=== PATIENT | male | born 1950 | race Caucasian/White ===

== ENCOUNTER 2019-01-02 03:44 | Emergency (ER) | payer MEDICARE, MEDICAID, SELFPAY ==
[2019-01-02] MEDS: DOXYCYCLINE HYCLATE 100 MG TABLET PO (03:55)
[2019-01-02 03:57] VITALS: BP 161/76; PULSE 85; RESP 16; TEMP 36.4; O2SAT 99
--- NOTE | 2019-01-02 04:18 | ED_ITS ---
HPI - Skin/Abscess/Foreign Bdy General Chief complaint: Skin/Abscess/Foreign Body Stated complaint: states upper right arm infection needs drained Time Seen by Provider: 01/02/19 03:47 Source: patient Mode of arrival: Ambulatory Limitations: no limitations History of Present Illness HPI narrative: 68-year-old smoker with history of cutaneous abscesses presents with 1 week of worsening pain, swelling and redness in his right deltoid. He occasionally injects heroin and did the day before this started. He denies any systemic findings such as fever, chills nor nausea or vomiting. The pain and redness is isolated to his right deltoid, he tried draining it on his own last night and was unsuccessful. Related Data Home Medications Medication Instructions Recorded Confirmed buprenorphine-naloxone [Suboxone] 1 evangelista SUBLINGUAL QDAY #0 03/04/17 08/02/17 Previous Rx's Medication Instructions Recorded doxycycline hyclate 100 mg PO BID #20 tab 01/02/19 Allergies Allergy/AdvReac Type Severity Reaction Status Date / Time No Known Drug Allergies Allergy Verified 08/02/17 10:12 Review of Systems Constitutional Constitutional: Denies chills, Denies fatigue, Denies fever(s), Denies frequent falls, Denies lethargy and Denies weakness Eyes Eyes: Denies change in vision, Denies eye discharge, Denies irritation and Sukhi es loss of vision ENT Ears, Nose, Mouth, and Throat: Denies change in voice, Denies dizziness, Denies neck pain, Denies sore throat and Denies throat swelling Cardiovascular Cardiovascular: Denies chest pain, Denies irregular heart rhythm, Denies lightheadedness, Denies palpitations, Denies dyspnea, Denies dyspnea on exertion and Denies orthopnea Respiratory Respiratory: Denies cough, Denies dyspnea, Denies dyspnea on exertion and Denies wheezing Gastrointestinal Gastrointestinal: Denies abdominal pain, Denies change in bowel habits, Denies diarrhea, Denies nausea and Denies vomiting Genitourinary Genitourinary: Denies hematuria, Denies flank pain, Denies urinary incontinence and Denies urinary urgency Musculoskeletal Musculoskeletal: Denies back pain, Denies muscle weakness, Denies neck pain, Denies numbness and Denies tingling Integumentary/Breasts Skin/Breast: Denies pruritus, Reports erythema, Denies rash, Reports skin pain, Reports skin swelling and Denies wounds Neurologic Neurologic: Denies behavioral changes, Denies confusion, Denies dizziness, Denies frequent falls, Denies loss of vision, Denies numbness, Denies tingling and Denies weakness Psychiatric Psychiatric: Denies anxiety, Denies behavioral changes, Denies confusion, Denies depression, Denies homicidal ideation and Denies suicidal ideation Endocrine Endocrine: Denies fatigue, Denies flushing and Denies palpitations Hematologic/Lymphatic Hematologic/Lymphatic: Denies easy bruising Allergic/Immunologic Allergic/Immunologic: Denies urticaria, Denies throat swelling and Denies wheezing PFSH Social History Smoking Status: Current every day smoker Social History Smoking Status: Current every day smoker Exam Narrative Exam Narrative: GEN: 68-year-old male appears a bit older than stated age, AOx3 and in mild distress EYES: Pupils are equal, round, and reactive to light and accommodation. Extraoccular muscles are intact bilaterally. There is no subconjunctival hemorrhage or exudate. CHEST: Lungs are clear to auscultation bilaterally and free of wheezes, rales, or rhonchi. Heart rate is regular rhythm, there are no murmurs, clicks, rubs, or gallops. There is no chest wall tenderness. ABD: Abdomen is soft and nontender. There is no guarding or rebound. Bowel sounds are normal in all 4 quadrants. There is no mass or organomegaly. EXT: Full painless ROM of all extremities with no loss of sensation or strength. SKIN: 3 x 3 cm area of erythema, warmth, swelling and fluctuance and right deltoid consistent with large cutaneous abscess, there is some surrounding cellulitis and induration Initial Vital Signs Initial Vital Signs: Vital Signs Temperature 97.6 F 01/02/19 03:57 Pulse Rate 85 01/02/19 03:57 Respiratory Rate 16 01/02/19 03:57 Blood Pressure 161/76 H 01/02/19 03:57 Pulse Oximetry 99 01/02/19 03:57 Procedures Abscess I/D Site: upper extremity Side (if applicable): right Local Anesthetic: lidocaine 1% and with epi Amount of anesthesia used (mL): 8 Technique: incised with #11 blade Amount of fluid expressed (mL): 15 Irrigation: Yes Packing used?: none Complications: pain Course Orders Ordered: Discontinued Medications Bupivacaine HCl/Epinephrine Bitart (Marcaine 0.25% W/ Epi (Pf)) 5 ml SUBCUT NOW ONE Stop: 01/02/19 03:52 Doxycycline Hyclate (Vibramycin) 100 mg PO NOW ONE Stop: 01/02/19 03:53 Last Admin: 01/02/19 03:55 Dose: 100 mg Documented by: HFARRINGTO Vital Signs Vital signs: Vital Signs - 8 hr 01/02/19 03:57 Temperature 97.6 F Pulse Rate 85 Respiratory Rate 16 Blood Pressure 161/76 H Pulse Oximetry 99 Discharge Plan Departure Patient Disposition: Home Clinical Impression: Cutaneous abscess of right upper extremity Discharge Date/Time: 01/02/19 04:20 Instructions: DI for Skin Abscess Activity Restrictions/Additional Instructions: *You have been diagnosed with [cutaneous abscess right arm] *What to do: *Take medications as directed *Follow up with your primary care provider in 2-3 days, call for an appointment. Let them know you were seen in the Emergency Department and that we ask that you be seen in follow up *Return to ER if you should have any new, worsening or concerning symptoms Prescriptions: New doxycycline hyclate 100 mg tablet 100 mg PO BID Qty: 20 RF: 0 No Action buprenorphine-naloxone [Suboxone] 8 MG/2 MG film 1 evangelista Sublingual QDAY Qty: 0 RF: 0 Referrals: Rod Antonio MD [Physician] -
--- NOTE | 2019-01-02 04:20 | PC.NURSE ---
lidocaine administered by dr brandon
== END 2019-01-02 04:20 | disposition home or self-care (01) ==
PROVIDERS: Emergency Provider Emergency Medicine
DX: L02.413 Cutaneous abscess of right upper limb (principal)
CPT/HCPCS: 10060; 99282; 99283

== ENCOUNTER 2020-05-02 12:04 | Emergency (ER) | payer MEDICARE, MEDICAID, SELFPAY ==
[2020-05-02 12:17] VITALS: BP 142/74; PULSE 78; RESP 12; TEMP 36.6; O2SAT 98; BMI 23.6
[2020-05-02 12:31] LABS: COVID19 -Nasal RAPID POSITIVE (Negative)
--- NOTE | 2020-05-02 12:36 | PC.NURSE ---
Patient reports normal smokers cough states he has been fatigued but that is nothing new intermittent fevers. Patient's roommate positive for COVID two days ago, here requesting a test.
[2020-05-02] MEDS: LIDOCAINE 1% (PF) 4 ML (13:07)
--- NOTE | 2020-05-02 13:13 | ED.URI ---
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 Presents today for 2 reasons the 1st is his roommate was recently tested positive for COVID and he would like a COVID test. He is having some shortness of breath but he says it is hard because he smokes all the time he does not know that it is any worse. He also has a cough but that does not seem to be any worse. He denies fevers chills no loss of taste or smell. He does not seem to have any new respiratory complaints. His 2nd complaint is that he has an abscess in his left arm. He does been there for the last 3 days and is getting worse. Denies fever or chills. Related Data Home Medications Medication Instructions Recorded Confirmed buprenorphine-naloxone [Suboxone] 1 evangelista SUBLINGUAL QDAY #0 03/04/17 08/02/17 Previous Rx's Medication Instructions Recorded doxycycline hyclate 100 mg PO BID #20 tab 01/02/19 sulfamethoxazole-trimethoprim 1 tab PO BID 7 Days #14 tab 05/02/20 [Bactrim DS] Allergies Allergy/AdvReac Type Severity Reaction Status Date / Time No Known Drug Allergies Allergy Verified 05/02/20 12:19 Review of Systems Review of Systems ROS Unobtainable: All systems reviewed & are unremarkable except as noted in HPI and below Constitutional Constitutional: Denies chills, Denies fever(s), Denies lethargy and Denies weakness Eyes Eyes: Denies change in vision, Denies eye discharge, Denies irritation and Denies loss of vision Cardiovascular Cardiovascular: Denies chest pain, Denies irregular heart rhythm, Denies lightheadedness, Denies palpitations, Reports dyspnea and Denies orthopnea Respiratory Respiratory: Reports cough and Reports dyspnea Gastrointestinal Gastrointestinal: Denies abdominal pain, Denies change in bowel habits, Denies diarrhea, Denies nausea and Denies vomiting Integumentary/Breasts Skin/Breast: Reports as per HPI and Reports skin swelling Neurologic Neurologic: Denies loss of vision and Denies weakness Endocrine Endocrine: Denies palpitations Patient History Social History Smoking Status: Current every day smoker Smoking Status: Current every day smoker alcohol intake frequency: 3 or more drinks per day Substance Use Type: marijuana and heroin Exam Initial Vital Signs Initial Vital Signs: Vital Signs Temperature 97.8 F 05/02/20 12:17 Pulse Rate 78 05/02/20 12:17 Respiratory Rate 12 05/02/20 12:17 Blood Pressure 142/74 H 05/02/20 12:17 Pulse Oximetry 98 05/02/20 12:17 GENERAL: 70-year-old male alert and oriented appears well and in no acute distress. HEENT: Head atraumatic,EOMI, pupils reactive, face symmetric, moist mucous membranes CARDIOVASCULAR: Regular rate and rhythm without murmurs, rubs or gallops. RESPIRATORY: Breath sounds equal bilaterally, no wheezes rales or rhonchi. No difficulty speech ABDOMEN: Soft, nontender. Normoactive bowel sounds all 4 quadrants. No guarding or rebound. EXTREMITIES: Normal range of motion, no clubbing or edema. Neurovascularly intact NEUROLOGICAL: Alert and oriented x4.Normal gait and speech. Cranial nerves II through XII grossly intact. SKIN: Abscess left deltoid 3 cm x 2 cm fluctuant no induration Procedures Abscess I/D I&D #1: Site: upper extremity Side (if applicable): left Local Anesthetic: lidocaine 1% Amount of anesthesia used (mL): 2 Technique: incised with #11 blade Irrigation: No Packing used?: none Complications: pain Course Orders Ordered: ED Orders 05/02/20 12:10 COVID19 Stat 05/02/20 13:13 Wound Culture and Gram Stain Stat 05/02/20 13:14 XR chest 2V Stat Vital Signs Vital signs: Vital Signs - 8 hr 05/02/20 12:17 05/02/20 14:20 Temperature 97.8 F Pulse Rate 78 88 Respiratory Rate 12 16 Blood Pressure 142/74 H 150/76 H Pulse Oximetry 98 99 MDM - URI/Sore Throat Lab Data Labs: Lab Results 05/02/20 Range/Units 12:10 SARS-CoV-2 (PCR) Positive H (Negative) Imaging Data Chest x-ray: Radiologist's Impression: PROCEDURE: XR CHEST 2V INDICATIONS: SOB with + COVID TECHNIQUE: 2 views of the chest were acquired. COMPARISON: [facility], , CHEST 1 VIEW, 10/03/2015, 17:29. FINDINGS: Surgical changes and devices: None. Lungs and pleura: Subtle peripheral ground-glass infiltrates are seen in right mid to lower lung zone. Left basilar atelectasis. No pleural effusions or pneumothorax. Mediastinum: Mediastinal contours are normal. Heart size is normal. Bones and chest wall: No suspicious bony abnormalities. Soft tissues appear unremarkable. IMPRESSION: Subtle peripheral ground-glass infiltrates are seen in right mid to lower lung zone, suspicious for atypical pneumonia. Dictated by: Anjelica Truong M.D. on 05/02/2020 at 13:46 MDM Narrative Medical decision making narrative: At this time patient is not requiring oxygen he overall appears well. His abscess on his left arm has been drained. I have explained to him that he can decompensate and he should monitor his oxygen however he does not have the funds for home pule oximeter. I strongly recommended that both he and his roommate quarantine at home says that he has help that he needs. I have also encouraged him that if he is feeling worse that he needs to return to the emergency department. He understands and agrees. He tolerated the abscess I&D extremely well. Discharge Plan Departure Patient Disposition: Home Clinical Impression: Abscess of arm, left, COVID-19 Instructions: DI for Skin Abscess, DI for COVID-19 (Suspected or Confirmed ) Activity Restrictions/Additional Instructions: *You have been diagnosed with COVID-19 and left arm abscess *What to do: Please stay home and quarantine for at least 10 days. It is recommended that you monitor oxygen with a home pulse oximeter, please do your best if you do not have 1. I suspect you may get worse, please monitor very closely and return with any concerns at any time *Continue to take medications as directed Bactrim 1 tablet twice daily for 7 days *Follow up with your primary care provider in 2-3 days *Return to ER if you should have increasing shortness of breath, chest pain, fever, unable to eat or drink or any new, worsening or concerning symptoms Emergency warning signs for COVID-19: - Difficulty breathing or shortness of breath - Persistent pain or pressure in the chest - New confusion or inability to arouse - Bluish lips or face CDC Guidelines for home isolation: - Stay away from others - Limit contact with pets and animals: If you must care for a pet, wash your hands before and after interacting with them - Wear a mask if you are sick - Cover your mouth and nose with a tissue when you cough or sneeze. Dispose of tissues in a lined trash can and wash your hands immediately with soap and water for at least 20 seconds. If soap and water are not available, clean hands with alcohol-based hand planer setter that contains at least 60% alcohol. - Clean your hands often with soap and water for at least 20 seconds - Avoid touching your eyes, nose and mouth with unwashed hands - Do not share dishes, drinking glasses, cups, eating utensils, towels, or bedding with other people in your home. After using these items, wash them thoroughly with soap and water or put in the efficiency miner. - Clean high-touch surfaces in your isolation area (?sick room? and bathroom) every day; let a caregiver clean and disinfect high-touch surfaces in other areas of the home. Clean the area or item with soap and water or another detergent if it is dirty. Then, use a household disinfectant. Seek medical attention, but call first: - Seek medical care right away if your illness is worsening (for example, if you have difficulty breathing). - Call your doctor before going in: Before going to the doctor?s office or emergency room, call ahead and tell them your symptoms. They will tell you what to do. - If possible, put on a facemask before you enter the building. If you can?t put on a facemask, try to keep a safe distance from other people (at least 6 feet away). This will help protect the people in the office or waiting room. - Follow care instructions from your healthcare provider and local health department: Your local health authorities will give instructions on checking your symptoms and reporting information. Prescriptions: New sulfamethoxazole-trimethoprim [Bactrim DS] 800-160 mg tablet 1 tab PO BID 7 Days Qty: 14 RF: 0 No Action buprenorphine-naloxone [Suboxone] 8 MG/2 MG film 1 evangelista Sublingual QDAY Qty: 0 RF: 0 doxycycline hyclate 100 mg tablet 100 mg PO BID Qty: 20 RF: 0
[2020-05-02 14:20] VITALS: BP 150/76; PULSE 88; RESP 16; O2SAT 99
== END 2020-05-02 14:21 | disposition home or self-care (01) ==
PROVIDERS: Emergency Provider Emergency Medicine
DX: U07.1 COVID-19 (principal); L02.414 Cutaneous abscess of left upper limb; R05 Cough; R06.02 Shortness of breath
CPT/HCPCS: 10060; 71046; 87070; 87077; 87147; 87185; 87186; 87205; 87635; 99282; 99283; C9803

== ENCOUNTER 2020-07-31 10:41 | Emergency (ER) | payer MEDICARE, MEDICAID, SELFPAY ==
[2020-07-31 11:28] VITALS: BP 134/69; PULSE 69; RESP 18; TEMP 36.9; O2SAT 96; BMI 20.9
--- NOTE | 2020-07-31 13:12 | ED.SKABFB ---
HPI - Skin/Abscess/Foreign Bdy General Chief complaint: Skin/Abscess/Foreign Body Stated complaint: skin infection on left arm, wants back looked at Time Seen by Provider: 07/31/20 13:03 Source: patient Mode of arrival: Ambulatory Limitations: no limitations History of Present Illness HPI narrative: Patient is a 70-year-old male here for evaluation of an infection to his left upper arm. He states that is been there for the past several weeks. He states there was a small area on it that when he picked added drained and has been draining however there is still redness. He did use this area to inject heroin. He has had infections in the past. He is not having any fevers. He has no other skin changes. He also states he has been having mid back pain. This is not new for him. He has had it for the past several months. He has no neurologic symptoms down into his legs. No loss of bowel or bladder. He does thinks that his back pain has been worsening during this time. Related Data Home Medications Medication Instructions Recorded Confirmed buprenorphine-naloxone [Suboxone] 1 evangelista SUBLINGUAL QDAY #0 03/04/17 08/02/17 Previous Rx's Medication Instructions Recorded doxycycline hyclate 100 mg PO BID #20 tab 01/02/19 doxycycline hyclate 100 mg PO BID 7 Days #14 tab 07/31/20 Allergies Allergy/AdvReac Type Severity Reaction Status Date / Time No Known Drug Allergies Allergy Verified 05/02/20 12:19 Review of Systems Constitutional Constitutional: Denies fatigue, Denies fever(s) and Denies headache(s) Eyes Eyes: Denies change in vision ENT Ears, Nose, Mouth, and Throat: Denies headache(s) and Denies sore throat Cardiovascular Cardiovascular: Denies chest pain and Denies dyspnea Respiratory Respiratory: Denies dyspnea Gastrointestinal Gastrointestinal: Denies abdominal pain, Denies nausea and Denies vomiting Genitourinary Genitourinary: Denies dysuria, Denies urinary hesitancy, Denies urinary incontinence and Denies urinary urgency Genitourinary: Denies dysuria, Denies urinary incontinence, Denies urinary hesitancy and Denies urinary urgency Musculoskeletal Musculoskeletal: Denies arthralgias, Reports back pain, Denies myalgias and Denies tingling Integumentary/Breasts Skin/Breast: Reports rash Neurologic Neurologic: Denies headache(s), Denies tingling and Denies paresthesias Psychiatric Psychiatric: Denies anxiety Endocrine Endocrine: Denies fatigue Hematologic/Lymphatic On Anticoagulants: No Allergic/Immunologic Allergic/Immunologic: Denies urticaria Patient History Medical History Abscess Acute CVA (cerebrovascular accident) Heroin abuse Social History Smoking Status: Current every day smoker Smoking Status: Current every day smoker alcohol intake frequency: 3 or more drinks per day Substance Use Type: marijuana and heroin Exam Initial Vital Signs Initial Vital Signs: Vital Signs Temperature 98.4 F 07/31/20 11:28 Pulse Rate 69 07/31/20 11:28 Respiratory Rate 18 07/31/20 11:28 Blood Pressure 134/69 07/31/20 11:28 Pulse Oximetry 96 07/31/20 11:28 Const General: cooperative and comfortable Limitations: mental status not altered HENMT Head: normal to inspection and normocephalic Ears: hearing grossly normal bilaterally Nose: external nose normal Eyes General: appearance normal, both eyes and all related structures Resp Effort & Inspection: normal respiratory effort Auscultation: clear to auscultation bilaterally Cardio Rate: regular rate Rhythm: regular rhythm GI Inspection: non-distended Palpation: No firm Back/Spine/Pelvis Cervical Spine: No cervical muscular tenderness Thoracic/Lumbar Spine: No paraspinal tenderness, No thoracic spinal tenderness and No lumbar spinal tenderness Skin Other: Patient with a large area of redness in his left upper arm. It is contained to the lateral aspect and does not cross shoulder joint nor his elbow. There is no drainage. Bedside ultrasound shows no deep abscess. Neuro General: patient alert, patient awake and patient oriented x3 Cognition: normal cognition Speech: speech normal Gait: normal gait Motor: muscle tone normal throughout Sensory Exam: no sensory deficits noted Extrem General: normal to inspection and capillary refill normal Psych Appearance: grossly normal and well kempt Course Orders Ordered: ED Orders 07/31/20 13:12 Consult to [employer] SAL[employer] TECHNICAL CONSULTANT - Hand Cloth Folder Stat Discontinued Medications Doxycycline Hyclate (Doxycycline Hyclate 100 Mg Tablet) 100 mg PO NOW ONE Stop: 07/31/20 13:12 Last Admin: 07/31/20 13:17 Dose: 100 mg Documented by: RSTONE Vital Signs Vital signs: Vital Signs - 8 hr 07/31/20 11:28 07/31/20 14:32 Temperature 98.4 F Pulse Rate 69 83 Respiratory Rate 18 18 Blood Pressure 134/69 177/81 H Pulse Oximetry 96 99 MDM - Skin/Abscess/Foreign Bdy MDM Narrative Medical decision making narrative: His left upper arm redness is concerning for cellulitis. Bedside ultrasound does not show any deep abscess. He is afebrile. He is complaining of mid back pain but this has been going on for several weeks if not months. He has no other neurologic symptoms associated with that. I did consider other issues such as paraspinal abscess given his IV drug abuse however he is afebrile and has no neurologic symptoms and the length of time that this has been going on is more consistent with musculoskeletal etiology. He does not have a primary care doctor. He was seen by social work here in the emergency department. He was given phone numbers and resources for follow-up. He was given strict return precautions. Prescription for antibiotics was electronically transmitted to the pharmacy of his choice. He expressed understanding and agreement. Discharge Plan Departure Patient Disposition: Home Clinical Impression: Cellulitis of arm, left Instructions: DI for Cellulitis -- Adult Activity Restrictions/Additional Instructions: I recommend that you take the antibiotics as directed. They were electronically transmitted to [facility]. I also recommend you contact the health resource is coordinator at the hospital. Their phone numbers [phone]. They can help with finding a primary doctor. You can also contact [phone]. [place] you can contact [facility] at [phone]. You can also contact the [facility] at [phone] to help with housing. Return to the emergency department for any new or worsening symptoms Prescriptions: New doxycycline hyclate 100 mg tablet 100 mg PO BID 7 Days Qty: 14 RF: 0 No Action buprenorphine-naloxone [Suboxone] 8 MG/2 MG film 1 evangelista Sublingual QDAY Qty: 0 RF: 0 doxycycline hyclate 100 mg tablet 100 mg PO BID Qty: 20 RF: 0
[2020-07-31] MEDS: DOXYCYCLINE HYCLATE 100 MG TABLET PO (13:17)
--- NOTE | 2020-07-31 14:28 | CM.SWNOTE ---
ORDNANCE OFFICER note ORDNANCE OFFICER consult requested for patient. Patient is a 70 y/o male who presents to this ED due to an infection in his arm. Per Dr. Jiménez, patient does not have a PCP, but is interested in establishing care with a PCP to begin assessing and treating any physical health concerns he may have. ORDNANCE OFFICER enters room and meets with patient. Patient is A+O x4, polite, and explains that he is interested in starting to meet with a doctor. Patient explains that he has not had a regular provider previously. ORDNANCE OFFICER and patient discuss options for this. Patient explains that he would prefer a provider in [place], but is open to establishing care in [facility] if needed. ORDNANCE OFFICER offers to call [facility] to see if there are openings and patient accepts. ORDNANCE OFFICER and patient discuss housing. Patient has had unstable housing all my life and states he is trying to find housing of own. Patient is currently not on housing lists. ORDNANCE OFFICER explains process for getting on housing list through [employer] via [facility], and patient agreeable to phone number for [facility] in d/c notes. ORDNANCE OFFICER attempts to contact [facility] to establish primary care. ORDNANCE OFFICER ends call due to long hold time. ORDNANCE OFFICER discusses this with patient, who is agreeable to phone numbers for [facility] and [facility] in d/c notes. ORDNANCE OFFICER reviews the above with Dr. Jiménez. Plan: Patient to d/c after course of care in ED. ANGELLA Fam
[2020-07-31 14:32] VITALS: BP 177/81; PULSE 83; RESP 18; O2SAT 99
== END 2020-07-31 14:52 | disposition home or self-care (01) ==
PROVIDERS: Emergency Provider Emergency Medicine
DX: L03.114 Cellulitis of left upper limb (principal)
CPT/HCPCS: 99283

== ENCOUNTER 2020-10-07 19:07 | Inpatient (IN) | payer MEDICARE, MEDICAID, SELFPAY ==
[2020-10-07] VITALS (29 sets, daily range): BP systolic 89–117; BP diastolic 55–75; PULSE 78–137; RESP 11–30; TEMP 36.2–36.4; O2SAT 93–97; BMI 24.9
[2020-10-07] MEDS: SODIUM CHLORIDE 0.9% 1,000 ML 1000 ML IV (19:10)
--- NOTE | 2020-10-07 19:17 | DI.RAD.S_ITS ---
PROCEDURE: XR CHEST 1V INDICATIONS: suspected sepsis TECHNIQUE: One view of the chest was acquired. COMPARISON: [facility], CR, XR CHEST 2V, 05/02/2020, 13:22. FINDINGS: Surgical changes and devices: None. Lungs and pleura: Patchy ill-defined right lower lung zone opacities as well as left basilar opacities. No focal consolidation. No pleural effusions or pneumothorax. Mediastinum: Mediastinal contours appear normal. Heart size is normal. Bones and chest wall: No suspicious bony lesions. Overlying soft tissues appear unremarkable. IMPRESSION: Ill-defined patchy bibasilar opacities which appear more pronounced on the left. Findings may represent atypical pneumonia versus early developing focal airspace disease. Recommend follow up chest radiograph 4-6 weeks after treatment to document resolution of findings and/or return to baseline examination. Dictated by: Víctor Galarza M.D. on 10/07/2020 at 20:26 Approved by: Víctor Galarza M.D. on 10/07/2020 at 20:27
[2020-10-07 19:58] LABS: Add Manual Diff / Slide Review NO; Basophils Absolute Auto 0 /uL (0-100); Basophils Percent Auto 0.2 % (0-2); Eosinophils Absolute Auto 0 /uL (0-450); Eosinophils Percent Auto 0.2 % (2-4); Hematocrit 48.5 % (41-53); Lymphocytes Absolute Auto 200 /uL (1100-4500); Lymphocytes Percent Auto 1.1 % (25-40); Mean Corpuscular Hemoglobin 31.2 PG (26-34); Mean Corpuscular Volume 94.5 fL (80-100); Monocytes Absolute Auto 100 /uL (0-900); Monocytes Percent Auto 0.5 % (3-14); Neutrophils Absolute Auto 14300 /uL (1500-7000); Platelet Count 229 X10^3/uL (150-400); Red Blood Cell Count 5.13 X10^6/uL (4.5-5.9); Red Cell Distribution Width 14.2 % (11.6-14.8); White Blood Cell Count 14.6 X10^3/uL (4.5-11.0)
--- NOTE | 2020-10-07 20:03 | ED_ITS ---
HPI - General Adult General Chief complaint: Altered Mental Status Stated complaint: Weakness, SOB, x2 days Time Seen by Provider: 10/07/20 19:44 Source: EMS Mode of arrival: EMS Limitations: altered mental status History of Present Illness HPI narrative: Patient is a 70-year-old male who is brought in by EMS for ev aluation of lower extremity weakness. Patient states that he called EMS because for the past 24 hours he has noticed lower extremity weakness. There was reports that he has had an extensive alcohol use history but states he has not drank since this morning. He also is an IV drug abuser. After EMS arrived to the house he has to go use the restroom and admitted to shooting up heroin at that time. Other than the lower extremity weakness he denies any other symptoms. Has not tried anything for symptoms prior to arrival. No interventions from EMS prior to arrival. Related Data Home Medications Medication Instructions Recorded Confirmed buprenorphine 8 mg-naloxone 2 mg 1 evangelista SUBLINGUAL QDAY #0 03/04/17 08/02/17 sublingual film (Suboxone) Previous Rx's Medication Instructions Recorded doxycycline hyclate 100 mg tablet 100 mg PO BID #20 tab 01/02/19 Allergies Allergy/AdvReac Type Severity Reaction Status Date / Time No Known Drug Allergies Allergy Verified 10/07/20 19:09 Review of Systems Constitutional Constitutional: Denies fever(s) and Reports weakness Eyes Eyes: Reports system reviewed and no additional complaints, except as documented ENT Ears, Nose, Mouth, and Throat: Denies sore throat Cardiovascular Cardiovascular: Reports system reviewed and no additional complaints, except as documented, Denies chest pain and Denies dyspnea Respiratory Respiratory: Denies cough and Denies dyspnea Gastrointestinal Gastrointestinal: Denies abdominal pain, Denies change in bowel habits, Denies nausea and Denies vomiting Genitourinary Genitourinary: Denies dysuria Musculoskeletal Musculoskeletal: Reports muscle weakness (Lower extremities) Integumentary/Breasts Skin/Breast: Reports system reviewed and no additional complaints, except as documented Neurologic Neurologic: Reports weakness Psychiatric Psychiatric: Reports system reviewed and no additional complaints, except as documented Endocrine Endocrine: Reports system reviewed and no additional complaints, except as documented Hematologic/Lymphatic On Anticoagulants: No Allergic/Immunologic Allergic/Immunologic: Reports system reviewed and no additional complaints, except as documented Patient History Medical History Abscess Acute CVA (cerebrovascular accident) Heroin abuse Social History Smoking Status: Current every day smoker Smoking Status: Current every day smoker alcohol intake frequency: 3 or more drinks per day Substance Use Type: marijuana and heroin Exam Initial Vital Signs Initial Vital Signs: Vital Signs Temperature 97.2 F L 10/07/20 19:15 Pulse Rate 136 H 10/07/20 19:15 Pulse Oximetry 96 10/07/20 19:15 Const General: disheveled and ill appearing HENMT Head: normal to inspection and normocephalic Eyes General: appearance normal, both eyes and all related structures Neck Neck: normal visual inspection Chest Chest: No crepitus Resp Effort & Inspection: tachypneic Auscultation: clear to auscultation bilaterally Cardio Rate: tachycardic Rhythm: regular rhythm GI Inspection: normal to inspection and non-distended External: normal external exam Skin General: no rashes or lesions noted Neuro General: patient alert, patient awake and patient oriented x3 Motor: muscle tone normal throughout Other: Patient able to lift both legs off the bed. Strength 5/5 lower extremity equal bilateral. Upper extremity strength equal, 5/5 bilateral Extrem General: normal to inspection and capillary refill normal Psych Appearance: disheveled Course Orders Ordered: ED Orders 10/08/20 00:35 EC echo doppler complete Stat Discontinued Medications Albuterol/Ipratropium (Albuterol/Ipratropium 3 Ml Ampul) 3 ml INH NOW ONE Stop: 10/07/20 19:51 Last Admin: 10/07/20 21:13 Dose: Not Given Documented by: [email or web address] Sodium Chloride (Normal Saline 0.9%) 1,000 mls @ 1,000 mls/hr IV BOLUS ONE Stop: 10/07/20 20:16 Last Infusion: 10/07/20 22:54 Dose: 0 mls/hr Documented by: [email or web address] Admin: 10/07/20 19:10 Dose: 1,000 mls/hr Documented by: [email or web address] Ceftriaxone Sodium 1,000 mg/ (Sodium Chloride) 100 mls @ 200 mls/hr IV NOW ONE Stop: 10/07/20 20:52 Last Infusion: 10/07/20 22:55 Dose: 0 mls/hr Documented by: [email or web address] Infusion: 10/07/20 21:03 Dose: 0 mls/hr Documented by: [email or web address] Admin: 10/07/20 21:03 Dose: 200 mls/hr Documented by: CTREACHERELLE Vancomycin HCl (Vancomycin) 1,000 mg in 200 mls @ 200 mls/hr IV NOW ONE Stop: 10/07/20 23:24 Last Infusion: 10/07/20 23:52 Dose: 0 mls/hr Documented by: [email or web address] Admin: 10/07/20 22:40 Dose: 200 mls/hr Documented by: [email or web address] Sodium Chloride (Normal Saline 0.9%) 1,100 mls @ 1,000 mls/hr IV BOLUS ONE Stop: 10/07/20 23:39 Last Infusion: 10/07/20 22:54 Dose: 0 mls/hr Documented by: [email or web address] Admin: 10/07/20 22:41 Dose: 1,000 mls/hr Documented by: [email or web address] Vital Signs Vital signs: Vital Signs - 8 hr 10/08/20 00:20 10/08/20 00:30 10/08/20 00:40 Pulse Rate 79 78 76 Respiratory Rate 18 16 18 Blood Pressure 92/60 93/59 L 96/59 L Pulse Oximetry 96 97 98 10/08/20 00:50 10/08/20 01:00 10/08/20 01:10 Pulse Rate 79 78 79 Respiratory Rate 15 14 14 Blood Pressure 99/61 100/61 101/63 Pulse Oximetry 99 97 97 10/08/20 01:20 10/08/20 01:30 10/08/20 01:40 Pulse Rate 78 78 75 Respiratory Rate 14 16 14 Blood Pressure 99/63 101/62 98/61 Pulse Oximetry 97 97 98 10/08/20 01:50 10/08/20 02:00 10/08/20 02:10 Pulse Rate 74 73 73 Respiratory Rate 15 18 15 Blood Pressure 103/62 99/61 95/57 L Pulse Oximetry 98 96 100 10/08/20 02:20 10/08/20 02:30 10/08/20 02:40 Pulse Rate 72 72 71 Respiratory Rate 15 18 16 Blood Pressure 103/56 L 91/56 L 97/57 L Pulse Oximetry 98 84 L 10/08/20 02:50 10/08/20 03:00 10/08/20 03:10 Pulse Rate 72 74 71 Respiratory Rate 13 16 13 Blood Pressure 97/60 103/62 100/63 Pulse Oximetry 94 96 97 10/08/20 03:20 10/08/20 03:30 10/08/20 03:40 Pulse Rate 71 71 70 Respiratory Rate 14 15 12 Blood Pressure 105/63 92/61 102/60 Pulse Oximetry 97 96 95 10/08/20 03:50 10/08/20 04:00 10/08/20 04:10 Pulse Rate 70 71 68 Respiratory Rate 14 14 13 Blood Pressure 102/60 97/60 102/61 Pulse Oximetry 95 95 96 10/08/20 04:20 10/08/20 04:30 10/08/20 04:40 Pulse Rate 68 67 70 Respiratory Rate 12 15 20 Blood Pressure 100/60 100/62 96/62 Pulse Oximetry 77 L 92 97 10/08/20 04:50 10/08/20 05:00 10/08/20 05:10 Pulse Rate 75 66 67 Respiratory Rate 22 21 19 Blood Pressure 100/60 99/62 100/62 Pulse Oximetry 98 96 96 Medical Decision Making Lab Data Lab results reviewed: Yes I reviewed the patient's lab results. Result diagrams: 10/07/20 19:40 10/07/20 20:00 Labs: Lab Results 10/07/20 10/07/20 10/07/20 Range/Units 19:40 20:00 20:00 WBC 14.6 H (4.5-11.0) X10^3/uL RBC 5.13 (4.5-5.9) X10^6/uL Hgb 16.0 (13.5-17.5) g/dL Hct 48.5 (41-53) % MCV 94.5 (80-100) fL MCH 31.2 (26-34) PG MCHC 33.0 (30-36) % RDW 14.2 (11.6-14.8) % Plt Count 229 (150-400) X10^3/uL Neut % (Auto) 98.0 H (50-75) % Lymph % (Auto) 1.1 L (25-40) % [place] % (Auto) 0.5 L (3-14) % Eos % (Auto) 0.2 L (2-4) % Baso % (Auto) 0.2 (0-2) % Neut # (Auto) 25290 H (7829-8711) /uL Lymph # (Auto) 200 L (6779-8228) /uL [place] # (Auto) 100 (0-900) /uL Eos # (Auto) 0 (0-450) /uL Baso # (Auto) 0 (0-100) /uL Sodium 136 L (137-145) mmol/L Potassium 3.7 (3.4-5.1) mmol/L Chloride 106 (98-107) mmol/L Carbon Dioxide 21 L (22-32) mmol/L BUN 18 (9-20) mg/dL Creatinine 1.26 H (0.66-1.25) mg/dL Estimated GFR 56.6 L (>60) mL/min BUN/Creatinine Ratio 14.3 (6-22) Glucose 111 H (80-110) mg/dL Lactate 4.5 H* (0.7-2.1) mmol/L Calcium 9.3 (8.4-10.2) mg/dL Total Bilirubin 0.6 (0.2-1.3) mg/dL AST 148 H (17-59) IU/L ALT 44 (<50) IU/L Alkaline Phosphatase 104 (38-126) U/L Total Protein 7.2 (6.3-8.2) g/dL Albumin 3.7 (3.5-5.0) g/dL Globulin 3.5 (1.7-4.1) g/dL Albumin/Globulin Ratio 1.1 (1.0-2.8) Lipase 29 (23-300) U/L Procalcitonin 42.5 H (<0.5) ng/mL Ethyl Alcohol ( - 10) mg/dL SARS-CoV-2 (PCR) (Negative) 10/07/20 10/07/20 10/07/20 Range/Units 20:00 20:10 22:30 WBC (4.5-11.0) X10^3/uL RBC (4.5-5.9) X10^6/uL Hgb (13.5-17.5) g/dL Hct (41-53) % MCV (80-100) fL MCH (26-34) PG MCHC (30-36) % RDW (11.6-14.8) % Plt Count (150-400) X10^3/uL Neut % (Auto) (50-75) % Lymph % (Auto) (25-40) % [place] % (Auto) (3-14) % Eos % (Auto) (2-4) % Baso % (Auto) (0-2) % Neut # (Auto) (6145-8199) /uL Lymph # (Auto) (8604-9060) /uL [place] # (Auto) (0-900) /uL Eos # (Auto) (0-450) /uL Baso # (Auto) (0-100) /uL Sodium (137-145) mmol/L Potassium (3.4-5.1) mmol/L Chloride (98-107) mmol/L Carbon Dioxide (22-32) mmol/L BUN (9-20) mg/dL Creatinine (0.66-1.25) mg/dL Estimated GFR (>60) mL/min BUN/Creatinine Ratio (6-22) Glucose (80-110) mg/dL Lactate 1.9 (0.7-2.1) mmol/L Calcium (8.4-10.2) mg/dL Total Bilirubin (0.2-1.3) mg/dL AST (17-59) IU/L ALT (<50) IU/L Alkaline Phosphatase (38-126) U/L Total Protein (6.3-8.2) g/dL Albumin (3.5-5.0) g/dL Globulin (1.7-4.1) g/dL Albumin/Globulin Ratio (1.0-2.8) Lipase (23-300) U/L Procalcitonin (<0.5) ng/mL Ethyl Alcohol < 10 ( - 10) mg/dL SARS-CoV-2 (PCR) Negative (Negative) Imaging Data Chest x-ray: Radiologist's Impression: [address] [id number] ReportSigned Patient: Mino Benitez FMR#: [id number]: 1950Acct:[id number]/Sex: 70 / MDate of Service: 10/07/20Loc: EDAccession Number: [id number] Procedure: XR chest 1V Ordering Provider: Morgan Jiménez D.O. PROCEDURE: XR CHEST 1V INDICATIONS: suspected sepsis TECHNIQUE: One view of the chest was acquired. COMPARISON: [facility], , XR CHEST 2V, 05/02/2020, 13:22. FINDINGS: Surgical changes and devices: None. Lungs and pleura: Patchy ill-defined right lower lung zone opacities as well as left basilar opacities. No focal consolidation. No pleural effusions or pneumothorax. Mediastinum: Mediastinal contours appear normal. Heart size is normal. Bones and chest wall: No suspicious bony lesions. Overlying soft tissues appear unremarkable. IMPRESSION: Ill-defined patchy bibasilar opacities which appear more pronounced on the left. Findings may represent atypical pneumonia versus early developing focal airspace disease. Recommend follow up chest radiograph 4-6 weeks after treatment to document resolution of findings and/or return to baseline examination. Dictated by: Víctor Galarza M.D. on 10/07/2020 at 20:26 Approved by: Víctor Galarza M.D. on 10/07/2020 at 20:27 ECG Data Attestation: I personally reviewed and interpreted this ECG as follows: Interpretation: Sinus tachycardia Ventricular rate of 130 Normal axis Normal QRS Normal QTC No ST T wave changes MDM Narrative Medical decision making narrative: Patient denies any medical problems. He denies taking any medications. His only symptom upon arrival was bilateral lower extremity weakness. He did admit to shooting up heroin just prior to arrival. When he did arrive he was tachycardic and tachypneic. He was afebrile. Chest x-ray could have some findings that are concerning for pneumonia however his physical exam is not consistent with this. He is not coughing. Is not having any shortness of breath. Has clear lung exam. Had a difficult time obtaining IV access given his IV drug abuse. A midline was placed by the PICC nurse. Blood cultures were obtained. Does have leukocytosis and initially had an elevated lactate which improved with time and fluids here in the ER. I do have some suspicion that his clinical presentation upon arrival is related to the heroin he injected just prior however given his physical exam and also his labs and vital signs he was treated as sepsis especially given his elevated procalcitonin. Was given antibiotics. Cultures were obtained. After fluids were administered his vital signs improved he also stated that he felt better. Given his IV drug abuse there is some concern about endocarditis. He is does not have any murmur on exam. Patient was in the emergency department for an extended period of time given the fact that there was no bed availability in the hospital. I did discuss the case with PRUDENCIO dickerson however we will hold on admission for now. Due to bed availability. An echocardiogram is ordered for morning. Discussed the case with Dr. Borja with Internal Medicine will admit for further evaluation and treatment. Critical Care Time Critical Care Time Critical Care Time: Yes Total Critical Care Time: 40 Attestation: The high probability of a clinically significant, sudden or life threatening deterioration of the cardiovascular, respiratory system(s) required my full and direct attention, intervention and personal management. The aggregate critical care time was 40 minutes. This time is in addition to time spent performing reported procedures but includes the following: [x] Data Review and interpretation [x] Patient assessment and monitoring of vital signs [x] Documentation [x] Medication orders and management Discharge Plan Departure Patient Disposition: Admitted As Inpatient Clinical Impression: Sepsis, IV drug abuse
[2020-10-07 20:35] LABS: Alanine Aminotransferase 44 IU/L (<50); Albumin 3.7 g/dL (3.5-5.0); Albumin Globulin Ratio 1.1 (1.0-2.8); Alkaline Phosphatase 104 U/L (38-126); Aspartate Aminotransferase 148 IU/L (17-59); BUN Creatinine Ratio 14.3 (6-22); Bilirubin Total 0.6 mg/dL (0.2-1.3); Blood Urea Nitrogen 18 mg/dL (9-20); Calcium 9.3 mg/dL (8.4-10.2); Carbon Dioxide 21 mmol/L (22-32); Chloride 106 mmol/L (98-107); Estimated Glomerular Filt Rate 56.6 mL/min (>60); Globulin 3.5 g/dL (1.7-4.1); Glucose 111 mg/dL (80-110); HEMOLYSIS 20 (0-50); Lipase 29 U/L (23-300); Potassium 3.7 mmol/L (3.4-5.1); Sodium 136 mmol/L (137-145); Total Protein 7.2 g/dL (6.3-8.2)
[2020-10-07 20:49] LABS: Lactate (Lactic Acid) 4.5 mmol/L (0.7-2.1)
[2020-10-07 20:50] LABS: Procalcitonin 42.5 ng/mL (<0.5)
[2020-10-07] MEDS: cefTRIAXone 1,000 MG in SODIUM CHLORIDE 0.9% 100 ML 200 ML IV (21:03)
[2020-10-07 21:16] LABS: Ethanol (ETOH) < 10 mg/dL
[2020-10-07 21:16] LABS: COVID19 - ADMIT (NP swab/PCR) Negative (Negative)
[2020-10-07 22:15] LABS: Reflexed Lactate in 2 Hours Y
[2020-10-07] MEDS: VANCOMYCIN 1,000 MG/200 ML PIGGYBACK 200 MG IV (22:40)
[2020-10-07] MEDS: SODIUM CHLORIDE 0.9% 1,100 ML 1000 ML IV (22:41)
[2020-10-07 22:46] LABS: Lactate 2HR (Lactic Acid Rflx) 1.9 mmol/L (0.7-2.1)
[2020-10-08] VITALS (86 sets, daily range): BP systolic 87–112; BP diastolic 50–68; PULSE 63–99; RESP 12–36; TEMP 36.1–36.8; O2SAT 77–100; BMI 24.9
--- NOTE | 2020-10-08 00:35 | DI.ECHO.S_ITS ---
[facility]---------+ [facility] +---------+ : : [address] : : : : [id number] : : : : Phone: [phone] Echocardiogram Report + + :Name: WALE SANCHEZ Study Date: 10/08/2020 Height: 66 in : :[facility] ReadingLocation: Weight: 154 lb: : Gender: Male BSA: 1.8 m2 : :: 1950 Age: 70 yrs BP: 99/62 mmHg: :Reason For Study: EVAL FOR ENDOCARDITIS : :Ordering Physician: PILAR, : :UDLCE Performed By: Chayito Lewis : :Referring: DULCE QUEZADA : + + Interpretation Summary The left ventricle is normal in size and wall thickness. Left ventricular systolic function is low normal. The ejection fraction is estimated to be 50- 55%. There are no obvious focal wall motion abnormalities noted but poor endocardial definition reduces the sensitivity for the detection of such. Diastolic parameters suggest probable normal left ventricular diastolic function and normal filling pressures. The right ventricle is normal size. Right ventricular systolic function is at the lower limits of normal. Pulmonary artery pressures cannot be estimated because of the lack of a measurable TR jet velocity but the IVC suggests a CVP of around 3 mmHg. The left atrium is mildly dilated. Right atrial size is normal. There is mild aortic regurgitation. There is no other significant valvular heart disease. The aortic root is normal size. No significant evidence for endocarditis. Procedure: A two-dimensional transthoracic echocardiogram with color flow and Doppler was performed. The study quality was technically adequate. The patient had an echocardiogram, but there is no comparison study available. The patient was in sinus rhythm with heart rates between 65-72 bpm during the exam. Left Ventricle: The left ventricle is normal in size and wall thickness. Left ventricular systolic function is low normal. The ejection fraction is estimated to be 50-55%. There are no obvious focal wall motion abnormalities noted but poor endocardial definition reduces the sensitivity for the detection of such. Diastolic parameters suggest probable normal left ventricular diastolic function and normal filling pressures. Right Ventricle: The right ventricle is normal size. Right ventricular systolic function is at the lower limits of normal. Atria: The left atrium is mildly dilated. Right atrial size is normal. There is no Doppler evidence for an interatrial shunt. Mitral Valve: The mitral valve leaflets appear borderline thickened, but open well. There is trace mitral regurgitation. Aortic Valve: The aortic valve is trileaflet. The aortic valve is mildly calcified. There is no aortic valve stenosis. There is mild aortic regurgitation. Tricuspid Valve: The tricuspid valve is normal in structure and function. There is trace tricuspid regurgitation. Pulmonary artery pressures cannot be estimated because of the lack of a measurable TR jet velocity but the IVC suggests a CVP of around 3 mmHg. Pulmonic Valve: The pulmonic valve leaflets are thin and pliable; valve motion is normal. There is no pulmonic valvular regurgitation. There is no other significant valvular heart disease. Great Vessels: The aortic root is normal size. The dimensions of the ascending aorta are normal. The IVC is of normal diameter and collapses greater than 50% with a sniff. This suggests a low right atrial pressure of 3 mm Hg. Pericardium/ Pleura There is no pericardial effusion. There is no pleural effusion. MMode/2D Measurements & Calculations LVIDd: 4.5 cm LVOT diam: 2.0 cm LVIDs: 3.1 cm Ao root diam: 3.6 cm FS: 30.4 % asc Aorta Diam: 3.2 cm IVSd: 0.73 cm Ao Arch Diam (Prox Trans): 2.9 cm LVPWd: 0.72 cm LV petty. diameter/BSA (cm/m^2): 2.5 LV sys. diameter/BSA (cm/m^2): 1.8 LA A2 area: 18.3 cm2 RA long axis: 5.1 cm LA A4 area: 20.0 cm2 RA area: 17.7 cm2 LA length (vol): 4.8 cm RA vol: 52.7 ml LA vol: 64.0 ml RA : 29.4 ml/m2 LA vol index: 35.8 ml/m2 IVC diam: 1.1 cm RVD1 (basal): 3.2 cm TAPSE: 1.4 cm Doppler Measurements & Calculations Ao V2 max: 88.0 cm/sec LVOT Max Jorge Alberto: 80.7 cm/sec Ao V2 mean: 59.9 cm/sec LV V1 max P.6 mmHg Ao max P.1 mmHg LV V1 VTI: 17.5 cm Ao mean P.6 mmHg ATA(I,D): 3.1 cm2 Ao V2 VTI: 18.0 cm ATA(V,D): 3.0 cm2 sev ratio: 0.97 ATA indexed to BSA (cm^2/m^2): 1.8 MV E max jorge alberto: 75.5 cm/sec PA V2 max: 47.6 cm/sec MV A max jorge alberto: 76.3 cm/sec PA V2 mean: 30.8 cm/sec MV E/A: 0.99 PA mean P.43 mmHg Med Peak E' Jorge Alberto: 5.8 cm/sec PA pr(Accel): 24.2 mmHg E/E' med: 13.0 Lat Peak E' Jorge Alberto: 6.6 cm/sec E/E' lat: 11.4 E/e' average: 12.2 MV dec time: 0.23 sec SV(LVOT): 56.7 ml Reading Physician:12:42 PM
[2020-10-08] MEDS: AZITHROMYCIN 500 MG in DEXTROSE 5% IN WATER 250 ML IV (12:10)
[2020-10-08] MEDS: SODIUM CHLORIDE 0.9% 1,000 ML 100 ML IV ×2 (12:37→19:29)
[2020-10-08] MEDS: VANCOMYCIN 750 MG/150 ML PIGGYBACK 150 MG IV ×2 (12:38→23:32)
[2020-10-08] MEDS: cefTRIAXone 1,000 MG in SODIUM CHLORIDE 0.9% 100 ML 200 ML IV (14:08)
[2020-10-08] MEDS: ACETAMINOPHEN 325 MG TABLET 650 MG PO (19:28)
--- NOTE | 2020-10-08 19:39 | PC.NURSE ---
Patient has been resting in bed. C/o mild headache, tylenol given. Patient tolerated dinner. Patient has been A&O, calm and cooperative.
--- NOTE | 2020-10-08 20:57 | PM.HP.1 ---
History of Present Illness History of Present Illness Chief complaint: Weakness, SOB, x2 days Narrative: 70M with PMH of heroin abuse, previous infected abscess who comes in with weakness. He noted that he had been having some slight weakness of his leg prior to arrival to the hospital. He is not really able to explain it further. Otherwise he was having no pain. He did go to the restroom per EMS and shot up heroin once EMS had arrived. Patient states that he had slight shortness of breath. No fevers, no chills. He shoots up in his left arm. He has not withdran from heroin in the past. He has not having any abdominal pain, dysuria, coughing. In the ED, workup was done and he was noted to be initially afebrile with heart rate in the 130s and blood pressure in the systolic 80s. He was given IV fluids. Labs notable for WBC of 14.6, creatinine 1.26, procalcitonin of 42.5. Chest xray showed possible infiltrates. Left arm had multiple nontender, nonerythematous regions of induration, and track hansen. He had an initial lactate of 4 which improved to 1.9 with fluids. He had an ECHO done which showed no endocarditis. He was complaining of some back pain as well, but otherwise was feeling better. He was admitted for further treatment. Asked patient about family history, but he denied multiple times his parents or siblings had any medical condition Patient History Medical History Abscess Acute CVA (cerebrovascular accident) Heroin abuse Family & Social History Social History: household members friend(s) Prior Living Arrangements House Safety & Behavioral: Feels Safe in Current Yes Environment Been Physically Hurt or No Threatened By a Person Suicidal Ideation Description None Suicide Plan Description No Plan Tobacco & Substance use: Smoking Status Current every day smoker Smoking packs per day 0.5 alcohol intake frequency 3 or more drinks per day Substance Use Type marijuana,heroin Meds Home Medications and Allergies Allergies Allergy/AdvReac Type Severity Reaction Status Date / Time No Known Drug Allergies Allergy Verified 10/07/20 19:09 Review of Systems Review of Systems Narrative: 14 systems reviewed and negative aside from HPI. Exam Vital Signs (past 8 hours): - 10/08/20 13:00 10/08/20 13:30 10/08/20 14:00 Temperature Pulse Rate 79 79 74 Respiratory Rate 33 H 25 H 28 H Blood Pressure Pulse Oximetry 98 97 98 10/08/20 14:01 10/08/20 14:10 10/08/20 14:20 Temperature Pulse Rate 74 72 73 Respiratory Rate 24 29 H 21 Blood Pressure 96/61 92/55 L 87/53 L Pulse Oximetry 98 99 98 10/08/20 14:29 10/08/20 14:30 10/08/20 14:33 Temperature Pulse Rate 75 73 77 Respiratory Rate 36 H 30 H 22 Blood Pressure 87/55 L 88/54 L Pulse Oximetry 99 98 99 10/08/20 14:34 10/08/20 14:40 10/08/20 14:50 Temperature Pulse Rate 73 72 71 Respiratory Rate 19 21 23 Blood Pressure 90/50 L 91/59 L Pulse Oximetry 99 98 99 10/08/20 15:00 10/08/20 15:10 10/08/20 15:21 Temperature Pulse Rate 70 71 74 Respiratory Rate 20 20 19 Blood Pressure 99/65 90/58 L 93/54 L Pulse Oximetry 99 99 99 10/08/20 15:30 10/08/20 15:40 10/08/20 15:50 Temperature Pulse Rate 75 71 74 Respiratory Rate 19 19 21 Blood Pressure 97/58 L 102/58 L 93/59 L Pulse Oximetry 98 99 98 10/08/20 16:00 10/08/20 16:10 10/08/20 16:30 Temperature Pulse Rate 77 74 74 Respiratory Rate 20 18 Blood Pressure 93/55 L 94/51 L 92/60 Pulse Oximetry 98 98 98 10/08/20 16:39 10/08/20 16:40 10/08/20 16:50 Temperature Pulse Rate 74 75 73 Respiratory Rate 16 22 21 Blood Pressure 87/54 L Pulse Oximetry 97 98 97 10/08/20 17:38 10/08/20 19:38 Temperature 97 F L 98.3 F Pulse Rate 79 73 Respiratory Rate 18 18 Blood Pressure 101/56 L 92/61 Pulse Oximetry 100 97 Oxygen Delivery Method Room Air Oxygen Flow Rate 0 Narrative Exam Narrative: GEN: dishelved, chronically ill appearing, no acute distress HEENT: moist mucous membranes, PERRL NECK: trachea midline, no JVD CV: regular rate and rhythm with no murmurs PULM: clear bilaterally with no wheezes, rhonchi, rales ABD: soft, nontender, nondistended, no organomegaly EXT: warm, LUE has no erythema but he has track hansen with nontender areas of induration NEURO: awake, alert and oriented, moving all extremities, normal upper and lower extremity strength PSYCH: pleasant Objective Labs Result Diagrams: 10/07/20 19:40 10/07/20 20:00 Labs: Laboratory Results - last 24 hr 10/07/20 10/07/20 10/07/20 20:00 20:10 22:30 Lactate 1.9 Ethyl Alcohol < 10 SARS-CoV-2 (PCR) Negative Assessment & Plan Assessment & Plan narrative: Mr. Benitez is a 70M with PMH of IV drug use, alcohol abuse who comes in complaining of weakness and now resolved shortness of breath 1. Sepsis, acute -possible infection from a pneumonia, or may be infected from injection from possible bacteremia, wbc 14, procalcitonin >40, lactate of 4 -plan for LUE CT scan, and possible imaging of back if no definite source of infection identified -initially patient with blood pressure in 80s, LUI with creatinine >1.2, respiratory rate of 30, which is consistent with qsofa of 3, with organ dysfunction of renal failure -source of infection still not definite -UA negative -for now IV antibiotics with vanc, azithromycin, ceftriaxone -MRSA swab 2. Acute heroin intoxication -no evidence of withdrawal currently, patient denies previous withdrawals -monitor for withdrawal going forward 3. Alcohol abuse -will order CIWA protocol -patient ordered for MVI, thiamine, folate 4. LUI -creatinine of 1.26 up from baseline of 0.70 -presumed to have prerenal given hypotension -will monitor creatinine with IV fluids IVF: Normal saline DVT ppx: heparin sc DIET: Regular CODE: Full, proxy is brother Torrey
[2020-10-08] MEDS: HEPARIN 5,000 UNIT/ML VIAL 5000 UNIT SUBCUT (21:09)
[2020-10-09] VITALS (9 sets, daily range): BP systolic 106–141; BP diastolic 55–78; PULSE 64–71; RESP 16–21; TEMP 36.2–36.6; O2SAT 94–98
[2020-10-09 06:28] LABS: Hemoglobin 13.1 g/dL (13.5-17.5); Mean Corpuscular HGB Conc 32.6 % (30-36); Mean Corpuscular Hemoglobin 30.7 PG (26-34); Mean Corpuscular Volume 94.2 fL (80-100); Platelet Count 144 X10^3/uL (150-400); Red Blood Cell Count 4.25 X10^6/uL (4.5-5.9); Red Cell Distribution Width 14.1 % (11.6-14.8); White Blood Cell Count 27.7 X10^3/uL (4.5-11.0)
[2020-10-09 06:32] LABS: Add Manual Diff / Slide Review YES
[2020-10-09 06:35] LABS: BUN Creatinine Ratio 27.2 (6-22); Blood Urea Nitrogen 22 mg/dL (9-20); Calcium 7.7 mg/dL (8.4-10.2); Carbon Dioxide 21 mmol/L (22-32); Chloride 111 mmol/L (98-107); Estimated Glomerular Filt Rate > 60.0 mL/min (>60); Glucose 102 mg/dL (80-110); HEMOLYSIS < 15 (0-50); Potassium 3.7 mmol/L (3.4-5.1); Sodium 137 mmol/L (137-145)
[2020-10-09] MEDS: SODIUM CHLORIDE 0.9% 1,000 ML 100 ML IV ×2 (06:47→21:46)
[2020-10-09 06:52] LABS: Procalcitonin 20.6 ng/mL (<0.5)
[2020-10-09 06:56] LABS: Neutrophils Absolute Manual 24653 /uL (3000-5900); Total Cells Counted 100
[2020-10-09 06:57] LABS: RBC Morphology Normal Morphology
[2020-10-09 07:55] LABS: Alanine Aminotransferase 29 IU/L (<50); Albumin 2.7 g/dL (3.5-5.0); Albumin Globulin Ratio 0.9 (1.0-2.8); Alkaline Phosphatase 65 U/L (38-126); Aspartate Aminotransferase 55 IU/L (17-59); Bilirubin Total 0.4 mg/dL (0.2-1.3); Bilirubin Unconjugated 0.1 mg/dL (0.0-1.1); HEMOLYSIS < 15 (0-50); Total Protein 5.7 g/dL (6.3-8.2)
[2020-10-09] MEDS: MEROPENEM 1 GM in SODIUM CHLORIDE 0.9% 100 ML 200 ML IV ×3 (08:03→23:57)
[2020-10-09] MEDS: THIAMINE 100 MG TABLET PO (08:03)
[2020-10-09] MEDS: HEPARIN 5,000 UNIT/ML VIAL 5000 UNIT SUBCUT (08:03)
[2020-10-09] MEDS: FOLIC ACID 1 MG TABLET PO (08:03)
[2020-10-09] MEDS: MULTIVITAMIN 1 TABLET 1 TAB PO (08:03)
[2020-10-09] MEDS: ACETAMINOPHEN 325 MG TABLET 650 MG PO ×2 (08:18→16:14)
--- NOTE | 2020-10-09 08:47 | DI.CT.S_ITS ---
PROCEDURE: CT UE RT W CON INDICATIONS: IVDU, sepsis, arm pain, unclear source infection TECHNIQUE: After the administration of intravenous contrast, 3 mm axial sections acquired of the right humerus, with coronal and sagittal reformats. COMPARISON: None. FINDINGS: Image quality: Excellent. Bones: No focal osseous destruction. No acute fracture identified. Soft tissues: There is diffuse anterior skin thickening and subcutaneous edema. No soft tissue gas identified. No definite sub fascial changes. Emphysema seen in the visualized right lung. Scattered scarring/atelectasis. IMPRESSION: Anterior subcutaneous edema and cellulitis. No focal osseous destruction to suggest advanced osteomyelitis. If there is persistent clinical concern, continued short interval radiographic followup or contrast enhanced MRI could be performed to assess for early infection. Dictated by: Dwight Mayer M.D. on 10/09/2020 at 10:44 Approved by: Dwight Mayer M.D. on 10/09/2020 at 10:48
--- NOTE | 2020-10-09 08:48 | DI.CT.S_ITS ---
PROCEDURE: CT CHEST W CON INDICATIONS: cough, sepsis, source of infection unclear TECHNIQUE: After the administration of intravenous contrast, 5 mm thick sections acquired from the pulmonary apices to the posterior costophrenic angles. 1 mm axial lung, 5 mm thick coronal and sagittal reformats and 7 mm axial MIP were acquired. For radiation dose reduction, the following was used: automated exposure control, adjustment of mA and/or kV according to patient size. COMPARISON: None. FINDINGS: Image quality: Excellent. Lungs and pleura: No definite acute air space opacities but there is slight alveolar infiltration at the posterior left upper lobe, and at the posterior right and left lower lobes, and it is unclear whether this represents alveolar scarring from prior inflammatory events or a combination of slight pneumonia and atelectasis.. No pleural effusions or pneumothorax. Central and peripheral airways are patent and normal in caliber. Mediastinum: Heart size is normal. No pericardial effusion. No mediastinal or hilar adenopathy by size criteria. Thoracic aorta and central pulmonary arteries are normal in size. Esophagus is normal in caliber. No hiatal hernia. Bones and chest wall: No suspicious bony lesions. No vertebral body compression fractures. No axillary or supraclavicular adenopathy by size criteria. Thyroid gland appears normal where well seen . Abdomen: Visualized upper abdominal solid organs appear normal. Upper abdominal bowel loops are normal in caliber. IMPRESSION: Slight alveolar scarring/atelectasis at the posterior lung bases and posterior aspect of the left upper lobe, definite pneumonia is not found. Dictated by: Conner Leon M.D. on 10/09/2020 at 10:29 Approved by: Conner Leon M.D. on 10/09/2020 at 10:32
--- NOTE | 2020-10-09 08:49 | DI.MRI.S_ITS ---
PROCEDURE: MR LUMBAR SPINE WO CON INDICATIONS: Sepsis, IVDU, low back pain TECHNIQUE: Noncontrast sagittal T1 spin echo and T2 fast echo, sagittal STIR, axial T1 and T2 fast spin echo through the lumbar spine. In cases with scoliosis, additional coronal T2 fast spin echo may be performed. COMPARISON: None. FINDINGS: Image quality: Images are highly motion degraded. Alignment and Curvature: No significant listhesis. Degenerative straightening of the usual lumbar lordosis. Bone Marrow: Images are motion degraded which limits evaluation of marrow signal. Within this limitation, there is no obvious bone marrow edema. There is no suspicious focus of low marrow signal intensity on the T1 weighted images. Spinal Cord: Normal position and appearance of the conus. Regional Soft Tissues: No paravertebral masses. T12-L1: No spinal canal or neural foraminal stenosis. L1-L2: Disc bulge flattens the ventral thecal sac producing mild spinal canal stenosis. No neural foraminal narrowing on the right. Foraminal component of the disc bulge contributes to mild left neural foraminal narrowing. L2-L3: Mild spinal canal stenosis due to diffuse disc bulge and a superimposed broad-based posterior disc protrusion. Motion artifact limits evaluation for mass effect upon the L3 nerve roots. There is mild bilateral neural foraminal stenosis. L3-L4: At least mild spinal canal stenosis due to diffuse disc bulge and superimposed broad-based posterior disc protrusion. Motion artifact limits evaluation on the L4 nerve roots. Foraminal components of the disc bulge contribute to mild bilateral neural foraminal narrowing. L4-L5: At least mild spinal canal stenosis due to a combination of diffuse disc bulge and a superimposed broad-based posterior disc protrusion. There is displacement of the descending L5 nerve roots within both subarticular zones. Foraminal components of the disc bulge and facet hypertrophy combine to produce mild bilateral neural foraminal stenosis. L5-S1: Diffuse disc bulge. No obvious mass effect upon the S1 nerve roots. Moderate bilateral neural foraminal narrowing. IMPRESSION: Highly motion degraded exam. No gross evidence of marrow edema or other marrow signal abnormality to indicate osteomyelitis, with cavity at that the images are highly motion degraded and there is no IV contrast administered. Repeat study would be recommended if there remains high clinical suspicion for osteomyelitis/discitis. Mild degenerative changes. Dictated by: Thang Talley M.D. on 10/09/2020 at 11:08 Approved by: Thang Talley M.D. on 10/09/2020 at 11:12
--- NOTE | 2020-10-09 09:34 | DI.CT.S_ITS ---
PROCEDURE: CT UE LT W CON INDICATIONS: IVDU, sepsis, arm pain, unclear source infection TECHNIQUE: After the administration of intravenous contrast, 3 mm axial sections acquired of the left humerus, with coronal and sagittal reformats. COMPARISON: [facility], CT, CHEST ANGIO-PE, 09/10/2008, 22:02. FINDINGS: Image quality: Excellent. Bones: No focal osseous destruction. No acute fracture identified. Soft tissues: There is circumferential skin thickening and subcutaneous cellulitis. Small focus of soft tissue gas seen within anterior soft tissues at the superficial fascia at the level of the mid humeral diaphysis this finding technically nonspecific. Scarring/atelectasis seen in the visualized left lung. There is focal ill-defined ground-glass opacity seen on image 216/14. This measures approximately 3 cm. Diffuse emphysema.. Presumed reactive left axillary lymph nodes. IMPRESSION: Diffuse left upper extremity cellulitis, with a small focus of soft tissue gas at the anterior superficial fascia at the level of the mid humeral diaphysis. This could be related to recent injections versus infection with gas-forming organism. Recommend clinical correlation and management. No focal osseous destruction to suggest advanced osteomyelitis. If there is persistent clinical concern, continued short interval radiographic followup or contrast enhanced MRI could be performed to assess for early infection. 3 cm focus of ill-defined ground-glass opacity involving the mid left lung near the fissure. This could be post inflammatory in nature although cannot exclude indolent neoplasm such as adenocarcinoma in situ. As clinically warranted, continued surveillance with CT chest could be performed. Dictated by: Dwight Mayer M.D. on 10/09/2020 at 10:34 Approved by: Dwight Mayer M.D. on 10/09/2020 at 10:44
[2020-10-09] MEDS: LORazepam 1 MG TABLET PO (10:08)
[2020-10-09] MEDS: AZITHROMYCIN 500 MG in DEXTROSE 5% IN WATER 250 ML IV (12:31)
[2020-10-09 13:43] LABS: Vancomycin Trough 9.6 ug/mL (10-20)
[2020-10-09] MEDS: VANCOMYCIN 750 MG/150 ML PIGGYBACK 150 MG IV (14:11)
[2020-10-09] MEDS: VANCOMYCIN TROUGH 1 REQUEST MISC (14:11)
--- NOTE | 2020-10-09 15:33 | PC.NURSE ---
VSS. Reports pain in low back, PRN tylenol given with mild relief. Given atavan prior to MRI due to anxiety which did not provide much benefit and the patient was unable to sit still to get the MRI w/ contrast portion done due to inability to sit still. CIWA:0. CIWA precautions in place. Call light within reach, bed low.
[2020-10-09 16:29] LABS: Acinetobacter baumannii Not Detected (Not Detect); Candida glabrata Detected (Not Detect); Candida krusei Not Detected (Not Detect); Candida parapsilosis Not Detected (Not Detect); Candida tropicalis Not Detected (Not Detect); E. coli Not Detected (Not Detect); Enterobacter cloacae complex Not Detected (Not Detect); Enterobacteriaceae species Not Detected (Not Detect); Enterococcus species Not Detected (Not Detect); Haemophilus influenzae Not Detected (Not Detect); KPC (carbapenem-resist gene) Not Detected (Not Detect); Listeria monocytogenes Not Detected (Not Detect); Methicillin-resistant gene Not Detected (Not Detect); Neisseria meningitidis Not Detected (Not Detect); Proteus species Not Detected (Not Detect); Pseudomonas aeruginosa Not Detected (Not Detect); Serratia marcescens Not Detected (Not Detect); Staphylococcus species Not Detected (Not Detect); Streptococcus agalactiae (Gr B Not Detected (Not Detect); Streptococcus pneumonia Not Detected (Not Detect); Streptococcus pyogenes (Gr A) Not Detected (Not Detect); Streptococcus species Not Detected (Not Detect); Vancomycin-rest genes A/B Not Detected (Not Detect)
--- NOTE | 2020-10-09 16:50 | PC.NURSE ---
Addendum entered by Jannet Sahu R.N. 10/09/20 23:31: Pt has requested suboxone this evening shift. Pt informed CATH LAB RADIOLOGICAL TECHNOLOGIST initially refused this offer from doctor and now would like to accept. Dr. Borja was informed and stated will order methadone for this patient. Orders not received so discussion with ALEX Mayer. One time dose of methadone was given to pt as per emar. Pt now resting quietly in bed with eyes closed on left side. No signs of distress or discomfort. Has repeatedly been tangled in gown in bed this evening shift so gown removed. Refused dinner this evening shift. Addendum entered by Jannet Sahu R.N. 10/09/20 17:07: Lab notifies this teletypewriter operator of recent results rhiannon in blood cultures. Dr. Borja made aware. Original Note: Pt awake, alert in bed. Very few words. Hard of hearing, but does admit to back pain 8/10 when asked. Administered tylenol as per emar. Nasal swab for MRSA as ordered. Vanco peak drawn via midline RUE and sent to lab. Informed pt need to collect sputum when able. Specimen cup provided at bedside. Seizure pad x [address] Pt positions self independently in bed. Declines to wear scd's. Unable to change cap to dual lumen midline following blood draw as unable to remove initial cap. Cleansed thoroughly and flushed completely with normal saline. IV antibiotics infusing as ordered. Encouraged to call for needs.
[2020-10-09 16:56] LABS: Vancomycin Peak 20.9 ug/mL (20-40)
--- NOTE | 2020-10-09 17:50 | P.PN_ITS ---
Subjective Subjective Date Patient Seen: 10/09/20 Time Patient Seen: 08:00 Interval history: He is complaining of some slight bilateral arm pain. He also has low back pain. He has a slight shortness of breath. Exam Vital Signs (past 8 hours): - 10/09/20 12:20 10/09/20 13:10 10/09/20 15:28 Temperature 97.5 F L 97.8 F Pulse Rate 70 67 71 Respiratory Rate 16 18 17 Blood Pressure 106/68 114/78 124/74 Pulse Oximetry 97 95 Oxygen Delivery Method Room Air Oxygen Flow Rate 0 Narrative Exam Narrative: GEN: dishelved, chronically ill appearing, no acute distress HEENT: moist mucous membranes, PERRL NECK: trachea midline, no JVD CV: regular rate and rhythm with no murmurs PULM: clear bilaterally with no wheezes, rhonchi, rales ABD: soft, nontender, nondistended, no organomegaly EXT: warm, LUE has no erythema but he has track hansen with nontender areas of induration NEURO: awake, alert and oriented, moving all extremities, normal upper and lower extremity strength PSYCH: pleasant Objective Labs Result Diagrams: 10/09/20 06:12 10/09/20 06:12 Labs: Laboratory Results - last 24 hr 10/07/20 10/09/20 10/09/20 19:40 01:10 06:12 WBC 27.7 H D RBC 4.25 L Hgb 13.1 L Hct 40.0 L MCV 94.2 MCH 30.7 MCHC 32.6 RDW 14.1 Plt Count 144 L Neut % (Auto) Not Reportable Lymph % (Auto) Not Reportable [place] % (Auto) Not Reportable Eos % (Auto) Not Reportable Baso % (Auto) Not Reportable Lymph # (Auto) Not Reportable [place] # (Auto) Not Reportable Baso # (Auto) Not Reportable Total Counted 100 Seg Neutrophils % 47.0 Band Neutrophils % 42.0 H Lymphocytes % (Manual) 7.0 L Monocytes % (Manual) 3.0 Metamyelocytes % 1.0 H Neutrophils # (Manual) 80078 H RBC Morphology Normal morphology Sodium Potassium Chloride Carbon Dioxide BUN Creatinine Estimated GFR BUN/Creatinine Ratio Glucose Calcium Total Bilirubin Conjugated Bilirubin Unconjugated Bilirubin AST ALT Alkaline Phosphatase Total Protein Albumin Globulin Albumin/Globulin Ratio Procalcitonin Nasal Screen MRSA (PCR) Vancomycin Peak Vancomycin Trough 9.6 L A. baumannii (PCR) Not detected Rhiannon albicans (PCR) Detected H C. glabrata (PCR) Detected H C. krusei (PCR) Not detected C. parapsilosis (PCR) Not detected C. tropicalis (PCR) Not detected Enterobacteriac sp PCR Not detected E. cloacae complex PCR Not detected Enterococcus sp PCR Not detected E. coli (PCR) Not detected H. influenzae (PCR) Not detected Klebsiella oxytoca PCR Not detected Klebsiella pneumoniae Not detected List. monocytogenes PCR Not detected N. meningitidis (PCR) Not detected Proteus species (PCR) Not detected Serratia marcescens PCR Not detected Staphylococcus sp PCR Not detected Staph aureus (PCR) Not detected mecA-Methicil Res Gene Not detected Streptococcus sp PCR Not detected Group A Strep (PCR) Not detected Strep agalactiae (PCR) Not detected Strep pneumoniae (PCR) Not detected P. aeruginosa (PCR) Not detected Leelee/B-Vanco Res Genes Not detected KPC-Carbap Res Gene PCR Not detected 10/09/20 10/09/20 10/09/20 06:12 06:12 06:12 WBC RBC Hgb Hct MCV MCH MCHC RDW Plt Count Neut % (Auto) Lymph % (Auto) [place] % (Auto) Eos % (Auto) Baso % (Auto) Lymph # (Auto) [place] # (Auto) Baso # (Auto) Total Counted Seg Neutrophils % Band Neutrophils % Lymphocytes % (Manual) Monocytes % (Manual) Metamyelocytes % Neutrophils # (Manual) RBC Morphology Sodium 137 Potassium 3.7 Chloride 111 H Carbon Dioxide 21 L BUN 22 H Creatinine 0.81 Estimated GFR > 60.0 BUN/Creatinine Ratio 27.2 H Glucose 102 Calcium 7.7 L Total Bilirubin 0.4 Conjugated Bilirubin 0.0 Unconjugated Bilirubin 0.1 AST 55 ALT 29 Alkaline Phosphatase 65 Total Protein 5.7 L Albumin 2.7 L Globulin 3.0 Albumin/Globulin Ratio 0.9 L Procalcitonin 20.6 H Nasal Screen MRSA (PCR) Vancomycin Peak Vancomycin Trough A. baumannii (PCR) Rhiannon albicans (PCR) C. glabrata (PCR) C. krusei (PCR) C. parapsilosis (PCR) C. tropicalis (PCR) Enterobacteriac sp PCR E. cloacae complex PCR Enterococcus sp PCR E. coli (PCR) H. influenzae (PCR) Klebsiella oxytoca PCR Klebsiella pneumoniae List. monocytogenes PCR N. meningitidis (PCR) Proteus species (PCR) Serratia marcescens PCR Staphylococcus sp PCR Staph aureus (PCR) mecA-Methicil Res Gene Streptococcus sp PCR Group A Strep (PCR) Strep agalactiae (PCR) Strep pneumoniae (PCR) P. aeruginosa (PCR) Leelee/B-Vanco Res Genes KPC-Carbap Res Gene PCR 10/09/20 10/09/20 16:13 16:32 WBC RBC Hgb Hct MCV MCH MCHC RDW Plt Count Neut % (Auto) Lymph % (Auto) [place] % (Auto) Eos % (Auto) Baso % (Auto) Lymph # (Auto) [place] # (Auto) Baso # (Auto) Total Counted Seg Neutrophils % Band Neutrophils % Lymphocytes % (Manual) Monocytes % (Manual) Metamyelocytes % Neutrophils # (Manual) RBC Morphology Sodium Potassium Chloride Carbon Dioxide BUN Creatinine Estimated GFR BUN/Creatinine Ratio Glucose Calcium Total Bilirubin Conjugated Bilirubin Unconjugated Bilirubin AST ALT Alkaline Phosphatase Total Protein Albumin Globulin Albumin/Globulin Ratio Procalcitonin Nasal Screen MRSA (PCR) Negative for mrsa Vancomycin Peak 20.9 Vancomycin Trough A. baumannii (PCR) Rhiannon albicans (PCR) C. glabrata (PCR) C. krusei (PCR) C. parapsilosis (PCR) C. tropicalis (PCR) Enterobacteriac sp PCR E. cloacae complex PCR Enterococcus sp PCR E. coli (PCR) H. influenzae (PCR) Klebsiella oxytoca PCR Klebsiella pneumoniae List. monocytogenes PCR N. meningitidis (PCR) Proteus species (PCR) Serratia marcescens PCR Staphylococcus sp PCR Staph aureus (PCR) mecA-Methicil Res Gene Streptococcus sp PCR Group A Strep (PCR) Strep agalactiae (PCR) Strep pneumoniae (PCR) P. aeruginosa (PCR) Leelee/B-Vanco Res Genes KPC-Carbap Res Gene PCR PFSH Medical History Abscess Acute CVA (cerebrovascular accident) Heroin abuse Social History household members: friend(s) Smoking Status: Current every day smoker Assessment & Plan Assessment & Plan narrative: Mr. Benitez is a 70M with PMH of IV drug use, alcohol abuse who comes in complaining of weakness and now resolved shortness of breath 1. Sepsis, acute -infection from fungemia with budding yeast growing in culture and PCR positive for rhiannon albicans and galbrata -upper extremity bilateral CT shows no definitive evidence of abscess -initially patient with blood pressure in 80s, LUI with creatinine >1.2, respiratory rate of 30, which is consistent with qsofa of 3, with organ dysfunction of renal failure -WBC increased from 14->27 -UA negative -for now IV antibiotics with vanc, meropenem, discontinued IV azithromycin as no evidence of pneumonia -added IV micafungin for fungemia -discussed with ID, they would recommend trying again for MRI L-spine, ophtho eval for endophthalmitis within 1-2 weeks, DILAN to definitively rule out endocarditis, would recommend at least 4 weeks of IV micafungin at this point, and plan possibly can change pending further results -repeat blood cultures daily until negative -MRSA swab pending 2. Acute heroin intoxication -no evidence of withdrawal currently, patient denies previous withdrawals -monitor for withdrawal going forward 3. Alcohol abuse -will order CIWA protocol -patient ordered for MVI, thiamine, folate 4. LUI, resolved -creatinine of 1.26 up from baseline of 0.70, improved to 0.81 on 10/09 -presumed to have prerenal given hypotension -will monitor creatinine with IV fluids IVF: Normal saline DVT ppx: heparin sc DIET: Regular CODE: Full, proxy is brother Torrey
[2020-10-09] MEDS: MICAFUNGIN 100 MG in SODIUM CHLORIDE 0.9% 100 ML IV (18:05)
[2020-10-09] MEDS: METHADONE 10 MG TABLET PO (21:43)
[2020-10-10] VITALS (7 sets, daily range): BP systolic 118–144; BP diastolic 73–82; PULSE 56–84; RESP 17–22; TEMP 36.1–36.8; O2SAT 96–99
[2020-10-10] MEDS: VANCOMYCIN 1,000 MG/200 ML PIGGYBACK 200 MG IV ×2 (02:07→11:31)
--- NOTE | 2020-10-10 07:50 | DI.MRI.S_ITS ---
PROCEDURE: MR LUMBAR SPINE W CON INDICATIONS: back pain, fungemia, IVDU, evidence infection? TECHNIQUE: Noncontrast sagittal T1 spin echo and T2 fast spin echo, sagittal STIR, axial T1 and T2 fast spin echo through the lumbar spine. In cases with scoliosis, additional coronal T2 fast spin echo may be performed. After the administration of contrast, sagittal and axial T1 spin echo with fat saturation through the lumbar spine. COMPARISON: [facility], , MR LUMBAR SPINE WO CON, 10/09/2020, 10:40. FINDINGS: Limited sequences were obtained to supplement the motion degraded MRI examination from 10/10/2019. The current images demonstrate enhancement centered on the endplates at the L3-L4 and L1-L2 levels. This corresponds in location to areas of increased T1 and T2 signal intensity. There was no convincing STIR signal abnormality in these locations on the proceeding MRI, although it should be noted that that study was highly motion degraded. No repeat stir sequence was obtained, per request. T2 images demonstrate no fluid within the intervertebral disc spaces. No prevertebral or paraspinous enhancement appreciated. No enhancement within the epidural space identified. Improved axial images on the current study demonstrates severe spinal canal stenosis at L2-L3 and severe spinal canal stenosis at L3-L4 with moderate subarticular zone stenosis at L4-L5. IMPRESSION: 1. No convincing evidence of discitis/osteomyelitis. Some minimal enhancement at the L3-L4 and L1-L2 endplates is present, corresponding to areas of degenerative endplate signal change. Some mild enhancement is within the intervertebral disc spaces at these levels also, though there is no associated fluid signal on the T2 images. Overall, the findings are favored to represent degenerative changes and not infection. Severe spinal canal stenosis at L2-L3 and L3-L4, findings which were not appreciated on the prior study due to the severe motion degradation. Dictated by: Thang Talley M.D. on 10/10/2020 at 16:36 Approved by: Thang Talley M.D. on 10/10/2020 at 16:41
[2020-10-10] MEDS: METHADONE 10 MG TABLET PO ×2 (08:09→14:35)
[2020-10-10] MEDS: THIAMINE 100 MG TABLET PO (08:09)
[2020-10-10] MEDS: MULTIVITAMIN 1 TABLET 1 TAB PO (08:09)
[2020-10-10] MEDS: FOLIC ACID 1 MG TABLET PO (08:09)
[2020-10-10] MEDS: HEPARIN 5,000 UNIT/ML VIAL 5000 UNIT SUBCUT ×2 (08:10→20:42)
[2020-10-10] MEDS: CEFEPIME 1 GM in SODIUM CHLORIDE 0.9% 100 ML 200 ML IV ×2 (08:18→20:38)
[2020-10-10] MEDS: SODIUM CHLORIDE 0.9% 1,000 ML 100 ML IV ×2 (08:19→16:49)
[2020-10-10 08:49] LABS: Hematocrit 37.7 % (41-53); Hemoglobin 12.5 g/dL (13.5-17.5); Mean Corpuscular Hemoglobin 30.8 PG (26-34); Mean Corpuscular Volume 93.2 fL (80-100); Platelet Count 143 X10^3/uL (150-400); Red Blood Cell Count 4.05 X10^6/uL (4.5-5.9); Red Cell Distribution Width 14.4 % (11.6-14.8); White Blood Cell Count 18.4 X10^3/uL (4.5-11.0)
[2020-10-10 09:04] LABS: BUN Creatinine Ratio 27.6 (6-22); Blood Urea Nitrogen 16 mg/dL (9-20); Calcium 6.9 mg/dL (8.4-10.2); Carbon Dioxide 17 mmol/L (22-32); Chloride 120 mmol/L (98-107); Estimated Glomerular Filt Rate > 60.0 mL/min (>60); Glucose 80 mg/dL (80-110); HEMOLYSIS < 15 (0-50); Potassium 2.8 mmol/L (3.4-5.1); Sodium 139 mmol/L (137-145)
[2020-10-10] MEDS: METHADONE 5 MG TABLET PO (09:58)
--- NOTE | 2020-10-10 10:41 | PC.NURSE ---
0200 dose of Vancomycin found by this pattern chart writer uninfused hanging on IV poll. Called pharmacy who directed to give dose now at 10:41 and they will re-time second dose.
--- NOTE | 2020-10-10 12:45 | PT.IIE ---
Current Diagnoses Sepsis, unspecified organism (10/09/20) Medical History (Last Reviewed 10/08/20 @ 05:26 by Morgan Jiménez DO) Abscess Acute CVA (cerebrovascular accident) Heroin abuse Physical Therapy Inpatient Evaluation/Re-Eval M1 PT/OT-IP Prior Functional Status Start: 10/10/20 14:18 Freq: NEEDED Status: Active Protocol: Document 10/10/20 12:45 AB (Rec: 10/10/20 14:32 AB [id number]) Medical Review Prior Functional Status Medical History Reviewed Yes Communication able to make needs known Mobility and Gait pt stated that he is independent with all mobilities and ambulation using SPC 50% of the time and without AD other times Social History Household Members none Living Arrangements Homeless Number of Stairs To Enter/Railing? pt stated that he used to live at his friend's house and sleeps on the couch but stated that his friend is kicking him out and does not have d/c place at this time M2 PT-IP Current Condition Start: 10/10/20 14:18 Freq: NEEDED Status: Active Protocol: Document 10/10/20 12:45 AB (Rec: 10/10/20 14:32 AB [id number]) Physical Therapy Current Condition Current Condition Evaluation Date 10/10/20 Treatment Diagnosis sepsis; difficulty in walking Onset Date 10/09/20 M3 PT-IP Subjective Start: 10/10/20 14:18 Freq: NEEDED Status: Active Protocol: Document 10/10/20 12:45 AB (Rec: 10/10/20 14:32 AB [id number]) Subjective Physical Therapy Visit Type Type Initial Evaluation Visit Start Time 12:45 Visit Stop Time 13:05 Total Visit Minutes 20 Number of BALL WARPER TENDER Visits 0 Physical Therapy Visit Comments Patient Comments agreeable to do PT Therapy Pain Assessment Pain When Pain Assessed At Rest Pain Present Pain Present Pain Reported Location Back Scale Used pain scale not stated Pain Management Techniques Distraction,Modification of Treatment,Re-positioning, Timing of Activity with Medications M4 PT-IP Mobility and Gait Start: 10/10/20 14:18 Freq: NEEDED Status: Active Protocol: Document 10/10/20 12:45 AB (Rec: 10/10/20 14:32 AB [id number]) PT-Bed Mobility Assessment Supine to Sit Supine to Sit Standby Assistance Sit to Supine Sit to Supine Standby Assistance PT-Transfer Assessment Sit to and From Stand Sit to and from Stand Standby Assistance,Use of Upper Extremities Equipment Transfer Assistive Device None Orthotic/Prosthetic Devices or Brace: No Comments Mobility Comments pt supine in bed. agreed to do PT. completed supine to sit SBA. pt was able to sit on EOB SBA. completed sit to stand SBA and ambulated in room without AD SBA but with unsteady gait and occasionally holds on to bed/wall for support. presents with antalgic gait with increase R side lateral trunk lean. pt requested to go back to bed. completed sit to supine SBA. positioned in bed . call light and table placed within reach. Gait Assessment Gait Gait Assistance Required: Standby Assistance,1 Person Assist Distance (Feet) 30 Assistive Devices Assistive Device None Orthotic/Prosthetic Devices or Brace: No Gait Deviations General Gait Pattern Antalgic,Lateral Trunk Lean Factors Limiting Gait Function Factors Limiting Gait Function Decreased Activity Tolerance, Pain,Poor Balance,Poor Safety Awareness PT-Balance Assessment Sitting Balance and Reactions Static Sitting Balance Ability Good Dynamic Sitting Balance Ability Good Standing Balance and Reactions Static Standing Balance Ability Good Dynamic Standing Balance Ability Fair Device Used without AD M5 PT-IP Objective Assessments Start: 10/10/20 14:18 Freq: NEEDED Status: Active Protocol: Document 10/10/20 12:45 AB (Rec: 10/10/20 14:32 AB [id number]) Orientation Orientation/Cognition Level of Alertness Alert Orientation Name,Place,Situation Language Function Ability Hard of Hearing Safety Awareness Decreased Safety Awareness Gross Range of Motion Lower Extremity ROM Assessment Within Functional Limits Strength Lower Extremity Strength Assessment Within Functional Limits Coordination Assessment Gross Coordination Gross Coordination WNL Sensation Assessment Sensation Gross Sensation WNL Muscle Tone Muscle Tone WNL Yes M6 PT-IP Treatment Start: 10/10/20 14:18 Freq: NEEDED Status: Active Protocol: Document 10/10/20 12:45 AB (Rec: 10/10/20 14:32 AB [id number]) Physical Therapy Treatment Education Education Provided Safety M7 PT-IP Assessment and Plan Start: 10/10/20 14:18 Freq: NEEDED Status: Active Protocol: Document 10/10/20 12:45 AB (Rec: 10/10/20 14:32 AB [id number]) PT Summary Assessment and Plan Potential Rehabilitation Potential Good Status of Condition at Evaluation Stable Summary Impairments Pain,Balance,Bed Mobility, Transfers,Gait,Activity Tolerance Assessment Summary pt requiring SBA with ambulation without AD but presents with unsteady antalgic gait. will assess ambulation using SPC next tx session for safety. pt is currently homeless. will continue PT intervention to improve mobility independence. Goals Bed Mobility Goal Independent Transfer Goal Independent,Cane Gait Goal Independent,Cane Gait Distance 200 Other Goals improve ambulation without AD I 150 ft up/down 5 steps 1 rail mod I Days to Meet Goals 5 Frequency of Treatment Frequency Of Treatment Once a Day Treatment Plan Physical Therapy Treatment Plan Bed Mobility Training,Transfer Training,Gait Training, Therapeutic Exercise,Balance Retraining,Discharge Planning, Hot or Cold Pack,Neuromuscular Re-ed,Coordination Retraining Recommendations To Nursing Amount of Assist Needed Standby Assistance Discharge Recommendations PT Discharge Recommendations Home Transportation Needs at Discharge Private Vehicle
--- NOTE | 2020-10-10 13:57 | PC.NURSE ---
BP 142/82, temp 97.0F, all other VSS. Pain 7/10 in low back. Patient reported the new dosing of methadone is helping him a lot. A&Ox3. SBA to toilet. NS running at 100 into PICC line. CIWA:0. Call light within reach, bed low.
--- NOTE | 2020-10-10 15:42 | CM.SWNOTE ---
PAINT PREPPER Note This PAINT PREPPER requested to consult to assess needs of this 70 yo male, arrives w/weakness and SOB for days, PMH includes active heroin use, ETOH use, w/previous infected abscess. Patient found to have acute sepsis infection from fungemia with budding yeast growing in culture and PCR positive for rhiannon albicans and galbrata, patient expected to need at least 4 weeks of IV abx. Met w/patient, introduced role. Patient admits to [employer] surfing for years, does not have a vehicle, and considers himself homeless at this time. Patient has been staying w/a friend, who is 85 yo, and after a recent argument, patient thinks he will likely not be welcome back to his friend's home Patient has one brother that lives in [place] and two siblings that live in [place], patient says his siblings do not do drugs and are worried about him, patient tearful. Patient injects heroin on a daily basis, says he pays about $10 or $20 a day if I have it and will drink 1/2 fifth of hard alcohol daily. Patient says he continues heroin use for pain management, not to get high. Patient has been using drugs and alcohol for 50 years and states I can't believe I'm still alive. Patient can't remember the last time he was sober and when asked if his heroin use is causing a problem in his life, patient answers no, it hasn't been. Patient has used Suboxone in the past, however, it did not sound as if patient used the treatment appropriately as he said to this PAINT PREPPER you have to use 10x more (heroin) to get the same effect. 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 He admits to spending good money frivolously. Patient states he has no plan for discharge but refuses to consider a SNF for his IV abx need. Patient is pleasant in conversation and appears forthcoming w/information, however, admits he has no plan for DC. Patient has casino operations supervisor staying in shelters, and is not intending to stop his drinking or heroin use upon DC, excluding him from the motel voucher program through [facility]. Patient has no primary care physician Updated PT Germania and RN Alley; Germania says patient is a SBA functionally, would not need SNF from a physical standpoint. This PAINT PREPPER will follow closely. Patient will likely need to remain admitted for IV abx treatment until medically cleared to return home w/friend vs penitentiary vs street. Close outpatient f/u will be recommended. ANGELLA Madrigal
[2020-10-10 16:22] LABS: Albumin 2.3 g/dL (3.5-5.0)
[2020-10-10] MEDS: POTASSIUM CHLORIDE 20 MEQ TAB 40 MEQ PO ×2 (16:26→20:41)
--- NOTE | 2020-10-10 17:30 | PC.NURSE ---
Addendum entered by Jannet Sahu R.N. 10/10/20 23:38: ALEX Mayer informed lab and this keno writer / runner unable to draw today's ordered blood cultures. Addendum entered by Jannet Sahu R.N. 10/10/20 21:58: Accepted ensure this evening after eating very little for dinner. Addendum entered by Jannet Sahu R.N. 10/10/20 21:50: Additional attempt by this keno writer / runner to draw blood from pt's open port to midline. Unsuccessful. Lab unable to draw peripheral blood culture after several attempts. Gauze underneath pt's tegaderm dressing RUE is saturated with blood, but well contained within tegaderm window. Decision by this keno writer / runner not to change midline dressing d/t fragile nature of pt's veins and difficult access r/t iv drug use. Pt reports [facility] Picc attempted placement of line twice. IV fluids and antibiotics infusing without difficulty to site and site is without edema or discomfort. Will continue to monitor and leave site undisturbed at this time. Addendum entered by Jannet Sahu R.N. 10/10/20 18:32: Per sohail Nj to draw blood cultures from pt's midline. This keno writer / runner attempted multiple times from both ports to draw blood repositioning pt's arm and using several different size syringes without success. Able to flush easily with normal saline, but unable to draw. Lab was informed. Pt reports feels as though nicotine patch is helping with cravings. CIWA = 0. Addendum entered by Jannet Sahu R.N. 10/10/20 17:47: Phone call to in-house pharmacist, Shayna, who explains Micafungin is coming from [facility] in [place] by environmental safety specialist and pharmacist will be available to mix and dispense when this arrives. Med not given at this time as scheduled d/t this explanation. Original Note: Pt returned from MRI @ beginning of shift and returned to bed. Telemetry replaced. Pt much more conversant and engaged with staff than last evening. States pain better controlled since starting methadone. Discussion with pt re nicotine patch and pt agreeable. Dr. Borja informed and orders received. Pt is able to move self independently in bed. Offered food choices to pt who reports poor appetite, but denies nausea. Oral fluids provided and pt returned to iv fluids upon return to room.
[2020-10-10] MEDS: NICOTINE 14 PATCH 14 MG TOP (17:40)
[2020-10-10 19:07] LABS: Candida albicans Detected (Not Detect)
[2020-10-10] MEDS: MICAFUNGIN 100 MG in SODIUM CHLORIDE 0.9% 100 ML IV (19:20)
--- NOTE | 2020-10-10 21:42 | PM.PN.1 ---
Subjective Subjective Interval history: Today he continues to complain of lower back pain but otherwise feels well. Exam Vital Signs (past 8 hours): - 10/10/20 15:40 10/10/20 19:44 Temperature 97.9 F 98.2 F Pulse Rate 56 L 61 Respiratory Rate 19 17 Blood Pressure 144/80 H 121/78 Pulse Oximetry 96 99 Oxygen Delivery Method Room Air Oxygen Flow Rate 0 Narrative Exam Narrative: GEN: dishelved, chronically ill appearing, no acute distress HEENT: moist mucous membranes, PERRL NECK: trachea midline, no JVD CV: regular rate and rhythm with no murmurs PULM: clear bilaterally with no wheezes, rhonchi, rales ABD: soft, nontender, nondistended, no organomegaly EXT: warm, LUE has no erythema but he has track hansen with nontender areas of induration NEURO: awake, alert and oriented, moving all extremities, normal upper and lower extremity strength BACK: no tenderness over lumbar spinal processes PSYCH: pleasant Objective Labs Result Diagrams: 10/10/20 07:19 10/10/20 07:19 Labs: Laboratory Results - last 24 hr 10/07/20 10/10/20 10/10/20 19:40 07:19 07:19 WBC 18.4 H RBC 4.05 L Hgb 12.5 L Hct 37.7 L MCV 93.2 MCH 30.8 MCHC 33.0 RDW 14.4 Plt Count 143 L Sodium 139 Potassium 2.8 L Chloride 120 H Carbon Dioxide 17 L BUN 16 Creatinine 0.58 L Estimated GFR > 60.0 BUN/Creatinine Ratio 27.6 H Glucose 80 Calcium 6.9 L Albumin Rhiannon albicans (PCR) Detected H 10/10/20 07:19 WBC RBC Hgb Hct MCV MCH MCHC RDW Plt Count Sodium Potassium Chloride Carbon Dioxide BUN Creatinine Estimated GFR BUN/Creatinine Ratio Glucose Calcium Albumin 2.3 L Rhiannon albicans (PCR) PFSH Medical History Abscess Acute CVA (cerebrovascular accident) Heroin abuse Social History household members: none Smoking Status: Current every day smoker Assessment & Plan Assessment & Plan narrative: Mr. Benitez is a 70M with PMH of IV drug use, alcohol abuse who comes in complaining of weakness and now resolved shortness of breath found to have sepsis from rhiannon fungemia 1. Sepsis, acute -infection from fungemia with rhiannon growing in culture and PCR positive for rhiannon albicans and galbrata -upper extremity bilateral CT shows no definitive evidence of abscess -initially patient with blood pressure in 80s, LUI with creatinine >1.2, respiratory rate of 30, which is consistent with qsofa of 3, with organ dysfunction of renal failure -WBC increased from 14->27->18 -UA negative -for now IV antibiotics with cefepime, discontinued IV azithromycin as no evidence of pneumonia, discontinued vanco after negative mrsa swab -added IV micafungin for fungemia -MRI L-spine with no evidence of infection -discussed with ID, ophtho eval for endophthalmitis within 1-2 weeks, DILAN to definitively rule out endocarditis which cardiology recommend calling [facility] inside technical sales representative on Tuesday as no DILAN over the weekend, would recommend at least 2-4 weeks of IV micafungin once cultures negative, and plan possibly can change pending further results -repeat blood cultures daily until negative 2. Acute heroin intoxication -patient with worsening pain and withdrawal, ordered methadone for both -monitor for withdrawal going forward -social work consulted 3. Alcohol abuse -will order CIWA protocol -patient ordered for MVI, thiamine, folate 4. LUI, resolved -creatinine of 1.26 up from baseline of 0.70, improved to 0.81 on 10/09 -presumed to have prerenal given hypotension IVF: Normal saline DVT ppx: heparin sc DIET: Regular CODE: Full, proxy is brother Torrey
[2020-10-11] VITALS (8 sets, daily range): BP systolic 126–148; BP diastolic 62–88; PULSE 54–84; RESP 16–20; TEMP 36.3–36.8; O2SAT 95–98
--- NOTE | 2020-10-11 02:26 | PC.NURSE ---
Patient is alert and oriented. Breath sounds CTA with RA sat of 98%. HRR w/telemetry reading of SB. BP labile and was last recorded at 143/88. Denied nausea. BT present and abdomen is soft; no BM recorded since 10/06 but is passing flatus. Denied dysuria, frequency or urgency with urination. Is able to move himself in bed. Gait not assessed at this time. Did complain of 5/10 back pain but stated pain is tolerable. Refusing SCD's so reminded to ankle wave; verbalized understanding. Fall risk score is moderate and bed alarm is activated.
[2020-10-11] MEDS: SODIUM CHLORIDE 0.9% 1,000 ML 100 ML IV ×2 (04:31→15:57)
[2020-10-11 05:31] LABS: Blood Urea Nitrogen 14 mg/dL (9-20); Calcium 8.2 mg/dL (8.4-10.2); Carbon Dioxide 18 mmol/L (22-32); Chloride 116 mmol/L (98-107); Estimated Glomerular Filt Rate > 60.0 mL/min (>60); Glucose 97 mg/dL (80-110); HEMOLYSIS 16 (0-50); Potassium 4.4 mmol/L (3.4-5.1); Sodium 139 mmol/L (137-145)
[2020-10-11 05:32] LABS: Hematocrit 44.4 % (41-53); Hemoglobin 14.8 g/dL (13.5-17.5); Mean Corpuscular HGB Conc 33.2 % (30-36); Mean Corpuscular Volume 93.3 fL (80-100); Platelet Count 158 X10^3/uL (150-400); Red Blood Cell Count 4.76 X10^6/uL (4.5-5.9); Red Cell Distribution Width 14.4 % (11.6-14.8); White Blood Cell Count 12.3 X10^3/uL (4.5-11.0)
[2020-10-11] MEDS: METHADONE 5 MG TABLET PO (05:38)
[2020-10-11] MEDS: MULTIVITAMIN 1 TABLET 1 TAB PO (09:20)
[2020-10-11] MEDS: FOLIC ACID 1 MG TABLET PO (09:20)
[2020-10-11] MEDS: HEPARIN 5,000 UNIT/ML VIAL 5000 UNIT SUBCUT ×2 (09:21→20:22)
[2020-10-11] MEDS: METHADONE 10 MG TABLET 15 MG PO ×2 (09:21→20:22)
[2020-10-11] MEDS: NICOTINE 14 PATCH 14 MG TOP (09:21)
[2020-10-11] MEDS: THIAMINE 100 MG TABLET PO (09:21)
[2020-10-11] MEDS: CEFEPIME 1 GM in SODIUM CHLORIDE 0.9% 100 ML 200 ML IV (09:30)
--- NOTE | 2020-10-11 11:25 | PT.IPTN ---
Current Diagnoses Sepsis, unspecified organism (10/09/20) Physical Therapy Treatment Note M2 PT-IP Current Condition Start: 10/10/20 14:18 Freq: NEEDED Status: Active Protocol: Document 10/10/20 12:45 AB (Rec: 10/10/20 14:32 AB [id number]) Physical Therapy Current Condition Current Condition Evaluation Date 10/10/20 Treatment Diagnosis sepsis; difficulty in walking Onset Date 10/09/20 M3 PT-IP Subjective Start: 10/10/20 14:18 Freq: NEEDED Status: Active Protocol: Document 10/11/20 11:25 AB (Rec: 10/11/20 12:52 AB [id number]) Subjective Physical Therapy Visit Type Type Treatment Note Visit Start Time 11:25 Visit Stop Time 11:45 Total Visit Minutes 15 Number of VAULT INSTALLER Visits 0 Physical Therapy Visit Comments Patient Comments agreed to do PT but wants to just stay in the room; c/o back pain Therapy Pain Assessment Pain When Pain Assessed At Rest Pain Present Pain Present Pain Reported Location Back Scale Used pain scale not stated M4 PT-IP Mobility and Gait Start: 10/10/20 14:18 Freq: NEEDED Status: Active Protocol: Document 10/11/20 11:25 AB (Rec: 10/11/20 12:52 AB [id number]) PT-Bed Mobility Assessment Supine to Sit Supine to Sit Standby Assistance,Head of Bed Elevated Sit to Supine Sit to Supine Standby Assistance,Head of Bed Elevated PT-Transfer Assessment Sit to and From Stand Sit to and from Stand Standby Assistance Equipment Transfer Assistive Device Gait Belt,Straight Cane Transfers Transfer Destination Toilet Transfer Technique ambulated Transfer Ability Level of Assist Standby Assistance,1 Person Assistance,Use of Upper Extremities Comments Mobility Comments pt agreed to do PT. c/o back pain and does not want to do much or go out of his room. completed supine to sit HOB elevated SBA. completed sit to stand SBA and ambulated in room using SPC 35 ft SBA to CGA. pt continues to have unsteady gait and tends to reach for the wall/bed for support. pt requested to go back to bed and positioned. pt then said that he has to use the toilet. got out of the bed SBA and ambulated to the toilet using SPC SBA. Pt wants to use and use the toilet for awhile. Left pt with call light next to him. nurse made aware. Gait Assessment Gait Gait Assistance Required: Standby Assistance,Contact Guard Assist,1 Person Assist Distance (Feet) 35 Able to Maintain Weight Bearing Status Yes During Gait Assistive Devices Assistive Device Gait Belt,Straight Cane Orthotic/Prosthetic Devices or Brace: No Gait Deviations General Gait Pattern Antalgic,Decreased Stride Length,Decreased Feet Clearance,Step-to Gait Factors Limiting Gait Function Factors Limiting Gait Function Decreased Activity Tolerance, Decreased Strength,Limited Range of Motion,Pain,Poor Balance,Poor Safety Awareness M5 PT-IP Objective Assessments Start: 10/10/20 14:18 Freq: NEEDED Status: Active Protocol: Document 10/10/20 12:45 AB (Rec: 10/10/20 14:32 AB [id number]) Orientation Orientation/Cognition Level of Alertness Alert Orientation Name,Place,Situation Language Function Ability Hard of Hearing Safety Awareness Decreased Safety Awareness Gross Range of Motion Lower Extremity ROM Assessment Within Functional Limits Strength Lower Extremity Strength Assessment Within Functional Limits Coordination Assessment Gross Coordination Gross Coordination WNL Sensation Assessment Sensation Gross Sensation WNL Muscle Tone Muscle Tone WNL Yes M6 PT-IP Treatment Start: 10/10/20 14:18 Freq: NEEDED Status: Active Protocol: Document 10/11/20 11:25 AB (Rec: 10/11/20 12:52 AB [id number]) Physical Therapy Treatment Education Education Provided Safety M7 PT-IP Assessment and Plan Start: 10/10/20 14:18 Freq: NEEDED Status: Active Protocol: Document 10/11/20 11:25 AB (Rec: 10/11/20 12:52 AB [id number]) PT Summary Assessment and Plan Potential Rehabilitation Potential Fair Summary Impairments Pain,ROM,Strength,Balance, Coordination,Sensation,Tone, Cognition,Bed Mobility, Transfers,Gait,Activity Tolerance Assessment Summary Assessed ambulation using SPC today and requires SBA to CGA. pt seems to be more unsteady today compared to yesterdays and pt c/o more back pain today. will continue to assess safest least restrictive AD for pt to use. will continue to assess progress but at this time may require SNF rehab. Goals Bed Mobility Goal Independent Transfer Goal Independent,Cane Gait Goal Independent,Cane Gait Distance 200 Other Goals improve ambulation without AD I 150 ft up/down 5 steps 1 rail mod I Days to Meet Goals 5 Frequency of Treatment Frequency Of Treatment Once a Day Treatment Plan Physical Therapy Treatment Plan Bed Mobility Training,Transfer Training,Gait Training, Therapeutic Exercise,Balance Retraining,Discharge Planning, Hot or Cold Pack,Neuromuscular Re-ed,Coordination Retraining Recommendations To Nursing Amount of Assist Needed Standby Assistance Discharge Recommendations PT Discharge Recommendations Home,SNF Rehab,Home vs SNF Transportation Needs at Discharge Private Vehicle
--- NOTE | 2020-10-11 17:00 | PM.PN.1 ---
Subjective Subjective Interval history: 70-YEAR-OLD MALE WITH A HISTORY OF IVDA, hospitalized with Galina fungemia. Patient is afebrile, TTE is negative, MRI of the spine is negative. Awaiting DILAN hopefully on Tuesday at [facility]. He denies any shortness of breath or pain at this time. Will continue IV micafungin. Exam Vital Signs (past 8 hours): - 10/11/20 09:25 10/11/20 12:45 10/11/20 16:06 Temperature 97.9 F 98.2 F 98.2 F Pulse Rate 84 70 55 L Respiratory Rate 18 20 20 Blood Pressure 144/79 H 133/80 126/67 Pulse Oximetry 98 98 96 Oxygen Delivery Method Room Air Oxygen Flow Rate 0 Narrative Exam Narrative: Pleasant gentleman resting comfortably without any complaints Resp Other: Lungs clear to auscultation Cardiac exam regular rate and rhythm normal S1-S2, 2/6 systolic ejection murmur Abdomen: Soft nontender nondistended Extremities: No edema Objective Labs Result Diagrams: 10/11/20 04:46 10/11/20 04:46 Labs: Laboratory Results - last 24 hr 10/07/20 10/11/20 10/11/20 19:40 04:46 04:46 WBC 12.3 H RBC 4.76 Hgb 14.8 Hct 44.4 MCV 93.3 MCH 31.0 MCHC 33.2 RDW 14.4 Plt Count 158 Sodium 139 Potassium 4.4 D Chloride 116 H Carbon Dioxide 18 L BUN 14 Creatinine 0.61 L Estimated GFR > 60.0 BUN/Creatinine Ratio 23.0 H Glucose 97 Calcium 8.2 L Galina albicans (PCR) Detected H [facility] Medical History Abscess Acute CVA (cerebrovascular accident) Heroin abuse Social History household members: none Smoking Status: Current every day smoker Assessment & Plan Assessment & Plan narrative: 70-year-old male admitted to the hospital with history of IVDA -now with Galina glabrata, Galina albicans In the blood -extensive lydia -extensive workup including TTE, MRI of the spine, negative -will continue micafungin -patient to have DILAN on Tuesday to rule out endocarditis -will attempt infectious disease consultation while at [facility] as well. Acute heroin intoxication -patient with worsening pain and withdrawal, ordered methadone for both -monitor for withdrawal going forward -social work consulted 3. Alcohol abuse -will order CIWA protocol -patient ordered for MVI, thiamine, folate 4. LUI, resolved -creatinine of 1.26 up from baseline of 0.70, improved to 0.81 on 10/09 -presumed to have prerenal given hypotension
[2020-10-11] MEDS: MICAFUNGIN 100 MG in SODIUM CHLORIDE 0.9% 100 ML IV (17:02)
[2020-10-11 18:25] LABS: C-Reactive Protein Quant 2.5 mg/dL (<1.0)
[2020-10-11 18:39] LABS: Procalcitonin 4.04 ng/mL (<0.5)
[2020-10-11 19:34] LABS: Erythrocyte Sedimentation Rate 8 MM/HR (0-15)
[2020-10-12] VITALS (7 sets, daily range): BP systolic 124–145; BP diastolic 72–79; PULSE 53–65; RESP 14–20; TEMP 36.1–36.7; O2SAT 95–100
--- NOTE | 2020-10-12 02:37 | PC.NURSE ---
Patient is alert and oriented except did not know day of month. Breath sounds CTA with RA sat of 95%. HRR but bradycardic at 54 and telemetry reading was SB. Denied nausea. BT present and is passing flatus; had BM yesterday. Voiding per urinal; denied dysuria, frequency or urgency. Able to turn self in bed. Gait not assessed although last noc did get up to bathroom and DUCTFIXING PLUMBER reported needs SBA as is shaky. Did complain of 6/10 back pain but stated pain was tolerable with use of Methadone. Refused to wear SCD's so, again, reminded to ankle wave when awake. CIWA score is 0. Refused to allow seizure pads on bed. Fall risk score is moderate and bed alarm is activated
[2020-10-12] MEDS: THIAMINE 100 MG TABLET PO (09:01)
[2020-10-12] MEDS: NICOTINE 14 PATCH 14 MG TOP (09:01)
[2020-10-12] MEDS: FOLIC ACID 1 MG TABLET PO (09:01)
[2020-10-12] MEDS: METHADONE 10 MG TABLET 15 MG PO ×2 (09:01→20:27)
[2020-10-12] MEDS: MULTIVITAMIN 1 TABLET 1 TAB PO (09:01)
[2020-10-12] MEDS: HEPARIN 5,000 UNIT/ML VIAL 5000 UNIT SUBCUT ×2 (09:09→20:27)
[2020-10-12] MEDS: SODIUM CHLORIDE 0.9% FLUSH 10 ML IV ×2 (10:00→20:27)
--- NOTE | 2020-10-12 10:43 | PC.NURSE ---
AM shift Pt is A/o x4, cooperative and making needs known. Midline to RUE unable to draw labs from, Pt is a very hard stick. Methadone given per Mar, back pain is continuing, but Pt is able to move self in bed at this time. Tolerating diet.
--- NOTE | 2020-10-12 12:21 | PT.IPTN ---
Current Diagnoses Sepsis, unspecified organism (10/09/20) Physical Therapy Treatment Note M2 PT-IP Current Condition Start: 10/10/20 14:18 Freq: NEEDED Status: Active Protocol: Document 10/10/20 12:45 AB (Rec: 10/10/20 14:32 AB [id number]) Physical Therapy Current Condition Current Condition Evaluation Date 10/10/20 Treatment Diagnosis sepsis; difficulty in walking Onset Date 10/09/20 M3 PT-IP Subjective Start: 10/10/20 14:18 Freq: NEEDED Status: Active Protocol: Document 10/12/20 12:21 DLM (Rec: 10/12/20 12:34 DL [id number]) Subjective Physical Therapy Visit Type Visit Start Time 12:05 Visit Stop Time 12:21 Total Visit Minutes 16 Number of EXECUTIVE ASSOCIATE Visits 0 Physical Therapy Visit Comments Patient Comments He c/o continuing back pain. He reports the pain medication helps. Therapy Pain Assessment Pain When Pain Assessed During Mobility Pain Present Pain Present Pain Reported Location Back Intensity 6 Scale Used Numeric (0 - 10) Description Aching Pain Management Techniques Timing of Activity with Medications M4 PT-IP Mobility and Gait Start: 10/10/20 14:18 Freq: NEEDED Status: Active Protocol: Document 10/12/20 12:21 DLM (Rec: 10/12/20 12:34 [facility] [id number]) PT-Bed Mobility Assessment Supine to Sit Supine to Sit Independent,Bedrails Scooting Scooting to Edge of Bed Independent PT-Transfer Assessment Sit to and From Stand Sit to and from Stand Standby Assistance,Use of Upper Extremities Equipment Transfer Assistive Device None,Gait Belt Transfers Transfer Destination Chair,Toilet Transfer Technique Stand Step Pivot Transfer Ability Level of Assist Standby Assistance,Use of Upper Extremities Comments Mobility Comments pt up to toilet to urinate and then up to chair for lunch Gait Assessment Gait Gait Assistance Required: Standby Assistance,Contact Guard Assist Distance (Feet) 150 Assistive Devices Assistive Device None,Gait Belt Gait Deviations General Gait Pattern Decreased Stride Length,Wide Based Gait Factors Limiting Gait Function Factors Limiting Gait Function Decreased Activity Tolerance, Pain Comments Gait Comments gait pattern shows knee flexed and wide base of support, he denies need for cane today, note stride length gets shorter and steps get more shuffling as he fatigues PT-Balance Assessment Sitting Balance and Reactions Static Sitting Balance Ability Good Dynamic Sitting Balance Ability Good Standing Balance and Reactions Static Standing Balance Ability Good Dynamic Standing Balance Ability Fair M5 PT-IP Objective Assessments Start: 10/10/20 14:18 Freq: NEEDED Status: Active Protocol: Document 10/10/20 12:45 AB (Rec: 10/10/20 14:32 AB [id number]) Orientation Orientation/Cognition Level of Alertness Alert Orientation Name,Place,Situation Language Function Ability Hard of Hearing Safety Awareness Decreased Safety Awareness Gross Range of Motion Lower Extremity ROM Assessment Within Functional Limits Strength Lower Extremity Strength Assessment Within Functional Limits Coordination Assessment Gross Coordination Gross Coordination WNL Sensation Assessment Sensation Gross Sensation WNL Muscle Tone Muscle Tone WNL Yes M6 PT-IP Treatment Start: 10/10/20 14:18 Freq: NEEDED Status: Active Protocol: Document 10/12/20 12:21 DLM (Rec: 10/12/20 12:34 DL [id number]) Physical Therapy Treatment Education Education Provided Safety M7 PT-IP Assessment and Plan Start: 10/10/20 14:18 Freq: NEEDED Status: Active Protocol: Document 10/12/20 12:21 DLM (Rec: 10/12/20 12:34 DL [id number]) PT Summary Assessment and Plan Summary Impairments Pain,ROM,Strength,Balance, Coordination,Sensation,Tone, Cognition,Bed Mobility, Transfers,Gait,Activity Tolerance Progress Towards Goals Slow Progress due to Medical Issues Assessment Summary Mino is alert and resting in bed. He agreed to get up and ambulate in the adhikari today . He continues to have mild decrease in standing balance but appears improved compared to yesterday. He was able to ambulate without an assistive device. Noted his gait disturbance gets worse as he fatigues. He ambulated a much longer distance today than previous visits. Pt up to recliner for lunch. He is cooperative and pleasant during therapy. Goals Bed Mobility Goal Independent Transfer Goal Independent,Cane Gait Goal Independent,Cane Gait Distance 200 Other Goals up/down 5 steps 1 rail mod Independent Days to Meet Goals 5 Frequency of Treatment Frequency Of Treatment Once a Day Treatment Plan Physical Therapy Treatment Plan Bed Mobility Training,Transfer Training,Gait Training, Therapeutic Exercise,Balance Retraining,Discharge Planning, Hot or Cold Pack,Neuromuscular Re-ed,Coordination Retraining Recommendations To Nursing Amount of Assist Needed 1 Person Assist Discharge Recommendations PT Discharge Recommendations Home vs SNF Transportation Needs at Discharge Private Vehicle
--- NOTE | 2020-10-12 12:30 | P.PN_ITS ---
Subjective Subjective Interval history: 70-year-old male admitted to the hospital with candidemia, associated with IVDA. Patient is currently on methadone which appears to be controlling his symptoms. He states he will no longer use IV narcotics. Patient does not want to consider Suboxone, and has some concern regarding long- term methadone use. He does however agree that he needs to discontinue IV heroin as this is significantly problematic. He denies any shortness of breath or chest pain. Patient has no diarrhea. Exam Vital Signs (past 8 hours): - 10/12/20 07:00 10/12/20 08:00 Temperature 98 F Pulse Rate 53 L Respiratory Rate 14 Blood Pressure 144/73 H Pulse Oximetry 96 98 Oxygen Delivery Method Room Air Oxygen Flow Rate 0 Narrative Exam Narrative: Pleasant gentleman resting comfortably in no obvious distress Resp Other: Lungs: Clear to auscultation Cardio Other: Cardiac exam: Regular rate and rhythm normal S1-S2, no murmurs rubs or gallops GI Other: Abdomen: Soft nontender nondistended, no hepatosplenomegaly noted Extrem Other: Extremities no edema Objective Labs Result Diagrams: 10/11/20 04:46 10/11/20 04:46 Labs: Laboratory Results - last 24 hr 10/11/20 10/11/20 04:46 04:46 ESR 8 C-Reactive Protein 2.5 H Procalcitonin 4.04 H [facility] Medical History Abscess Acute CVA (cerebrovascular accident) Heroin abuse Social History household members: none Smoking Status: Current every day smoker Assessment & Plan Assessment & Plan narrative: Assessment & Plan narrative: 70-year-old male admitted to the hospital with history of IVDA -now with Galina glabrata, Galina albicans -blood cultures from 10/09 reveal no growth -sputum showing Galina albicans -extensive workup including TTE, MRI of the spine, negative -will continue micafungin -patient to have DILAN on Tuesday to rule out endocarditis -will attempt infectious disease consultation while at [facility] as well. -patient will likely need 6 weeks antibiotics as an inpatient, will discuss with ID following DILAN results Acute heroin intoxication -patient with worsening pain and withdrawal, ordered methadone for both -monitor for withdrawal going forward -social work consulted -continue methadone for now, patient does not want to try suboxone 3. Alcohol abuse -will order CIWA protocol -patient ordered for MVI, thiamine, folate 4. LUI, resolved -creatinine of 1.26 up from baseline of 0.70, improved to 0.81 on 10/09 -presumed to have prerenal given hypotension
[2020-10-12 14:33] LABS: BUN Creatinine Ratio 18.8 (6-22); Blood Urea Nitrogen 13 mg/dL (9-20); Calcium 8.7 mg/dL (8.4-10.2); Carbon Dioxide 22 mmol/L (22-32); Chloride 109 mmol/L (98-107); Estimated Glomerular Filt Rate > 60.0 mL/min (>60); Glucose 104 mg/dL (80-110); HEMOLYSIS < 15 (0-50); Potassium 3.8 mmol/L (3.4-5.1); Sodium 135 mmol/L (137-145)
[2020-10-12 14:36] LABS: Add Manual Diff / Slide Review NO; Basophils Absolute Auto 100 /uL (0-100); Basophils Percent Auto 1.3 % (0-2); Eosinophils Absolute Auto 100 /uL (0-450); Eosinophils Percent Auto 0.8 % (2-4); Hematocrit 45.2 % (41-53); Hemoglobin 15.2 g/dL (13.5-17.5); Lymphocytes Absolute Auto 2000 /uL (1100-4500); Lymphocytes Percent Auto 18.4 % (25-40); Mean Corpuscular HGB Conc 33.7 % (30-36); Mean Corpuscular Volume 92.1 fL (80-100); Monocytes Absolute Auto 1300 /uL (0-900); Monocytes Percent Auto 11.8 % (3-14); Neutrophils Absolute Auto 7200 /uL (1500-7000); Neutrophils Percent Auto 67.7 % (50-75); Platelet Count 148 X10^3/uL (150-400); Red Blood Cell Count 4.91 X10^6/uL (4.5-5.9); Red Cell Distribution Width 14.6 % (11.6-14.8); White Blood Cell Count 10.6 X10^3/uL (4.5-11.0)
[2020-10-12] MEDS: MICAFUNGIN 100 MG in SODIUM CHLORIDE 0.9% 100 ML IV (17:08)
[2020-10-13] VITALS (11 sets, daily range): BP systolic 127–141; BP diastolic 53–77; PULSE 58–64; RESP 15–21; TEMP 36–36.9; O2SAT 97–100
[2020-10-13] MEDS: ACETAMINOPHEN 325 MG TABLET 650 MG PO (05:47)
[2020-10-13 08:52] LABS: Hematocrit 46.9 % (41-53); Hemoglobin 15.5 g/dL (13.5-17.5); Mean Corpuscular HGB Conc 32.9 % (30-36); Mean Corpuscular Hemoglobin 30.7 PG (26-34); Mean Corpuscular Volume 93.2 fL (80-100); Red Blood Cell Count 5.04 X10^6/uL (4.5-5.9); Red Cell Distribution Width 14.2 % (11.6-14.8); White Blood Cell Count 8.9 X10^3/uL (4.5-11.0)
[2020-10-13 08:54] LABS: Add Manual Diff / Slide Review YES
[2020-10-13] MEDS: HEPARIN 5,000 UNIT/ML VIAL 5000 UNIT SUBCUT ×2 (09:22→20:31)
[2020-10-13] MEDS: FOLIC ACID 1 MG TABLET PO (09:23)
[2020-10-13] MEDS: NICOTINE 14 PATCH 14 MG TOP (09:23)
[2020-10-13] MEDS: METHADONE 10 MG TABLET 15 MG PO ×2 (09:23→20:31)
[2020-10-13] MEDS: MULTIVITAMIN 1 TABLET 1 TAB PO (09:23)
[2020-10-13] MEDS: SODIUM CHLORIDE 0.9% FLUSH 10 ML IV ×2 (09:23→18:37)
[2020-10-13 09:34] LABS: Neutrophils Absolute Manual 5162 /uL (3000-5900); Total Cells Counted 100
[2020-10-13 09:36] LABS: RBC Morphology Normal Morphology
--- NOTE | 2020-10-13 09:42 | PT.IPTN ---
Current Diagnoses Sepsis, unspecified organism (10/09/20) Physical Therapy Treatment Note M2 PT-IP Current Condition Start: 10/10/20 14:18 Freq: NEEDED Status: Active Protocol: Document 10/10/20 12:45 AB (Rec: 10/10/20 14:32 AB [id number]) Physical Therapy Current Condition Current Condition Evaluation Date 10/10/20 Treatment Diagnosis sepsis; difficulty in walking Onset Date 10/09/20 M3 PT-IP Subjective Start: 10/10/20 14:18 Freq: NEEDED Status: Active Protocol: Document 10/13/20 09:33 [facility] (Rec: 10/13/20 09:41 [facility] [id number]) Subjective Physical Therapy Visit Type Type Treatment Note Visit Start Time 09:14 Visit Stop Time 09:29 Total Visit Minutes 15 Number of MANAGER MED SURG Visits 0 Physical Therapy Visit Comments Patient Comments Pt agreeable to get up Therapy Pain Assessment Pain When Pain Assessed During Mobility Pain Present Pain Present Pain Reported Location Back Intensity 7 Scale Used Numeric (0 - 10) M4 PT-IP Mobility and Gait Start: 10/10/20 14:18 Freq: NEEDED Status: Active Protocol: Document 10/13/20 09:33 [facility] (Rec: 10/13/20 09:41 [facility] [id number]) PT-Bed Mobility Assessment Supine to Sit Supine to Sit Independent Sit to Supine Sit to Supine Independent Scooting Scooting to Edge of Bed Independent Scooting Up and Down in Bed Independent PT-Transfer Assessment Sit to and From Stand Sit to and from Stand Standby Assistance,Use of Upper Extremities Equipment Transfer Assistive Device Gait Belt Comments Mobility Comments supine to sit indep and sit to stand SBA then pt amb 150ft to stairs SBA then up/down steps SBA w/ 2 rails 2x reciprocal up/step to down. He then amb back to room SBA 150ft. He then sat EOB to rest then did 5x sit to stand x10 from bed w/o hands.Then worked on SLS B and NBOS trials w/EO /EC. Pt left in bed w/RN w/ call [facility] right reach & bed alarm on. Gait Assessment Gait Gait Assistance Required: Standby Assistance Distance (Feet) 300 Able to Maintain Weight Bearing Status No During Gait Assistive Devices Assistive Device Gait Belt Gait Deviations General Gait Pattern Decreased Stride Length,Flexed Trunk Factors Limiting Gait Function Factors Limiting Gait Function Decreased Strength,Pain,Poor Balance Stair Climbing Assessment Evaluation Level of Assist On Stairs Standby Assistance Devices Stair Climbing Assistive Devices Left Railing,Right Railing Technique/Endurance Stair Climbing Direction Ascend and Descend Stair Climbing Technique Step Over Step,Step to Step Stair Climbing Set # Repetitions (reps) 2 M5 PT-IP Objective Assessments Start: 10/10/20 14:18 Freq: NEEDED Status: Active Protocol: Document 10/10/20 12:45 AB (Rec: 10/10/20 14:32 AB [id number]) Orientation Orientation/Cognition Level of Alertness Alert Orientation Name,Place,Situation Language Function Ability Hard of Hearing Safety Awareness Decreased Safety Awareness Gross Range of Motion Lower Extremity ROM Assessment Within Functional Limits Strength Lower Extremity Strength Assessment Within Functional Limits Coordination Assessment Gross Coordination Gross Coordination WNL Sensation Assessment Sensation Gross Sensation WNL Muscle Tone Muscle Tone WNL Yes M6 PT-IP Treatment Start: 10/10/20 14:18 Freq: NEEDED Status: Active Protocol: Document 10/13/20 09:33 [facility] (Rec: 10/13/20 09:41 [facility] [id number]) Physical Therapy Treatment Education Education Provided Safety Other Treatments Other Treatment Performed NBOS EO/EC, SLS M7 PT-IP Assessment and Plan Start: 10/10/20 14:18 Freq: NEEDED Status: Active Protocol: Document 10/13/20 09:33 [facility] (Rec: 10/13/20 09:41 [facility] [id number]) PT Summary Assessment and Plan Summary Impairments Pain,ROM,Strength,Balance, Coordination,Sensation,Tone, Cognition,Bed Mobility, Transfers,Gait,Activity Tolerance Progress Towards Goals Slow Progress due to Medical Issues Assessment Summary Pt cont to progress with his mobility but still shows evidence of imbalance w/gait. he occasionally reaches for objects to steady himself when walking and w/inc time w/gait , he has slower, more shuffling gait pattern. He is very cooperative w/therapist Goals Bed Mobility Goal Independent Transfer Goal Independent,Cane Gait Goal Independent,Cane Gait Distance 200 Other Goals up/down 5 steps 1 rail mod Independent Days to Meet Goals 5 Frequency of Treatment Frequency Of Treatment Once a Day Treatment Plan Physical Therapy Treatment Plan Bed Mobility Training,Transfer Training,Gait Training, Therapeutic Exercise,Balance Retraining,Discharge Planning, Hot or Cold Pack,Neuromuscular Re-ed,Coordination Retraining Recommendations To Nursing Amount of Assist Needed 1 Person Assist Discharge Recommendations PT Discharge Recommendations Home vs SNF Transportation Needs at Discharge Private Vehicle
--- NOTE | 2020-10-13 14:53 | PM.PN.1 ---
Subjective Subjective Date Patient Seen: 10/13/20 Time Patient Seen: 14:53 Interval history: 70-year-old male admitted to the hospital with candidemia, associated with IVDA. Patient is currently on methadone which appears to be controlling his symptoms. . He denies any shortness of breath or chest pain today. No nausea or vomiting. No subjective fevers or chills. Exam Vital Signs (past 8 hours): - 10/13/20 08:00 10/13/20 09:10 10/13/20 09:29 Temperature 97.9 F Pulse Rate 59 L Respiratory Rate 17 Blood Pressure 127/74 Pulse Oximetry 97 97 97 10/13/20 12:00 10/13/20 12:01 Temperature 98.0 F Pulse Rate 58 L Respiratory Rate 15 Blood Pressure 141/70 H Pulse Oximetry 97 97 Oxygen Delivery Method Room Air Oxygen Flow Rate 0 Narrative Exam Narrative: GEN: chronically ill appearing, no acute distress, mildly disheveled. HEENT: moist mucous membranes, PERRL NECK: trachea midline, no JVD CV: regular rate and rhythm with no murmurs PULM: clear bilaterally with no wheezes, rhonchi, rales ABD: soft, nontender, nondistended, no organomegaly EXT: warm, LUE has no erythema but he has track hansen with nontender areas of induration NEURO: awake, alert and oriented, moving all extremities, normal upper and lower extremity strength BACK: no tenderness over lumbar spinal processes PSYCH: pleasant, calm and cooperative. Objective Labs Result Diagrams: 10/13/20 08:27 10/12/20 14:15 Labs: Laboratory Results - last 24 hr 10/13/20 08:27 WBC 8.9 RBC 5.04 Hgb 15.5 Hct 46.9 MCV 93.2 MCH 30.7 MCHC 32.9 RDW 14.2 Plt Count Neut % (Auto) Not Reportable Lymph % (Auto) Not Reportable [place] % (Auto) Not Reportable Eos % (Auto) Not Reportable Baso % (Auto) Not Reportable Lymph # (Auto) Not Reportable [place] # (Auto) Not Reportable Baso # (Auto) Not Reportable Total Counted 100 Seg Neutrophils % 51.0 Band Neutrophils % 7.0 Lymphocytes % (Manual) 28.0 Atypical Lymphs % 1.0 H Monocytes % (Manual) 8.0 Eosinophils % (Manual) 3.0 Basophils % (Manual) 1.0 Metamyelocytes % 1.0 H Neutrophils # (Manual) 5112 RBC Morphology Normal morphology PFSH Medical History Abscess Acute CVA (cerebrovascular accident) Heroin abuse Social History household members: none Smoking Status: Current every day smoker Assessment & Plan Assessment & Plan narrative: Mr. Benitez is a 70M with PMH of IV drug use, alcohol abuse who comes in complaining of weakness and now resolved shortness of breath found to have sepsis from rhiannon fungemia 1. Sepsis, acute -infection from fungemia with rhiannon growing in culture and PCR positive for rhiannon albicans and galbrata -upper extremity bilateral CT shows no definitive evidence of abscess -initially patient with blood pressure in 80s, LUI with creatinine >1.2, respiratory rate of 30, which is consistent with qsofa of 3, with organ dysfunction of renal failure -WBC now improved to normal -UA negative -now off of antibiotics after initial empiric therapy given. -continue IV micafungin for fungemia -MRI L-spine with no evidence of infection -discussed with ID, ophtho eval for endophthalmitis within 1-2 weeks, DILAN needed to definitively rule out endocarditis. No current availability at [facility] but can arrange for Tuesday or possibly early next week with transfer back to here. ID would recommend at least 2-4 weeks of IV micafungin once cultures negative, and plan possibly can change pending further results. -repeat blood cultures currently without growth. 2. Acute heroin intoxication -patient with worsening pain and withdrawal, ordered methadone for both with improvement. Continue methadone 15 mg BID. -monitor for withdrawal going forward -social work consulted 3. Alcohol abuse -continue CIWA protocol, possibly can discontinue tomorrow. -patient ordered for MVI, thiamine, folate 4. LUI, resolved -creatinine of 1.26 up from baseline of 0.70, improved to 0.81 -presumed to have prerenal given hypotension DVT ppx: heparin sc DIET: Regular CODE: Full, proxy is brother Torrey
[2020-10-13] MEDS: MICAFUNGIN 100 MG in SODIUM CHLORIDE 0.9% 100 ML IV (17:21)
[2020-10-14] VITALS (10 sets, daily range): BP systolic 120–146; BP diastolic 64–78; PULSE 57–72; RESP 15–20; TEMP 36.3–36.9; O2SAT 95–99
[2020-10-14] MEDS: HEPARIN 5,000 UNIT/ML VIAL 5000 UNIT SUBCUT ×2 (07:51→20:58)
[2020-10-14] MEDS: NICOTINE 14 PATCH 14 MG TOP (07:51)
[2020-10-14] MEDS: FOLIC ACID 1 MG TABLET PO (07:52)
[2020-10-14] MEDS: SODIUM CHLORIDE 0.9% FLUSH 10 ML IV ×2 (07:52→20:58)
[2020-10-14] MEDS: MULTIVITAMIN 1 TABLET 1 TAB PO (07:52)
[2020-10-14] MEDS: METHADONE 10 MG TABLET 15 MG PO ×2 (07:52→20:57)
[2020-10-14] MEDS: ACETAMINOPHEN 325 MG TABLET 650 MG PO (07:52)
--- NOTE | 2020-10-14 08:47 | PT.IPTN ---
Current Diagnoses Sepsis, unspecified organism (10/09/20) Physical Therapy Treatment Note M2 PT-IP Current Condition Start: 10/10/20 14:18 Freq: NEEDED Status: Active Protocol: Document 10/10/20 12:45 AB (Rec: 10/10/20 14:32 AB [id number]) Physical Therapy Current Condition Current Condition Evaluation Date 10/10/20 Treatment Diagnosis sepsis; difficulty in walking Onset Date 10/09/20 M3 PT-IP Subjective Start: 10/10/20 14:18 Freq: NEEDED Status: Active Protocol: Document 10/14/20 08:30 SP (Rec: 10/14/20 11:36 SP [id number]) Subjective Physical Therapy Visit Type Type Treatment Note Visit Start Time 08:30 Visit Stop Time 08:47 Total Visit Minutes 17 Notes Vital taken end mobilitiy due to + SOB BP 133/66, HR 72 bpm, SaO2 99% on RA. Number of CRIMP SETTER Visits 1 Physical Therapy Visit Comments Patient Comments Pt agreeable to working with therapy. Therapy Pain Assessment Pain When Pain Assessed During Mobility Pain Present Pain Present Pain Reported Location Back Intensity 8 Scale Used Numeric (0 - 10) Pain Management Techniques Distraction,Re-positioning, Timing of Activity with Medications M4 PT-IP Mobility and Gait Start: 10/10/20 14:18 Freq: NEEDED Status: Active Protocol: Document 10/14/20 08:30 SP (Rec: 10/14/20 11:36 SP [id number]) PT-Bed Mobility Assessment Supine to Sit Supine to Sit Standby Assistance Scooting Scooting to Edge of Bed Standby Assistance PT-Transfer Assessment Sit to and From Stand Sit to and from Stand Standby Assistance,Use of Upper Extremities Equipment Transfer Assistive Device None,Gait Belt Transfers Transfer Destination Bed Transfer Technique pt ambulated no AD Transfer Ability Level of Assist Standby Assistance,Contact Guard Assistance,Use of Upper Extremities Comments Mobility Comments sup> sit and scoot to EOB elevated supine in bed SBA with noted increase UE support . Sit>stand CGA due to unsteady on BLE with noted flexed B knees. CRIMP SETTER recommended safety use of FWW or SPC for support but pt refused. I don't need one of those, let's just go and get this done. Pt initially SBA during gait distance into hallway, required cues for tall posture, quad facilitation for safety knee extension and increase stride length to allow decreased modified shuffle patterning, improved stride and foot clearance but pt tired quickly with increase support to CG- Min A and 3 stop stand rest breaks from room to stairs and back for recovery + SOB and Le weakness today, demonstrated occasional contact wall for safety support, cued slow breathes. CRIMP SETTER provided trailing wc for safety support but pt refused to utilize. When pt returned to room sat at side of bed and declined lay supine or sit in chair. CRIMP SETTER alarmed bed and provided him call light and all needs in reach before rest . Notified CUPOLA TAPPER pt seated at EOB and increase support for ambulation, recommended AD for safety support but pt refused this tx. Gait Assessment Gait Gait Assistance Required: Standby Assistance,Contact Guard Assist,Minimum Assistance,1 Person Assist Distance (Feet) 300 Able to Maintain Weight Bearing Status No During Gait Assistive Devices Assistive Device None,Gait Belt Gait Deviations General Gait Pattern Antalgic,Decreased Stride Length,Decreased Feet Clearance,Festinating,Flexed Trunk,Wide Based Gait Factors Limiting Gait Function Factors Limiting Gait Function Decreased Activity Tolerance, Decreased Strength,Pain,Poor Balance,Poor Safety Awareness, Respiratory Distress Comments Gait Comments see mobility comments Stair Climbing Assessment Evaluation Level of Assist On Stairs Contact Guard Assistance,1 Person Assistance Devices Stair Climbing Assistive Devices Left Railing,Right Railing Technique/Endurance Stair Climbing Direction Ascend and Descend Stair Climbing Technique Step Over Step,Step to Step Number of Steps Climbed 3 Stair Climbing Set # Repetitions (reps) 2 Comments Stair Climbing Comments see mobility comments. PT-Balance Assessment Sitting Balance and Reactions Static Sitting Balance Ability Good Dynamic Sitting Balance Ability Good Standing Balance and Reactions Static Standing Balance Ability Fair Dynamic Standing Balance Ability Poor Device Used no AD M5 PT-IP Objective Assessments Start: 10/10/20 14:18 Freq: NEEDED Status: Active Protocol: Document 10/10/20 12:45 AB (Rec: 10/10/20 14:32 AB [id number]) Orientation Orientation/Cognition Level of Alertness Alert Orientation Name,Place,Situation Language Function Ability Hard of Hearing Safety Awareness Decreased Safety Awareness Gross Range of Motion Lower Extremity ROM Assessment Within Functional Limits Strength Lower Extremity Strength Assessment Within Functional Limits Coordination Assessment Gross Coordination Gross Coordination WNL Sensation Assessment Sensation Gross Sensation WNL Muscle Tone Muscle Tone WNL Yes M6 PT-IP Treatment Start: 10/10/20 14:18 Freq: NEEDED Status: Active Protocol: Document 10/14/20 08:30 SP (Rec: 10/14/20 11:36 SP [id number]) Physical Therapy Treatment Education Education Provided Safety M7 PT-IP Assessment and Plan Start: 10/10/20 14:18 Freq: NEEDED Status: Active Protocol: Document 10/14/20 08:30 SP (Rec: 10/14/20 11:36 SP [id number]) PT Summary Assessment and Plan Potential Rehabilitation Potential Fair Status of Condition at Evaluation Stable Summary Impairments Pain,ROM,Strength,Balance, Coordination,Sensation,Tone, Cognition,Bed Mobility, Transfers,Gait,Activity Tolerance Progress Towards Goals Slow Progress due to Pain,Slow Progress due to Medical Issues,Slow Progress due to Activity Tolerance Assessment Summary bed mob SBA, sit<>stand sBA heavier UE WB off bed. Pt requires increased safety physical support CGA- Min A during WBOS shuffle gait into hallway no AD due to refusing to use today, CGA usign 1 HR on stairs recipirocal patterning. CRIMP SETTER recommending continued skilled therapy to progress LE strength, balance and endurance for safety. Recommending SNF at this time to progress functional independence strengthening. Goals Bed Mobility Goal Independent Transfer Goal Independent,Cane Gait Goal Independent,Cane Gait Distance 200 Other Goals up/down 5 steps 1 rail mod Independent Days to Meet Goals 5 Frequency of Treatment Frequency Of Treatment Once a Day Treatment Plan Physical Therapy Treatment Plan Bed Mobility Training,Transfer Training,Gait Training, Therapeutic Exercise,Balance Retraining,Discharge Planning, Hot or Cold Pack,Neuromuscular Re-ed,Coordination Retraining Other Recommendations and Next Treatment bed mob, transfers SPC or FWW Focus if needed, gait using LRAD for safety. Recommendations To Nursing Amount of Assist Needed Standby Assistance Discharge Recommendations PT Discharge Recommendations SNF Rehab Transportation Needs at Discharge Private Vehicle
--- NOTE | 2020-10-14 12:16 | CM.DPNOTE ---
Faxed referral packet requested by Salome to [facility]; received fax conf. Samantha Sigala CM Asst.
--- NOTE | 2020-10-14 16:01 | CM.DPC ---
Addendum entered by Salome Cristina 10/14/20 16:11: Provider continues to attempt transfer to higher level of care for DILAN and ID. KJS Original Note: DCP/continued: Reviewed chart. Per provider in AM rounds he would like patient to go to another acute care facility and then to SNF/Swing bed for continued treatment. Patient currently in need of a DILAN to determine the length of antifungal therapy. Per provider it could be anywhere from 2-6wks. BREW HOUSE SUPERVISOR met with patient explained role. Patient reports that he would like assistance with housing? Patient has been staying at friend's and does not think he can continue to stay there long-term. Patient currently with Medicaid and agreeable to apply for [place]. Patient reports limited income and no assets. BREW HOUSE SUPERVISOR completed expedited home and community application and faxed to Chris office. Patient admits to using heroin five days ago but denies wanting to use again. Patient has been on methadone throughout hospitalization and he reports that he feels fine. Placed call to Heidy at [facility] for swing bed. She reports that they will review. Clinical faxed and BREW HOUSE SUPERVISOR to follow up with Heidy on 10-15-20. Patient reports that he does not plan to use IV drugs in the future. Patient in agreement to go to either SNF or swing bed for IV antifungal treatment. Provider made aware that placement might be difficulty given patient's IVDU history and current unpredictable living situation. P: Pending. May need to fax to surrounding area SNF's to see if they are willing to accept. Currently [facility] reviewing and expedited home and community referral faxed. ANGELLA Palomares
--- NOTE | 2020-10-14 16:07 | P.PN_ITS ---
Subjective Subjective Date Patient Seen: 10/14/20 Time Patient Seen: 16:08 Interval history: 70-year-old male admitted to the hospital with candidemia, associated with IVDA. Patient is currently on methadone which appears to be controlling his symptoms. . He denies any shortness of breath or chest pain today. No nausea or vomiting. No subjective fevers or chills. Exam Vital Signs (past 8 hours): - 10/14/20 08:35 10/14/20 09:46 10/14/20 12:00 Temperature 98.0 F Pulse Rate 72 65 Respiratory Rate 19 Blood Pressure 122/78 Pulse Oximetry 96 96 97 Oxygen Delivery Method Room Air Oxygen Flow Rate 0 Narrative Exam Narrative: GEN: chronically ill appearing, no acute distress, mildly disheveled. HEENT: moist mucous membranes, PERRL NECK: trachea midline, no JVD CV: regular rate and rhythm with no murmurs PULM: clear bilaterally with no wheezes, rhonchi, rales ABD: soft, nontender, nondistended, no organomegaly EXT: warm, LUE has no erythema but he has track hansen with nontender areas of induration NEURO: awake, alert and oriented, moving all extremities, normal upper and lower extremity strength BACK: no tenderness over lumbar spinal processes PSYCH: pleasant, calm and cooperative. Objective Labs Result Diagrams: 10/13/20 08:27 10/12/20 14:15 [facility] Medical History Abscess Acute CVA (cerebrovascular accident) Heroin abuse Social History household members: none Smoking Status: Current every day smoker Assessment & Plan Assessment & Plan narrative: Mr. Benitez is a 70M with PMH of IV drug use, alcohol abuse who comes in complaining of weakness and now resolved shortness of breath found to have sepsis from rhiannon fungemia 1. Sepsis, acute -infection from fungemia with rhiannon growing in culture and PCR positive for rhiannon albicans and galbrata -upper extremity bilateral CT shows no definitive evidence of abscess -initially patient with blood pressure in 80s, LUI with creatinine >1.2, respiratory rate of 30, which is consistent with qsofa of 3, with organ dysfunction of renal failure -WBC now improved to normal -UA negative -now off of antibiotics after initial empiric therapy given. -continue IV micafungin for fungemia. -MRI L-spine with no evidence of infection -discussed with ID, ophtho eval for endophthalmitis within 1-2 weeks, DILAN needed to definitively rule out endocarditis. No current availability at [facility] but can arrange early next week with transfer back to here. ID would recommend at least 2-4 weeks of IV micafungin once cultures negative, and plan possibly can change pending further results. Alternative idea would be to arrange for swing bed, and transfer to another facility for DILAN and ID consultation prior to ultimate transfer to swing bed for antiviral therapy. -repeat blood cultures currently without growth. 2. Acute heroin intoxication -patient with worsening pain and withdrawal, ordered methadone for both with improvement. Continue methadone 15 mg BID. -monitor for withdrawal going forward -social work consulted 3. Alcohol abuse -continue CIWA protocol, possibly can discontinue tomorrow. -patient ordered for MVI, thiamine, folate 4. LUI, resolved -creatinine of 1.26 up from baseline of 0.70, improved to 0.81 -presumed to have prerenal given hypotension DVT ppx: heparin sc DIET: Regular CODE: Full, proxy is brother Torrey
[2020-10-14] MEDS: MICAFUNGIN 100 MG in SODIUM CHLORIDE 0.9% 100 ML IV (17:03)
[2020-10-15] VITALS (9 sets, daily range): BP systolic 107–152; BP diastolic 58–76; PULSE 59–65; RESP 16–18; TEMP 36.1–36.6; O2SAT 95–97
[2020-10-15] MEDS: SODIUM CHLORIDE 0.9% 1,000 ML 84 ML IV ×2 (03:42→15:40)
[2020-10-15] MEDS: HEPARIN 5,000 UNIT/ML VIAL 5000 UNIT SUBCUT ×2 (08:02→21:42)
[2020-10-15] MEDS: NICOTINE 14 PATCH 14 MG TOP (08:02)
[2020-10-15] MEDS: SODIUM CHLORIDE 0.9% FLUSH 10 ML IV ×2 (08:03→21:42)
[2020-10-15] MEDS: MULTIVITAMIN 1 TABLET 1 TAB PO (08:03)
[2020-10-15] MEDS: METHADONE 10 MG TABLET 15 MG PO ×2 (08:03→21:41)
[2020-10-15] MEDS: FOLIC ACID 1 MG TABLET PO (08:03)
[2020-10-15 08:36] LABS: Hematocrit 44.6 % (41-53); Hemoglobin 14.6 g/dL (13.5-17.5); Mean Corpuscular HGB Conc 32.8 % (30-36); Mean Corpuscular Hemoglobin 30.3 PG (26-34); Mean Corpuscular Volume 92.4 fL (80-100); Platelet Count 281 X10^3/uL (150-400); Red Blood Cell Count 4.83 X10^6/uL (4.5-5.9); Red Cell Distribution Width 14.3 % (11.6-14.8); White Blood Cell Count 10.3 X10^3/uL (4.5-11.0)
[2020-10-15 08:37] LABS: Add Manual Diff / Slide Review YES
[2020-10-15 08:44] LABS: Alanine Aminotransferase 47 IU/L (<50); Albumin 3.2 g/dL (3.5-5.0); Albumin Globulin Ratio 0.9 (1.0-2.8); Alkaline Phosphatase 62 U/L (38-126); Aspartate Aminotransferase 56 IU/L (17-59); Bilirubin Total 0.4 mg/dL (0.2-1.3); Blood Urea Nitrogen 17 mg/dL (9-20); Calcium 8.9 mg/dL (8.4-10.2); Carbon Dioxide 27 mmol/L (22-32); Chloride 103 mmol/L (98-107); Estimated Glomerular Filt Rate > 60.0 mL/min (>60); Globulin 3.4 g/dL (1.7-4.1); Glucose 90 mg/dL (80-110); HEMOLYSIS < 15 (0-50); Sodium 136 mmol/L (137-145); Total Protein 6.6 g/dL (6.3-8.2)
[2020-10-15 09:01] LABS: Neutrophils Absolute Manual 5253 /uL (3000-5900); RBC Morphology Normal Morphology; Total Cells Counted 100
--- NOTE | 2020-10-15 11:39 | PT.IPTN ---
Current Diagnoses Sepsis, unspecified organism (10/09/20) Physical Therapy Treatment Note M2 PT-IP Current Condition Start: 10/10/20 14:18 Freq: NEEDED Status: Active Protocol: Document 10/10/20 12:45 AB (Rec: 10/10/20 14:32 AB [id number]) Physical Therapy Current Condition Current Condition Evaluation Date 10/10/20 Treatment Diagnosis sepsis; difficulty in walking Onset Date 10/09/20 M3 PT-IP Subjective Start: 10/10/20 14:18 Freq: NEEDED Status: Active Protocol: Document 10/15/20 11:39 AB (Rec: 10/15/20 12:38 AB [id number]) Subjective Physical Therapy Visit Type Type Treatment Note Visit Start Time 11:39 Visit Stop Time 11:49 Total Visit Minutes 10 Number of CONGRESSIONAL AIDE Visits 0 Physical Therapy Visit Comments Patient Comments pt agreed to do PT but just wants to ambulate in room and not go in the hallway M4 PT-IP Mobility and Gait Start: 10/10/20 14:18 Freq: NEEDED Status: Active Protocol: Document 10/15/20 11:39 AB (Rec: 10/15/20 12:38 AB [id number]) PT-Bed Mobility Assessment Supine to Sit Supine to Sit Standby Assistance,Head of Bed Elevated Sit to Supine Sit to Supine Standby Assistance,Head of Bed Elevated PT-Transfer Assessment Sit to and From Stand Sit to and from Stand Standby Assistance,1 Person Assistance Equipment Transfer Assistive Device None Orthotic/Prosthetic Devices or Brace: No Comments Mobility Comments pt completed supine to sit HOB elevated SBA. ambulated in room ~ 60 ft without AD SBA with occasionally reaching for the wall for support . cued for upright posture and stability. pt refused to walk in the hallway. requested to go back to bed. completed sit to supine SBA. Call light and table placed within reach . Gait Assessment Gait Gait Assistance Required: Standby Assistance Distance (Feet) 60 Able to Maintain Weight Bearing Status Yes During Gait Assistive Devices Assistive Device None Orthotic/Prosthetic Devices or Brace: No Gait Deviations General Gait Pattern Antalgic,Decreased Stride Length,Decreased Feet Clearance,Wide Based Gait Factors Limiting Gait Function Factors Limiting Gait Function Decreased Activity Tolerance, Decreased Strength,Limited Range of Motion,Pain,Poor Balance,Poor Safety Awareness M5 PT-IP Objective Assessments Start: 10/10/20 14:18 Freq: NEEDED Status: Active Protocol: Document 10/10/20 12:45 AB (Rec: 10/10/20 14:32 AB [id number]) Orientation Orientation/Cognition Level of Alertness Alert Orientation Name,Place,Situation Language Function Ability Hard of Hearing Safety Awareness Decreased Safety Awareness Gross Range of Motion Lower Extremity ROM Assessment Within Functional Limits Strength Lower Extremity Strength Assessment Within Functional Limits Coordination Assessment Gross Coordination Gross Coordination WNL Sensation Assessment Sensation Gross Sensation WNL Muscle Tone Muscle Tone WNL Yes M6 PT-IP Treatment Start: 10/10/20 14:18 Freq: NEEDED Status: Active Protocol: Document 10/15/20 11:39 AB (Rec: 10/15/20 12:38 AB [id number]) Physical Therapy Treatment Education Education Provided Safety M7 PT-IP Assessment and Plan Start: 10/10/20 14:18 Freq: NEEDED Status: Active Protocol: Document 10/15/20 11:39 AB (Rec: 10/15/20 12:38 AB [id number]) PT Summary Assessment and Plan Potential Rehabilitation Potential Good Summary Impairments Pain,ROM,Strength,Balance, Coordination,Sensation,Tone, Cognition,Bed Mobility, Transfers,Gait,Activity Tolerance Progress Towards Goals Slow Progress due to Pain,Slow Progress due to Medical Issues,Slow Progress due to Activity Tolerance Assessment Summary pt slowly progressing with mobility and able to ambulate without AD SBA but with occasionally reaching for bed/ wall for support. d/c plan depending on progress. will conitnue to assess. Goals Bed Mobility Goal Independent Transfer Goal Independent,Cane Gait Goal Independent,Cane Gait Distance 200 Other Goals ambulation without AD mod I 200ft up/down 5 steps 1 rail mod Independent Days to Meet Goals 5 Frequency of Treatment Frequency Of Treatment Once a Day Treatment Plan Physical Therapy Treatment Plan Bed Mobility Training,Transfer Training,Gait Training, Therapeutic Exercise,Balance Retraining,Discharge Planning, Hot or Cold Pack,Neuromuscular Re-ed,Coordination Retraining Recommendations To Nursing Amount of Assist Needed Standby Assistance Discharge Recommendations PT Discharge Recommendations Home vs SNF Transportation Needs at Discharge Private Vehicle
--- NOTE | 2020-10-15 13:55 | PM.PN.1 ---
Subjective Subjective Date Patient Seen: 10/15/20 Time Patient Seen: 13:55 Interval history: 70-year-old male admitted to the hospital with candidemia, associated with IVDA. Patient is currently on methadone which appears to be controlling his symptoms. . He denies any shortness of breath or chest pain today. No nausea or vomiting. No subjective fevers or chills. Exam Vital Signs (past 8 hours): - 10/15/20 07:00 10/15/20 07:30 10/15/20 12:00 Temperature 97.6 F 97.4 F L Pulse Rate 59 L 59 L Respiratory Rate 18 18 Blood Pressure 135/71 135/67 Pulse Oximetry 95 95 96 Oxygen Delivery Method Room Air Oxygen Flow Rate 0 Narrative Exam Narrative: GEN: chronically ill appearing, no acute distress, mildly disheveled. HEENT: moist mucous membranes, PERRL NECK: trachea midline, no JVD CV: regular rate and rhythm with no murmurs PULM: clear bilaterally with no wheezes, rhonchi, rales ABD: soft, nontender, nondistended, no organomegaly EXT: warm, LUE has no erythema but he has track hansen with nontender areas of induration NEURO: awake, alert and oriented, moving all extremities, normal upper and lower extremity strength BACK: no tenderness over lumbar spinal processes PSYCH: pleasant, calm and cooperative. Objective Labs Result Diagrams: 10/15/20 08:20 10/15/20 08:20 Labs: Laboratory Results - last 24 hr 10/15/20 10/15/20 08:20 08:20 WBC 10.3 RBC 4.83 Hgb 14.6 Hct 44.6 MCV 92.4 MCH 30.3 MCHC 32.8 RDW 14.3 Plt Count 281 Neut % (Auto) Not Reportable Lymph % (Auto) Not Reportable [place] % (Auto) Not Reportable Eos % (Auto) Not Reportable Baso % (Auto) Not Reportable Lymph # (Auto) Not Reportable [place] # (Auto) Not Reportable Baso # (Auto) Not Reportable Total Counted 100 Seg Neutrophils % 48.0 Band Neutrophils % 3.0 Lymphocytes % (Manual) 27.0 Atypical Lymphs % 6.0 H Monocytes % (Manual) 10.0 Eosinophils % (Manual) 5.0 H Basophils % (Manual) 1.0 Neutrophils # (Manual) 5253 RBC Morphology Normal morphology Sodium 136 L Potassium 4.0 Chloride 103 Carbon Dioxide 27 BUN 17 Creatinine 0.74 Estimated GFR > 60.0 BUN/Creatinine Ratio 23.0 H Glucose 90 Calcium 8.9 Total Bilirubin 0.4 AST 56 ALT 47 Alkaline Phosphatase 62 Total Protein 6.6 Albumin 3.2 L Globulin 3.4 Albumin/Globulin Ratio 0.9 L [facility] Medical History Abscess Acute CVA (cerebrovascular accident) Heroin abuse Social History household members: none Smoking Status: Current every day smoker Assessment & Plan Assessment & Plan narrative: Mr. Benitez is a 70M with PMH of IV drug use, alcohol abuse who comes in complaining of weakness and now resolved shortness of breath found to have sepsis from rhiannon fungemia 1. Sepsis, acute -infection from fungemia with rhiannon growing in culture and PCR positive for rhiannon albicans and galbrata -upper extremity bilateral CT shows no definitive evidence of abscess -initially patient with blood pressure in 80s, LUI with creatinine >1.2, respiratory rate of 30, which is consistent with qsofa of 3, with organ dysfunction of renal failure -WBC now improved to normal -UA negative -now off of antibiotics after initial empiric therapy given. -continue IV micafungin for fungemia. -MRI L-spine with no evidence of infection -discussed with ID, ophtho eval for endophthalmitis within 1-2 weeks, DILAN needed to definitively rule out endocarditis. No current availability at [facility] but can arrange early next week with transfer back to here. ID would recommend at least 2-4 weeks of IV micafungin once cultures negative, and plan possibly can change pending further results. Alternative idea would be to arrange for swing bed, and transfer to another facility for DILAN and ID consultation prior to ultimate transfer to swing bed for antiviral therapy. -repeat blood cultures currently without growth. 2. Acute heroin intoxication -patient with worsening pain and withdrawal, ordered methadone for both with improvement. Continue methadone 15 mg BID. -monitor for withdrawal going forward -social work consulted 3. Alcohol abuse -continue CIWA protocol, possibly can discontinue tomorrow. -patient ordered for MVI, thiamine, folate 4. LUI, resolved -creatinine of 1.26 up from baseline of 0.70, improved to 0.81 -presumed to have prerenal given hypotension DVT ppx: heparin sc DIET: Regular CODE: Full, proxy is brother Torrey
[2020-10-15] MEDS: MICAFUNGIN 100 MG in SODIUM CHLORIDE 0.9% 100 ML IV (17:25)
[2020-10-16] VITALS (7 sets, daily range): BP systolic 131–157; BP diastolic 73–84; PULSE 55–71; RESP 14–18; TEMP 36.3–36.7; O2SAT 94–98
[2020-10-16] MEDS: SODIUM CHLORIDE 0.9% 1,000 ML 84 ML IV ×2 (04:17→16:56)
[2020-10-16 07:35] LABS: Alanine Aminotransferase 46 IU/L (<50); Albumin 3.4 g/dL (3.5-5.0); Alkaline Phosphatase 59 U/L (38-126); Aspartate Aminotransferase 63 IU/L (17-59); BUN Creatinine Ratio 23.9 (6-22); Bilirubin Total 0.5 mg/dL (0.2-1.3); Blood Urea Nitrogen 16 mg/dL (9-20); Calcium 9.1 mg/dL (8.4-10.2); Carbon Dioxide 22 mmol/L (22-32); Chloride 106 mmol/L (98-107); Estimated Glomerular Filt Rate > 60.0 mL/min (>60); Globulin 3.5 g/dL (1.7-4.1); Glucose 88 mg/dL (80-110); HEMOLYSIS 44 (0-50); Potassium 4.4 mmol/L (3.4-5.1); Sodium 135 mmol/L (137-145); Total Protein 6.9 g/dL (6.3-8.2)
[2020-10-16 08:28] LABS: Add Manual Diff / Slide Review NO; Basophils Absolute Auto 100 /uL (0-100); Basophils Percent Auto 0.9 % (0-2); Eosinophils Absolute Auto 400 /uL (0-450); Eosinophils Percent Auto 3.3 % (2-4); Hematocrit 44.2 % (41-53); Hemoglobin 14.4 g/dL (13.5-17.5); Lymphocytes Absolute Auto 2800 /uL (1100-4500); Lymphocytes Percent Auto 25.7 % (25-40); Mean Corpuscular HGB Conc 32.6 % (30-36); Mean Corpuscular Hemoglobin 30.4 PG (26-34); Monocytes Absolute Auto 700 /uL (0-900); Monocytes Percent Auto 6.1 % (3-14); Neutrophils Absolute Auto 6900 /uL (1500-7000); Platelet Count 310 X10^3/uL (150-400); Red Blood Cell Count 4.75 X10^6/uL (4.5-5.9); Red Cell Distribution Width 14.8 % (11.6-14.8); White Blood Cell Count 10.7 X10^3/uL (4.5-11.0)
[2020-10-16] MEDS: MULTIVITAMIN 1 TABLET 1 TAB PO (09:46)
[2020-10-16] MEDS: METHADONE 10 MG TABLET 15 MG PO ×2 (09:46→20:17)
[2020-10-16] MEDS: FOLIC ACID 1 MG TABLET PO (09:46)
[2020-10-16] MEDS: HEPARIN 5,000 UNIT/ML VIAL 5000 UNIT SUBCUT ×2 (09:47→20:17)
[2020-10-16] MEDS: NICOTINE 14 PATCH 14 MG TOP (09:47)
--- NOTE | 2020-10-16 12:44 | PT.IPTN ---
Current Diagnoses Sepsis, unspecified organism (10/09/20) Physical Therapy Treatment Note M2 PT-IP Current Condition Start: 10/10/20 14:18 Freq: NEEDED Status: Active Protocol: Document 10/10/20 12:45 AB (Rec: 10/10/20 14:32 AB [id number]) Physical Therapy Current Condition Current Condition Evaluation Date 10/10/20 Treatment Diagnosis sepsis; difficulty in walking Onset Date 10/09/20 M3 PT-IP Subjective Start: 10/10/20 14:18 Freq: NEEDED Status: Active Protocol: Document 10/16/20 12:33 AMB (Rec: 10/16/20 12:44 AMB [email or web address]) Subjective Physical Therapy Visit Type Type Treatment Note Visit Start Time 11:00 Visit Stop Time 11:15 Total Visit Minutes 15 Physical Therapy Visit Comments Patient Comments Pt agreed to ambulate in his room only. M4 PT-IP Mobility and Gait Start: 10/10/20 14:18 Freq: NEEDED Status: Active Protocol: Document 10/16/20 12:33 AMB (Rec: 10/16/20 12:44 AMB [email or web address]) PT-Bed Mobility Assessment Supine to Sit Supine to Sit Standby Assistance,Head of Bed Elevated Sit to Supine Sit to Supine Standby Assistance,Head of Bed Elevated PT-Transfer Assessment Sit to and From Stand Sit to and from Stand Standby Assistance,1 Person Assistance Equipment Transfer Assistive Device None Orthotic/Prosthetic Devices or Brace: No Comments Mobility Comments Pt moved from supine to sit with HOB elevated SBA, ambulated around room with SBA frequently touching down on ma when turning, but otherwise moving well around 75'. Pt returned to bed with SBA and bed alarm on with call light in place. Pt stated he felt better after moving around, less stiff. Gait Assessment Gait Gait Assistance Required: Standby Assistance Distance (Feet) 60 Able to Maintain Weight Bearing Status Yes During Gait Assistive Devices Assistive Device None Orthotic/Prosthetic Devices or Brace: No Gait Deviations General Gait Pattern Antalgic,Decreased Stride Length,Decreased Feet Clearance,Wide Based Gait Factors Limiting Gait Function Factors Limiting Gait Function Decreased Activity Tolerance, Decreased Strength,Limited Range of Motion,Pain,Poor Balance,Poor Safety Awareness M5 PT-IP Objective Assessments Start: 10/10/20 14:18 Freq: NEEDED Status: Active Protocol: Document 10/10/20 12:45 AB (Rec: 10/10/20 14:32 AB [id number]) Orientation Orientation/Cognition Level of Alertness Alert Orientation Name,Place,Situation Language Function Ability Hard of Hearing Safety Awareness Decreased Safety Awareness Gross Range of Motion Lower Extremity ROM Assessment Within Functional Limits Strength Lower Extremity Strength Assessment Within Functional Limits Coordination Assessment Gross Coordination Gross Coordination WNL Sensation Assessment Sensation Gross Sensation WNL Muscle Tone Muscle Tone WNL Yes M6 PT-IP Treatment Start: 10/10/20 14:18 Freq: NEEDED Status: Active Protocol: Document 10/15/20 11:39 AB (Rec: 10/15/20 12:38 AB [id number]) Physical Therapy Treatment Education Education Provided Safety M7 PT-IP Assessment and Plan Start: 10/10/20 14:18 Freq: NEEDED Status: Active Protocol: Document 10/16/20 12:33 AMB (Rec: 10/16/20 12:44 AMB [email or web address]) PT Summary Assessment and Plan Potential Rehabilitation Potential Good Summary Impairments Pain,ROM,Strength,Balance, Coordination,Sensation,Tone, Cognition,Bed Mobility, Transfers,Gait,Activity Tolerance Progress Towards Goals Slow Progress due to Pain,Slow Progress due to Medical Issues,Slow Progress due to Activity Tolerance Assessment Summary pt slowly progressing with mobility and able to ambulate without AD SBA but with occasionally reaching for bed/ wall for support. Pt feels that that is his baseline, but d/c plan will depend on progress which has been slow. Goals Bed Mobility Goal Independent Transfer Goal Independent,Cane Gait Goal Independent,Cane Gait Distance 200 Other Goals ambulation without AD mod I 200ft up/down 5 steps 1 rail mod Independent Days to Meet Goals 5 Frequency of Treatment Frequency Of Treatment Once a Day Treatment Plan Physical Therapy Treatment Plan Bed Mobility Training,Transfer Training,Gait Training, Therapeutic Exercise,Balance Retraining,Discharge Planning, Hot or Cold Pack,Neuromuscular Re-ed,Coordination Retraining Recommendations To Nursing Amount of Assist Needed Standby Assistance Discharge Recommendations PT Discharge Recommendations Home vs SNF Transportation Needs at Discharge Private Vehicle
--- NOTE | 2020-10-16 14:43 | CM.DPNOTE ---
DCP Note Spoke w/Manju Burch from [facility] P#[phone], patient's jail care application had been received and Manju had been assigned as the cyanide case hardener. Manju explained that patient's financial application still needed to be submitted via [employer]acon[employer], Manju was holding a spot for patient's in person assessment next Tuesday. Manju clarified that patient would have all income relinquished except $70 monthly if there was an AFH vs [place] found on his behalf This WIRING MECHANIC met w/patient to review above; patient grateful for options but declines [facility] funded jail care at this time, states he does not want to have his income taken, and hopes to rent a room while waiting for H[employer] housing ([employer] apt) to become available. Patient agreeable to SNF placement while being treated w/IV Abx, if one is secured, and will likely DC to a friend's home when medical treatment is completed. JAIRO
[2020-10-16] MEDS: MICAFUNGIN 100 MG in SODIUM CHLORIDE 0.9% 100 ML IV (16:57)
[2020-10-16 17:07] LABS: COVID19 - ADMIT (NP swab/PCR) Negative (Negative)
--- NOTE | 2020-10-16 17:44 | P.PN_ITS ---
Subjective Subjective Date Patient Seen: 10/16/20 Time Patient Seen: 17:44 Interval history: 70-year-old male admitted to the hospital with candidemia, associated with IVDA. Patient is currently on methadone which appears to be controlling his symptoms. . He denies any shortness of breath or chest pain today. No nausea or vomiting. No subjective fevers or chills. Called [facility] today, whom accepted for DILAN and ID consultation, with plan to transfer back after for continuation of therapy, pending bed availability. Exam Vital Signs (past 8 hours): - 10/16/20 11:30 10/16/20 16:19 Temperature 97.5 F L 97.7 F Pulse Rate 62 60 Respiratory Rate 16 18 Blood Pressure 132/73 131/84 Pulse Oximetry 95 95 Oxygen Delivery Method Room Air Oxygen Flow Rate 0 Narrative Exam Narrative: GEN: chronically ill appearing, no acute distress, mildly disheveled. HEENT: moist mucous membranes, PERRL NECK: trachea midline, no JVD CV: regular rate and rhythm with no murmurs PULM: clear bilaterally with no wheezes, rhonchi, rales ABD: soft, nontender, nondistended, no organomegaly EXT: warm, LUE has no erythema but he has track hansen bialteral upper extremities. NEURO: awake, alert and oriented, moving all extremities, normal upper and lower extremity strength BACK: no tenderness or erythema. PSYCH: pleasant, calm and cooperative. Objective Labs Result Diagrams: 10/16/20 07:04 10/16/20 07:04 Labs: Laboratory Results - last 24 hr 10/16/20 10/16/20 10/16/20 07:04 07:04 13:15 WBC 10.7 RBC 4.75 Hgb 14.4 Hct 44.2 MCV 93.0 MCH 30.4 MCHC 32.6 RDW 14.8 Plt Count 310 Neut % (Auto) 64.0 Lymph % (Auto) 25.7 [place] % (Auto) 6.1 Eos % (Auto) 3.3 Baso % (Auto) 0.9 Neut # (Auto) 6900 Lymph # (Auto) 2800 [place] # (Auto) 700 Eos # (Auto) 400 Baso # (Auto) 100 Sodium 135 L Potassium 4.4 Chloride 106 Carbon Dioxide 22 BUN 16 Creatinine 0.67 Estimated GFR > 60.0 BUN/Creatinine Ratio 23.9 H Glucose 88 Calcium 9.1 Total Bilirubin 0.5 AST 63 H ALT 46 Alkaline Phosphatase 59 Total Protein 6.9 Albumin 3.4 L Globulin 3.5 Albumin/Globulin Ratio 1.0 SARS-CoV-2 (PCR) Negative [facility] Medical History Abscess Acute CVA (cerebrovascular accident) Heroin abuse Social History household members: none Smoking Status: Current every day smoker Assessment & Plan Assessment & Plan narrative: Mr. Benitez is a 70M with PMH of IV drug use, alcohol abuse who comes in complaining of weakness and now resolved shortness of breath found to have sepsis from rhiannon fungemia 1. Sepsis, acute -infection from fungemia with rhiannon growing in culture and PCR positive for rhiannon albicans and galbrata -upper extremity bilateral CT shows no definitive evidence of abscess -initially patient with blood pressure in 80s, LUI with creatinine >1.2, respiratory rate of 30, which is consistent with qsofa of 3, with organ dysfunction of renal failure -WBC now improved to normal -UA negative -now off of antibiotics after initial empiric therapy given. -continue IV micafungin for fungemia. -MRI L-spine with no evidence of infection -discussed with ID at [facility] initially over the phone. Recommended ophtho eval for endophthalmitis within 1-2 weeks, DILAN needed to definitively rule out endocar ditis. No current availability at [facility] but can arrange early next week with transfer back to here. ID would recommend at least 2-4 weeks of IV micafungin once cultures negative, and plan possibly can change pending further results. Was able to discuss with [facility] today, whom accepted the patient pending bed availability for DILAN and formal ID consultation (Dr. Cummins). Afterwards he could transfer back to [facility]. -repeat blood cultures currently without growth. 2. Acute heroin intoxication -patient with worsening pain and withdrawal, ordered methadone for both with improvement. Continue methadone 15 mg BID. -monitor for withdrawal going forward -social work consulted 3. Alcohol abuse -continue CIWA protocol, possibly can discontinue tomorrow. -patient ordered for MVI, thiamine, folate 4. LUI, resolved -creatinine of 1.26 up from baseline of 0.70, improved to 0.81 -presumed to have prerenal given hypotension DVT ppx: heparin sc DIET: Regular CODE: Full, proxy is brother Torrey Dispo: plan for transfer to [facility] for DILAN and formal ID recommendations on duration of therapy. Plan following this would be depending on duration and route of treatment.
[2020-10-16] MEDS: SODIUM CHLORIDE 0.9% FLUSH 10 ML IV (20:17)
[2020-10-17] VITALS (9 sets, daily range): BP systolic 116–153; BP diastolic 69–80; PULSE 56–66; RESP 16–18; TEMP 36.2–36.8; O2SAT 94–97
[2020-10-17] MEDS: SODIUM CHLORIDE 0.9% 1,000 ML 84 ML IV (06:41)
[2020-10-17 07:18] LABS: Add Manual Diff / Slide Review NO; Basophils Absolute Auto 100 /uL (0-100); Basophils Percent Auto 1.1 % (0-2); Eosinophils Absolute Auto 300 /uL (0-450); Eosinophils Percent Auto 3.4 % (2-4); Hematocrit 40.8 % (41-53); Hemoglobin 13.2 g/dL (13.5-17.5); Lymphocytes Absolute Auto 2600 /uL (1100-4500); Mean Corpuscular HGB Conc 32.4 % (30-36); Mean Corpuscular Hemoglobin 30.1 PG (26-34); Mean Corpuscular Volume 92.8 fL (80-100); Monocytes Absolute Auto 900 /uL (0-900); Monocytes Percent Auto 8.6 % (3-14); Neutrophils Absolute Auto 6200 /uL (1500-7000); Neutrophils Percent Auto 60.9 % (50-75); Platelet Count 357 X10^3/uL (150-400); Red Blood Cell Count 4.39 X10^6/uL (4.5-5.9); Red Cell Distribution Width 14.9 % (11.6-14.8); White Blood Cell Count 10.1 X10^3/uL (4.5-11.0)
[2020-10-17] MEDS: METHADONE 10 MG TABLET 15 MG PO ×2 (08:27→20:42)
[2020-10-17] MEDS: MULTIVITAMIN 1 TABLET 1 TAB PO (08:28)
[2020-10-17] MEDS: FOLIC ACID 1 MG TABLET PO (08:28)
[2020-10-17] MEDS: HEPARIN 5,000 UNIT/ML VIAL 5000 UNIT SUBCUT ×2 (08:28→20:43)
[2020-10-17] MEDS: SODIUM CHLORIDE 0.9% FLUSH 10 ML IV ×2 (08:29→20:43)
--- NOTE | 2020-10-17 11:07 | PT.IPTN ---
Current Diagnoses Sepsis, unspecified organism (10/09/20) Physical Therapy Treatment Note M2 PT-IP Current Condition Start: 10/10/20 14:18 Freq: NEEDED Status: Active Protocol: Document 10/10/20 12:45 AB (Rec: 10/10/20 14:32 AB [id number]) Physical Therapy Current Condition Current Condition Evaluation Date 10/10/20 Treatment Diagnosis sepsis; difficulty in walking Onset Date 10/09/20 M3 PT-IP Subjective Start: 10/10/20 14:18 Freq: NEEDED Status: Active Protocol: Document 10/17/20 10:55 CLB (Rec: 10/17/20 11:18 CLB [id number]) Subjective Physical Therapy Visit Type Type Treatment Note Visit Start Time 10:53 Visit Stop Time 11:07 Total Visit Minutes 14 Number of TRACK VEHICLE REPAIRER Visits 1 Physical Therapy Visit Comments Patient Comments Pt agreed to walk with therapy . Pt states he feel a bit weaker today. M4 PT-IP Mobility and Gait Start: 10/10/20 14:18 Freq: NEEDED Status: Active Protocol: Document 10/17/20 10:55 CLB (Rec: 10/17/20 11:18 CLB [id number]) PT-Bed Mobility Assessment Supine to Sit Supine to Sit Standby Assistance,Head of Bed Elevated Sit to Supine Sit to Supine Standby Assistance,Head of Bed Elevated PT-Transfer Assessment Sit to and From Stand Sit to and from Stand Standby Assistance,1 Person Assistance Equipment Transfer Assistive Device None,Gait Belt,Straight Cane Orthotic/Prosthetic Devices or Brace: No Comments Mobility Comments Pt stood SBA with legs shaking and began ambulating using foot of bed. Pt sat on EOB and cane was brought to room. Pt stood SBA and pt ambulated in adhikari SBA-CGA with cues for cane/step sequencing. Pt ambulated ~100ft with standing rest breaks and cues to watch obstacles in adhikari. Gait Assessment Gait Gait Assistance Required: Standby Assistance,Contact Guard Assist,1 Person Assist Distance (Feet) 100 Able to Maintain Weight Bearing Status Yes During Gait Assistive Devices Assistive Device Gait Belt,Straight Cane Orthotic/Prosthetic Devices or Brace: No Gait Deviations General Gait Pattern Antalgic,Decreased Stride Length,Decreased Feet Clearance,Wide Based Gait Factors Limiting Gait Function Factors Limiting Gait Function Decreased Activity Tolerance, Decreased Strength,Limited Range of Motion,Pain,Poor Balance,Poor Safety Awareness M5 PT-IP Objective Assessments Start: 10/10/20 14:18 Freq: NEEDED Status: Active Protocol: Document 10/10/20 12:45 AB (Rec: 10/10/20 14:32 AB [id number]) Orientation Orientation/Cognition Level of Alertness Alert Orientation Name,Place,Situation Language Function Ability Hard of Hearing Safety Awareness Decreased Safety Awareness Gross Range of Motion Lower Extremity ROM Assessment Within Functional Limits Strength Lower Extremity Strength Assessment Within Functional Limits Coordination Assessment Gross Coordination Gross Coordination WNL Sensation Assessment Sensation Gross Sensation WNL Muscle Tone Muscle Tone WNL Yes M6 PT-IP Treatment Start: 10/10/20 14:18 Freq: NEEDED Status: Active Protocol: Document 10/15/20 11:39 AB (Rec: 10/15/20 12:38 AB [id number]) Physical Therapy Treatment Education Education Provided Safety M7 PT-IP Assessment and Plan Start: 10/10/20 14:18 Freq: NEEDED Status: Active Protocol: Document 10/17/20 10:55 CLB (Rec: 10/17/20 11:18 CLB [id number]) PT Summary Assessment and Plan Potential Rehabilitation Potential Good Summary Impairments Pain,ROM,Strength,Balance, Coordination,Sensation,Tone, Cognition,Bed Mobility, Transfers,Gait,Activity Tolerance Progress Towards Goals Slow Progress due to Pain,Slow Progress due to Medical Issues,Slow Progress due to Activity Tolerance Assessment Summary Pt ambulates ~100ft w/SPC as pt states he is feeling weaker and appears shakey in standing. Pt requires cues for watching obstacles during ambulation in adhikari. Goals Bed Mobility Goal Independent Transfer Goal Independent,Cane Gait Goal Independent,Cane Gait Distance 200 Other Goals ambulation without AD mod I 200ft up/down 5 steps 1 rail mod Independent Days to Meet Goals 5 Frequency of Treatment Frequency Of Treatment Once a Day Treatment Plan Physical Therapy Treatment Plan Bed Mobility Training,Transfer Training,Gait Training, Therapeutic Exercise,Balance Retraining,Discharge Planning, Hot or Cold Pack,Neuromuscular Re-ed,Coordination Retraining Recommendations To Nursing Amount of Assist Needed Standby Assistance Discharge Recommendations PT Discharge Recommendations Home vs SNF Transportation Needs at Discharge Private Vehicle
--- NOTE | 2020-10-17 11:13 | PM.PN.1 ---
Subjective Subjective Date Patient Seen: 10/17/20 Time Patient Seen: 11:13 Interval history: Mino Benitez is a 70 y.o. male admitted to the hospital with candidemia, associated with IVDA. Patient is currently on methadone which appears to be controlling his symptoms. He is awaiting transfer and return for a DILAN and infectious disease consult and is pending transfer to [facility] over the weekend. He denies complaints of pain and states he is doing well. He was completing a session with physical therapy when I entered the room. Exam Vital Signs (past 8 hours): - 10/17/20 04:00 10/17/20 08:09 10/17/20 08:36 Temperature 97.8 F 97.2 F L Pulse Rate 56 L 66 Respiratory Rate 16 16 Blood Pressure 140/70 144/80 H Pulse Oximetry 94 96 94 Oxygen Delivery Method Room Air Oxygen Flow Rate 0 Narrative Exam Narrative: Gen: Alert, oriented, ill appearing 70 y.o. male, appears older than stated age HEENT: normocephalic, atraumatic, conjunctiva clear, sclera non-icteric, oral mucosa pink, edentulous Neck: supple, full ROM, no JVD, trachea is midline Resp: Lungs CTA, non-labored breathing CV: RRR, no murmur or rubs Abd: soft, non-tender, normoactive BTs Skin: PICC line w/no signs of infection, has multiple scattered actinic type lesions or rashes, dry and intact Neuro: Alert and oriented X 4 w/no focal deficits. Speech clear and coherent. Extremities: moves all 4 extremities, is ambulatory, negative Monica?s sign Psyche: normal mood and affect. Objective Labs Result Diagrams: 10/17/20 06:59 10/16/20 07:04 Labs: Laboratory Results - last 24 hr 10/16/20 10/17/20 13:15 06:59 WBC 10.1 RBC 4.39 L Hgb 13.2 L Hct 40.8 L MCV 92.8 MCH 30.1 MCHC 32.4 RDW 14.9 H Plt Count 357 Neut % (Auto) 60.9 Lymph % (Auto) 26.0 [place] % (Auto) 8.6 Eos % (Auto) 3.4 Baso % (Auto) 1.1 Neut # (Auto) 6200 Lymph # (Auto) 2600 [place] # (Auto) 900 Eos # (Auto) 300 Baso # (Auto) 100 SARS-CoV-2 (PCR) Negative [facility] Medical History Abscess Acute CVA (cerebrovascular accident) Heroin abuse Social History household members: none Smoking Status: Current every day smoker Assessment & Plan Assessment & Plan narrative: Mr. Benitez is a 70M with PMH of IV drug use, alcohol abuse who comes in complaining of weakness and now resolved shortness of breath found to have sepsis from rhiannon fungemia. 1. Sepsis, acute, slowly resolving -infection from fungemia with rhiannon growing in culture and PCR positive for rhiannon albicans and glabrata -upper extremity bilateral CT shows no definitive evidence of abscess -initially patient with blood pressure in 80s, LUI with creatinine >1.2, respiratory rate of 30, which is consistent with qsofa of 3, with organ dysfunction of renal failure -WBC now improved to normal -UA negative -now off of antibiotics after initial empiric therapy given. -continue IV micafungin for fungemia. -MRI L-spine with no evidence of infection -discussed with ID at [facility] initially over the phone. Recommended ophtho eval for endophthalmitis within 1-2 weeks, DILAN needed to definitively rule out endocarditis. No current availability at [facility] but can arrange early next week with transfer back to here. ID would recommend at least 2-4 weeks of IV micafungin once cultures negative, and plan possibly can change pending further results. Was able to discuss with [facility] today, whom accepted the patient pending bed availability for DILAN and formal ID consultation (Dr. Cummins). Afterwards he could transfer back to [facility]. -Patient now accepted at [facility] for transfer on 10/19 for DILAN and infectious disease consult with [facility] -repeat blood cultures currently without growth. 2. Acute heroin intoxication -patient with worsening pain and withdrawal appears to be stabilizing, ordered methadone for both with improvement. Continue methadone 15 mg BID. -monitor for withdrawal going forward -social work consulted 3. Alcohol abuse -continue CIWA protocol, possibly can discontinue tomorrow. -patient ordered for oral MVI, and folate, thiamine discontinued 4. LUI, resolved since 10/12 DVT ppx: heparin sc DIET: Regular CODE: Full, proxy is brother Torrey Dispo: plan for transfer to [facility] for DILAN and formal ID recommendations on duration of therapy. Plan following this would be depending on duration and route of treatment. Patient states is now homeless, will need SW consult once to assist in placement either permanently or for the interim while awaiting affordable housing situation.
[2020-10-17 14:30] LABS: Alanine Aminotransferase 43 IU/L (<50); Albumin 3.5 g/dL (3.5-5.0); Alkaline Phosphatase 64 U/L (38-126); Aspartate Aminotransferase 59 IU/L (17-59); BUN Creatinine Ratio 27.1 (6-22); Bilirubin Total 0.4 mg/dL (0.2-1.3); Blood Urea Nitrogen 19 mg/dL (9-20); Calcium 9.3 mg/dL (8.4-10.2); Carbon Dioxide 23 mmol/L (22-32); Chloride 105 mmol/L (98-107); Estimated Glomerular Filt Rate > 60.0 mL/min (>60); Globulin 3.5 g/dL (1.7-4.1); Glucose 130 mg/dL (80-110); HEMOLYSIS 16 (0-50); Potassium 4.2 mmol/L (3.4-5.1); Sodium 135 mmol/L (137-145)
[2020-10-17] MEDS: MICAFUNGIN 100 MG in SODIUM CHLORIDE 0.9% 100 ML IV (18:20)
--- NOTE | 2020-10-17 22:03 | PC.NURSE ---
Patient is A & O x4 tonight, oxygen saturations maintaining 92-96% on 40L 55% FiO2 heated high flow nasal cannula. Patient has been side-lying, up to chair, and standing at edge of bed to use urinal. Pt O2 sats decrease to high 80s with activity, increasing back to pt baseline in less than 5 minutes. Pt vital signs stable. Patient daughter, Carmela, updated at 1600 on pt status.
[2020-10-18] VITALS (8 sets, daily range): BP systolic 118–129; BP diastolic 61–71; PULSE 56–76; RESP 16–20; TEMP 36.4–37.2; O2SAT 94–96
[2020-10-18] MEDS: ACETAMINOPHEN 325 MG TABLET 650 MG PO ×2 (09:10→18:28)
[2020-10-18] MEDS: HEPARIN 5,000 UNIT/ML VIAL 5000 UNIT SUBCUT ×2 (09:10→20:59)
[2020-10-18] MEDS: NICOTINE 14 PATCH 14 MG TOP (09:10)
[2020-10-18] MEDS: METHADONE 10 MG TABLET 15 MG PO ×2 (09:11→20:56)
[2020-10-18] MEDS: MULTIVITAMIN 1 TABLET 1 TAB PO (09:11)
[2020-10-18] MEDS: FOLIC ACID 1 MG TABLET PO (09:11)
[2020-10-18] MEDS: SODIUM CHLORIDE 0.9% FLUSH 10 ML IV ×2 (09:12→21:01)
--- NOTE | 2020-10-18 09:39 | PT-IP ANOTE ---
939 Pt refused therapy stating he is very tired and has a MCKEON. Will check back with pt later today.
--- NOTE | 2020-10-18 13:12 | PM.PN.1 ---
Subjective Subjective Date Patient Seen: 10/18/20 Time Patient Seen: 08:00 Interval history: Today he has no complaints. No pain, shortness of breath, fevers/chills, nor withdrawal symptoms. Exam Vital Signs (past 8 hours): - 10/18/20 05:53 10/18/20 08:00 10/18/20 12:00 Temperature 97.7 F 98.4 F 97.8 F Pulse Rate 56 L 59 L 57 L Respiratory Rate 16 17 17 Blood Pressure 129/67 128/69 119/61 Pulse Oximetry 96 95 95 Oxygen Delivery Method Room Air Oxygen Flow Rate 0 Narrative Exam Narrative: Gen: Alert, oriented, chronically ill appearing Resp: Lungs clear bilaterally CV: RRR, no murmur Abd: soft, non-tender, normoactive BTs Skin: PICC line w/no signs of infection, has track hansen on arms Neuro: Alert and oriented with no focal deficits. Speech clear and coherent. Extremities: moves all extremities Psyche: normal mood and affect. Objective Labs Result Diagrams: 10/17/20 06:59 10/17/20 14:08 Labs: Laboratory Results - last 24 hr 10/17/20 14:08 Sodium 135 L Potassium 4.2 Chloride 105 Carbon Dioxide 23 BUN 19 Creatinine 0.70 Estimated GFR > 60.0 BUN/Creatinine Ratio 27.1 H Glucose 130 H Calcium 9.3 Total Bilirubin 0.4 AST 59 ALT 43 Alkaline Phosphatase 64 Total Protein 7.0 Albumin 3.5 Globulin 3.5 Albumin/Globulin Ratio 1.0 PFSH Medical History Abscess Acute CVA (cerebrovascular accident) Heroin abuse Social History household members: none Smoking Status: Current every day smoker Assessment & Plan Assessment & Plan narrative: Mr. Benitez is a 70M with PMH of IV drug use, alcohol abuse who comes in complaining of weakness and now resolved shortness of breath found to have sepsis from rhiannon fungemia. 1. Sepsis from rhiannon fungemia, acute, slowly resolving -infection from fungemia with rhiannon growing in culture and PCR positive for rhiannon albicans and glabrata -upper extremity bilateral CT shows no definitive evidence of abscess -MRI L-spine negative for infection -TTE shows no vegetation -initially patient with blood pressure in 80s, LUI with creatinine >1.2, respiratory rate of 30, which is consistent with qsofa of 3, with organ dysfunction of renal failure -WBC now improved to normal -UA negative -now off of antibiotics after initial empiric therapy given. -continue IV micafungin for fungemia. -discussed with ID at [facility] initially over the phone. Recommended ophtho eval for endophthalmitis within 1-2 weeks, DILAN needed to definitively rule out endocarditis. No current availability at [facility] but attempting to arrange at [facility]. Afterwards transfer back to [facility]. ID would recommend at least 2-4 weeks of IV micafungin once cultures negative, and plan possibly can change pending further results. -Patient now accepted at [facility] for transfer on 10/19 for DILAN and infectious disease consult with return to [facility] and attempt to transfer to [facility] -repeat blood cultures negative since 10/09 2. Acute heroin intoxication -patient with worsening pain and withdrawal appears to be stabilizing, ordered methadone for both with improvement. Continue methadone 15 mg BID. -monitor for withdrawal going forward -social work consulted 3. Alcohol abuse -continue CIWA protocol, possibly can discontinue tomorrow. -patient ordered for oral MVI, and folate, thiamine discontinued 4. LUI, resolved since 10/12
--- NOTE | 2020-10-18 14:44 | PT.IPTN ---
Current Diagnoses Sepsis, unspecified organism (10/09/20) Physical Therapy Treatment Note M2 PT-IP Current Condition Start: 10/10/20 14:18 Freq: NEEDED Status: Active Protocol: Document 10/10/20 12:45 AB (Rec: 10/10/20 14:32 AB [id number]) Physical Therapy Current Condition Current Condition Evaluation Date 10/10/20 Treatment Diagnosis sepsis; difficulty in walking Onset Date 10/09/20 M3 PT-IP Subjective Start: 10/10/20 14:18 Freq: NEEDED Status: Active Protocol: Document 10/18/20 14:27 CLB (Rec: 10/18/20 15:27 CLB [id number]) Subjective Physical Therapy Visit Type Type Treatment Note Visit Start Time 14:27 Visit Stop Time 14:44 Total Visit Minutes 17 Number of WATER CONSERVATION SPECIALIST Visits 2 Physical Therapy Visit Comments Patient Comments Pt agreed to ambulate in adhikari. Therapy Pain Assessment Pain When Pain Assessed After Treatment Pain Present Pain Present Pain Reported Location Back Scale Used did not state Pain Management Techniques Modification of Treatment M4 PT-IP Mobility and Gait Start: 10/10/20 14:18 Freq: NEEDED Status: Active Protocol: Document 10/18/20 14:27 CLB (Rec: 10/18/20 15:27 CLB [id number]) PT-Bed Mobility Assessment Supine to Sit Supine to Sit Standby Assistance,Head of Bed Elevated Sit to Supine Sit to Supine Standby Assistance,Head of Bed Elevated PT-Transfer Assessment Sit to and From Stand Sit to and from Stand Standby Assistance,1 Person Assistance Equipment Transfer Assistive Device Gait Belt,Straight Cane Orthotic/Prosthetic Devices or Brace: No Comments Mobility Comments Pt ambulating in adhikari to therapy stairs w/SPC/CGA-SBA. Pt climbed therapy stairs x2 and ambulates back to room. Towards end of gait pt requiring CGA as pt begins to fatigue increasing forward flx and shuffled gait. Discussed with pt that a 4WW may be beneficial for long distance gait. Pt returned to bed SBA all needs within reach. Gait Assessment Gait Gait Assistance Required: Standby Assistance,Contact Guard Assist,1 Person Assist Distance (Feet) 300 Able to Maintain Weight Bearing Status Yes During Gait Assistive Devices Assistive Device Gait Belt,Straight Cane Orthotic/Prosthetic Devices or Brace: No Gait Deviations General Gait Pattern Antalgic,Decreased Stride Length,Decreased Feet Clearance,Wide Based Gait Factors Limiting Gait Function Factors Limiting Gait Function Decreased Activity Tolerance, Decreased Strength,Limited Range of Motion,Pain,Poor Balance,Poor Safety Awareness Stair Climbing Assessment Evaluation Level of Assist On Stairs Standby Assistance Devices Stair Climbing Assistive Devices Left Railing Technique/Endurance Stair Climbing Direction Ascend and Descend Stair Climbing Technique Step Over Step,Step to Step Number of Steps Climbed 3 Stair Climbing Set # Repetitions (reps) 2 Comments Stair Climbing Comments Pt used left ascending rail to go up/down steps with step over up and step to down. M5 PT-IP Objective Assessments Start: 10/10/20 14:18 Freq: NEEDED Status: Active Protocol: Document 10/10/20 12:45 AB (Rec: 10/10/20 14:32 AB [id number]) Orientation Orientation/Cognition Level of Alertness Alert Orientation Name,Place,Situation Language Function Ability Hard of Hearing Safety Awareness Decreased Safety Awareness Gross Range of Motion Lower Extremity ROM Assessment Within Functional Limits Strength Lower Extremity Strength Assessment Within Functional Limits Coordination Assessment Gross Coordination Gross Coordination WNL Sensation Assessment Sensation Gross Sensation WNL Muscle Tone Muscle Tone WNL Yes M6 PT-IP Treatment Start: 10/10/20 14:18 Freq: NEEDED Status: Active Protocol: Document 10/15/20 11:39 AB (Rec: 10/15/20 12:38 AB [id number]) Physical Therapy Treatment Education Education Provided Safety M7 PT-IP Assessment and Plan Start: 10/10/20 14:18 Freq: NEEDED Status: Active Protocol: Document 10/18/20 14:27 CLB (Rec: 10/18/20 15:27 CLB [id number]) PT Summary Assessment and Plan Potential Rehabilitation Potential Good Summary Impairments Pain,ROM,Strength,Balance, Coordination,Sensation,Tone, Cognition,Bed Mobility, Transfers,Gait,Activity Tolerance Progress Towards Goals Slow Progress due to Medical Issues,Slow Progress due to Activity Tolerance Assessment Summary Pt increasing gait distance with fatigue at end of gait requiring CGA, pt may benefit from 4WW for long distance gait. Goals Bed Mobility Goal Independent Transfer Goal Independent,Cane Gait Goal Independent,Cane Gait Distance 200 Other Goals ambulation without AD mod I 200ft up/down 5 steps 1 rail mod Independent Days to Meet Goals 5 Frequency of Treatment Frequency Of Treatment Once a Day Treatment Plan Physical Therapy Treatment Plan Bed Mobility Training,Transfer Training,Gait Training, Therapeutic Exercise,Balance Retraining,Discharge Planning, Hot or Cold Pack,Neuromuscular Re-ed,Coordination Retraining Other Recommendations and Next Treatment trial 4WW Focus Recommendations To Nursing Amount of Assist Needed Standby Assistance Discharge Recommendations PT Discharge Recommendations Home vs SNF Transportation Needs at Discharge Private Vehicle
[2020-10-18] MEDS: MICAFUNGIN 100 MG in SODIUM CHLORIDE 0.9% 100 ML IV (16:18)
[2020-10-19 04:33] VITALS: BP 129/77; PULSE 55; RESP 18; TEMP 36.2; O2SAT 94
[2020-10-19 08:00] VITALS: BP 131/73; PULSE 71; RESP 16; TEMP 36.6; O2SAT 94
[2020-10-19] MEDS: METHADONE 10 MG TABLET 15 MG PO ×2 (10:18→19:34)
[2020-10-19] MEDS: MULTIVITAMIN 1 TABLET 1 TAB PO (10:19)
[2020-10-19] MEDS: NICOTINE 14 PATCH 14 MG TOP (10:19)
[2020-10-19] MEDS: FOLIC ACID 1 MG TABLET PO (10:20)
[2020-10-19] MEDS: HEPARIN 5,000 UNIT/ML VIAL 5000 UNIT SUBCUT (10:20)
[2020-10-19] MEDS: SODIUM CHLORIDE 0.9% FLUSH 10 ML IV (10:20)
[2020-10-19] MEDS: ACETAMINOPHEN 325 MG TABLET 650 MG PO (10:20)
--- NOTE | 2020-10-19 11:40 | PT.IPTN ---
Current Diagnoses Sepsis, unspecified organism (10/09/20) Physical Therapy Treatment Note M2 PT-IP Current Condition Start: 10/10/20 14:18 Freq: NEEDED Status: Active Protocol: Document 10/10/20 12:45 AB (Rec: 10/10/20 14:32 AB [id number]) Physical Therapy Current Condition Current Condition Evaluation Date 10/10/20 Treatment Diagnosis sepsis; difficulty in walking Onset Date 10/09/20 M3 PT-IP Subjective Start: 10/10/20 14:18 Freq: NEEDED Status: Active Protocol: Document 10/19/20 11:21 MB (Rec: 10/19/20 11:40 MB [id number]) Subjective Physical Therapy Visit Type Type Treatment Note Visit Start Time 11:01 Visit Stop Time 11:21 Total Visit Minutes 20 Notes Pt waits in room after pt gets to EOB for him to order lunch per his request. PT with pt for 20 minutes, but not 20 minutes of treatment--bed alarm was on and so PT stays with pt while he sits EOB Number of NUT SIFTER Visits 0 Physical Therapy Visit Comments Patient Comments Pt is agreeable to PT Therapy Pain Assessment Pain When Pain Assessed During Mobility Pain Present Pain Present Denied Pain M4 PT-IP Mobility and Gait Start: 10/10/20 14:18 Freq: NEEDED Status: Active Protocol: Document 10/19/20 11:21 MB (Rec: 10/19/20 11:40 MB [id number]) PT-Bed Mobility Assessment Supine to Sit Supine to Sit Independent,Head of Bed Elevated Sit to Supine Sit to Supine Independent,Head of Bed Elevated Scooting Scooting to Edge of Bed Independent PT-Transfer Assessment Sit to and From Stand Sit to and from Stand Standby Assistance,1 Person Assistance Equipment Transfer Assistive Device Gait Belt,Straight Cane Orthotic/Prosthetic Devices or Brace: No Comments Mobility Comments Bed alarm on and so PT waits near pt after pt gets to EOB and wants to call down for lunch order. He is able to read menu and order over the phone I. He reports that he was using a cane NUT SIFTER and so gait with cane today. Gait Assessment Gait Gait Assistance Required: Standby Assistance,1 Person Assist Distance (Feet) 150 Assistive Devices Assistive Device Gait Belt,Straight Cane Orthotic/Prosthetic Devices or Brace: No Gait Deviations General Gait Pattern Ataxic,Decreased Stride Length ,Decreased Feet Clearance, Festinating,Flexed Trunk,Step- to Gait,Wide Based Gait Factors Limiting Gait Function Factors Limiting Gait Function Decreased Activity Tolerance, Difficulty Following Directions,Incoordination,Poor Balance,Poor Safety Awareness Comments Gait Comments Pt carries SPC in right hand. Gait trials: 150', 50', 20', 80' with pt taking rest breaks . Pt's gait is festinating with very short strides, increased lateral weight shift and quick steps. Cues to slow gait and lengthen steps and pt can perform for 3-4 step- lengths and then returns to festinating pattern that is slightly ataxic and with wide MYKE. He does steel pickler cane when stepping with left foot. Stair Climbing Assessment Evaluation Level of Assist On Stairs Standby Assistance Devices Stair Climbing Assistive Devices Left Railing Technique/Endurance Stair Climbing Direction Ascend and Descend Stair Climbing Technique Step Over Step,Step to Step Number of Steps Climbed 3 Stair Climbing Set # Repetitions (reps) 2 Comments Stair Climbing Comments Pt uses rail left hand and cane right hand with ascend and descend steps--reciprocal gait ascend and step to step descend M5 PT-IP Objective Assessments Start: 10/10/20 14:18 Freq: NEEDED Status: Active Protocol: Document 10/10/20 12:45 AB (Rec: 10/10/20 14:32 AB [id number]) Orientation Orientation/Cognition Level of Alertness Alert Orientation Name,Place,Situation Language Function Ability Hard of Hearing Safety Awareness Decreased Safety Awareness Gross Range of Motion Lower Extremity ROM Assessment Within Functional Limits Strength Lower Extremity Strength Assessment Within Functional Limits Coordination Assessment Gross Coordination Gross Coordination WNL Sensation Assessment Sensation Gross Sensation WNL Muscle Tone Muscle Tone WNL Yes M6 PT-IP Treatment Start: 10/10/20 14:18 Freq: NEEDED Status: Active Protocol: Document 10/19/20 11:21 MB (Rec: 10/19/20 11:40 MB [id number]) Physical Therapy Treatment Education Education Provided Safety M7 PT-IP Assessment and Plan Start: 10/10/20 14:18 Freq: NEEDED Status: Active Protocol: Document 10/19/20 11:21 MB (Rec: 10/19/20 11:40 MB [id number]) PT Summary Assessment and Plan Potential Rehabilitation Potential Good Summary Impairments ROM,Strength,Balance, Coordination,Bed Mobility, Transfers,Gait,Activity Tolerance Progress Towards Goals Progressing Toward Goals Assessment Summary Pt progresses with gait with cane and stair mobility. He has balance impairment and will benefit from further assessing balance next treatment date. Goals Bed Mobility Goal Independent Transfer Goal Independent,Cane Gait Goal Independent,Cane Gait Distance 200 Other Goals Ascend and descend steps with rail left hand and cane right and and mod I. Days to Meet Goals 5 Frequency of Treatment Frequency Of Treatment Once a Day Treatment Plan Physical Therapy Treatment Plan Bed Mobility Training,Transfer Training,Gait Training, Therapeutic Exercise,Balance Retraining,Discharge Planning, Neuromuscular Re-ed Other Recommendations and Next Treatment Further balance assessment and Focus training. Recommendations To Nursing Amount of Assist Needed Standby Assistance Discharge Recommendations PT Discharge Recommendations Home vs SNF Transportation Needs at Discharge Private Vehicle
[2020-10-19 12:00] VITALS: BP 133/53; PULSE 90; RESP 18; TEMP 36.7; O2SAT 97
[2020-10-19 15:00] VITALS: O2SAT 96
--- NOTE | 2020-10-19 15:13 | CM.DPC ---
Addendum entered by ANGELLA Dobbins 10/19/20 15:22: ADD: SW also called [facility] admissions and discussed pt status and they were willing to review and then called back and declined pt due to his drug hx, unstable housing. BF Original Note: DCP Cont: Per MD, pt seems to be accepted at [facility] for DILAN and ID consult with plan to return to [facility] for d/c planning and likely need of IV antifungal for a couple weeks pending cultures. Per PT, pt was somewhat impulsive but able to ambulate the hallway with walker and making some progress and recommending SNF vs Home pending progress with mobility. SW called [facility] and left msg in regards to their review of pt's referral, requested call back. SW called [facility] Bed and admissions states they are currently very full and no new admissions. SW faxed following SNF's: [facility]- decline due to pt's IV-DA hx [facility]- declines due to pt's IV-DA hx [facility]- faxed referral and left msg [facility]- faxed and left msg Plan: SW to follow closely for further SNF referrals outside of [facility] and confirm that pt needs IV medication at d/c otherwise pt will progress enough with PT to d/c to friend's house at discharge. ANGELLA Dobbins
[2020-10-19 15:25] VITALS: BP 115/70; PULSE 63; RESP 17; TEMP 37; O2SAT 96
--- NOTE | 2020-10-19 16:02 | P.PN_ITS ---
Subjective Subjective Date Patient Seen: 10/19/20 Time Patient Seen: 08:00 Interval history: Today he has no complaints. He feels well. He has no pain, fevers/chills. Exam Vital Signs (past 8 hours): - 10/19/20 12:00 10/19/20 15:25 Temperature 98.1 F 98.6 F Pulse Rate 90 63 Respiratory Rate 18 17 Blood Pressure 133/53 L 115/70 Pulse Oximetry 97 96 Oxygen Delivery Method Room Air Oxygen Flow Rate 0 Narrative Exam Narrative: Gen: Alert, oriented, chronically ill appearing Resp: Lungs clear bilaterally CV: RRR, no murmur Abd: soft, non-tender, normal bowel sounds Skin: PICC line w/no signs of infection, has track hansen on arms Neuro: Alert and oriented with no focal deficits. Speech clear and coherent. Extremities: moves all extremities Psyche: normal mood and affect. Objective Labs Result Diagrams: 10/17/20 06:59 10/17/20 14:08 [facility] Medical History Abscess Acute CVA (cerebrovascular accident) Heroin abuse Social History household members: none Smoking Status: Current every day smoker Assessment & Plan Assessment & Plan narrative: Mr. Benitez is a 70M with PMH of IV drug use, alcohol abuse who comes in complaining of weakness and now resolved shortness of breath found to have sepsis from rhiannon fungemia. 1. Sepsis from rhiannon fungemia, acute, slowly resolving -infection from fungemia with rhiannon growing in culture and PCR positive for rhiannon albicans and glabrata -upper extremity bilateral CT shows no definitive evidence of abscess -MRI L-spine negative for infection -TTE shows no vegetation -initially patient with blood pressure in 80s, LUI with creatinine >1.2, respiratory rate of 30, which is consistent with qsofa of 3, with organ dysfunction of renal failure -WBC now improved to normal -UA negative -now off of antibiotics after initial empiric therapy given. -continue IV micafungin for fungemia. -discussed with ID at [facility] initially over the phone. Recommended ophtho eval for endophthalmitis within 1-2 weeks, DILAN needed to definitively rule out endocarditis. No current availability at [facility] but attempting to arrange at [facility]. Afterwards transfer back to [facility]. ID would recommend at least 2-4 weeks of IV micafungin once cultures negative, and plan possibly can change pending further results. -Patient now accepted at [facility] for transfer on 10/19 for DILAN and infectious disease consult and possible ophtho eval with return to [facility] and attempt to transfer to [facility] -repeat blood cultures negative since 10/09 2. Acute heroin intoxication -patient with worsening pain and withdrawal appears to be stabilizing, ordered methadone for both with improvement. Continue methadone 15 mg BID. -monitor for withdrawal going forward -social work consulted 3. Alcohol abuse -continue CIWA protocol, possibly can discontinue tomorrow. -patient ordered for oral MVI, and folate, thiamine discontinued 4. LUI, resolved since 10/12
[2020-10-19] MEDS: MICAFUNGIN 100 MG in SODIUM CHLORIDE 0.9% 100 ML IV (18:19)
--- NOTE | 2020-10-19 18:54 | PM.DS.1 ---
History of Present Illness History of Present Illness Chief complaint: Weakness, SOB, x2 days Narrative: 70M with PMH of heroin abuse, previous infected abscess who comes in with weakness. He noted that he had been having some slight weakness of his leg prior to arrival to the hospital. He is not really able to explain it further. Otherwise he was having no pain. He did go to the restroom per EMS and shot up heroin once EMS had arrived. Patient states that he had slight shortness of breath. No fevers, no chills. He shoots up in his left arm. He has not withdran from heroin in the past. He has not having any abdominal pain, dysuria, coughing. In the ED, workup was done and he was noted to be initially afebrile with heart rate in the 130s and blood pressure in the systolic 80s. He was given IV fluids. Labs notable for WBC of 14.6, creatinine 1.26, procalcitonin of 42.5. Chest xray showed possible infiltrates. Left arm had multiple nontender, nonerythematous regions of induration, and track hansen. He had an initial lactate of 4 which improved to 1.9 with fluids. He had an ECHO done which showed no endocarditis. He was complaining of some back pain as well, but otherwise was feeling better. He was admitted for further treatment. Asked patient about family history, but he denied multiple times his parents or siblings had any medical condition Discharge Providers Provider Date of admission: 10/09/20 11:01 Discharge Date: 10/19/20 Consults: 10/08/20 21:00 Consult to REGISTERED HEALTH NURSE - [employer] Routine Comment: REGISTERED HEALTH NURSE Consult: Substance Abuse Assess 10/10/20 09:44 Consult to Physical Therapy Evaluate & Treat Comment: Physician Instructions: Evaluate and Treat Discharge provider: Yoni Borja MD Summary Hospital Course Discharge Diagnosis: 1. Sepsis from rhiannon fungemia 2. Acute heroin intoxication and then withdrawal, resolved 3. Alcohol abuse 4. Acute kidney injury, resolved Hospital Course: Mr. Benitez was admitted with sepsis with LUI, blood pressure in 80s, and leukocytosis with daily heroin injection. He grew back one set of positive blood cultures with rhiannon albicans and rhiannon glabrata on 10/07. Surveillance cultures were ordered on 10/09, and negative since then. He had no vision complaints. He did complain of upper extremity bilateral arm pain and CT showed no abscess. He complained of lumbar back pain and MRI of his L-spine was done which was reported by radiology as No convincing evidence of discitis/osteomyelitis. Some minimal enhancement at the L3-L4 and L1-L2 endplates is present, corresponding to areas of degenerative endplate signal change. Some mild enhancement is within the intervertebral disc spaces at these levels also, though there is no associated fluid signal on the T2 images. Overall, the findings are favored to represent degenerative changes and not infection. Severe spinal canal stenosis at L2-L3 and L3-L4, findings which were not appreciated on the prior study due to the severe motion degradation. He had a TTE that was negative for vegetation. Discussion with ID at [facility] recommended at least a 2 week course of IV micafungin, and to get a DILAN and ophthalmology evaluation. Ophthalmology is not at this hospital. Attempts were made to transfer to [facility] but beds were full. He was accepted to transfer to [facility] for consideration of DILAN, formal ID consult with question of antibiotic course, and consideration of ophthalmologic exam to rule out endophthalmitis. Patient was asymptomatic on day of discharge. For his heroin abuse and withdrawal he had been stable in the hospital on methadone 15mg BID. He did talk to SW here and expressed that he had no interest in quitting his substance abuse. Exam Vital Signs (past 8 hours): - 10/19/20 12:00 10/19/20 15:00 10/19/20 15:25 Temperature 98.1 F 98.6 F Pulse Rate 90 63 Respiratory Rate 18 17 Blood Pressure 133/53 L 115/70 Pulse Oximetry 97 96 96 Oxygen Delivery Method Room Air Oxygen Flow Rate 0 Objective Labs Result Diagrams: 10/17/20 06:59 10/17/20 14:08 [facility] Medical History Abscess Acute CVA (cerebrovascular accident) Heroin abuse Social History household members: none Smoking Status: Current every day smoker Discharge Plan Discharge Plan Patient Disposition: [facility] Provider Discharge Comment: transfer to [facility] for DILAN, possible ophthalmologic examination to rule out endophthalmitis, and formal ID consult for rhiannon fungemia, request recommendation on length to rx of micafungin Quality MIPS - DC The patient has current or prior documentation of left ventricular ejection fraction (LVEF) less than 40%, or moderate or severely depressed left ventricular systolic function.: No
--- NOTE | 2020-10-19 19:38 | PC.NURSE ---
shift summary- pt up in bed reading, A/O x4, denies pain, SOB, and nausea. 96%RA, LS clear. 1600-tele -SB 58, and removed for transfer. pt remains unsteady gait, 1PA FWW to bathroom, plus uses urinal. YORDY Dbl luman midline, flushes well, heparin flushed prior to transfer. Pt given methadone 15mg as well prior to leaving. 1939 - Packet given to [place] EMT RN, CJ. Pt transferring to [facility] for DILAN. Unknown if pt will return here to [facility] or over to [facility] rehab facility for further antibiotic infusion.
== END 2020-10-19 19:40 | disposition short-term general hospital (02) | DRG 872 ==
LOC: ED 10-08 00:39 → AC 10-08 09:08 → ICU 10-09 11:50
PROVIDERS: Internal Medicine; Admitting Provider Internal Medicine; Emergency Provider Emergency Medicine; Referring Provider Emergency Medicine; Visit Provider Internal Medicine
DX: B37.7 Candidal sepsis (principal); N17.9 Acute kidney failure, unspecified; H44.009 Unspecified purulent endophthalmitis, unspecified eye; F11.229 Opioid dependence with intoxication, unspecified; R65.20 Severe sepsis without septic shock; F10.10 Alcohol abuse, uncomplicated; Y90.0 Blood alcohol level of less than 20 mg/100 ml; F17.210 Nicotine dependence, cigarettes, uncomplicated; Z20.822 Contact with and (suspected) exposure to COVID-19
CPT/HCPCS: 36415; 36592; 71045; 71260; 72148; 72149; 73201; 80048; 80053; 80076; 80202; 80320; 81003; 82040; 83605; 83690; 84145; 85007; 85025; 85027; 85651; 86140; 87040; 87070; 87077; 87101; 87150; 87205; 87635; 87797; 93005; 93306; 94760; 96361; 96365; 96366; 96367; 96368; 97116; 97161; 97530; 99284; 99291; C9803; G0378; A9579; J0692; J0696; J1642; J1644; J2185; J2248; Q9967

== ENCOUNTER 2020-10-21 12:04 | Inpatient (IN) | payer MEDICARE, MEDICAID, SELFPAY ==
[2020-10-08 17:41] VITALS: BMI 24.9
[2020-10-21 14:31] VITALS: BMI 21.0
--- NOTE | 2020-10-21 14:32 | P.HP_ITS ---
History of Present Illness History of Present Illness Chief complaint: pneumonia/IV drug use Narrative: Mr. Benitez is a 70M with PMH of IVDU with heroin, alcohol abuse, was admitted in early October for sepsis and found to have Rhiannon albicans and glabrata fungemia. He has been on Micafungin since 10/09, with negative blood cultures since 10/09. He had TTE negative for endocarditis, MRI L-spine negative for infection. He was transferred to [facility] for DILAN. This showed positive endocarditis with vegetations on the aortic valve. He had ophtho exam that was negative for endophthalmitis and positive for Morelos spots. ID was consulted and recommended at least 6 weeks of echinocandin treatment at endocarditis dosing. They recommend following up with ID again in four weeks, with repeat DILAN in four weeks to determine if any progression in endocarditis. He is transferred back due to bed availability. He currently has no complaints. He denies fevers/chills, no pain. He has been stabilized since admission on 15mg BID of methadone. Family history: sister with breast cancer Patient History Medical History Abscess Acute CVA (cerebrovascular accident) Heroin abuse Family & Social History Social History: household members none Tobacco & Substance use: Smoking Status Current every day smoker alcohol intake frequency 3 or more drinks per day Substance Use Type marijuana,heroin Meds Home Medications and Allergies Home Medications Medication Instructions Recorded Confirmed Type No Known Home Medications 10/10/20 10/10/20 History Allergies Allergy/AdvReac Type Severity Reaction Status Date / Time No Known Drug Allergies Allergy Verified 10/07/20 19:09 Review of Systems Review of Systems Narrative: 14 systems reviewed and negative aside from HPI Exam Narrative Exam Narrative: GEN: chronically ill appearing, no acute distress HEENT: moist mucous membranes, PERRL NECK: trachea midline, no JVD CV: regular rate and rhythm with no murmurs PULM: clear bilaterally with no wheezes, rhonchi, rales ABD: soft, nontender, nondistended, no organomegaly EXT: warm and well perfused with no edema NEURO: awake, alert and oriented, moving all extremities, normal upper and lower extremity strength PSYCH: pleasant Assessment & Plan Assessment & Plan narrative: Mr. Benitez is a 70M who is transferred from [facility] due to bed availability who is being treated for rhiannon fungemia and endocarditis. 1. Rhiannon Fungemia, rhiannon endocarditis -had positive blood cultures on 10/07 for rhiannon glabrata, rhiannon albicans -negative blood cultures on 10/09 -TTE negative for endocarditis, DILAN at [facility] positive for endocarditis on 10/20 -ID recommended six weeks of micafungin/caspofungin which would be through 11/20, at that time follow up with ID for reevaluation and repeat DILAN ------further ID recs are to monitor LFTs closely, get fungal susceptibilities, consider lifelong azole suppression for rhiannon ------once outpatient weekly cbc, sed, crp, cmp faxed to ID Dr. Andres at [facility] at [phone] -no need for cardiac surgery at this time 2. IV drug use with heroin, previous withdrawal -currently controlled on methadone 15mg BID -patient interested in stopping substance abuse 3. Hepatitis C -had positive HCV antibody -will need outpatient follow up for treatment 4. Alcohol abuse -outside window for acute withdrawal -encouraged to stop drinking 5. Lung nodule -outaptient follow up recommended DVT ppx: heparin sc DIET: heart healty CODE: Full, proxy is brother Torrey [facility] - Admit I confirm the patient?s Advance Care Plan is present, Code status is documented, Surrogate decision maker is in patient?s record [If Yes, STOP here]: Yes
[2020-10-21 15:00] VITALS: O2SAT 94
--- NOTE | 2020-10-21 15:01 | PC.NURSE ---
Patient back from [facility] after having a DILAN. Per RN from , patient had a DILAN which showed small vegetation on Aortic Valve. Patient was getting Caspofungin and last dose was a 0830 this AM, and order is for q 24hours. We will be doing micofungin here at the hospital and the next dose will be due at 0830 tomorrow morning. Patient is alert and oriented x3, he denies pain. Tolerating some coffee and will be on a heart healthy diet. Patient has a double lumen mid line to r.upper arm, dressing intact. Patient takes methadone bid, he is voiding fine and using the urinal. BS cta, and patient is on RA.
[2020-10-21 15:37] VITALS: BP 130/64; PULSE 67; RESP 18; TEMP 37; O2SAT 94
--- NOTE | 2020-10-21 16:07 | CM.DANOTE ---
DCP/Brief: Received verbal referral from provider re: d/c planning? Per provider patient transferred back from [facility] today. Patient will require 6wks of anti-fungal treatment. Placed call to Heidy at [facility]# [phone] she reports that they have reviewed patient when he was at [facility]. Heidy reports that they are willing to re-look at this patient for potential anti-fungal treatment till November 18? [facility] faxed to Heidy for review (patient admitted to [facility] today) CM team will need to f/u on 10-22-20 to provide them with additional information such as ID consult. In addition will need to check with patient on whether he can return to his friend's upon d/c from facility after treatment. Expedited [facility] application faxed last week. Other options include patient going to SNF. P: CM team to follow closely and meet with patient on 10-22-20 to discuss plan. ANGELLA Palomares
[2020-10-21] MEDS: HEPARIN 5,000 UNIT/ML VIAL 5000 UNIT SUBCUT (21:12)
[2020-10-21] MEDS: DOCUSATE 100 MG CAPSULE PO (21:12)
[2020-10-21] MEDS: METHADONE 10 MG TABLET 15 MG PO (21:12)
--- NOTE | 2020-10-22 01:20 | PC.NURSE ---
0020 Checked patient he's sound asleep. Will monitor & assess him when he wakes up.
[2020-10-22 02:20] VITALS: BP 123/68; PULSE 58; RESP 16; TEMP 36.1; O2SAT 95
[2020-10-22 02:30] VITALS: O2SAT 95
[2020-10-22 07:01] LABS: Alanine Aminotransferase 51 IU/L (<50); Albumin 3.5 g/dL (3.5-5.0); Alkaline Phosphatase 52 U/L (38-126); Aspartate Aminotransferase 65 IU/L (17-59); BUN Creatinine Ratio 31.4 (6-22); Bilirubin Total 0.5 mg/dL (0.2-1.3); Blood Urea Nitrogen 22 mg/dL (9-20); Calcium 9.7 mg/dL (8.4-10.2); Carbon Dioxide 23 mmol/L (22-32); Chloride 102 mmol/L (98-107); Estimated Glomerular Filt Rate > 60.0 mL/min (>60); Globulin 3.6 g/dL (1.7-4.1); Glucose 93 mg/dL (80-110); Potassium 4.5 mmol/L (3.4-5.1); Sodium 133 mmol/L (137-145); Total Protein 7.1 g/dL (6.3-8.2)
[2020-10-22 07:03] LABS: HEMOLYSIS 54 (0-50)
[2020-10-22 07:46] VITALS: BP 131/70; PULSE 55; RESP 16; TEMP 36.2; O2SAT 97
[2020-10-22] MEDS: METHADONE 10 MG TABLET 15 MG PO ×2 (09:05→20:36)
[2020-10-22] MEDS: DOCUSATE 100 MG CAPSULE PO ×2 (09:05→20:36)
[2020-10-22] MEDS: HEPARIN 5,000 UNIT/ML VIAL 5000 UNIT SUBCUT ×2 (09:05→20:36)
[2020-10-22] MEDS: SODIUM CHLORIDE 0.9% FLUSH 10 ML IV ×2 (09:06→20:39)
[2020-10-22] MEDS: MICAFUNGIN 150 MG in SODIUM CHLORIDE 0.9% 100 ML IV (09:06)
--- NOTE | 2020-10-22 11:12 | P.PN_ITS ---
Subjective Subjective Date Patient Seen: 10/22/20 Time Patient Seen: 08:00 Interval history: Today he feels well. He has absolutely no complaints. Exam Vital Signs (past 8 hours): - 10/22/20 07:46 Temperature 97.2 F L Pulse Rate 55 L Respiratory Rate 16 Blood Pressure 131/70 Pulse Oximetry 97 Oxygen Delivery Method Room Air Oxygen Flow Rate 0 Narrative Exam Narrative: GEN: no acute distress HEENT: moist mucous membranes, PERRL NECK: trachea midline, no JVD CV: regular rate and rhythm with no murmurs PULM: clear bilaterally with no wheezes, rhonchi, rales ABD: soft, nontender, nondistended, no organomegaly EXT: warm and well perfused with no edema NEURO: awake, alert and oriented, moving all extremities, normal upper and lower extremity strength PSYCH: pleasant Objective Labs Result Diagrams: 10/22/20 06:12 Labs: Laboratory Results - last 24 hr 10/22/20 06:12 Sodium 133 L Potassium 4.5 Chloride 102 Carbon Dioxide 23 BUN 22 H Creatinine 0.70 Estimated GFR > 60.0 BUN/Creatinine Ratio 31.4 H Glucose 93 Calcium 9.7 Total Bilirubin 0.5 AST 65 H ALT 51 H Alkaline Phosphatase 52 Total Protein 7.1 Albumin 3.5 Globulin 3.6 Albumin/Globulin Ratio 1.0 PFSH Medical History Abscess Acute CVA (cerebrovascular accident) Heroin abuse Social History household members: none Smoking Status: Current every day smoker Assessment & Plan Assessment & Plan narrative: Mr. Benitez is a 70M who is transferred from [facility] due to bed availability who is being treated for rhiannon fungemia and endocarditis. 1. Rhiannon Fungemia, rhiannon endocarditis -had positive blood cultures on 10/07 for rhiannon glabrata, rhiannon albicans -negative blood cultures on 10/09 -TTE negative for endocarditis, DILAN at [facility] positive for endocarditis on 10/20 -ID recommended six weeks of micafungin/caspofungin which would be through 11/20, at that time follow up with ID for reevaluation and repeat DILAN ------getting micafungin here as it is on formulary at 150mg daily, but caspofungin is more often used so would dc on caspofungin 150mg daily ------further ID recs are to monitor LFTs closely, get fungal susceptibilities, consider lifelong azole suppression for rhiannon, which will be decided by ID attending Dr. Andres ------once outpatient weekly cbc with diff, sed, crp, cmp faxed to ID Dr. Andres at [facility] at F: [phone], phone: [phone] ------ID to see him in 4 weeks (mid November) to evaluate how he is doing, DILAN in 4 weeks to see if vegetation improved -no need for cardiac surgery at this time 2. IV drug use with heroin, previous withdrawal -currently controlled on methadone 15mg BID -patient interested in stopping substance abuse 3. Hepatitis C -had positive HCV antibody -will need outpatient follow up for treatment 4. Alcohol abuse -outside window for acute withdrawal -encouraged to stop drinking 5. Lung nodule -outaptient follow up recommended DVT ppx: heparin sc DIET: heart healty CODE: Full, proxy is brother Torrey
--- NOTE | 2020-10-22 12:07 | PC.NURSE ---
Patients micofungal infused. He denies pain or discomfort. Resting comfortably. Heart rate is regular. Up with one person rei.
--- NOTE | 2020-10-22 13:15 | CM.DPNOTE ---
Addendum entered by Adela Ibanez, INJECTION MOLD TOOLING TECHNICIAN 10/22/20 14:22: Spoke w/Reba at [facility]/Swing Beds; she asks about medical records from [facility] ie DILAN and ID consult, this INJECTION MOLD TOOLING TECHNICIAN will need to f/u w/Dr Borja vs medical records re this (?) In addition, Reba asks about therapy notes. This INJECTION MOLD TOOLING TECHNICIAN placed order for PT to update patient's current functional status. No swing beds available today, likely not tomorrow. However, [facility] considering patient for admission once beds become available, not accepted yet however Original Note: DCP Note Patient familiar to this INJECTION MOLD TOOLING TECHNICIAN from prior admission. Patient agreeable to short term SNF vs Swing bed stay for IV abx. Patient intends to DC to a friend's home after IV abx treatment. Patient on the wait list for [place] [employer] housing. Patient lives on approx. $900 a month in SS income and says can pay a friend or rent a room until he can secure an indp apt, timeline unknown for HUD housing. Placed call to the Care Management/Swing Bed team at [facility], had to LM. Requested BUDDY Singh contact [employer] and [employer]. SNF options, results pending. Per Dr Borja, Patient requires: six weeks of micafungin/caspofungin which would be through 11/20, at that time follow up with ID for reevaluation and repeat DILAN, getting micafungin here as it is on formulary at 150mg daily, but caspofungin is more often used so would dc on caspofungin 150mg daily ID to see him in 4 weeks (mid November) to evaluate how he is doing, DILAN in 4 weeks to see if vegetation improved no need for cardiac surgery at this time Following closely for attempt at facility options to complete the remainder of his IV abx course JW
--- NOTE | 2020-10-22 15:20 | PT.IIE ---
Current Diagnoses Other psychoactive substance use, unspecified, uncomplicated (10/21/20) Pneumonia, unspecified organism (10/21/20) Medical History (Last Reviewed 10/17/20 @ 11:25 by ALEX Madrigal) Abscess Acute CVA (cerebrovascular accident) Heroin abuse Physical Therapy Inpatient Evaluation/Re-Eval M1 PT/OT-IP Prior Functional Status Start: 10/22/20 17:30 Freq: NEEDED Status: Active Protocol: Document 10/22/20 15:20 AB (Rec: 10/22/20 17:45 AB [id number]) Medical Review Prior Functional Status Medical History Reviewed Yes Communication able to make needs known Mobility and Gait pt stated that he is modified independent with all mobilities and ambulation usually without AD but occasionally uses a SPC Prior Functional Level (Other details) pt was just admitted here in the hospital 10/09/20 thru 10/19 for sepsis. transferred to [facility] for DILAN and sent back to [facility] for endocarditis dx. Social History Household Members none Living Arrangements Homeless Additional Social History Comment prior to 10/09 hospitalization , pt lives at his friends house and sleeps on the couch but stated at during that last admission that he cannot go back to his friend's house. Per caser's note, pt stated that he might be able to go back to his friend's house. M2 PT-IP Current Condition Start: 10/22/20 17:30 Freq: NEEDED Status: Active Protocol: Document 10/22/20 15:20 AB (Rec: 10/22/20 17:45 AB [id number]) Physical Therapy Current Condition Current Condition Evaluation Date 10/22/20 Treatment Diagnosis endocarditis; difficulty in walking Onset Date 10/21/20 Precautions Other Precautions h/o Hep C M3 PT-IP Subjective Start: 10/22/20 17:30 Freq: NEEDED Status: Active Protocol: Document 10/22/20 15:20 AB (Rec: 10/22/20 17:45 AB [id number]) Subjective Physical Therapy Visit Type Type Initial Evaluation Visit Start Time 15:20 Visit Stop Time 15:45 Total Visit Minutes 25 Number of FORK TRUCK OPERATOR Visits 0 Physical Therapy Visit Comments Patient Comments pt is agreeable to do PT Therapy Pain Assessment Pain When Pain Assessed At Rest Pain Present Pain Present Pain Reported Location Back Scale Used pain scale not stated Description Chronic M4 PT-IP Mobility and Gait Start: 10/22/20 17:30 Freq: NEEDED Status: Active Protocol: Document 10/22/20 15:20 AB (Rec: 10/22/20 17:45 AB [email or web address]) PT-Bed Mobility Assessment Supine to Sit Supine to Sit Standby Assistance Sit to Supine Sit to Supine Standby Assistance PT-Transfer Assessment Sit to and From Stand Sit to and from Stand Standby Assistance Equipment Transfer Assistive Device Gait Belt,Straight Cane Orthotic/Prosthetic Devices or Brace: No Comments Mobility Comments pt completed supine to sit SBA . completed sit to stand SBA and ambulated using SPC ~ 12 ft and stated that he needs to use the toilet. pt placed the toilet against the wall and ambulated ~ 3 ft to the toilet holding on to the door and grab bar. pt then ambulated out of the toilet towards the sink. pt was able to maintain standing SBA while completing handwashing and grooming. ambulated more in room using SPC ~ 30 ft SBA to CGA. presents with antalgic gait with decrease BLE elevation. pt requested to just go back to bed and completed sit to supine SBA. call light and table placed within reach. Gait Assessment Gait Gait Assistance Required: Standby Assistance,Contact Guard Assist Distance (Feet) 25 Able to Maintain Weight Bearing Status Yes During Gait Assistive Devices Assistive Device Gait Belt,Straight Cane Orthotic/Prosthetic Devices or Brace: No Gait Deviations General Gait Pattern Antalgic,Decreased Stride Length,Decreased Feet Clearance,Step-to Gait Factors Limiting Gait Function Factors Limiting Gait Function Decreased Activity Tolerance, Decreased Strength,Limited Range of Motion,Pain,Poor Balance,Poor Safety Awareness Comments Gait Comments pls refer to mobility section for details PT-Balance Assessment Sitting Balance and Reactions Static Sitting Balance Ability Good Dynamic Sitting Balance Ability Good Standing Balance and Reactions Static Standing Balance Ability Fair Dynamic Standing Balance Ability Fair Device Used without AD M5 PT-IP Objective Assessments Start: 10/22/20 17:30 Freq: NEEDED Status: Active Protocol: Document 10/22/20 15:20 AB (Rec: 10/22/20 17:45 AB [id number]) Orientation Orientation/Cognition Level of Alertness Alert Orientation Name,Place,Situation Safety Awareness Decreased Safety Awareness Gross Range of Motion Lower Extremity ROM Assessment Within Functional Limits Strength Lower Extremity Strength Hip 3+/5 Knee 4-/5 Muscle Tone Muscle Tone WNL Yes M6 PT-IP Treatment Start: 10/22/20 17:30 Freq: NEEDED Status: Active Protocol: Document 10/22/20 15:20 AB (Rec: 10/22/20 17:45 AB [id number]) Physical Therapy Treatment Education Education Provided Safety M7 PT-IP Assessment and Plan Start: 10/22/20 17:30 Freq: NEEDED Status: Active Protocol: Document 10/22/20 15:20 AB (Rec: 10/22/20 17:45 AB [email or web address]) PT Summary Assessment and Plan Potential Rehabilitation Potential Fair Status of Condition at Evaluation Stable Summary Impairments Pain,ROM,Strength,Balance, Coordination,Sensation, Cognition,Bed Mobility, Transfers,Gait,Activity Tolerance Assessment Summary pt requiring SBA to CGA with mobility using SPC. presents with unsteady gait and decrease activity tolerance. pt will require SNF rehab to improve overall strength and independence. Goals Bed Mobility Goal Independent Transfer Goal Independent Gait Goal Independent Gait Distance 150 Other Goals up/down 6 steps 1 rail SBA Days to Meet Goals 10 Frequency of Treatment Frequency Of Treatment Once a Day Treatment Plan Physical Therapy Treatment Plan Bed Mobility Training,Transfer Training,Gait Training, Therapeutic Exercise,Balance Retraining,Discharge Planning, Hot or Cold Pack,Neuromuscular Re-ed,Coordination Retraining Recommendations To Nursing Amount of Assist Needed 1 Person Assist Discharge Recommendations PT Discharge Recommendations SNF Rehab Transportation Needs at Discharge Private Vehicle
--- NOTE | 2020-10-22 15:30 | CM.DPNOTE ---
Called the following facilities requested by Nargis: [facility], [facility], [facility], [facility], [facility], alicia , [facility] & [facility], [facility], [facility] and [facility]. Sydni from [facility] called and said they are rearranging patients and asked for me to send clinicals. Cat and Sydni from [facility] & [facility] said they could not take pt. [facility] Swing Bed does not have enough staff and are already full. Ilana from [facility] was faxed clinicals and was to review them but told me they already have enough patients receiving antibiotic therapy. Samantha Sigala CM Asst.
[2020-10-22 16:08] VITALS: BP 121/63; PULSE 57; RESP 18; TEMP 36.4; O2SAT 97
[2020-10-22 17:56] VITALS: O2SAT 95
[2020-10-23] VITALS (7 sets, daily range): BP systolic 121–138; BP diastolic 62–77; PULSE 57–72; RESP 16–20; TEMP 36.2–37.2; O2SAT 94–96
[2020-10-23] MEDS: ACETAMINOPHEN 325 MG TABLET 650 MG PO ×2 (00:46→19:59)
[2020-10-23] MEDS: MICAFUNGIN 150 MG in SODIUM CHLORIDE 0.9% 100 ML IV (09:28)
[2020-10-23] MEDS: SODIUM CHLORIDE 0.9% FLUSH 10 ML IV ×2 (09:29→20:44)
[2020-10-23] MEDS: METHADONE 10 MG TABLET 15 MG PO ×2 (09:29→20:40)
[2020-10-23] MEDS: DOCUSATE 100 MG CAPSULE PO ×2 (09:29→20:40)
[2020-10-23] MEDS: HEPARIN 5,000 UNIT/ML VIAL 5000 UNIT SUBCUT ×2 (09:29→20:40)
--- NOTE | 2020-10-23 14:26 | PT-IP ANOTE ---
1426 pt up in room ambulating Ind. FOOD AND BEVERAGE SERVER stayed in room as pt used BR for safety. Pt then refused PT as pt states he took a long walk downstairs to get some fresh air. Will check back with pt in AM.
--- NOTE | 2020-10-23 16:07 | CM.DPNOTE ---
DCP Note Placed call to [facility] beds/had to LM. Faxed records from patient's stay at [facility] to [facility] beds. Will follow up Tuesday AM re: bed census ? No accepting SNF at this time. JW
--- NOTE | 2020-10-23 16:42 | PM.PN.1 ---
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 Patient underwent DILAN which confirmed endocarditis. Patient's major complaint is he would like to go outside. He would like for his sister or someone to be able to take him outside. He has no complaints of diarrhea, no complaints of shortness of breath. Exam Vital Signs (past 8 hours): - 10/23/20 15:20 Temperature 98.9 F Pulse Rate 72 Respiratory Rate 18 Blood Pressure 134/76 Pulse Oximetry 94 Oxygen Delivery Method Room Air Oxygen Flow Rate 0 Narrative Exam Narrative: Disgruntled male in no obvious distress HENAZ Other: Normocephalic atraumatic, extraocular muscles are intact, sclerae anicteric Resp Other: Lungs: Clear to auscultation Cardio Other: Cardiac exam: Regular rate and rhythm normal S1-S2 GI Other: Abdomen: Soft nontender nondistended Extrem Other: Extremities: No edema Objective Labs Result Diagrams: 10/22/20 06:12 [facility] Medical History Abscess Acute CVA (cerebrovascular accident) Heroin abuse Social History household members: none Smoking Status: Current every day smoker Assessment & Plan Assessment & Plan narrative: Rhiannon Fungemia, rhiannon endocarditis -had positive blood cultures on 10/07 for rhiannon glabrata, rhiannon albicans -negative blood cultures on 10/09 -TTE negative for endocarditis, DILAN at [facility] positive for endocarditis on 10/20 -ID recommended six weeks of micafungin/caspofungin which would be through 11/20, at that time follow up with ID for reevaluation and repeat DILAN ------getting micafungin here as it is on formulary at 150mg daily, but caspofungin is more often used so would dc on caspofungin 150mg daily ------further ID recs are to monitor LFTs closely, get fungal susceptibilities, consider lifelong azole suppression for rhiannon, which will be decided by ID attending Dr. Andres ------once outpatient weekly cbc with diff, sed, crp, cmp faxed to ID Dr. Andres at [facility] at F: [phone], phone: [phone] ------ID to see him in 4 weeks (mid November) to evaluate how he is doing, DILAN in 4 weeks to see if vegetation improved -no need for cardiac surgery at this time -awaiting placement for long-term IV antifungal therapy, patient will need to be treated through November 20. 2. IV drug use with heroin, previous withdrawal -currently controlled on methadone 15mg BID -patient interested in stopping substance abuse -no evidence of withdrawal 3. Hepatitis C -had positive HCV antibody -will need outpatient follow up for treatment 4. Alcohol abuse -outside window for acute withdrawal -encouraged to stop drinking -no evidence of withdrawal 5. Lung nodule -outaptient follow up recommended DVT ppx: heparin sc DIET: heart healty CODE: Full, proxy is brother Torrey Patient is awaiting placed I have utilized all available immediate resources to obtain update or review the patient's current medications
[2020-10-24] VITALS (7 sets, daily range): BP systolic 113–134; BP diastolic 55–75; PULSE 61–70; RESP 16–18; TEMP 36.2–36.8; O2SAT 94–97
[2020-10-24] MEDS: NICOTINE 14 PATCH 14 MG TOP (09:03)
[2020-10-24] MEDS: HEPARIN 5,000 UNIT/ML VIAL 5000 UNIT SUBCUT ×2 (09:04→20:47)
[2020-10-24] MEDS: DOCUSATE 100 MG CAPSULE PO ×2 (09:04→20:46)
[2020-10-24] MEDS: MICAFUNGIN 150 MG in SODIUM CHLORIDE 0.9% 100 ML IV (09:04)
[2020-10-24] MEDS: SODIUM CHLORIDE 0.9% FLUSH 10 ML IV ×2 (09:04→20:47)
[2020-10-24] MEDS: METHADONE 10 MG TABLET 15 MG PO ×2 (09:05→20:47)
--- NOTE | 2020-10-24 10:24 | PT-IP ANOTE ---
Per Dr Griffin d/c PT as pt is up ambulating independently in room. Nursing staff will ambulate with pt outside of room.
--- NOTE | 2020-10-24 11:17 | CM.DPNOTE ---
DCP Note Placed call to [facility] Swing beds, they are not accepting any new patients d/t staffing concern. [facility] team does not work over the weekend, so the next f/u would need to be Tuesday Placed call to [facility], admissions did not receive clinical so faxed again today Placed call to [facility]eds P# [phone], had to leave ms. Faxed clinical packet to F [phone] JW
--- NOTE | 2020-10-24 14:13 | PT.IPTN ---
Current Diagnoses Candidal sepsis (10/21/20) Other psychoactive substance use, unspecified, uncomplicated (10/21/20) Physical Therapy Treatment Note M2 PT-IP Current Condition Start: 10/22/20 17:30 Freq: NEEDED Status: Active Protocol: Document 10/22/20 15:20 AB (Rec: 10/22/20 17:45 AB [email or web address]) Physical Therapy Current Condition Current Condition Evaluation Date 10/22/20 Treatment Diagnosis endocarditis; difficulty in walking Onset Date 10/21/20 Precautions Other Precautions h/o Hep C M3 PT-IP Subjective Start: 10/22/20 17:30 Freq: NEEDED Status: Active Protocol: Document 10/24/20 14:11 AB (Rec: 10/24/20 14:13 AB [email or web address]) Subjective Physical Therapy Visit Type Type Administrative Note Notes Per CARPENTER SUPERVISOR WOODEN [employer]IP during round meeting: OK to d/c pt from PT. pt is independent with mobility in room and nursing to assist pt for out of the room mobility for safety. M7 PT-IP Assessment and Plan Start: 10/22/20 17:30 Freq: NEEDED Status: Active Protocol: Document 10/24/20 14:11 AB (Rec: 10/24/20 14:13 AB [id number]) PT Summary Assessment and Plan Frequency of Treatment Frequency Of Treatment Discharge
--- NOTE | 2020-10-24 15:23 | PC.NURSE ---
Pt irritable this am, jumpy. Again asked about sameer patch to see if it would help him feel better. Agreed to try same. After sameer patch was on for a couple of hours pt admitted he did feel better and patch was working. Discussed PIC line with pt, dressing needs to be changed at least weekly. His last dressing change was 10/13/20. Pt was feeling better and did finally agree to have his dressing changed and this was done with cap changes. Pt is currrently reading his paper.
--- NOTE | 2020-10-24 17:10 | P.PN_ITS ---
Subjective Subjective Interval history: Patient tried to go outside to smoke. He was caught in the stairwell and brought back upstairs. The patient is desperate to go outside, as he has been hospitalized for over 2 weeks. I did share with him that he can go outside accompanied by a Nurse or hospital personel. He now has a nicotine patch in place. Exam Vital Signs (past 8 hours): - 10/24/20 15:56 10/24/20 16:15 Temperature 98.3 F Pulse Rate 61 Respiratory Rate 16 Blood Pressure 134/69 Pulse Oximetry 96 97 Oxygen Delivery Method Room Air Oxygen Flow Rate 0 Narrative Exam Narrative: pleasant gentleman in no acute distress Resp Other: lungs: clear to auscultation Cardio Other: CV: RRR nl Sl S2 GI Other: Abd: soft/ non tender non distended Skin Other: no edema Objective Labs Result Diagrams: 10/22/20 06:12 COUNTS INCLUDE 234 BEDS AT THE [facility] Medical History Abscess Acute CVA (cerebrovascular accident) Heroin abuse Social History household members: none Smoking Status: Current every day smoker Assessment & Plan Assessment & Plan narrative: Galina Fungemia, galina endocarditis -had positive blood cultures on 10/07 for galina glabrata, galina albicans -negative blood cultures on 10/09 -TTE negative for endocarditis, DILAN at [facility] positive for endocarditis on 10/20 -ID recommended six weeks of micafungin/caspofungin which would be through 11/20, at that time follow up with ID for reevaluation and repeat DILAN ------getting micafungin here as it is on formulary at 150mg daily, but caspofungin is more often used so would dc on caspofungin 150mg daily ------further ID recs are to monitor LFTs closely, get fungal susceptibilities, consider lifelong azole suppression for galina, which will be decided by ID attending Dr. Andres ------once outpatient weekly cbc with diff, sed, crp, cmp faxed to ID Dr. Andres at [facility] at F: [phone], phone: [phone] ------ID to see him in 4 weeks (mid November) to evaluate how he is doing, DILAN in 4 weeks to see if vegetation improved -no need for cardiac surgery at this time -awaiting placement for long-term IV antifungal therapy, patient will need to be treated through November 20. -We still are unable to find a facility that will take the patient for [facility] -We have tried multiple facilities with swing beds, with no luck. Patient will remain here until placement can be found to continue his IV antifungal treatment until November 20, 2020 2. IV drug use with heroin, previous withdrawal -currently controlled on methadone 15mg BID -patient interested in stopping substance abuse -no evidence of withdrawal 3. Hepatitis C -had positive HCV antibody -will need outpatient follow up for treatment 4. Alcohol abuse -outside window for acute withdrawal -encouraged to stop drinking -no evidence of withdrawal 5. Lung nodule -outaptient follow up recommended 6. Nicotine dependence -nicotine patch placed
[2020-10-25 00:50] VITALS: BP 113/55; PULSE 68; RESP 16; TEMP 36.7; O2SAT 96
--- NOTE | 2020-10-25 08:38 | P.PN_ITS ---
Subjective Subjective Date Patient Seen: 10/25/20 Time Patient Seen: 08:39 Interval history: Today he has no complaints. He feels well. He has no pain, fevers/chills. Exam Vital Signs (past 8 hours): - 10/25/20 00:50 Temperature 98.0 F Pulse Rate 68 Respiratory Rate 16 Blood Pressure 113/55 L Pulse Oximetry 96 Oxygen Delivery Method Room Air Oxygen Flow Rate 0 Narrative Exam Narrative: GEN: no acute distress HEENT: moist mucous membranes, PERRL NECK: trachea midline, no JVD CV: regular rate and rhythm with no murmurs PULM: clear bilaterally with no wheezes, rhonchi, rales ABD: soft, nontender, nondistended, no organomegaly EXT: warm and well perfused with no edema NEURO: awake, alert and oriented, moving all extremities, normal upper and lower extremity strength PSYCH: pleasant Objective Labs Result Diagrams: 10/22/20 06:12 [facility] Medical History Abscess Acute CVA (cerebrovascular accident) Heroin abuse Social History household members: none Smoking Status: Current every day smoker Assessment & Plan Assessment & Plan narrative: Mr. Benitez is a 70M who is transferred from [facility] due to bed availability who is being treated for rhiannon fungemia and endocarditis. 1. Rhiannon Fungemia, rhiannon endocarditis -had positive blood cultures on 10/07 for rhiannon glabrata, rhiannon albicans -negative blood cultures on 10/09 -TTE negative for endocarditis, DILAN at [facility] positive for endocarditis on 10/20 -ID recommended six weeks of micafungin/caspofungin which would be through 11/20, at that time follow up with ID for reevaluation and repeat DILAN ------getting micafungin here as it is on formulary at 150mg daily, but caspofungin is more often used so would dc on caspofungin 150mg daily ------further ID recs are to monitor LFTs closely, get fungal susceptibilities, consider lifelong azole suppression for rhiannon, which will be decided by ID attending Dr. Anders ------once outpatient weekly cbc with diff, sed, crp, cmp faxed to ID Dr. Andres at [facility] at F: [phone], phone: [phone] ------ID to see him in 4 weeks (mid November) to evaluate how he is doing, DILAN in 4 weeks to see if vegetation improved -no need for cardiac surgery at this time 2. IV drug use with heroin, previous withdrawal -currently controlled on methadone 15mg BID -patient interested in stopping substance abuse 3. Hepatitis C -had positive HCV antibody -will need outpatient follow up for treatment 4. Alcohol abuse -outside window for acute withdrawal -encouraged to stop drinking 5. Lung nodule -outaptient follow up recommended DVT ppx: heparin sc DIET: heart healty CODE: Full, proxy is brother Torrey Dispo: looking into options for prolonged IV therapy.
[2020-10-25 09:30] VITALS: BP 128/65; PULSE 74; RESP 18; TEMP 36.4; O2SAT 95
[2020-10-25] MEDS: DOCUSATE 100 MG CAPSULE PO ×2 (09:39→22:01)
[2020-10-25] MEDS: MICAFUNGIN 150 MG in SODIUM CHLORIDE 0.9% 100 ML IV (09:40)
[2020-10-25] MEDS: METHADONE 10 MG TABLET 15 MG PO ×2 (09:40→22:01)
[2020-10-25] MEDS: HEPARIN 5,000 UNIT/ML VIAL 5000 UNIT SUBCUT ×2 (09:40→22:01)
[2020-10-25] MEDS: SODIUM CHLORIDE 0.9% FLUSH 10 ML IV ×3 (10:43→22:02)
[2020-10-25 13:59] VITALS: O2SAT 95
--- NOTE | 2020-10-25 14:38 | PC.NURSE ---
Pt denies SOB and pain; ls clear; HR regular; IV anti-fungal infused; pt requests a SBA for walk in hallway after show
[2020-10-25 15:00] VITALS: O2SAT 95
[2020-10-25 15:38] VITALS: BP 130/66; PULSE 71; RESP 16; TEMP 36.3; O2SAT 95
[2020-10-25] MEDS: ACETAMINOPHEN 325 MG TABLET 650 MG PO (18:35)
[2020-10-26] VITALS (7 sets, daily range): BP systolic 117–131; BP diastolic 62–80; PULSE 65–72; RESP 16–18; TEMP 36–36.7; O2SAT 93–97
[2020-10-26] MEDS: HEPARIN 5,000 UNIT/ML VIAL 5000 UNIT SUBCUT ×2 (08:51→20:21)
[2020-10-26] MEDS: METHADONE 10 MG TABLET 15 MG PO ×2 (08:51→20:22)
[2020-10-26] MEDS: SODIUM CHLORIDE 0.9% FLUSH 10 ML IV ×2 (08:52→20:22)
[2020-10-26] MEDS: MICAFUNGIN 150 MG in SODIUM CHLORIDE 0.9% 100 ML IV (08:52)
[2020-10-26] MEDS: DOCUSATE 100 MG CAPSULE PO ×2 (08:55→20:21)
--- NOTE | 2020-10-26 12:13 | P.PN_ITS ---
Subjective Subjective Date Patient Seen: 10/26/20 Time Patient Seen: 12:13 Interval history: Today he has no complaints. He feels well. He has no pain, fevers/chills. Exam Vital Signs (past 8 hours): Oxygen Delivery Method Room Air Oxygen Flow Rate 0 Narrative Exam Narrative: GEN: no acute distress HEENT: moist mucous membranes, PERRL NECK: trachea midline, no JVD CV: regular rate and rhythm with no murmurs PULM: clear bilaterally with no wheezes, rhonchi, rales ABD: soft, nontender, nondistended, no organomegaly EXT: warm and well perfused with no edema NEURO: awake, alert and oriented, moving all extremities, normal upper and lower extremity strength PSYCH: pleasant Objective Labs Result Diagrams: 10/22/20 06:12 [facility] Medical History Abscess Acute CVA (cerebrovascular accident) Heroin abuse Social History household members: none Smoking Status: Current every day smoker Assessment & Plan Assessment & Plan narrative: Mr. Benitez is a 70M who is transferred from [facility] due to bed availability who is being treated for rhiannon fungemia and endocarditis. 1. Rhiannon Fungemia, rhiannon endocarditis -had positive blood cultures on 10/07 for rhiannon glabrata, rhiannon albicans -negative blood cultures on 10/09 -TTE negative for endocarditis, DILAN at [facility] positive for endocarditis on 10/20 -ID recommended six weeks of micafungin/caspofungin which would be through 11/20, at that time follow up with ID for reevaluation and repeat DILAN ------getting micafungin here as it is on formulary at 150mg daily, but caspofungin is more often used so would dc on caspofungin 150mg daily ------further ID recs are to monitor LFTs closely, get fungal susceptibilities, consider lifelong azole suppression for rhiannon, which will be decided by ID attending Dr. Andres ------once outpatient weekly cbc with diff, sed, crp, cmp faxed to ID Dr. Andres at [facility] at F: [phone], phone: [phone] ------ID to see him in 4 weeks (mid November) to evaluate how he is doing, DILAN in 4 weeks to see if vegetation improved -no need for cardiac surgery at this time 2. IV drug use with heroin, previous withdrawal -currently controlled on methadone 15mg BID -patient interested in stopping substance abuse 3. Hepatitis C -had positive HCV antibody -will need outpatient follow up for treatment 4. Alcohol abuse -outside window for acute withdrawal -encouraged to stop drinking 5. Lung nodule -outaptient follow up recommended DVT ppx: heparin sc DIET: heart healty CODE: Full, proxy is brother Torrey Dispo: looking into options for prolonged IV therapy.
[2020-10-27 06:11] LABS: Add Manual Diff / Slide Review NO; Basophils Absolute Auto 100 /uL (0-100); Basophils Percent Auto 0.8 % (0-2); Eosinophils Absolute Auto 300 /uL (0-450); Eosinophils Percent Auto 4.8 % (2-4); Hematocrit 45.7 % (41-53); Hemoglobin 15.1 g/dL (13.5-17.5); Lymphocytes Absolute Auto 2500 /uL (1100-4500); Lymphocytes Percent Auto 35.7 % (25-40); Mean Corpuscular Hemoglobin 30.5 PG (26-34); Mean Corpuscular Volume 92.5 fL (80-100); Monocytes Absolute Auto 800 /uL (0-900); Monocytes Percent Auto 11.9 % (3-14); Neutrophils Absolute Auto 3300 /uL (1500-7000); Neutrophils Percent Auto 46.8 % (50-75); Platelet Count 426 X10^3/uL (150-400); Red Blood Cell Count 4.94 X10^6/uL (4.5-5.9); Red Cell Distribution Width 14.5 % (11.6-14.8)
[2020-10-27 06:20] LABS: Alanine Aminotransferase 54 IU/L (<50); Alkaline Phosphatase 56 U/L (38-126); Aspartate Aminotransferase 54 IU/L (17-59); BUN Creatinine Ratio 37.3 (6-22); Bilirubin Total 0.4 mg/dL (0.2-1.3); Blood Urea Nitrogen 28 mg/dL (9-20); Calcium 10.3 mg/dL (8.4-10.2); Carbon Dioxide 24 mmol/L (22-32); Chloride 102 mmol/L (98-107); Estimated Glomerular Filt Rate > 60.0 mL/min (>60); Glucose 102 mg/dL (80-110); HEMOLYSIS 41 (0-50); Potassium 4.8 mmol/L (3.4-5.1); Sodium 134 mmol/L (137-145)
[2020-10-27 07:11] VITALS: BP 128/73; PULSE 65; RESP 15; TEMP 36.6; O2SAT 98
[2020-10-27 07:20] VITALS: O2SAT 98
--- NOTE | 2020-10-27 07:50 | CM.DPNOTE ---
Received 2 voicemails on my phone this morning 10/27/20: [facility] [phone], said she may have a bed on Tuesday, 10/27. [facility], because of no discharge plan, they will not accept pt. Samantha Sigala CM Asst.
[2020-10-27] MEDS: DOCUSATE 100 MG CAPSULE PO ×2 (08:48→21:11)
[2020-10-27] MEDS: HEPARIN 5,000 UNIT/ML VIAL 5000 UNIT SUBCUT ×2 (08:48→21:10)
[2020-10-27] MEDS: SODIUM CHLORIDE 0.9% FLUSH 10 ML IV ×2 (08:49→21:18)
[2020-10-27] MEDS: METHADONE 10 MG TABLET 15 MG PO ×2 (08:49→21:11)
[2020-10-27] MEDS: MICAFUNGIN 150 MG in SODIUM CHLORIDE 0.9% 100 ML IV (08:52)
--- NOTE | 2020-10-27 09:29 | DIET.PN ---
Dietary Progress Note RD Note: 70y M LOS day 6 following his DILAN at for fungal infection and endocarditis. Pts POs 75-100% this hospital stay.
--- NOTE | 2020-10-27 13:56 | P.PN_ITS ---
Subjective Subjective Date Patient Seen: 10/27/20 Time Patient Seen: 13:56 Interval history: Today he has no complaints. He feels well. He has no pain, fevers/chills. Exam Vital Signs (past 8 hours): - 10/27/20 07:11 10/27/20 07:20 Temperature 97.8 F Pulse Rate 65 Respiratory Rate 15 Blood Pressure 128/73 Pulse Oximetry 98 98 Oxygen Delivery Method Room Air Oxygen Flow Rate 0 Narrative Exam Narrative: GEN: no acute distress HEENT: moist mucous membranes, PERRL NECK: trachea midline, no JVD CV: regular rate and rhythm with no murmurs PULM: clear bilaterally with no wheezes, rhonchi, rales ABD: soft, nontender, nondistended, no organomegaly EXT: warm and well perfused with no edema NEURO: awake, alert and oriented, moving all extremities, normal upper and lower extremity strength PSYCH: pleasant, cooperative Objective Labs Result Diagrams: 10/27/20 05:17 10/27/20 05:17 Labs: Laboratory Results - last 24 hr 10/27/20 10/27/20 05:17 05:17 WBC 7.0 RBC 4.94 Hgb 15.1 Hct 45.7 MCV 92.5 MCH 30.5 MCHC 33.0 RDW 14.5 Plt Count 426 H Neut % (Auto) 46.8 L Lymph % (Auto) 35.7 [place] % (Auto) 11.9 Eos % (Auto) 4.8 H Baso % (Auto) 0.8 Neut # (Auto) 3300 Lymph # (Auto) 2500 [place] # (Auto) 800 Eos # (Auto) 300 Baso # (Auto) 100 Sodium 134 L Potassium 4.8 Chloride 102 Carbon Dioxide 24 BUN 28 H Creatinine 0.75 Estimated GFR > 60.0 BUN/Creatinine Ratio 37.3 H Glucose 102 Calcium 10.3 H Total Bilirubin 0.4 AST 54 ALT 54 H Alkaline Phosphatase 56 Total Protein 8.0 Albumin 4.0 Globulin 4.0 Albumin/Globulin Ratio 1.0 PFSH Medical History Abscess Acute CVA (cerebrovascular accident) Heroin abuse Social History household members: none Smoking Status: Current every day smoker Assessment & Plan Assessment & Plan narrative: Mr. 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 1. Rhiannon Fungemia, rhiannon endocarditis -had positive blood cultures on 10/07 for rhiannon glabrata, rhiannon albicans -negative blood cultures on 10/09 -TTE negative for endocarditis, DILAN at [facility] positive for endocarditis on 10/20 -ID recommended six weeks of micafungin/caspofungin which would be through 11/20, at that time follow up with ID for reevaluation and repeat DILAN ------getting micafungin here as it is on formulary at 150mg daily, but caspofungin is more often used so would dc on caspofungin 150mg daily ------further ID recs are to monitor LFTs closely, get fungal susceptibilities, consider lifelong azole suppression for rhiannon, which will be decided by ID attending Dr. Andres ------once outpatient weekly cbc with diff, sed, crp, cmp faxed to ID Dr. Andres at [facility] at F: [phone], phone: [phone] ------ID to see him in 4 weeks (mid November) to evaluate how he is doing, DILAN in 4 weeks to see if vegetation improved -no need for cardiac surgery at this time 2. IV drug use with heroin, previous withdrawal -currently controlled on methadone 15mg BID -patient interested in stopping substance abuse 3. Hepatitis C -had positive HCV antibody -will need outpatient follow up for treatment 4. Alcohol abuse -outside window for acute withdrawal -encouraged to stop drinking 5. Lung nodule -outaptient follow up recommended DVT ppx: heparin sc DIET: heart healty CODE: Full, proxy is brother Torrey Dispo: looking into options for prolonged IV therapy.
[2020-10-27 15:00] VITALS: O2SAT 98
[2020-10-27 16:00] VITALS: BP 129/53; PULSE 76; RESP 18; TEMP 37.1; O2SAT 95
[2020-10-27] MEDS: ACETAMINOPHEN 325 MG TABLET 650 MG PO (21:11)
[2020-10-28] VITALS (7 sets, daily range): BP systolic 129–147; BP diastolic 71–78; PULSE 63–73; RESP 12–16; TEMP 36–36.4; O2SAT 96–99
--- NOTE | 2020-10-28 00:42 | PC.NURSE ---
Patient is alert and oriented. Breath sounds CTA with RA sat of 96%. HRR. BP slightly elevated tonight at 140/71. Denies nausea. BT present and abdomen is soft. Denies dysuria, frequency or urgency with urination. Able to move himself in bed. Gait not assessed but evening RN reports he is up with walker and SBA. Patient reports he is initially unsteady on feet when getting up. Denies pain. Fall risk score is high and bed alarm is activated.
--- NOTE | 2020-10-28 08:06 | P.PN_ITS ---
Subjective Subjective Date Patient Seen: 10/28/20 Time Patient Seen: 08:06 Interval history: Today he has no complaints. He feels well. He has no pain, fevers/chills. Exam Vital Signs (past 8 hours): - 10/28/20 00:34 10/28/20 00:42 Temperature 97.6 F Pulse Rate 66 Respiratory Rate 12 Blood Pressure 140/71 Pulse Oximetry 96 Oxygen Delivery Method Room Air Oxygen Flow Rate 0 Narrative Exam Narrative: GEN: no acute distress HEENT: moist mucous membranes, PERRL NECK: trachea midline, no JVD CV: regular rate and rhythm with no murmurs PULM: clear bilaterally with no wheezes, rhonchi, rales ABD: soft, nontender, nondistended, no organomegaly EXT: warm and well perfused with no edema NEURO: awake, alert and oriented, moving all extremities, normal upper and lower extremity strength PSYCH: pleasant, cooperative Objective Labs Result Diagrams: 10/27/20 05:17 10/27/20 05:17 [facility] Medical History Abscess Acute CVA (cerebrovascular accident) Heroin abuse Social History household members: none Smoking Status: Current every day smoker Assessment & Plan Assessment & Plan narrative: Mr. 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 1. Rhiannon Fungemia, rhiannon endocarditis -had positive blood cultures on 10/07 for rhiannon glabrata, rhiannon albicans -negative blood cultures on 10/09 -TTE negative for endocarditis, DILAN at [facility] positive for endocarditis on 10/20 -ID recommended six weeks of micafungin/caspofungin which would be through 11/20, at that time follow up with ID for reevaluation and repeat DILAN ------getting micafungin here as it is on formulary at 150mg daily, but caspofungin is more often used so would dc on caspofungin 150mg daily ------further ID recs are to monitor LFTs closely, get fungal susceptibilities (currently pending), consider lifelong azole suppression for rhiannon, which will be decided by ID attending Dr. Andres ------once outpatient weekly cbc with diff, sed, crp, cmp faxed to ID Dr. Andres at [facility] at F: [phone], phone: [phone] ------ID to see him in 4 weeks (mid November) to evaluate how he is doing, DILAN in 4 weeks to see if vegetation improved -no need for cardiac surgery at this time 2. IV drug use with heroin, previous withdrawal -currently controlled on methadone 15mg BID -patient interested in stopping substance abuse 3. Hepatitis C -had positive HCV antibody -will need outpatient follow up for treatment 4. Alcohol abuse -outside window for acute withdrawal -encouraged to stop drinking 5. Lung nodule -outaptient follow up recommended DVT ppx: heparin sc DIET: heart healty CODE: Full, proxy is brother Torrey Dispo: looking into options for prolonged IV therapy.
--- NOTE | 2020-10-28 08:47 | CM.DPNOTE ---
Faxed referral packet to [facility], [place] [phone]; Jatinder Lopez; Marah Simon at Salome's request. Received fax conf. Samantha Sigala CM Asst.
[2020-10-28] MEDS: DOCUSATE 100 MG CAPSULE PO ×2 (08:57→20:43)
[2020-10-28] MEDS: METHADONE 10 MG TABLET 15 MG PO ×2 (08:57→20:42)
[2020-10-28] MEDS: HEPARIN 5,000 UNIT/ML VIAL 5000 UNIT SUBCUT ×2 (08:57→20:43)
[2020-10-28] MEDS: MICAFUNGIN 150 MG in SODIUM CHLORIDE 0.9% 100 ML IV (08:58)
[2020-10-28] MEDS: SODIUM CHLORIDE 0.9% FLUSH 10 ML IV ×2 (08:59→20:44)
[2020-10-28] MEDS: NICOTINE 14 PATCH 14 MG TOP (09:43)
[2020-10-28 11:46] LABS: COVID19 - ADMIT (NP swab/PCR) Negative (Negative)
[2020-10-28] MEDS: ACETAMINOPHEN 325 MG TABLET 650 MG PO (20:45)
--- NOTE | 2020-10-29 02:09 | PC.NURSE ---
Patient is alert and oriented. Breath sounds CTA with RA sat of 96%. HRR. Denied nausea. BT present and abdomen is soft. Denied dysuria, frequency or urgency with urination; uses urinal. Able to move himself. Gait not assessed but reports unsteadiness when up and has been using a walker with SBA when out of bed. Scabbed abrasions on bilateral, anterior LE. Denied pain. Fall risk score is high and bed alarm is activated.
[2020-10-29 06:44] LABS: Add Manual Diff / Slide Review NO; Alanine Aminotransferase 55 IU/L (<50); Albumin 4.1 g/dL (3.5-5.0); Alkaline Phosphatase 60 U/L (38-126); Aspartate Aminotransferase 61 IU/L (17-59); BUN Creatinine Ratio 28.4 (6-22); Basophils Absolute Auto 200 /uL (0-100); Basophils Percent Auto 2.8 % (0-2); Bilirubin Total 0.5 mg/dL (0.2-1.3); Blood Urea Nitrogen 21 mg/dL (9-20); Calcium 10.3 mg/dL (8.4-10.2); Carbon Dioxide 25 mmol/L (22-32); Chloride 103 mmol/L (98-107); Eosinophils Absolute Auto 400 /uL (0-450); Eosinophils Percent Auto 5.5 % (2-4); Estimated Glomerular Filt Rate > 60.0 mL/min (>60); Glucose 109 mg/dL (80-110); Hematocrit 47.8 % (41-53); Hemoglobin 15.8 g/dL (13.5-17.5); Lymphocytes Absolute Auto 3000 /uL (1100-4500); Lymphocytes Percent Auto 42.5 % (25-40); Mean Corpuscular Hemoglobin 30.7 PG (26-34); Monocytes Absolute Auto 700 /uL (0-900); Monocytes Percent Auto 9.2 % (3-14); Neutrophils Absolute Auto 2900 /uL (1500-7000); Platelet Count 337 X10^3/uL (150-400); Red Blood Cell Count 5.14 X10^6/uL (4.5-5.9); Red Cell Distribution Width 14.4 % (11.6-14.8); Sodium 135 mmol/L (137-145); Total Protein 8.1 g/dL (6.3-8.2); White Blood Cell Count 7.1 X10^3/uL (4.5-11.0)
[2020-10-29 06:45] LABS: C-Reactive Protein Quant < 0.5 mg/dL (<1.0)
[2020-10-29 06:51] LABS: HEMOLYSIS 56 (0-50); Potassium 4.6 mmol/L (3.4-5.1)
[2020-10-29 07:22] LABS: Erythrocyte Sedimentation Rate 2 MM/HR (0-15)
[2020-10-29 07:30] VITALS: O2SAT 96
[2020-10-29 08:05] VITALS: BP 133/74; PULSE 73; RESP 18; TEMP 35.8; O2SAT 95
[2020-10-29] MEDS: DOCUSATE 100 MG CAPSULE PO ×2 (08:56→20:45)
[2020-10-29] MEDS: METHADONE 10 MG TABLET 15 MG PO (08:56)
[2020-10-29] MEDS: SODIUM CHLORIDE 0.9% FLUSH 10 ML IV ×2 (08:56→20:46)
[2020-10-29] MEDS: HEPARIN 5,000 UNIT/ML VIAL 5000 UNIT SUBCUT ×2 (08:56→20:46)
[2020-10-29] MEDS: MICAFUNGIN 150 MG in SODIUM CHLORIDE 0.9% 100 ML IV (08:57)
--- NOTE | 2020-10-29 14:54 | P.PN_ITS ---
Subjective Subjective Date Patient Seen: 10/29/20 Time Patient Seen: 14:54 Interval history: Today he has no complaints. He feels well. He has no pain, fevers/chills. Exam Vital Signs (past 8 hours): - 10/29/20 07:30 10/29/20 08:05 Temperature 96.5 F L Pulse Rate 73 Respiratory Rate 18 Blood Pressure 133/74 Pulse Oximetry 96 95 Oxygen Delivery Method Room Air Oxygen Flow Rate 0 Narrative Exam Narrative: GEN: no acute distress HEENT: moist mucous membranes, PERRL NECK: trachea midline, no JVD CV: regular rate and rhythm with no murmurs PULM: clear bilaterally with no wheezes, rhonchi, rales ABD: soft, nontender, nondistended, no organomegaly EXT: warm and well perfused with no edema NEURO: awake, alert and oriented, moving all extremities, normal upper and lower extremity strength PSYCH: pleasant, cooperative Objective Labs Result Diagrams: 10/29/20 05:52 10/29/20 05:52 Labs: Laboratory Results - last 24 hr 10/29/20 10/29/20 10/29/20 05:52 05:52 05:52 WBC 7.1 RBC 5.14 Hgb 15.8 Hct 47.8 MCV 93.0 MCH 30.7 MCHC 33.0 RDW 14.4 Plt Count 337 Neut % (Auto) 40.0 L Lymph % (Auto) 42.5 H [place] % (Auto) 9.2 Eos % (Auto) 5.5 H Baso % (Auto) 2.8 H Neut # (Auto) 2900 Lymph # (Auto) 3000 [place] # (Auto) 700 Eos # (Auto) 400 Baso # (Auto) 200 H ESR 2 Sodium 135 L Potassium 4.6 Chloride 103 Carbon Dioxide 25 BUN 21 H Creatinine 0.74 Estimated GFR > 60.0 BUN/Creatinine Ratio 28.4 H Glucose 109 Calcium 10.3 H Total Bilirubin 0.5 AST 61 H ALT 55 H Alkaline Phosphatase 60 C-Reactive Protein Total Protein 8.1 Albumin 4.1 Globulin 4.0 Albumin/Globulin Ratio 1.0 10/29/20 05:52 WBC RBC Hgb Hct MCV MCH MCHC RDW Plt Count Neut % (Auto) Lymph % (Auto) [place] % (Auto) Eos % (Auto) Baso % (Auto) Neut # (Auto) Lymph # (Auto) [place] # (Auto) Eos # (Auto) Baso # (Auto) ESR Sodium Potassium Chloride Carbon Dioxide BUN Creatinine Estimated GFR BUN/Creatinine Ratio Glucose Calcium Total Bilirubin AST ALT Alkaline Phosphatase C-Reactive Protein < 0.5 Total Protein Albumin Globulin Albumin/Globulin Ratio [facility] Medical History Abscess Acute CVA (cerebrovascular accident) Heroin abuse Social History household members: none Smoking Status: Current every day smoker Assessment & Plan Assessment & Plan narrative: Mr. 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 1. Rhiannon Fungemia, rhiannon endocarditis -had positive blood cultures on 10/07 for rhiannon glabrata, rhiannon albicans -negative blood cultures on 10/09 -TTE negative for endocarditis, DILAN at [facility] positive for endocarditis on 10/20 -ID recommended six weeks of micafungin/caspofungin which would be through 11/20, at that time follow up with ID for reevaluation and repeat DILAN ------getting micafungin here as it is on formulary at 150mg daily, but caspo fungin is more often used so would dc on caspofungin 150mg daily ------further ID recs are to monitor LFTs closely (these appear stable on repeat labs today), get fungal susceptibilities (currently pending), consider lifelong azole suppression for rhiannon, which will be decided by ID attending Dr. Leanne cárdenas ------once outpatient weekly cbc with diff, sed, crp, cmp faxed to ID Dr. Andres at [facility] at F: [phone], phone: [phone] ------ID to see him in 4 weeks (mid November) to evaluate how he is doing, DILAN in 4 weeks to see if vegetation improved -no need for cardiac surgery at this time 2. IV drug use with heroin, previous withdrawal -currently controlled on methadone, will start to taper today, decreased from 15 mg BID to 10 mg BID. Continue to taper while inpatient. -patient interested in stopping substance abuse 3. Hepatitis C -had positive HCV antibody -will need outpatient follow up for treatment 4. Alcohol abuse -outside window for acute withdrawal -encouraged to stop drinking 5. Lung nodule -outaptient follow up recommended DVT ppx: heparin sc DIET: heart healty CODE: Full, proxy is brother Torrey Dispo: looking into options for prolonged IV therapy.
[2020-10-29 15:00] VITALS: O2SAT 95
[2020-10-29 15:47] VITALS: BP 128/70; PULSE 71; RESP 16; TEMP 36.4; O2SAT 98
[2020-10-29] MEDS: NICOTINE 14 PATCH 14 MG TOP (16:53)
--- NOTE | 2020-10-29 17:48 | CM.DANOTE ---
DCP/Brief Note: Patient currently LOS day#8. Patient requiring a total of 6wks of IV anti-fungal treatment. CM team have contacted several SNF's re: availability? Current barrier to SNF is cost of treatment. [facility], and [facility] considering? Spoke briefly with provider about the possibility of change in medication. Provider reports that he has 2 options in progress notes. Unfortunately, due CM demands this [facility] unable to follow up. Will request [facility] f/u on 10-30-20. Today, dosage of methadone decreased. [facility] will need to meet with patient to discuss any plans for further treatment and housing/penitentiary options at time of d/c after treatment completed either from [facility] or SNF/Swing bed. P: Pending. F/U with [facility] on 10-30-20 re: bed availability. In addition will need to obtain information from patient on his goals and next steps? ANGELLA Palomares Discharge Planning/Care Management CM Discharge Assessment Start: 10/29/20 17:44 Freq: Status: Active Protocol: Document 10/29/20 17:44 KJS (Rec: 10/29/20 17:48 KJS [id number]) Discharge Planning Assessment Assigned [employer] ANGELLA Palomares Contact Information Melissa Benitez (sister) ph# [phone] Advance Directives? No History Provided By Patient,Medical Record Prior Living Arrangements Homeless Household Members none Independent with ADL's Yes Is patient alert and oriented? Yes Barriers to Discharge Yes Comment Patient homeless and requiring IV anti-fungal treatment for total of 6wks. Discharge Plan [facility] Facility Transportation Arrangement Pending Referrals Initiated Other Additional Comment Several SNF's have been contacted and in addition [facility] (swing bed) considering once they have opening. Review Status In Process Next Review Type Continued Stay Review
[2020-10-29] MEDS: ACETAMINOPHEN 325 MG TABLET 650 MG PO (18:51)
[2020-10-29] MEDS: METHADONE 10 MG TABLET PO (20:46)
[2020-10-29 23:00] VITALS: O2SAT 97
[2020-10-30 00:50] VITALS: BP 125/72; PULSE 63; RESP 16; TEMP 36.6; O2SAT 97
[2020-10-30 01:29] VITALS: O2SAT 97
[2020-10-30 07:00] VITALS: O2SAT 96
[2020-10-30 08:00] VITALS: BP 132/73; PULSE 69; RESP 14; TEMP 36.1; O2SAT 96
[2020-10-30] MEDS: MICAFUNGIN 150 MG in SODIUM CHLORIDE 0.9% 100 ML IV (08:52)
[2020-10-30] MEDS: ACETAMINOPHEN 325 MG TABLET 650 MG PO ×2 (08:53→19:55)
[2020-10-30] MEDS: DOCUSATE 100 MG CAPSULE PO ×2 (08:53→20:56)
[2020-10-30] MEDS: METHADONE 10 MG TABLET PO ×2 (08:53→20:56)
[2020-10-30] MEDS: HEPARIN 5,000 UNIT/ML VIAL 5000 UNIT SUBCUT ×2 (08:54→20:56)
[2020-10-30] MEDS: SODIUM CHLORIDE 0.9% FLUSH 10 ML IV ×2 (08:55→20:57)
[2020-10-30] MEDS: NICOTINE 14 PATCH 14 MG TOP (08:55)
--- NOTE | 2020-10-30 10:56 | PC.NURSE ---
Patient resting in bed, tolerating breakfast. Denies chest pain, SOB, dizziness or lightheadedness. Pulses equal. BT active. Voiding in urinal. RUE midline intact, flushed, IV ABX infused. Patient tolerated. Patient denies needs at this time. Call light in reach.
--- NOTE | 2020-10-30 13:02 | CM.DPNOTE ---
Called [facility] at Nargis's request to find a swing bed for pt. Left a for staff Yue or Jean Marie, [phone]. Simi from [facility] call at [phone] letting us know they are aware of pt. and they are reviewing his information. I told her pt. does have a PICC line. Simi said the only thing is that the pt. has to aggree to come to their facility. I gave this information to Nargis. Samantha Sigala CM Asst.
--- NOTE | 2020-10-30 14:02 | CM.DPNOTE ---
Addendum entered by Adela Ibanez, LASER PRINT OPERATOR 10/31/20 16:02: [place] back from Heidy at [facility] swing beds, they cannot accept patient d/t barriers in DC planning after treatment course. Addendum entered by Adela Marcelle, LASER PRINT OPERATOR 10/30/20 15:20: Spoke w/Heidy, Care Management at [facility] in [place], swing beds P#[phone] F#[phone]. They do not have beds today, but will review patient's clinical information. DCP needs to be clear, as does patient's willingness to travel to [place] for the remainder of his IV abx course. Requested that BUDDY Singh fax clinical to Heidy for review. Original Note: DCP Note Reviewed chart. LM for Asia Lopez. Spoke w/Heidy at [facility] swing beds who explained she was unsure if patient even being considered for their swing beds (?) Patient will require a DCP from their facility. Heidy planned to review with their Tape Cutter and give this LASER PRINT OPERATOR a CB Placed call to [facility] (again) P# [phone] to review barriers to acceptance. Placed call to [facility] in [place] ([facility]) P#[phone], they were familiar w/patient's name (referral from [facility]? ), awaiting a CB now Met w/patient to review DCP efforts. Patient hopeful to DC to a local facility, however, patient states understanding re: difficulty in securing a SNF on his behalf. Patient is willing to travel in order to DC from acute care for the remainder of his IV abx course. Re: plan after IV abx treatment course? Patient explains his sister Melissa will be able to transport him home, even if placement is hours away. Patient will discuss discharging home w/sister for 1-2 weeks. Patient anticipates that if it is temporary, sister can assist him as he further recovers from his intermediate hospitalization. Patient plans to get to [facility] in [facility] as soon as he is able, to make sure his name is on the [facility] housing wait list...and explore other housing options if available. Following closely, patient does not require the acute care floor to finish the remainder of his IV abx, so seeking alternative placement. Dr Griffin voiced intention of consulting ID again to ask about any alternative IV abx treatment? (less costly) and/or option of daily IV infusion? JW
[2020-10-30 15:00] VITALS: O2SAT 96
--- NOTE | 2020-10-30 15:28 | CM.DPNOTE ---
Faxed referral to [facility] attn: Heidy Barillas at [phone]. Received fax conf. Samantha Sigala CM Ass
[2020-10-30 15:59] VITALS: BP 129/69; PULSE 75; RESP 18; TEMP 36.4; O2SAT 94
--- NOTE | 2020-10-30 18:01 | PM.PN.1 ---
Subjective Subjective Interval history: Patient is a 70-year-old male with a history of IVDA here with candidemia, Galina albicans, Galina glabrata, blood and endocarditis. He is currently on capsule function. We are continuing to wait definitive culture and sensitivity results for the Galina glabrata I have called the lab and they are following up on the final lab results. Patient denies any diarrhea, no shortness of breath, he has no symptoms, the patient is anxious to leave the hospital Exam Vital Signs (past 8 hours): - 10/30/20 15:59 Temperature 97.6 F Pulse Rate 75 Respiratory Rate 18 Blood Pressure 129/69 Pulse Oximetry 94 Oxygen Delivery Method Room Air Oxygen Flow Rate 0 Narrative Exam Narrative: Pleasant gentleman resting comfortably in no obvious distress Resp Other: Lungs: Clear to auscultation Cardio Other: Cardiac exam: Regular rate and rhythm normal S1-S2 with a 2/6 systolic ejection murmur GI Other: Abdomen: Soft nontender nondistended Extrem Other: Extremities: No edema Objective Labs Result Diagrams: 10/29/20 05:52 10/29/20 05:52 [facility] Medical History Abscess Acute CVA (cerebrovascular accident) Heroin abuse Social History household members: none Smoking Status: Current every day smoker Assessment & Plan Assessment & Plan narrative: Galina Fungemia, galina endocarditis -had positive blood cultures on 10/07 for galina glabrata, galina albicans -negative blood cultures on 10/09 -TTE negative for endocarditis, DILAN at [facility] positive for endocarditis on 10/20 -ID recommended six weeks of micafungin/caspofungin which would be through 11/20, at that time follow up with ID for reevaluation and repeat DILAN ------getting micafungin here as it is on formulary at 150mg daily, but caspofungin is more often used so would dc on caspofungin 150mg daily ------further ID recs are to monitor LFTs closely (these appear stable on repeat labs today), get fungal susceptibilities (currently pending), consider lifelong azole suppression for galina, which will be decided by ID attending Dr. Andres ------once outpatient weekly cbc with diff, sed, crp, cmp faxed to ID Dr. Andres at [facility] at F: [phone], phone: [phone] ------ID to see him in 4 weeks (mid November) to evaluate how he is doing, DILAN in 4 weeks to see if vegetation improved -no need for cardiac surgery at this time -we are awaiting the actual culture and sensitivity of the Galina albicans and glabrata, if sensitivities revealed glabrata is sensitive to Diflucan the patient could be switched to IV Diflucan from his galina fungemia. Unfortunately culture results are still pending. It is fairly unlikely that this will be sensitive however we will follow up to determine. In any event the patient will need IV antibiotics for total of the remaining time through November 20. Will continue to work with the lab to get final culture and sensitivity results -continue weekly labs as above 2. IV drug use with heroin, previous withdrawal -currently controlled on methadone, will start to taper today, decreased from 15 mg BID to 10 mg BID. Continue to taper while inpatient. -patient interested in stopping substance abuse -patient is tolerating his methadone taper 3. Hepatitis C -had positive HCV antibody -will need outpatient follow up for treatment 4. Alcohol abuse -outside window for acute withdrawal -encouraged to stop drinking 5. Lung nodule -outaptient follow up recommended
[2020-10-31 01:29] VITALS: BP 141/89; PULSE 72; RESP 18; TEMP 36.6; O2SAT 97
[2020-10-31 08:00] VITALS: O2SAT 96
[2020-10-31] MEDS: METHADONE 10 MG TABLET PO (08:22)
[2020-10-31] MEDS: NICOTINE 14 PATCH 14 MG TOP (08:22)
[2020-10-31] MEDS: HEPARIN 5,000 UNIT/ML VIAL 5000 UNIT SUBCUT ×2 (08:22→20:54)
[2020-10-31] MEDS: DOCUSATE 100 MG CAPSULE PO (08:22)
[2020-10-31] MEDS: MICAFUNGIN 150 MG in SODIUM CHLORIDE 0.9% 100 ML IV (08:23)
[2020-10-31] MEDS: SODIUM CHLORIDE 0.9% FLUSH 10 ML IV ×2 (08:24→20:55)
--- NOTE | 2020-10-31 08:40 | CM.DPNOTE ---
Faxed FRANKIE Moody at [facility] on 10/31/20. Fax conf. confirmed. Samantha Sigala CM Asst.
[2020-10-31 09:00] VITALS: BP 134/82; PULSE 75; RESP 12; TEMP 36.3; O2SAT 97
[2020-10-31 14:14] LABS: COVID-19 CEPHEID PCR (VTM/NP) Negative (Negative)
--- NOTE | 2020-10-31 15:13 | CM.DPNOTE ---
DCP Note Update on placement efforts: Spoke w/ Heidy at [facility], they have decided to accept patient as long as they have beds available ...Heidy has confirmed with their pharmacy that they can order patient's micafungin to be ready Tuesday and so asked if patient could DC and transport tomorrow 7.31.21 after his morning IV abx dose. Updated Dr Griffin, updated patient who is agreeable to this plan.Patient wants to remain clean and sober, discussed outpatient plan and patient non-committal but willing to consider [place] upon DC from [facility] or this hospital, if they are accepting new clients. RN Ibeth placed order for COVID-19 PCR to be updated. Attempted to secure [facility] taxi transport and patient does not have [facility] transportation benefits. taxi voucher will be required as patient should transport via secure method, not pov Heidy provided the following contact information in hopes this PEACE OFFICER team could coordinate DC to their facility this weekend: [facility]: [phone] (to ask about bed availability since patient has now been accepted) Nurse to Nurse report: [phone] Doc to Doc required: Dr Buenrostro (attending) P# [phone] In addition, Heidy at [facility] contacted Dr. Andres at [facility] p#[phone] who clarified he wants to see patient back Nov 17 for DILAN and additional ID consult; [facility] still willing to accept understanding patient will need to make it to/from this appt. Lastly placed call to patient's sister Melissa, with patient permission, discussed plan and asked about transport after DC from [facility] beds, also asked if patient could stay w/her temporarily, one week? Melissa hesitant, states patient has stayed with her in the past. Melissa willing to consider, will discuss w/her brother Schuyler and with patient. Patient would need to be sober. Plan: Accepted today by [facility], could not DC today d/t [facility] pharmacy awaiting [employer] stocked on Tuesday; will need to confirm bed availability Tuesday and schedule taxi after patient's morning dose of IV abx (Approx 0830) taxi voucher needed, patient unable to pay for taxi and requires secure transport per [facility]. ANGELLA Madrigal
--- NOTE | 2020-10-31 15:54 | PM.PN.1 ---
Subjective Subjective Interval history: Patient is a 70-year-old male who is admitted to the hospital for Rhiannon fungi Mary. Patient's cultures grew Rhiannon glabrata and Rhiannon albicans. These have been sent to a offsite laboratory for culture and sensitivity. The recent 1 week ago October 24 and remain pending. It is unclear when the final culture results will be back. Patient is on micafungin and will need to remain on the micafungin until November 20. If culture and sensitivities reveal that Rhiannon glabrata is sensitive to Diflucan could consider switching to Diflucan until completed course November 20, 2020. Patient denies any shortness of breath, he has no diarrhea, he has no specific complaints Exam Vital Signs (past 8 hours): - 10/31/20 08:00 10/31/20 09:00 Temperature 97.4 F L Pulse Rate 75 Respiratory Rate 12 Blood Pressure 134/82 Pulse Oximetry 96 97 Oxygen Delivery Method Room Air Oxygen Flow Rate 0 Narrative Exam Narrative: Pleasant gentleman resting comfortably in no obvious distress Resp Other: Lungs: Clear to auscultation Cardio Other: Cardiac exam: Regular rate and rhythm normal S1-S2 with a 2/6 systolic ejection murmur GI Other: Abdomen soft nontender nondistended Extrem Other: Extremity no edema Objective Labs Result Diagrams: 10/29/20 05:52 10/29/20 05:52 Labs: Laboratory Results - last 24 hr 10/31/20 13:15 SARS-CoV-2 (PCR) Negative [facility] Medical History Abscess Acute CVA (cerebrovascular accident) Heroin abuse Social History household members: none Smoking Status: Current every day smoker Assessment & Plan Assessment & Plan narrative: Rhiannon Fungemia, rhiannon endocarditis -had positive blood cultures on 10/07 for rhiannon glabrata, rhiannon albicans -negative blood cultures on 10/09 -TTE negative for endocarditis, DILAN at [facility] positive for endocarditis on 10/20 -ID recommended six weeks of micafungin/caspofungin which would be through 11/20, at that time follow up with ID for reevaluation and repeat DILAN ------getting micafungin here as it is on formulary at 150mg daily, but caspofungin is more often used so would dc on caspofungin 150mg daily ------further ID recs are to monitor LFTs closely (these appear stable on repeat labs today), get fungal susceptibilities (currently pending), consider lifelong azole suppression for rhiannon, which will be decided by ID attending Dr. Andres ------once outpatient weekly cbc with diff, sed, crp, cmp faxed to ID Dr. Andres at [facility] at F: [phone], phone: [phone] ------ID to see him in 4 weeks (mid November) to evaluate how he is doing, DILAN in 4 weeks to see if vegetation improved -no need for cardiac surgery at this time -we are awaiting the actual culture and sensitivity of the Rhiannon albicans and glabrata, if sensitivities revealed glabrata is sensitive to Diflucan the patient could be switched to IV Diflucan from his rhiannon fungemia. Unfortunately culture results are still pending. It is fairly unlikely that this will be sensitive however we will follow up to determine. In any event the patient will need IV antibiotics for total of the remaining time through November 20. Will continue to work with the lab to get final culture and sensitivity results -continue micafungin for now, await culture and sensitivity results, patient may be able to go to a swing bed tomorrow to continue treatment -continue weekly labs as above 2. IV drug use with heroin, previous withdrawal -currently controlled on methadone, will start to taper today, decreased from 15 mg BID to 10 mg BID. Continue to taper while inpatient. -patient interested in stopping substance abuse -patient is tolerating his methadone taper -continue methadone taper, will decrease methadone from 10 twice daily to 10 mg daily 3. Hepatitis C -had positive HCV antibody -will need outpatient follow up for treatment 4. Alcohol abuse -outside window for acute withdrawal -encouraged to stop drinking 5. Lung nodule -outaptient follow up recommended 6. Disposition -await placement
[2020-10-31 16:00] VITALS: BP 135/76; PULSE 71; RESP 18; TEMP 36.3; O2SAT 97
[2020-10-31] MEDS: ACETAMINOPHEN 325 MG TABLET 650 MG PO ×2 (16:10→22:09)
--- NOTE | 2020-10-31 16:31 | PC.NURSE ---
Addendum entered by Jannet Sahu R.N. 10/31/20 22:18: Tylenol administered for headache 3/10. Quietly resting in room watching television most of shift. Up ad tanika prn. Original Note: Pt resting quietly in bed watching television. Slightly hard of hearing, but able to make needs and wants known to staff members. Pt admits to slight headache 3/10 and was given tylenol as per request. Declines offer for ice pack to head. Follows commands appropriately.
[2020-10-31 23:00] VITALS: BP 135/78; PULSE 76; RESP 14; TEMP 36.6; O2SAT 98
[2020-11-01 07:35] VITALS: BP 136/80; PULSE 71; RESP 17; TEMP 36.6; O2SAT 95
[2020-11-01 07:50] VITALS: O2SAT 96
--- NOTE | 2020-11-01 08:19 | CM.DPC ---
DCP Cont: SW received a call from Heidy at [facility] in [place] stating she received pt's referral for Swing Bed and their team is reviewing but do not work on the weekends so they will not have an answer until Tue11-03-20. SW called [facility] [phone] to inquire about their bed availability and House Supervisors confirms that she is aware that pt has been accepted for their Swing bed but unfortunately they had many staff call out sick today and they do not have enough staff to accept any new admissions at all but plan to accept pt tomorrow. Request call again in the morning to confirm. Plan: SW updated machine erector, MD, and RN in regards to attempt again tomorrow after IV dosing in the morning and need for taxi voucher for taxi to [facility] with no stops. ANGELLA Dobbins
[2020-11-01] MEDS: DOCUSATE 100 MG CAPSULE PO (08:42)
[2020-11-01] MEDS: METHADONE 10 MG TABLET PO ×2 (08:42→20:33)
[2020-11-01] MEDS: NICOTINE 14 PATCH 14 MG TOP (08:43)
[2020-11-01] MEDS: SODIUM CHLORIDE 0.9% FLUSH 10 ML IV ×2 (08:43→20:33)
[2020-11-01] MEDS: MICAFUNGIN 150 MG in SODIUM CHLORIDE 0.9% 100 ML IV (09:19)
--- NOTE | 2020-11-01 13:11 | P.PN_ITS ---
Subjective Subjective Interval history: The patient is a 70 y/o male admitted to the hospital for Rhiannon Fungemia with endocarditis. Patient is on Micafungin until November. He denies diarrhea, nausea, rash, or shortness of breath. Patient is scheduled to go to [facility] to complete his anti fungal course of treatment Exam Vital Signs (past 8 hours): - 11/01/20 07:35 11/01/20 07:50 Temperature 97.9 F Pulse Rate 71 Respiratory Rate 17 Blood Pressure 136/80 Pulse Oximetry 95 96 Oxygen Delivery Method Room Air Oxygen Flow Rate 0 Narrative Exam Narrative: Pleasant gentleman lying in bed in No Acute Distress Resp Other: Lungs: Clear to auscultation Cardio Other: RRR nl Sl S2 2/6 ROSALIE GI Other: Abd: soft/ non tender/ non distended Extrem Other: no edema Objective Labs Result Diagrams: 10/29/20 05:52 10/29/20 05:52 Labs: Laboratory Results - last 24 hr 10/31/20 13:15 SARS-CoV-2 (PCR) Negative [facility] Medical History Abscess Acute CVA (cerebrovascular accident) Heroin abuse Social History household members: none Smoking Status: Current every day smoker Assessment & Plan Assessment & Plan narrative: Rhiannon Fungemia, rhiannon endocarditis -had positive blood cultures on 10/07 for rhiannon glabrata, rhiannon albicans -negative blood cultures on 10/09 -TTE negative for endocarditis, DILAN at [facility] positive for endocarditis on 10/20 -ID recommended six weeks of micafungin/caspofungin which would be through 11/20, at that time follow up with ID for reevaluation and repeat DILAN ------getting micafungin here as it is on formulary at 150mg daily, but caspofungin is more often used so would dc on caspofungin 150mg daily ------further ID recs are to monitor LFTs closely (these appear stable on repeat labs today), get fungal susceptibilities (currently pending), consider lifelong azole suppression for rhiannon, which will be decided by ID attending Dr. Andres ------once outpatient weekly cbc with diff, sed, crp, cmp faxed to ID Dr. Andres at [facility] at F: [phone], phone: [phone] ------ID to see him in 4 weeks (mid November) to evaluate how he is doing, DILAN in 4 weeks to see if vegetation improved -no need for cardiac surgery at this time -we are awaiting the actual culture and sensitivity of the Rhiannon albicans and glabrata, if sensitivities revealed glabrata is sensitive to Diflucan the patient could be switched to IV Diflucan from his rhiannon fungemia. Unfortunately culture results are still pending. It is fairly unlikely that this will be sensitive however we will follow up to determine. In any event the patient will need IV antibiotics for total of the remaining time through November 20. Will continue to work with the lab to get final culture and sensitivity results -continue micafungin for now, await culture and sensitivity results, patient may be able to go to a swing bed tomorrow to continue treatment -continue weekly labs as above 2. IV drug use with heroin, previous withdrawal -currently controlled on methadone, will start to taper today, decreased from 15 mg BID to 10 mg BID. Continue to taper while inpatient. -patient interested in stopping substance abuse -patient is tolerating his methadone taper -continue methadone taper, will decrease methadone from 10 twice daily to 10 mg daily 3. Hepatitis C -had positive HCV antibody -will need outpatient follow up for treatment 4. Alcohol abuse -outside window for acute withdrawal -encouraged to stop drinking 5. Lung nodule -outaptient follow up recommended 6. Disposition- Patient expected to transfer to [facility] tomorrow to complete antibiotic course
[2020-11-01] MEDS: ACETAMINOPHEN 325 MG TABLET 650 MG PO ×2 (14:26→20:36)
--- NOTE | 2020-11-01 14:28 | PC.NURSE ---
Patient c/o pain 10. PRN Tylenol administered.
[2020-11-01 15:45] VITALS: BP 136/78; PULSE 72; RESP 17; TEMP 36.8; O2SAT 97
--- NOTE | 2020-11-01 20:47 | PC.NURSE ---
Pt resting quietly in bed most of evening shift watching television. Admits to headache pain and reports feels overall better with methadone twice daily. Tylenol given for c/o headache pain. Pt states doesn't think needs heparin SQ or jeannie this evening. States bowels have moved today and denies difficulty with stooling. Moves self independently in bed. Dual lumen midline flushed easily with saline and heparin. Pt was encouraged to call for needs.
[2020-11-01 23:00] VITALS: O2SAT 97
[2020-11-01 23:45] VITALS: BP 138/80; PULSE 69; RESP 14; TEMP 36.2; O2SAT 97
[2020-11-02 07:00] VITALS: O2SAT 96
[2020-11-02 08:00] VITALS: BP 151/73; PULSE 69; RESP 16; TEMP 36.4; O2SAT 95
[2020-11-02] MEDS: NICOTINE 14 PATCH 14 MG TOP (09:18)
[2020-11-02] MEDS: METHADONE 10 MG TABLET PO (09:18)
[2020-11-02] MEDS: DOCUSATE 100 MG CAPSULE PO (09:18)
[2020-11-02] MEDS: MICAFUNGIN 150 MG in SODIUM CHLORIDE 0.9% 100 ML IV (09:18)
[2020-11-02] MEDS: SODIUM CHLORIDE 0.9% FLUSH 10 ML IV (09:20)
[2020-11-02] MEDS: ACETAMINOPHEN 325 MG TABLET 650 MG PO (09:23)
--- NOTE | 2020-11-02 11:16 | PC.NURSE ---
Patient given discharge instructions and prescription sent with patient in folder. Report called to Reba at [facility]. Patients IV remains intact. Patient discharged via wheelchair. Verbalized he has belongings including wallet.
--- NOTE | 2020-11-02 14:41 | CM.DPNOTE ---
DC Note Placed call to nataliya Carpenter at [facility] P# [phone], swing beds available and so patient able to admit today. DC to [facility] swing beds today via taxi; via [employer] taxi (taxi voucher used) secure transport. Taxi voucher completed, $65 from [employer] to Caro Farley, one copy to [employer], one copy in chart and last copy left on DIETARY SERVICE AIDE desk for DIETARY SERVICE AIDE Salome Cristina to review. Patient agreeable to plan Nurse to nurse completed by OBED Vasquez P# [phone]. Doc to Doc completed by Dr Borja. Do Buenrostro, attending at [facility] P# [phone] Plan: DC to [facility] swing beds via taxi, DC packet went w/patient to include med list, DC Summary etc. COVID-19 PCR done Tuesday 7.30.21 so was in the 72 hour window JW
--- NOTE | 2020-11-02 17:52 | PM.DS.1 ---
History of Present Illness History of Present Illness Chief complaint: pneumonia/IV drug use Narrative: Mr. Benitez is a 70M with PMH of IVDU with heroin, alcohol abuse, was admitted in early October for sepsis and found to have Rhiannon albicans and glabrata fungemia. He has been on Micafungin since 10/09, with negative blood cultures since 10/09. He had TTE negative for endocarditis, MRI L-spine negative for infection. He was transferred to [facility] for DILAN. This showed positive endocarditis with vegetations on the aortic valve. He had ophtho exam that was negative for endophthalmitis and positive for Duran spots. ID was consulted and recommended at least 6 weeks of echinocandin treatment at endocarditis dosing. They recommend following up with ID again in four weeks, with repeat DILAN in four weeks to determine if any progression in endocarditis. He is transferred back due to bed availability. He currently has no complaints. He denies fevers/chills, no pain. He has been stabilized since admission on 15mg BID of methadone. Family history: sister with breast cancer Discharge Providers Provider Date of admission: 10/21/20 12:04 Discharge Date: 11/02/20 Consults: 10/21/20 13:05 Consult to Discharge Planning Routine Comment: stable to dc, IV caspofungin 150mg daily till 11/2010/22/20 13:50 Consult to Physical Therapy Evaluate & Treat Comment: Physician Instructions: Evaluate and Treat Discharge provider: Yoni Borja MD Summary Hospital Course Discharge Diagnosis: 1. Rhiannon fungemia, rhiannon endocarditis 2. IV drug use with heroin, previously withdrawal 3. Hepatitis C, untreated 4. Alochol abuse, no withdrawal 5. Active smoker 6. Lung nodule, recommend outpatient monitoring Hospital Course: Mr. Benitez was admitted in early October for sepsis and eventually found to have fungemia with rhiannon glabrata and rhiannon albcians. Blood cultures have been negative since 10/09. He had a DILAN at [facility] which showed small vegetation on aortic valve consistent with endocarditis. He was seen by Dr. Andres at [facility] (ID specialist) who wanted to follow him once he left the hospital. He was recommended to get at least six week of antifungals with either micafungin 150mg daily, or caspofungin 150mg daily. That would be through at least 11/20. However Dr. Andres does want follow up at [facility] prior to stopping antibiotics so near the middle of November with herself to see how he is progressing, and she recommends repeat DILAN to make sure vegetations are improving. He had no need for cardiac surgery. He had ophthalmic exam which showed duran spots, but no evidence of enophthalmitis. He can follow up with ophthalmology as an outpatient. He is still pending final fungal culture sensitivities which will be follow up by Dr. Andres. She will consider possible lifelong azole suppression. He should have: ------once outpatient weekly cbc with diff, sed, crp, cmp faxed to ID Dr. Andres at [facility] at F: [phone], phone: [phone] He is interested in stopping his substance abuse. He was initially started on methadone 15mg BID in the hospital for pain and withdrawal. It was tapered to 10mg BID on discharge and can be continued to be tapered as able. He had a positive hepatitis C antibody and should have outpatient follow up to consider treatment. He had an incidental lung nodule noted, and this can be monitored as an outpatient. He is discharged to [facility] to complete his antifungal course. Exam Vital Signs (past 8 hours): Oxygen Delivery Method Room Air Oxygen Flow Rate 0 Narrative Exam Narrative: Pleasant gentleman lying in bed in No Acute Distress Lungs: Clear to auscultation CV RRR nl Sl S2 2/6 ROSALIE GI: soft/ non tender/ non distended Extrem: no edema Objective Labs Result Diagrams: 10/29/20 05:52 10/29/20 05:52 [facility] Medical History Abscess Acute CVA (cerebrovascular accident) Heroin abuse Social History household members: none Smoking Status: Current every day smoker Discharge Plan Discharge Plan Patient Disposition: Swing Bed/[facility] Other facility: [facility] Under care of provider: Dr. Buenrostro Provider Discharge Comment: Mr. Benitez was admitted with sepsis and found to have fungemia with rhiannon albicans and rhiannon glabrata. His last positive blood culture was 10/07. He had endocarditis on DILAN. He will be followed by Dr. Andres, ID attending, at [facility] who recommends: -ID recommended six weeks of micafungin/caspofungin which would be through 11/20, at that time follow up with ID for reevaluation and repeat DILAN ------getting micafungin here as it is on formulary at 150mg daily, but caspofungin is more often used so could dc on caspofungin 150mg daily ------further ID recs are to monitor LFTs closely (these appear stable on repeat labs today), get fungal susceptibilities (currently pending), consider lifelong azole suppression for rhiannon, which will be decided by ID attending Dr. Andres ------once outpatient send weekly cbc with diff, sed, crp, cmp faxed to ID Dr. Andres at [facility] at F: [phone], phone: [phone] ------ID to see him in 4 weeks (november) to evaluate how he is doing, DILAN in 4 weeks (november) with cardiology at [facility] to see if vegetation improved Discharge orders & Medications Discharge Orders: Discharge (Order); Ordered 11/02/20 Ordered By: Yoni Borja Prescriptions: New methadone 10 mg Tablet 10 mg PO BID Qty: 10 RF: 0 nicotine 14 mg/24 hr Patch 24 Hour 14 mg topical DAILY Qty: 10 RF: 0 micafungin 100 mg recon soln 150 mg IV Q24H Qty: 10 RF: 0 acetaminophen 325 mg Tablet 650 mg PO Q6HR PRN (Reason: Fever/Mild Pain (1-3)) Qty: 10 RF: 0 docusate sodium [DOK] 100 mg Capsule 100 mg PO BID Qty: 10 RF: 0 No Action No Known Home Medications RF: 0 Discharge Health Status Multidrug resistant organism: No MDRO Diet/Activity/Treatments Diet: Diet as Tolerated Liquid consistency: Normal/Thin Food texture: Regular Quality MIPS - DC The patient has current or prior documentation of left ventricular ejection fraction (LVEF) less than 40%, or moderate or severely depressed left ventricular systolic function.: No
== END 2020-11-02 11:00 | disposition swing bed (61) | DRG 872 ==
PROVIDERS: Internal Medicine; Admitting Provider Internal Medicine; Referring Provider Internal Medicine; Visit Provider Internal Medicine
DX: B37.7 Candidal sepsis (principal); B37.6 Candidal endocarditis; F11.10 Opioid abuse, uncomplicated; F10.10 Alcohol abuse, uncomplicated; B19.20 Unspecified viral hepatitis C without hepatic coma; F17.200 Nicotine dependence, unspecified, uncomplicated
CPT/HCPCS: 36415; 80053; 85025; 85651; 86140; 87635; 97161; C9803; U0003; J1642; J1644; J2248

== ENCOUNTER 2021-01-17 09:00 | Emergency (ER) | payer MEDICARE, MEDICAID, SELFPAY ==
[2021-01-17] VITALS (11 sets, daily range): BP systolic 112–136; BP diastolic 58–80; PULSE 81–121; RESP 18–26; TEMP 36.8–38; O2SAT 95–100; BMI 22.9
--- NOTE | 2021-01-17 09:18 | DI.RAD.S_ITS ---
PROCEDURE: XR CHEST 1V INDICATIONS: chest pain TECHNIQUE: One view of the chest was acquired. COMPARISON: [facility], CT, CT CHEST W CON, 10/09/2020, 9:08. [facility], CR, XR CHEST 1V, 10/07/2020, 19:20. FINDINGS: Surgical changes and devices: None. Lungs and pleura: Mild left lung base atelectasis. No focal consolidation. No pleural effusions or pneumothorax. Mediastinum: Mediastinal contours appear normal. Heart size is normal. Vascular calcifications within the aortic arch. Bones and chest wall: No suspicious bony lesions. Overlying soft tissues appear unremarkable. IMPRESSION: Left basilar atelectasis. No evidence of an acute cardiopulmonary abnormality. Dictated by: Angelo Veras D.O. on 01/17/2021 at 8:53 Approved by: Angelo Veras D.O. on 01/17/2021 at 8:55
--- NOTE | 2021-01-17 10:16 | ED_ITS ---
HPI - Weakness General Chief complaint: Weakness Stated complaint: cant walk Time Seen by Provider: 01/17/21 09:27 Source: patient Mode of arrival: Wheelchair Limitations: no limitations History of Present Illness HPI Narrative: Patient complains of generalized weakness body wide both sides for the past 2 days. Did have a COVID shot yesterday. No cough cold congestion. No problems urinating. Denies any pain. No headache. No nausea vomiting diarrhea. Patient states weakness such as the legs but the whole body. Temperature 100.4? measured by nurse. Admits IV heroin yesterday. Denies any changes with injection sites in the skin. Denies any sick contacts. Patient had MRI of the lumbar spine October 10, 2020 for the same complaints of generalized weakness. Also had echocardiogram as well. Please see report below. [address] [address] Magnetic Resonance Report Signed Patient: Wale Benitez MR#: [id number] : 1950 Acct:[id number] Age/Sex: 70 / M Date of Service: 10/10/20 Loc: 224-1 Accession Number: [id number] ?? Procedure: MR lumbar spine w con Ordering Provider: Yoni Borja MD PROCEDURE:? MR LUMBAR SPINE W CON ? INDICATIONS:? back pain, fungemia, IVDU, evidence infection? ? TECHNIQUE:? Noncontrast sagittal T1 spin echo and T2 fast spin echo, sagittal STIR, axial T1 and T2 fast spin echo through the lumbar spine.? In cases with scoliosis, additional coronal T2 fast spin echo may be performed.? After the administration of contrast, sagittal and axial T1 spin echo with fat saturation through the lumbar spine.? ? COMPARISON:? [facility], , MR LUMBAR SPINE WO CON, 10/09/2020, 10:40. ? FINDINGS:? Limited sequences were obtained to supplement the motion degraded MRI examination from 10/10/2019. ? The current images demonstrate enhancement centered on the endplates at the L3- L4 and L1-L2 levels.? This corresponds in location to areas of increased T1 and T2 signal intensity.? There was no convincing STIR signal abnormality in these locations on the proceeding MRI, although it should be noted that that study was highly motion de graded.? No repeat stir sequence was obtained, per request.? ? T2 images demonstrate no fluid within the intervertebral disc spaces. ? No prevertebral or paraspinous enhancement appreciated.? ? No enhancement within the epidural space identified. ? Improved axial images on the current study demonstrates severe spinal canal stenosis at L2-L3 and severe spinal canal stenosis at L3-L4 with moderate subarticular zone stenosis at L4-L5. ? IMPRESSION:? ? 1. No convincing evidence of discitis/osteomyelitis.? Some minimal enhancement at the L3-L4 and L1-L2 endplates is present, corresponding to areas of degenerative endplate signal change.? Some mild enhancement is within the intervertebral disc spaces at these levels also, though there is no associated fluid signal on the T2 images.? Overall, the findings are favored to represent degenerative changes and not infection. ? Severe spinal canal stenosis at L2-L3 and L3-L4, findings which were not appreciated on the prior study due to the severe motion degradation. ? ? ? Dictated by: Thang Talley M.D. on 10/10/2020 at 16:36 ? ? Approved by: Thang Talley M.D. on 10/10/2020 at 16:41 ? [address] [address] Echocardiography Report Signed Patient: Wale Benitez MR#: [id number] : 1950 Acct:[id number] Age/Sex: 70 / M Date of Service: 10/08/20 Loc: 90H-1 Accession Number: [id number] ?? Procedure: EC echo doppler complete Ordering Provider: Morgan Jiménez D.O. ? [facility]---------+? [facility]? +---------+ : ? :? [address] [place] [address]. ? : ? : : ? :? [place], [place] ? : ? : : ? :? [address] ? : ? : : ? : ? Phone: [phone] : ? : [phone]? [phone]? +---------+ ? Echocardiogram Report + + :Name: WALE BENITEZ ? Study Date: 10/08/2020 ? Height: 66 in : :Hospital ? ? ? ReadingLocation: ? Weight: 154 lb: : ? Gender: Male ? BSA: 1.8 m2 ? : :: 1950 ? Age: 70 yrs? BP: 99/62 mmHg: :Reason For Study: EVAL FOR ENDOCARDITIS? : :Ordering Physician: PILAR,? : :MORGAN ? Performed By: Chayito Lewis ? : :Referring: MORGAN JIMÉNEZ ? : + + Interpretation Summary The left ventricle is normal in size and wall thickness. Left ventricular systolic function is low normal. The ejection fraction is estimated to be 50- 55%. There are no obvious focal wall motion abnormalities noted but poor endocardial definition reduces the sensitivity for the detection of such. Diastolic parameters suggest probable normal left ventricular diastolic function and normal filling pressures. ? The right ventricle is normal size. Right ventricular systolic function is at the lower limits of normal. Pulmonary artery pressures cannot be estimated because of the lack of a measurable TR jet velocity but the IVC suggests a CVP of around 3 mmHg. ? The left atrium is mildly dilated. Right atrial size is normal. ? There is mild aortic regurgitation. There is no other significant valvular heart disease. ? The aortic root is normal size. ? No significant evidence for endocarditis. ? Procedure: ? A two-dimensional transthoracic echocardiogram with color flow and Doppler was performed. The study quality was technically adequate. The patient had an echocardiogram, but there is no comparison study available. The patient was in sinus rhythm with heart rates between 65-72 bpm during the exam. Left Ventricle: ? The left ventricle is normal in size and wall thickness. Left ventricular systolic function is low normal. The ejection fraction is estimated to be 50-55%. There are no obvious focal wall motion abnormalities noted but poor endocardial definition reduces the sensitivity for the detection of such. Diastolic parameters suggest probable normal left ventricular diastolic function and normal filling pressures. Right Ventricle: ? The right ventricle is normal size. Right ventricular systolic function is at the lower limits of normal. Atria: ? The left atrium is mildly dilated. Right atrial size is normal. There is no Doppler evidence for an interatrial shunt. Mitral Valve: ? The mitral valve leaflets appear borderline thickened, but open well. There is trace mitral regurgitation. Aortic Valve: ? The aortic valve is trileaflet. The aortic valve is mildly calcified. There is no aortic valve stenosis. There is mild aortic regurgitation. Tricuspid Valve: ? The tricuspid valve is normal in structure and function. There is trace tricuspid regurgitation. Pulmonary artery pressures cannot be estimated because of the lack of a measurable TR jet velocity but the IVC suggests a CVP of around 3 mmHg. Pulmonic Valve: ? The pulmonic valve leaflets are thin and pliable; valve motion is normal. There is no pulmonic valvular regurgitation. There is no other significant valvular heart disease. Great Vessels: ? The aortic root is normal size. The dimensions of the ascending aorta are normal. The IVC is of normal diameter and collapses greater than 50% with a sniff. This suggests a low right atrial pressure of 3 mm Hg. Pericardium/ Pleura ? There is no pericardial effusion. There is no pleural effusion. ? MMode/2D Measurements & Calculations LVIDd: 4.5 cm? LVOT diam: 2.0 cm LVIDs: 3.1 cm? Ao root diam: 3.6 cm FS: 30.4 % ? asc Aorta Diam: 3.2 cm IVSd: 0.73 cm? Ao Arch Diam (Prox Trans): 2.9 cm LVPWd: 0.72 cm LV petty. diameter/BSA (cm/m^2): 2.5 LV sys. diameter/BSA (cm/m^2): 1.8 ? LA A2 area: 18.3 cm2 ? RA long axis: 5.1 cm LA A4 area: 20.0 cm2 ? RA area: 17.7 cm2 LA length (vol): 4.8 cm? RA vol: 52.7 ml LA vol: 64.0 ml? RA : 29.4 ml/m2 LA vol index: 35.8 ml/m2 ? IVC diam: 1.1 cm ? RVD1 (basal): 3.2 cm TAPSE: 1.4 cm ? Doppler Measurements & Calculations Ao V2 max: 88.0 cm/sec? LVOT Max Jorge Alberto: 80.7 cm/sec Ao V2 mean: 59.9 cm/sec ? LV V1 max P.6 mmHg Ao max P.1 mmHg ? LV V1 VTI: 17.5 cm Ao mean P.6 mmHg? ATA(I,D): 3.1 cm2 Ao V2 VTI: 18.0 cm? ATA(V,D): 3.0 cm2 ? sev ratio: 0.97 ? ATA indexed to BSA (cm^2/m^2): 1.8 ? MV E max jorge alberto: 75.5 cm/sec ? PA V2 max: 47.6 cm/sec MV A max jorge alberto: 76.3 cm/sec ? PA V2 mean: 30.8 cm/sec MV E/A: 0.99? PA mean P.43 mmHg Med Peak E' Jorge Alberto: 5.8 cm/sec ? ? ? PA pr(Accel): 24.2 mmHg E/E' med: 13.0 Lat Peak E' Jorge Alberto: 6.6 cm/sec E/E' lat: 11.4 E/e' average: 12.2 MV dec time: 0.23 sec ? SV(LVOT): 56.7 ml ? Reading Physician:12:42 PM Related Data Home Medications Medication Instructions Recorded Confirmed No Known Home Medications 10/10/20 10/21/20 Previous Rx's Medication Instructions Recorded methadone 10 mg tablet 10 mg PO BID #10 tab 11/02/20 Allergies Allergy/AdvReac Type Severity Reaction Status Date / Time No Known Drug Allergies Allergy Verified 01/17/21 09:12 Review of Systems Review of Systems Narrative: GENERAL: Denies chills, positive fatigue, malaise, fever, denies sweats. HEENT: Denies sinus pain, ear pain, sore throat RESPIRATORY: Denies dyspnea, cough CARDIOVASCULAR: Denies chest pain, palpitations GASTROINTESTINAL: Denies nausea, vomiting, abdominal pain : Denies dysuria, frequency, hematuria MUSCULOSKELETAL: denies muscle or bony pain SKIN: Denies rash, skin lesions NEUROLOGIC: Denies weakness, numbness ROS Unobtainable: All systems reviewed & are unremarkable except as noted in HPI and below Patient History Medical History Abscess Acute CVA (cerebrovascular accident) Heroin abuse Social History household members: none Smoking Status: Current every day smoker Smoking Status: Current every day smoker alcohol intake frequency: 3 or more drinks per day Substance Use Type: marijuana and heroin Exam Narrative Exam Narrative: GENERAL: in no distress, not toxic not dyspneic HEAD: Normocephalic. EYES: Pupils equal round No scleral icterus. ENT: Mucous membranes oral cavity dry NECK: Trachea midline. CARDIOVASCULAR: Regular rate and rhythm without murmurs, tachycardic RESPIRATORY: Clear to auscultation. Breath sounds equal bilaterally. No wheezes, rales, or rhonchi. GASTROINTESTINAL: Abdomen soft, non-tender EXTREMITIES: No gross deformities. BACK: No flank tenderness. No midline tenderness or step-off of the cervical thoracic and lumbar spine. No pain with movement of the spine with leaning forward and twisting. NEURO: AOx4. SKIN: Warm and dry, baseline induration of bilateral deltoid muscles from chronic IV drug injections. Both hands are warm soft and pink. Nontender right hand but slightly edematous and erythematous. No cellulitis. No induration. No abscess. PSYCH: Not anxious, is cooperative Initial Vital Signs Initial Vital Signs: Vital Signs Temperature 99.9 F H 01/17/21 09:08 Pulse Rate 114 H 01/17/21 09:08 Respiratory Rate 24 01/17/21 09:08 Blood Pressure 129/80 01/17/21 09:08 Pulse Oximetry 95 01/17/21 09:08 Course Course Course Narrative: No new issues during course of stay Orders Ordered: ED Orders 01/17/21 09:18 XR chest 1V Stat EKG-12 Lead Stat 01/17/21 10:10 Complete Blood Count AUTO DIFF Stat Comprehensive Metabolic Panel Stat Lipase Stat Respiratory Panel (Film Array) Stat Troponin & CK Cardiac Panel Stat Discontinued Medications Sodium Chloride (Normal Saline 0.9%) 1,000 mls @ 1,000 mls/hr IV BOLUS ONE Stop: 01/17/21 11:14 Last Infusion: 01/17/21 13:39 Dose: 0 mls/hr Documented by: Admin: 01/17/21 10:20 Dose: 1,000 mls/hr Documented by: CLOVIS Ibuprofen (Ibuprofen 400 Mg Tablet) 800 mg PO NOW ONE Stop: 01/17/21 10:15 Last Admin: 01/17/21 10:20 Dose: 800 mg Documented by: CLOVIS Reevaluation(s) Reevaluation #1: Patient up and walking in the adhikari with his cane at baseline. He states he feels much better. He desires discharge home. He does not want to stay any longer. He states he is unable to urinate. He is able to drink water. He does not want to give urinalysis specimen. He desires discharge home. Informed him I was still evaluating for UTI but he does not want to stay Time: 13:39 Vital Signs Vital signs: Vital Signs - 8 hr 01/17/21 09:08 01/17/21 10:01 01/17/21 10:20 Temperature 99.9 F H 100.4 F H 99.9 F H Pulse Rate 114 H 121 H Respiratory Rate 24 18 Blood Pressure 129/80 136/76 Pulse Oximetry 95 100 01/17/21 11:06 01/17/21 11:14 01/17/21 11:30 Temperature Pulse Rate 97 H 95 H 93 H Respiratory Rate 19 24 25 H Blood Pressure 134/65 Pulse Oximetry 98 96 97 01/17/21 11:31 01/17/21 12:00 01/17/21 12:30 Temperature Pulse Rate 95 H 88 85 Respiratory Rate 26 H 26 H 23 Blood Pressure 113/62 117/59 L 112/58 L Pulse Oximetry 97 95 97 01/17/21 13:00 01/17/21 13:41 Temperature 98.3 F Pulse Rate 81 Respiratory Rate 22 Blood Pressure 133/65 Pulse Oximetry MDM - Weakness Differential Diagnosis Differential diagnosis: Likely acute myocardial infarction, anemia, sepsis, dehydration and other (UTI/viral infection) Lab Data Result diagrams: 01/17/21 10:10 01/17/21 10:10 Labs: Lab Results 01/17/21 01/17/21 01/17/21 Range/Units 10:10 10:10 10:10 WBC 9.9 (4.5-11.0) X10^3/uL RBC 4.62 (4.5-5.9) X10^6/uL Hgb 14.3 (13.5-17.5) g/dL Hct 42.7 (41-53) % MCV 92.4 (80-100) fL MCH 31.0 (26-34) PG MCHC 33.6 (30-36) % RDW 15.2 H (11.6-14.8) % Plt Count 409 H (150-400) X10^3/uL Neut % (Auto) 85.5 H (50-75) % Lymph % (Auto) 5.1 L (25-40) % [place] % (Auto) 8.9 (3-14) % Eos % (Auto) 0.2 L (2-4) % Baso % (Auto) 0.3 (0-2) % Neut # (Auto) 8500 H (2245-0503) /uL Lymph # (Auto) 500 L (5011-6701) /uL [place] # (Auto) 900 (0-900) /uL Eos # (Auto) 0 (0-450) /uL Baso # (Auto) 0 (0-100) /uL Sodium 134 L (137-145) mmol/L Potassium 4.3 (3.4-5.1) mmol/L Chloride 98 (98-107) mmol/L Carbon Dioxide 26 (22-32) mmol/L BUN 13 (9-20) mg/dL Creatinine 0.72 (0.66-1.25) mg/dL Estimated GFR > 60.0 (>60) mL/min BUN/Creatinine Ratio 18.1 (6-22) Glucose 115 H (80-110) mg/dL Calcium 9.5 (8.4-10.2) mg/dL Total Bilirubin 0.7 (0.2-1.3) mg/dL AST 42 (17-59) IU/L ALT 24 (<50) IU/L Alkaline Phosphatase 76 (38-126) U/L Total Creatine Kinase 112 (55-170) U/L CK-MB (CK-2) 0.96 (<2.37) ng/mL CK-MB (CK-2) Rel Index 0.9 L (1.5-5.0) % Troponin I 0.015 (0.01-0.034) ng/mL Total Protein 7.9 (6.3-8.2) g/dL Albumin 4.3 (3.5-5.0) g/dL Globulin 3.6 (1.7-4.1) g/dL Albumin/Globulin Ratio 1.2 (1.0-2.8) Lipase 18 L (23-300) U/L Chlamy pneumoniae PCR Not detected (Not Detect) Adenovirus (PCR) Not detected (Not Detect) B. pertussis DNA (PCR) Not detected (Not Detecte) B.parapertussis DNA PCR Not detected (Not Detecte) Coronavirus OC43 (PCR) Not detected (Not Detect) Coronavirus HKU1 (PCR) Not detected (Not Detect) Coronavirus 229E (PCR) Not detected (Not Detect) SARS-CoV-2 (PCR) Not detected (Not Detecte) Coronavirus NL63 (PCR) Not detected (Not Detect) Human Metapneumovir PCR Not detected (Not Detect) Influenza Type A (PCR) Not detected (Not Detect) Influenza Type B (PCR) Not detected (Not Detect) M. pneumoniae (PCR) Not detected (Not Detect) Parainfluenza 1 (PCR) Not detected (Not Detect) Parainfluenza 2 (PCR) Not detected (Not Detect) Parainfluenza 3 (PCR) Not detected (Not Detect) Parainfluenza 4 (PCR) Not detected (Not Detect) RSV (PCR) Not detected (Not Detect) Entero/Rhino (PCR) Not detected (Not Detect) Imaging Data Chest x-ray: Radiologist Impression: [address] [address] XRay Report Signed Patient: Wale Benitez MR#: [id number] : 1950 Acct:[id number] Age/Sex: 70 / M Date of Service: 01/17/21 Loc: Accession Number: [id number] ?? Procedure: XR chest 1V Ordering Provider: Torrey Marin MD PROCEDURE:? XR CHEST 1V ? INDICATIONS:? chest pain ? TECHNIQUE:? One view of the chest was acquired.? ? COMPARISON:? [facility], CT, CT CHEST W CON, 10/09/2020, 9:08.? [facility], CR, XR CHEST 1V, 10/07/2020, 19:20. ? FINDINGS:? ? Surgical changes and devices:? None.? ? Lungs and pleura:? Mild left lung base atelectasis.? No focal consolidation.? No pleural effusions or pneumothorax.? ? Mediastinum:? Mediastinal contours appear normal.? Heart size is normal.? Vascular calcifications within the aortic arch. ? Bones and chest wall:? No suspicious bony lesions.? Overlying soft tissues appear unremarkable.? ? IMPRESSION:? ? Left basilar atelectasis.? No evidence of an acute cardiopulmonary abnormality. ? ? Dictated by: Angelo Veras D.O. on 01/17/2021 at 8:53 ? ? Approved by: Angelo Veras D.O. on 01/17/2021 at 8:55 ? ECG Data Interpretation: Sinus tachycardia rate [address] elevation or depression MDM Narrative Medical decision making narrative: Appropriate for discharge home. Patient not toxic. Improved with fever control as well as IV fluids. It could be due to vaccination yesterday. However he states he started symptoms today before. At this time he refuses to stay for urinalysis to complete evaluation for source of fever. No antibiotics indicated this time. X-ray resulted. Possible viral. Otherwise exam and laboratory studies reassuring. Return precautions reviewed with him Discharge Plan Departure Patient Disposition: Home Clinical Impression: Weakness generalized Instructions: DI for Muscle Weakness Activity Restrictions/Additional Instructions: Return if worsening questions or concerns. See family doctor or call provided referral line on Tuesday for office recheck next week. Keep well hydrated. May continue ibuprofen or Tylenol for any fever. Your symptoms today may be due to the COVID vaccination from yesterday. Prescriptions: No Action No Known Home Medications RF: 0 methadone 10 mg Tablet 10 mg PO BID Qty: 10 RF: 0 Referrals: [facility] [Outside]
[2021-01-17] MEDS: IBUPROFEN 400 MG TABLET 800 MG PO (10:20)
[2021-01-17] MEDS: SODIUM CHLORIDE 0.9% 1,000 ML 1000 ML IV (10:20)
[2021-01-17 10:21] LABS: Add Manual Diff / Slide Review NO; Basophils Absolute Auto 0 /uL (0-100); Basophils Percent Auto 0.3 % (0-2); Eosinophils Absolute Auto 0 /uL (0-450); Eosinophils Percent Auto 0.2 % (2-4); Hematocrit 42.7 % (41-53); Hemoglobin 14.3 g/dL (13.5-17.5); Lymphocytes Absolute Auto 500 /uL (1100-4500); Lymphocytes Percent Auto 5.1 % (25-40); Mean Corpuscular HGB Conc 33.6 % (30-36); Mean Corpuscular Volume 92.4 fL (80-100); Monocytes Absolute Auto 900 /uL (0-900); Monocytes Percent Auto 8.9 % (3-14); Neutrophils Absolute Auto 8500 /uL (1500-7000); Neutrophils Percent Auto 85.5 % (50-75); Platelet Count 409 X10^3/uL (150-400); Red Blood Cell Count 4.62 X10^6/uL (4.5-5.9); Red Cell Distribution Width 15.2 % (11.6-14.8); White Blood Cell Count 9.9 X10^3/uL (4.5-11.0)
[2021-01-17 10:39] LABS: Alanine Aminotransferase 24 IU/L (<50); Albumin 4.3 g/dL (3.5-5.0); Albumin Globulin Ratio 1.2 (1.0-2.8); Alkaline Phosphatase 76 U/L (38-126); Aspartate Aminotransferase 42 IU/L (17-59); BUN Creatinine Ratio 18.1 (6-22); Bilirubin Total 0.7 mg/dL (0.2-1.3); Blood Urea Nitrogen 13 mg/dL (9-20); Calcium 9.5 mg/dL (8.4-10.2); Carbon Dioxide 26 mmol/L (22-32); Chloride 98 mmol/L (98-107); Creatine Kinase 112 U/L (55-170); Estimated Glomerular Filt Rate > 60.0 mL/min (>60); Globulin 3.6 g/dL (1.7-4.1); Glucose 115 mg/dL (80-110); HEMOLYSIS < 15 (0-50); Lipase 18 U/L (23-300); Potassium 4.3 mmol/L (3.4-5.1); Sodium 134 mmol/L (137-145); Total Protein 7.9 g/dL (6.3-8.2)
[2021-01-17 10:50] LABS: Troponin I 0.015 ng/mL (0.01-0.034)
[2021-01-17 10:54] LABS: CKMB % Relative Index 0.9 % (1.5-5.0); Creatine Kinase MB 0.96 ng/mL (<2.37)
--- NOTE | 2021-01-17 11:05 | PC.NURSE ---
Patient reports feeling generally weak and unable to walk, unable to state for how long. States he got his first covid shot yesterday. Feels warm to the touch. He right hand appears to be red and swollen when compared to left. he is a known IV drug user, however states he has not injected in his hands recently. 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
[2021-01-17 11:08] LABS: Adenovirus Not Detected (Not Detect); B. parapertussis Not Detected (Not Detecte); Bordetella pertussis Not Detected (Not Detecte); Chlamydophila pneumoniae Not Detected (Not Detect); Coronavirus 229E Not Detected (Not Detect); Coronavirus HKU1 Not Detected (Not Detect); Coronavirus NL 63 Not Detected (Not Detect); Coronavirus OC43 Not Detected (Not Detect); Human Metapneumovirus Not Detected (Not Detect); Human Rhinovirus/Enterovirus Not Detected (Not Detect); Influenza A Not Detected (Not Detect); Influenza B Not Detected (Not Detect); Mycoplasma pneumoniae Not Detected (Not Detect); Parainfluenza Virus 1 Not Detected (Not Detect); Parainfluenza Virus 2 Not Detected (Not Detect); Parainfluenza Virus 3 Not Detected (Not Detect); Parainfluenza Virus 4 Not Detected (Not Detect); Respiratory Syncytial Virus Not Detected (Not Detect); SARS- CoV-2 Not Detected (Not Detecte)
--- NOTE | 2021-01-17 13:47 | PC.NURSE ---
Patient reports he is unable to pee at this time. Has tried with a urinal unsuccessfully. I asked him if this is a chronic problem for him and if he struggles with incontinence. He says no but that he has trouble peeing on command. He also reports feeling like he is still dehyrdrated. I offered to have him stay for a second bag of IV fluids. He reports he does not want to do this. He walked down to the other hallway unassisted with no complaints of dizziness or weakness. Carried cane but did not use it. States he feels much better and thinks he just felt bad from the covid shot. He reports he will continue to hydrate, take ibuprofen/tylenol as needed, and come back to do urinalysis if his symptoms do not improve. Also, I noted and brought to the attention of Dr. Marin during his stay that his right hand is mildly red and swollen. I asked the patient to keep an eye on it and if it gets worse to come back and be seen. He reports the hand has been off and on like this for a while. Reports he does not have gout that he is aware of.
== END 2021-01-17 13:56 | disposition home or self-care (01) ==
PROVIDERS: Emergency Provider Emergency Medicine
DX: R53.1 Weakness (principal); R50.9 Fever, unspecified; R07.9 Chest pain, unspecified; Z20.822 Contact with and (suspected) exposure to COVID-19
CPT/HCPCS: 36415; 71045; 80053; 82550; 82553; 83690; 84484; 85025; 87040; 87633; 93005; 93010; 96360; 96361; 99284

== ENCOUNTER 2021-02-25 16:48 | Emergency (ER) | payer MEDICARE, MEDICAID, SELFPAY ==
--- NOTE | 2021-02-25 17:04 | DI.CT.S_ITS ---
PROCEDURE: CT HEAD/BRAIN WO CON INDICATIONS: fall/thinnners TECHNIQUE: Noncontrast 4.5 mm thick angled axial sections acquired from the foramen magnum to the vertex, with coronal and sagittal reformats. For radiation dose reduction, the following was used: automated exposure control, adjustment of mA and/or kV according to patient size. COMPARISON: [facility], CT, HEAD WITHOUT CONTRAST, 10/03/2015, 17:29. FINDINGS: Image quality: Excellent. CSF spaces: Basal cisterns are patent. No extra-axial fluid collections. The ventricles are symmetric in size and shape. Brain: No intracranial bleeds or masses. There is cerebral volume loss for age, with resultant ventricular and sulcal prominence. There are periventricular and deep white matter chronic small vessel ischemic changes. There is intracranial internal carotid artery atherosclerosis. Skull and face: Calvarium and visualized facial bones appear intact, without suspicious lesions. 1.9 x 1 cm right frontal subdural hematoma. Sinuses: Visualized sinuses and mastoids are clear. IMPRESSION: No acute intracranial abnormality. Dictated by: Kevin Rosario M.D. on 02/25/2021 at 17:29 Approved by: Kevin Rosario M.D. on 02/25/2021 at 17:35
[2021-02-25 17:05] VITALS: BP 120/66; PULSE 77; RESP 18; TEMP 36.7; O2SAT 98; BMI 23.0
[2021-02-25 17:31] VITALS: BP 139/75; PULSE 68; RESP 16
--- NOTE | 2021-02-25 17:58 | ED.FALL ---
HPI - Fall General Chief Complaint: Trauma Stated Complaint: head injury s/p fall 10 days ago, Carlos MCKEON thinne Time Seen by Provider: 02/25/21 17:49 Source: patient Mode of arrival: Wheelchair History of Present Illness HPI Narrative: Patient is a 71-year-old male who presents 10 days after a fall. He says that he frequently he tripped the sidewalk was uneven fell and hit his head. No loss of consciousness. He is not on any anti-platelet or anticoagulation medication. He has not had any numbness tingling or weakness. He does have a significant hematoma on the right side of his head which is not going down. So he came in to get evaluated. He denies any neck pain. No blurry vision or double vision no nausea or vomiting. Related Data Home Medications Medication Instructions Recorded Confirmed No Known Home Medications 10/10/20 10/21/20 Previous Rx's Medication Instructions Recorded methadone 10 mg tablet 10 mg PO BID #10 tab 11/02/20 Allergies Allergy/AdvReac Type Severity Reaction Status Date / Time No Known Drug Allergies Allergy Verified 01/17/21 09:12 Review of Systems Review of Systems Narrative: GENERAL: Denies chills, fatigue, malaise, fever, sweats, travel HEENT: Denies sinus pain, ear pain, sore throat, difficulty swallowing, neck pain RESPIRATORY: Denies dyspnea, cough, wheezing, hemoptysis, sputum. CARDIOVASCULAR: Denies chest pain, palpitations, orthopnea, edema GASTROINTESTINAL: Denies nausea, vomiting, abdominal pain, diarrhea, constipation, melena. : Denies dysuria, frequency, incontinence, hematuria, urinary retention, flank pain. MUSCULOSKELETAL: Denies weakness, joint pain, or bony pain SKIN: See HPI NEUROLOGIC: Denies weakness, dizziness, headache, numbness, change in speech, confusion PSYCHIATRIC: No concerning psychosocial issues. 12 point review of systems is negative except for those stated above and HPI Patient History Medical History Abscess Acute CVA (cerebrovascular accident) Heroin abuse Social History household members: none Smoking Status: Current every day smoker Smoking Status: Current every day smoker alcohol intake frequency: 3 or more drinks per day Substance Use Type: marijuana and heroin Exam Initial Vital Signs Initial Vital Signs: Vital Signs Temperature 98.0 F 02/25/21 17:05 Pulse Rate 77 02/25/21 17:05 Respiratory Rate 18 02/25/21 17:05 Blood Pressure 120/66 02/25/21 17:05 Pulse Oximetry 98 02/25/21 17:05 GENERAL: Is alert 71-year-old male no acute distress in no acute distress. HEENT: Head hematoma noted on her right temporal side no erythema mild contusion on the right face and no swelling of eyes EOMI CARDIOVASCULAR: Regular rate and rhythm without murmurs, rubs or gallops. RESPIRATORY: Breath sounds equal bilaterally, no wheezes rales or rhonchi. ABDOMEN: Soft, nontender. Normoactive bowel sounds all 4 quadrants. No guarding or rebound. EXTREMITIES: Normal range of motion, no clubbing or edema. Neurovascularly intact NEUROLOGICAL: Alert and oriented x4.Normal gait and speech. 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 Course Orders Ordered: ED Orders 02/25/21 17:04 CT head/brain wo con Stat Vital Signs Vital signs: Vital Signs - 8 hr 02/25/21 18:44 Pulse Rate 73 Respiratory Rate 18 Blood Pressure 152/71 H Pulse Oximetry 99 MDM - Fall Imaging Data CT scan - head: Radiologist's Impression: PROCEDURE:? CT HEAD/BRAIN WO CON ? INDICATIONS:? fall/thinnners ? TECHNIQUE:? Noncontrast 4.5 mm thick angled axial sections acquired from the foramen magnum to the vertex, with coronal and sagittal reformats.? For radiation dose reduction, the following was used:? automated exposure control, adjustment of mA and/or kV according to patient size.? ? COMPARISON:? [facility], CT, HEAD WITHOUT CONTRAST, 10/03/2015, 17:29. ? FINDINGS:? Image quality:? Excellent.? ? CSF spaces:? Basal cisterns are patent.? No extra-axial fluid collections.? The ventricles are symmetric in size and shape.? ? Brain:? No intracranial bleeds or masses.? There is cerebral volume loss for age, with resultant ventricular and sulcal prominence.? There are periventricular and deep white matter chronic small vessel ischemic changes.? There is intracranial internal carotid artery atherosclerosis.? ? Skull and face:? Calvarium and visualized facial bones appear intact, without suspicious lesions.? 1.9 x 1 cm right frontal subdural hematoma. ? Sinuses:? Visualized sinuses and mastoids are clear.? ? IMPRESSION:? No acute intracranial abnormality. ? ? Dictated by: Kevin Rosario M.D. on 02/25/2021 at 17:29 ?? MDM Narrative Medical decision making narrative: CT report says no intracranial abnormality but does suggest some dural hematoma however the measurements are clearly not subdural. Think this is a typo. I tried to contact Radiology but unsuccessful. I personally do not appreciate subdural on this head CT he clearly has a subcutaneous hematoma which I can see on clinical exam and on CT. Does show focal deficits this fall happened over 1 week ago. He has no neck pain. This time I recommend ice and supportive care. Discharge Plan Departure Patient Disposition: Home Clinical Impression: Contusion Instructions: Contusion Activity Restrictions/Additional Instructions: *You have been diagnosed with contusion *What to do: At this time the no bleeding in her brain. I recommend putting ice pack and pressure on head to help with swelling. It it will eventually go down *Continue to take medications as directed *Follow up with your primary care provider in 2-3 days *Return to ER if you should have increasing redness, confusion, double vision blurry vision frequent falls or any new, worsening or concerning symptoms Prescriptions: No Action No Known Home Medications 0RF methadone 10 mg Tablet 10 mg PO BID Qty: 10 0RF
[2021-02-25 18:44] VITALS: BP 152/71; PULSE 73; RESP 18; O2SAT 99
== END 2021-02-25 18:44 | disposition home or self-care (01) ==
PROVIDERS: Emergency Provider Emergency Medicine
DX: S00.83XA Contusion of other part of head, initial encounter (principal); W01.198A Fall on same level from slipping, tripping and stumbling with subsequent striking against other object, initial encounter
CPT/HCPCS: 70450; 99284

== ENCOUNTER 2021-03-04 17:07 | Emergency (ER) | payer MEDICARE, MEDICAID, SELFPAY ==
[2021-03-04 17:13] VITALS: BP 156/81; PULSE 94; RESP 17; TEMP 37.1; O2SAT 97; BMI 21.6
--- NOTE | 2021-03-04 18:50 | DI.RAD.S_ITS ---
PROCEDURE: XR CHEST 1V INDICATIONS: suspected sepsis TECHNIQUE: One view of the chest was acquired. COMPARISON: [facility], CR, XR CHEST 1V, 01/17/2021, 9:20. FINDINGS: Surgical changes and devices: None. Lungs and pleura: Lungs are clear. No pleural effusions or pneumothorax. Mediastinum: Mediastinal contours appear normal. Heart size is normal. Bones and chest wall: No suspicious bony lesions. Overlying soft tissues appear unremarkable. IMPRESSION: No acute cardiopulmonary process demonstrated radiographically. Dictated by: Thang Talley M.D. on 03/04/2021 at 18:01 Approved by: Thang Talley M.D. on 03/04/2021 at 18:03
--- NOTE | 2021-03-04 20:37 | ED.SKABFB ---
HPI - Skin/Abscess/Foreign Bdy General Chief complaint: Skin/Abscess/Foreign Body Stated complaint: states rt shoulder infection Time Seen by Provider: 03/04/21 20:11 Source: patient Mode of arrival: Ambulatory History of Present Illness HPI narrative: 71-year-old male who does inject heroin here for evaluation of an abscess to his right upper arm. He did inject in this area several days ago. Has had multiple issues with abscesses in the past. Denies fevers. No shoulder pain. Does have upper arm pain when he moves his shoulder and his elbow. Related Data Previous Rx's Medication Instructions Recorded doxycycline hyclate 100 mg tablet 100 mg PO BID 10 Days #20 tab 03/04/21 Allergies Allergy/AdvReac Type Severity Reaction Status Date / Time No Known Drug Allergies Allergy Verified 03/04/21 17:23 Review of Systems Constitutional Constitutional: Denies fever(s) Musculoskeletal Musculoskeletal: Reports system reviewed and no additional complaints, except as documented and Reports as per HPI Integumentary/Breasts Skin/Breast: Reports system reviewed and no additional complaints, except as documented and Reports as per HPI Comments: Swelling and redness associated with the right mid lateral arm Hematologic/Lymphatic On Anticoagulants: No Patient History Medical History Abscess Acute CVA (cerebrovascular accident) Heroin abuse Social History household members: none Smoking Status: Current every day smoker Smoking Status: Current every day smoker alcohol intake frequency: 3 or more drinks per day Substance Use Type: marijuana and heroin Exam Initial Vital Signs Initial Vital Signs: Vital Signs Temperature 98.8 F 03/04/21 17:13 Pulse Rate 94 H 03/04/21 17:13 Respiratory Rate 17 03/04/21 17:13 Blood Pressure 156/81 H 03/04/21 17:13 Pulse Oximetry 97 03/04/21 17:13 Const General: cooperative and comfortable Cardio Pulses: radial pulses present on the right Skin Other: Patient with a large area of swelling to his right mid lateral humerus. There is some surrounding erythema. It is fluctuant. Neuro Sensory Exam: no sensory deficits noted Extrem Other: Patient is able to move his right shoulder and right elbow without does come Procedures Abscess I/D I&D #1: Site: upper extremity Side (if applicable): right Local Anesthetic: lidocaine 1% and with bicarb Amount of anesthesia used (mL): 5 Technique: incised with #11 blade Irrigation: No Packing used?: none Course Orders Ordered: ED Orders 03/04/21 18:50 XR chest 1V Stat Discontinued Medications Doxycycline Hyclate (Doxycycline Hyclate 100 Mg Tablet) 100 mg PO NOW ONE Stop: 03/04/21 21:12 Last Admin: 03/04/21 21:18 Dose: 100 mg Documented by: GALEN Sodium Chloride (Normal Saline 0.9%) 1,000 mls @ 1,000 mls/hr IV BOLUS ONE Stop: 03/04/21 19:49 Lidocaine/Sodium Bicarbonate (Lido 1%/Sod Bicarb 8.4% (10ml) 10 Ml Syringe) 10 ml INJ NOW ONE Stop: 03/04/21 20:13 Last Admin: 03/04/21 21:00 Dose: 10 ml Documented by: GALEN Vital Signs Vital signs: Vital Signs - 8 hr 03/04/21 21:24 Pulse Rate 84 Blood Pressure 162/77 H Pulse Oximetry 99 MDM - Skin/Abscess/Foreign Bdy MDM Narrative Medical decision making narrative: Nontoxic appearing. Had an obvious abscess to his right arm which was drained as described above. It was a large amount of purulent material let we were able to express. Given the surrounding erythema will place him on antibiotics. Was given his 1st dose here in the ER. No indication for admission to the hospital. He was given care instructions and return precautions. He expressed understanding and agreement. Discharge Plan Departure Patient Disposition: Home Clinical Impression: Abscess of upper arm Instructions: DI for Incision and Drainage of a Skin Abscess Activity Restrictions/Additional Instructions: Expect some drainage from the area. Keep it covered with a bandage. A prescription for antibiotics was transmitted to [facility] here in [place]. Please start taking it tomorrow as directed. Return to the emergency department for any new or worsening symptoms. You can shower like normal. Prescriptions: New doxycycline hyclate 100 mg tablet 100 mg PO BID 10 Days Qty: 20 0RF
[2021-03-04] MEDS: LIDO 1%/SOD BICARB 8.4% (10ML) 10 ML SYRINGE INJ (21:00)
[2021-03-04] MEDS: DOXYCYCLINE HYCLATE 100 MG TABLET PO (21:18)
[2021-03-04 21:24] VITALS: BP 162/77; PULSE 84; O2SAT 99
== END 2021-03-04 21:33 | disposition home or self-care (01) ==
PROVIDERS: Emergency Provider Emergency Medicine
DX: L02.413 Cutaneous abscess of right upper limb (principal); F11.10 Opioid abuse, uncomplicated
CPT/HCPCS: 10060; 71045; 99283

== ENCOUNTER 2021-06-03 15:56 | Emergency (ER) | payer MEDICARE, MEDICAID, SELFPAY ==
[2021-06-03 16:09] VITALS: BP 156/83; PULSE 98; RESP 18; TEMP 37.1; O2SAT 99
[2021-06-03 19:00] VITALS: BP 156/80; PULSE 98; RESP 20; O2SAT 99
--- NOTE | 2021-06-03 20:10 | DI.CT.S_ITS ---
PROCEDURE: CT UE RT WO CON INDICATIONS: pain/abscess TECHNIQUE: Noncontrast 1-1.5 mm thick sections acquired from the acromioclavicular joint to the inferior scapula, with coronal and sagittal reformatting. COMPARISON: [facility], CT, CT UE RT W CON, 10/09/2020, 9:08. FINDINGS: Image quality: Excellent. Bones: No fracture or osseous lesion. Soft tissues: There is a subcutaneous collection of gas and debris within the right upper arm laterally measuring roughly 17 mm. IMPRESSION: 1. Gas containing abscess within the subcutaneous fat of the right upper arm. Infection with gas producing organism could produce this appearance. Dictated by: Gifty Taveras M.D. on 06/03/2021 at 21:19 Approved by: Gifty Taveras M.D. on 06/03/2021 at 21:21
--- NOTE | 2021-06-03 20:10 | DI.CT.S_ITS ---
PROCEDURE: CT UE LT WO CON INDICATIONS: pain/abscess TECHNIQUE: Noncontrast 1-1.5 mm thick sections acquired from the acromioclavicular joint to the inferior scapula, with coronal and sagittal reformatting. COMPARISON: [facility], CT, CT UE LT W CON, 10/09/2020, 9:08. FINDINGS: Image quality: Excellent. Bones: No fracture or osseous lesion. Soft tissues: There are a few small adjacent foci of subcutaneous gas within the subcutaneous fat of the anterolateral aspect of the left upper arm, with surrounding fat stranding. IMPRESSION: 1. Small amount of subcutaneous gas within the left arm, possibly indicating infection with a gas producing organism. Dictated by: Gifty Taveras M.D. on 06/03/2021 at 21:34 Approved by: Gifty Taveras M.D. on 06/03/2021 at 21:36
--- NOTE | 2021-06-03 20:19 | ED.SKABFB ---
HPI - Skin/Abscess/Foreign Bdy General Chief complaint: Skin/Abscess/Foreign Body Stated complaint: bilateral arm infection Time Seen by Provider: 06/03/21 20:02 Source: patient Mode of arrival: Ambulatory History of Present Illness HPI narrative: Patient here for bilateral deltoid swelling and drainage. History of IV drug use. Has history of cellulitis and abscess in these areas in the past. History of incision drainage. Ongoing for a month with swelling of the deltoid area. The past few days developed abscess on the right and drainage on the left. Patient states is up-to-date with tetanus shot. Related Data Allergies Allergy/AdvReac Type Severity Reaction Status Date / Time No Known Drug Allergies Allergy Verified 03/04/21 17:23 Review of Systems Review of Systems Narrative: GENERAL: Denies chills, fatigue, malaise, fever, sweats. HEENT: Denies sinus pain, ear pain, sore throat RESPIRATORY: Denies dyspnea, cough CARDIOVASCULAR: Denies chest pain, palpitations GASTROINTESTINAL: Denies nausea, vomiting, abdominal pain : Denies dysuria, frequency, hematuria MUSCULOSKELETAL: denies muscle or bony pain SKIN: Denies rash, positive for skin lesion NEUROLOGIC: Denies weakness, numbness ROS Unobtainable: All systems reviewed & are unremarkable except as noted in HPI and below Patient History Medical History Abscess Acute CVA (cerebrovascular accident) Heroin abuse Social History household members: none Smoking Status: Current every day smoker Smoking Status: Current every day smoker alcohol intake frequency: 3 or more drinks per day Substance Use Type: marijuana and heroin Exam Narrative Exam Narrative: GENERAL: in no distress, not toxic not dyspneic HEAD: Normocephalic. EYES: Pupils equal round No scleral icterus. ENT: Mucous membranes moist. NECK: Trachea midline. CARDIOVASCULAR: Regular rate and rhythm without murmurs RESPIRATORY: Clear to auscultation. Breath sounds equal bilaterally. No wheezes, rales, or rhonchi. GASTROINTESTINAL: Abdomen soft, non-tender EXTREMITIES: Examination right deltoid area. There is large 16 cm diameter area of erythema induration. Inferior edge there is a 2 cm palpable abscess with fluctuance in the center. Examination of left deltoid there is extensive induration erythema likely acute on chronic with small pus pocket that straining centrally. Otherwise remaining limb of both arms nontender elbow and wrist. Patient able to move both shoulders freely, denies any problems moving his shoulders. 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 Light touch intact to fingers and thumb. BACK: No flank tenderness. NEURO: AOx4. SKIN: Warm and dry PSYCH: Not anxious, is cooperative Initial Vital Signs Initial Vital Signs: Vital Signs Temperature 98.7 F 06/03/21 16:09 Pulse Rate 98 H 06/03/21 16:09 Respiratory Rate 18 06/03/21 16:09 Blood Pressure 156/83 H 06/03/21 16:09 Pulse Oximetry 99 06/03/21 16:09 Procedures Abscess I/D I&D #1: Time of procedure: 20:36 Site: upper extremity Side (if applicable): right Local Anesthetic: lidocaine 1% and with epi Amount of anesthesia used (mL): 2 Technique: incised with #11 blade Amount of fluid expressed (mL): 3 Irrigation: Yes Packing used?: plain Course Course Course Narrative: No new issues during course of stay. Orders Ordered: ED Orders 06/03/21 20:10 CT UE LT wo con Stat CT UE RT wo con Stat 06/03/21 22:02 CBC Auto Diff [Complete Blood Count AUTO DIFF] Stat Wound Culture and Gram Stain Stat Discontinued Medications Doxycycline Hyclate (Doxycycline Hyclate 100 Mg Tablet) 100 mg PO NOW ONE Stop: 06/03/21 20:15 Last Admin: 06/03/21 20:27 Dose: 100 mg Documented by: CAMMIE Reevaluation(s) Reevaluation #1: Patient tolerated incision drainage very well. Patient does not want be admitted. Does not want IV access. He agrees with blood work and CT scan imaging. Imported patient be admitted for IV antibiotics and treatment. He refused. Risks and benefits of leaving against medical advice reviewed with him. Risk but not limited to primary injury loss of limb, sepsis, worsening symptoms. He is awake alert oriented x4. Time: 20:38 Vital Signs Vital signs: Vital Signs - 8 hr 06/03/21 19:00 Pulse Rate 98 H Respiratory Rate 20 Blood Pressure 156/80 H Pulse Oximetry 99 MDM - Skin/Abscess/Foreign Bdy Differential Diagnosis Differential diagnosis: Likely abscess of skin or subcutaneous tissue and cellulitis Lab Data Result diagrams: 06/03/21 22:02 Labs: Lab Results 06/03/21 Range/Units 22:02 WBC 11.3 H (4.5-11.0) X10^3/uL RBC 4.80 (4.5-5.9) X10^6/uL Hgb 14.4 (13.5-17.5) g/dL Hct 43.1 (41-53) % MCV 89.7 (80-100) fL MCH 30.0 (26-34) PG MCHC 33.4 (30-36) % RDW 15.1 H (11.6-14.8) % Plt Count 342 (150-400) X10^3/uL Neut % (Auto) Not Reportable Lymph % (Auto) Not Reportable [place] % (Auto) Not Reportable Eos % (Auto) Not Reportable Baso % (Auto) Not Reportable Lymph # (Auto) Not Reportable [place] # (Auto) Not Reportable Baso # (Auto) Not Reportable Imaging Data Extremity x-ray #1: Radiologist's Impression: [place] [address] CT Scan Report Signed Patient: Mino Benitez MR#: [id number] : 1950 Acct:[id number] Age/Sex: 71 / M Date of Service: 06/03/21 Loc: ED Accession Number: [id number] ?? Procedure: CT UE LT wo con Ordering Provider: Torrey Marin MD PROCEDURE:? CT UE LT WO CON ? INDICATIONS:? pain/abscess ? TECHNIQUE:? Noncontrast 1-1.5 mm thick sections acquired from the acromioclavicular joint to the inferior scapula, with coronal and sagittal reformatting.? ? COMPARISON:? [facility], CT, CT UE LT W CON, 10/09/2020, 9:08. ? FINDINGS:? Image quality:? Excellent.? ? Bones:? No fracture or osseous lesion. ? Soft tissues:? There are a few small adjacent foci of subcutaneous gas within the subcutaneous fat of the anterolateral aspect of the left upper arm, with surrounding fat stranding.? ? ? IMPRESSION:? 1. Small amount of subcutaneous gas within the left arm, possibly indicating infection with a gas producing organism. ? ? Dictated by: Gifty Taveras M.D. on 06/03/2021 at 21:34 ? ? Approved by: Gifty Taveras M.D. on 06/03/2021 at 21:36 ? Extremity x-ray #2: Radiologist's Impression: [address] [address] [address] Scan Report Signed Patient: Mino Benitez MR#: [id number] : 1950 Acct:[id number] Age/Sex: 71 / M Date of Service: 06/03/21 Loc: ED Accession Number: [id number] ?? Procedure: CT UE RT wo con Ordering Provider: Torrey Marin MD PROCEDURE:? CT UE RT WO CON ? INDICATIONS:? pain/abscess ? TECHNIQUE:? Noncontrast 1-1.5 mm thick sections acquired from the acromioclavicular joint to the inferior scapula, with coronal and sagittal reformatting.? ? COMPARISON:? [facility], CT, CT UE RT W CON, 10/09/2020, 9:08. ? FINDINGS:? Image quality:? Excellent.? ? Bones:? No fracture or osseous lesion. ? Soft tissues:? There is a subcutaneous collection of gas and debris within the right upper arm laterally measuring roughly 17 mm.? ? ? IMPRESSION:? 1. Gas containing abscess within the subcutaneous fat of the right upper arm.? Infection with gas producing organism could produce this appearance. ? ? Dictated by: Gifty Taveras M.D. on 06/03/2021 at 21:19 ? ? Approved by: Gifty Taveras M.D. on 06/03/2021 at 21:21 ? MDM Narrative Medical decision making narrative: Reviewed with patient leaving against medical advice risk of , loss of limb, worsening symptoms, sepsis. But not limited to this. He is awake alert oriented x4. Benefits would be for IV antibiotics and observation. Patient and I reviewed results of the CT scan. I am concerned about sepsis and worsening symptoms. He refuses to stay. Patient did not want await results of blood work. Discharge Plan Departure Patient Disposition: Left Against Medical Advice Clinical Impression: Abscess of upper arm, Cellulitis of left upper arm, Left against medical advice Activity Restrictions/Additional Instructions: Return immediately if you change your mind to be admitted. You have packing in your left shoulder that needs to be removed in 24 hours. Stand Alone Forms: Against Medical Advice
[2021-06-03] MEDS: DOXYCYCLINE HYCLATE 100 MG TABLET PO (20:27)
[2021-06-03] MEDS: LIDOCAINE 2% W/EPI INJ 20 ML (20:28)
[2021-06-03 22:10] LABS: Hematocrit 43.1 % (41-53); Hemoglobin 14.4 g/dL (13.5-17.5); Mean Corpuscular HGB Conc 33.4 % (30-36); Mean Corpuscular Volume 89.7 fL (80-100); Platelet Count 342 X10^3/uL (150-400); Red Cell Distribution Width 15.1 % (11.6-14.8); White Blood Cell Count 11.3 X10^3/uL (4.5-11.0)
[2021-06-03 22:11] LABS: Add Manual Diff / Slide Review YES
[2021-06-04 04:49] LABS: Neutrophils Absolute Manual 8588 /uL (3000-5900); Total Cells Counted 100
[2021-06-04 04:50] LABS: Anisocytosis 1+
== END 2021-06-03 22:27 | disposition left against medical advice (07) ==
PROVIDERS: Emergency Provider Emergency Medicine
DX: L02.413 Cutaneous abscess of right upper limb (principal); L03.114 Cellulitis of left upper limb; Z53.29 Procedure and treatment not carried out because of patient's decision for other reasons
CPT/HCPCS: 73200; 85007; 85025; 87070; 87075; 87077; 87147; 87205; 99284

== ENCOUNTER 2021-06-04 11:17 | Inpatient (IN) | payer MEDICARE, MEDICAID, SELFPAY ==
[2021-06-04] VITALS (14 sets, daily range): BP systolic 112–154; BP diastolic 62–87; PULSE 68–103; RESP 18–32; TEMP 36.8–37.2; O2SAT 96–100; BMI 20.7
--- NOTE | 2021-06-04 12:48 | ED_ITS ---
HPI - Extremity Injury (Upper) <ALEX Maxwell - Last Filed: 06/04/21 18:36> General Chief Complaint: Extremity Injury, Upper Stated Complaint: Change bandages on wounds. Here yesterday Time Seen by Provider: 06/04/21 12:27 Source: patient Mode of arrival: Wheelchair History of Present Illness HPI narrative: 71-year-old male with history of cellulitis and multiple wounds from heroin use returns to the emergency department 1 day following an incision and drainage of a 16 cm abscess of his right deltoid yesterday. Patient states he is here for dressing changes but on chart review it appears that patient left against medical advice after Dr. Endy bautista attempted to admit him for IV antibiotics for his bilateral arm infections with cellulitis and purulence drainage. He has a wound on his left deltoid which is equivalent in size and draining liquid pus down his arm. He received doxycycline in the emergency department yesterday but did not get any antibiotics filled. Patient states that he is in pain, and has been feeling poorly. Talked with patient about the the benefits of staying in the hospital, his need for IV antibiotics, and the risk of if he leaves. Reassured patient that We will treat his pain as well as his infection if he is willing to stay in the hospital. Patient agrees to this, he states he does not want to . Patient's wound cultures from 06/03/2021 growing group A Streptococcus with heavy growth. Related Data Home Medications Medication Instructions Recorded Confirmed apixaban 5 mg tablet (Eliquis) 5 mg PO BID 06/04/21 06/04/21 glecaprevir 100 mg-pibrentasvir 40 3 tab PO DAILY 06/04/21 06/04/21 mg tablet (Mavyret) Previous Rx's Medication Instructions Recorded cephalexin 500 mg capsule 500 mg PO QID #28 cap 06/07/21 cephalexin 500 mg capsule 500 mg PO QID #28 cap 06/07/21 Allergies Allergy/AdvReac Type Severity Reaction Status Date / Time No Known Drug Allergies Allergy Verified 03/04/21 17:23 Review of Systems <ALEX Maxwell - Last Filed: 06/04/21 18:36> Review of Systems Narrative: General: Endorses fever, denies chills, malaise, sweats, fatigue Head/Neck: denies headache, neck pain, dizziness Eyes: denies visual changes, eye pain Cardio: denies chest pain, palpitations, edema Respiratory: denies dyspnea, cough, orthopnea GI: denies abdominal pain, nausea, vomiting, or diarrhea : denies dysuria, hematuria, urinary retention, frequency or incontinence MSK: denies joint pain, muscle weakness Skin: denies rash, itching, skin lesions or other Neuro: denies numbness, tingling Patient History <ALEX Maxwell - Last Filed: 06/04/21 18:36> Medical History Abscess Acute CVA (cerebrovascular accident) Hepatitis C antibody test positive Heroin abuse Family History Father Cancer Social History household members: none Smoking Status: Current every day smoker Smoking Status: Current every day smoker alcohol intake frequency: 3 or more drinks per day Substance Use Type: marijuana and heroin Exam <ALEX Maxwell - Last Filed: 06/04/21 18:36> Narrative Exam Narrative: Independently reviewed vitals signs and nursing notes. General: Cooperative, comfortable, in no acute distress, disheveled, poorly groomed, pleasant, kind Head/Neck: Normal visual inspection and supple, atraumatic, no JVD or lymphadenopathy. Normal facial exam Eyes: Pupils equal round and reactive, EOMI, conjunctiva normal, no scleral icterus or injections Nose: External nose normal, nares patent, no rhinorrhea, without purulent drainage Mouth/Throat: uvula midline, moist mucus membranes Cardio: Initially tachycardic, now with regular rate and rhythm, no peripheral edema, warm extremities Respiratory: Normal respiratory effort, able to speak in complete sentences without audible wheezing, stridor, or rales. No retractions. GI: Abdomen soft, nontender to palpation x4 quadrants, nondistended, no masses or exquisite tenderness with exam, no flank tenderness MSK: Moves all extremities, neurovascularly intact Skin: Normal capillary refill, no rash, bilateral upper arms with left and right deltoid cellulitis, purulence drainage coming from prior abscesses, open with copious amount of purulent drainage. Right deltoid with packing present fr om yesterday, surrounding erythema to right and left deltoid wounds. Neuro: Normal speech and cognition, normal gait, A&O x3, tone normal, moves all extremities Psych: Mental status is grossly normal, speech is clear, congruent mood, normal affect Initial Vital Signs Initial Vital Signs: Vital Signs Temperature 98.9 F 06/04/21 11:42 Pulse Rate 103 H 06/04/21 11:42 Respiratory Rate 18 06/04/21 11:42 Blood Pressure 112/63 06/04/21 11:42 Pulse Oximetry 97 06/04/21 11:42 <Pippa Hicks DO - Last Filed: 06/09/21 07:31> Initial Vital Signs Initial Vital Signs: Vital Signs Temperature 98.9 F 06/04/21 11:42 Pulse Rate 103 H 06/04/21 11:42 Respiratory Rate 18 06/04/21 11:42 Blood Pressure 112/63 06/04/21 11:42 Pulse Oximetry 97 06/04/21 11:42 Course <ALEX Maxwell - Last Filed: 06/04/21 18:36> Orders Ordered: Discontinued Medications Albuterol (Albuterol 2.5 Mg/3 Ml Neb (Adult)) 2.5 mg INH NOW PRN PRN Reason: Coughing, Wheezing, Dyspnea Apixaban (Apixaban 5 Mg Tablet) 5 mg PO BID [facility] Apixaban (Apixaban 5 Mg Tablet) 5 mg PO BID [facility] Last Admin: 06/07/21 08:30 Dose: 5 mg Documented by: Admin: 06/06/21 20:43 Dose: 5 mg Documented by: CTR.[email or web address] Bisacodyl (Bisacodyl 10 Mg Supp) 10 mg NM DAILY PRN PRN Reason: Constipation Cefazolin Sodium/Dextrose (Cefazolin 2 Gm/20 Ml Syringe) 2 gm IV Q8H [facility] Last Admin: 06/06/21 13:15 Dose: 2 gm Documented by: Admin: 06/06/21 06:04 Dose: 2 gm Documented by: Admin: 06/05/21 22:20 Dose: 2 gm Documented by: Admin: 06/05/21 13:45 Dose: 2 gm Documented by: Admin: 06/05/21 06:40 Dose: 2 gm Documented by: Admin: 06/04/21 21:53 Dose: 2 gm Documented by: Admin: 06/04/21 15:21 Dose: 2 gm Documented by: OLGA LIDIA Cephalexin HCl (Cephalexin 250 Mg Capsule) 500 mg PO QID [facility] Last Admin: 06/07/21 11:55 Dose: 500 mg Documented by: Admin: 06/07/21 08:30 Dose: 500 mg Documented by: Admin: 06/06/21 20:43 Dose: 500 mg Documented by: [email or web address] Sodium Chloride 1,000 ml/ (Gentamicin Sulfate 80 mg) 0 ml IRR NOW ONE Stop: 06/05/21 16:59 Last Admin: 06/05/21 16:58 Dose: 1,002 ml Documented by: ADELE Enoxaparin Sodium (Enoxaparin 40 Mg/0.4 Ml Syringe) 40 mg SUBCUT DAILY [facility] Last Admin: 06/06/21 08:54 Dose: 40 mg Documented by: Admin: 06/05/21 08:53 Dose: Not Given Documented by: FAHAD Heparin Sodium (Porcine) (Heparin Flush (Cl/Picc/Mid-Line) 50 Unit/5 Ml Syringe) 50 unit IV PRN PRN PRN Reason: Flush Last Admin: 06/06/21 13:13 Dose: 50 unit Documented by: DASHA Heparin Sodium (Porcine) (Heparin Flush (Cl/Picc/Mid-Line) 50 Unit/5 Ml Syringe) 50 unit IV BID [facility] Last Admin: 06/07/21 08:30 Dose: Not Given Documented by: Admin: 06/06/21 20:53 Dose: Not Given Documented by: [email or web address] Admin: 06/06/21 08:54 Dose: 50 unit Documented by: DASHA Hydromorphone HCl (Hydromorphone 1 Mg Inj) 1 mg IV NOW ONE Stop: 06/04/21 12:43 Last Admin: 06/04/21 14:06 Dose: 1 mg Documented by: OLGA LIDIA Hydromorphone HCl (Hydromorphone 0.5 Mg Inj) 0.5 mg IV Q4H PRN PRN Reason: Breakthrough pain only (8-10) Last Admin: 06/05/21 09:27 Dose: 0.5 mg Documented by: Admin: 06/05/21 05:30 Dose: 0.5 mg Documented by: Admin: 06/05/21 01:51 Dose: 0.5 mg Documented by: Admin: 06/04/21 19:34 Dose: 0.5 mg Documented by: JAVIER Hydromorphone HCl (Hydromorphone 1 Mg Inj) 1 mg IV Q4H PRN PRN Reason: Pain, Severe (7-10) Last Admin: 06/06/21 13:13 Dose: 1 mg Documented by: Admin: 06/06/21 07:47 Dose: 1 mg Documented by: Admin: 06/06/21 03:25 Dose: 1 mg Documented by: Admin: 06/05/21 22:19 Dose: 1 mg Documented by: Admin: 06/05/21 15:45 Dose: 1 mg Documented by: ALVIN Hydromorphone HCl (Hydromorphone 0.5 Mg Inj) 0.5 mg IV Q4H PRN PRN Reason: Pain, Moderate (4-6) Hydromorphone HCl (Hydromorphone 1 Mg Inj) 1 mg IV NOW ONE Stop: 06/05/21 12:25 Last Admin: 06/05/21 12:37 Dose: 1 mg Documented by: FAHAD Hydromorphone HCl (Hydromorphone 2 Mg Inj) 0 mg IV Q5M PRN PRN Reason: Pain, Moderate (4-6) Last Admin: 06/05/21 18:22 Dose: 0.5 mg Documented by: [email or web address] Admin: 06/05/21 18:10 Dose: 0.5 mg Documented by: [email or web address] Admin: 06/05/21 18:05 Dose: 0.5 mg Documented by: [email or web address] Admin: 06/05/21 17:55 Dose: 0.5 mg Documented by: [email or web address] Hydromorphone HCl (Hydromorphone 2 Mg Inj) 0 mg IV Q5M PRN PRN Reason: Pain, Severe (7-10) Hydromorphone HCl (Hydromorphone 1 Mg Inj) 2 mg IV NOW ONE Stop: 06/05/21 19:02 Last Admin: 06/05/21 19:20 Dose: 2 mg Documented by: PELON Sodium Chloride (Normal Saline 0.9%) 1,000 mls @ 1,000 mls/hr IV BOLUS ONE Stop: 06/04/21 13:41 Last Admin: 06/04/21 15:16 Dose: Not Given Documented by: OLGA LIDIA Piperacillin Sod/Tazobactam (Sod 4.5 gm/ Sodium Chloride) 100 mls @ 200 mls/hr IV NOW ONE Stop: 06/04/21 12:43 Last Infusion: 06/04/21 15:07 Dose: 0 mls/hr Documented by: BTONESyed Admin: 06/04/21 14:11 Dose: 200 mls/hr Documented by: OLGA LIDIA Sodium Chloride (Normal Saline 0.9%) 1,000 mls @ 1,000 mls/hr IV BOLUS ONE Stop: 06/04/21 13:48 Last Infusion: 06/04/21 16:16 Dose: 0 mls/hr Documented by: OLGA LIDIA Admin: 06/04/21 13:53 Dose: 1,000 mls/hr Documented by: OLGA LIDIA Vancomycin HCl (Vancomycin) 1,250 mg in 250 mls @ 166.667 mls/hr IV NOW ONE Stop: 06/04/21 14:59 Last Admin: 06/04/21 15:20 Dose: Not Given Documented by: OLGA LIDIA Admin: 06/04/21 15:17 Dose: Not Given Documented by: OLGA LIDIA Sodium Chloride (Normal Saline 0.9%) 1,000 mls @ 42 mls/hr IV DAILY [facility]INA Stop: 06/04/21 18:17 Last Infusion: 06/06/21 10:21 Dose: 0 mls/hr Documented by: Infusion: 06/04/21 19:02 Dose: 0 mls/hr Documented by: Admin: 06/04/21 16:23 Dose: 42 mls/hr Documented by: OLGA LIDIA Lactated Ringer's (Lactated Ringers) 1,000 mls @ 100 mls/hr IV CONT K[facility]INA Last Infusion: 06/06/21 09:51 Dose: 0 mls/hr Documented by: Admin: 06/06/21 04:38 Dose: 100 mls/hr Documented by: Infusion: 06/06/21 04:38 Dose: 100 mls/hr Documented by: Infusion: 06/05/21 20:56 Dose: 100 mls/hr Documented by: Admin: 06/05/21 19:19 Dose: 50 mls/hr Documented by: Infusion: 06/05/21 16:06 Dose: 50 mls/hr Documented by: Infusion: 06/05/21 15:45 Dose: 0 mls/hr Documented by: Admin: 06/05/21 05:02 Dose: 100 mls/hr Documented by: Infusion: 06/05/21 05:02 Dose: 100 mls/hr Documented by: Admin: 06/04/21 19:02 Dose: 100 mls/hr Documented by: FAHAD POTASSIUM CHLORIDE IN WATER (Potassium Cl 10 Meq/100 Ml [place]) 10 meq in 100 mls @ 100 mls/hr IV Q1H [facility] Stop: 06/05/21 12:44 Last Infusion: 06/05/21 13:45 Dose: 0 mls/hr Documented by: Admin: 06/05/21 12:43 Dose: 100 mls/hr Documented by: Infusion: 06/05/21 12:43 Dose: 100 mls/hr Documented by: Admin: 06/05/21 11:43 Dose: 100 mls/hr Documented by: FAHAD Ketorolac Tromethamine (Ketorolac 30 Mg/Ml Vial) 15 mg IV NOW ONE Stop: 06/04/21 15:10 Last Admin: 06/04/21 15:26 Dose: 15 mg Documented by: OLGA LIDIA Ketorolac Tromethamine (Ketorolac 30 Mg/Ml Vial) 30 mg IV Q6H [facility] Stop: 06/07/21 18:29 Last Admin: 06/06/21 10:22 Dose: Not Given Documented by: Admin: 06/05/21 11:42 Dose: 30 mg Documented by: Admin: 06/05/21 06:20 Dose: 30 mg Documented by: Admin: 06/04/21 23:13 Dose: 30 mg Documented by: Admin: 06/04/21 19:39 Dose: Not Given Documented by: JAVIER Lorazepam (Lorazepam 0.5 Mg Tablet) 1 mg PO NOW ONE Stop: 06/04/21 13:05 Last Admin: 06/04/21 14:04 Dose: 1 mg Documented by: OLGA LIDIA Lorazepam (Lorazepam 2 Mg/Ml Inj) 0.25 mg IV NOW PRN PRN Reason: Anxiety Lorazepam (Lorazepam 1 Mg Tablet) 1 mg PO Q6HR PRN PRN Reason: Anxiety Last Admin: 06/07/21 03:35 Dose: 1 mg Documented by: Admin: 06/06/21 17:02 Dose: 1 mg Documented by: DASHA Naloxone HCl (Naloxone 0.4 Mg/Ml Vial) 0.2 mg IV Q2MIN PRN PRN Reason: Opiate Reversal Naloxone HCl (Naloxone 0.4 Mg/Ml Vial) 0.2 mg IV Q2MIN PRN PRN Reason: Opiate Reversal Glecaprevir 100mg & Pibrentasvir 40mg( Mavyret) Tablets 0 mg PO DAILY [facility] Last Admin: 06/07/21 08:30 Dose: Not Given Documented by: Admin: 06/06/21 10:20 Dose: Not Given Documented by: Admin: 06/05/21 09:28 Dose: Not Given Documented by: FAHAD Non-Formulary Medication (Glecaprevir-Pibrentasvir [Mavyret]) 3 tab PO DAILY [facility] Ondansetron HCl (Ondansetron 4 Mg/2 Ml Inj) 4 mg IV Q8HR PRN PRN Reason: Nausea And Vomiting Oxycodone HCl (Oxycodone Ir 5 Mg Tablet) 10 mg PO Q4HR PRN PRN Reason: Pain, Severe (7-10) Last Admin: 06/07/21 10:37 Dose: 10 mg Documented by: Admin: 06/07/21 06:55 Dose: 10 mg Documented by: Admin: 06/07/21 00:32 Dose: 10 mg Documented by: Admin: 06/06/21 17:02 Dose: 10 mg Documented by: Admin: 06/06/21 12:45 Dose: 10 mg Documented by: Admin: 06/06/21 08:53 Dose: 10 mg Documented by: Admin: 06/06/21 04:38 Dose: 10 mg Documented by: DFJEAN Oxycodone HCl (Oxycodone Ir 5 Mg Tablet) 5 mg PO Q4HR PRN PRN Reason: Pain, Moderate (4-6) Last Admin: 06/07/21 03:34 Dose: 5 mg Documented by: [email or web address] Admin: 06/06/21 20:47 Dose: 5 mg Documented by: [email or web address] Vancomycin HCl (Vancomycin Per Pharmacy) 1 request MISC NOW ONE Stop: 06/04/21 12:43 Last Admin: 06/04/21 15:15 Dose: Not Given Documented by: RSTONE Vancomycin HCl (Vancomycin 1,000 Mg Vial) 1,000 mg TOP NOW ONE Stop: 06/05/21 17:01 Last Admin: 06/05/21 17:00 Dose: 1,000 mg Documented by: SMIS Consultations Consultation #1: Consultation with Dr. Griffin/hospitalist for admission, Dr. Griffin accepts for IV antibiotics Vital Signs Vital signs: Vital Signs - 8 hr 06/04/21 11:42 06/04/21 13:10 06/04/21 13:30 Temperature 98.9 F Pulse Rate 103 H 90 85 Respiratory Rate 18 25 H 23 Blood Pressure 112/63 130/64 Pulse Oximetry 97 100 100 06/04/21 14:00 06/04/21 14:11 06/04/21 14:15 Temperature Pulse Rate 82 80 79 Respiratory Rate 28 H 24 26 H Blood Pressure 136/62 Pulse Oximetry 99 100 100 06/04/21 14:30 06/04/21 14:45 06/04/21 15:00 Temperature Pulse Rate 80 81 76 Respiratory Rate 25 H 23 32 H Blood Pressure Pulse Oximetry 100 99 99 06/04/21 15:35 06/04/21 16:00 Temperature Pulse Rate 74 68 Respiratory Rate 22 22 Blood Pressure 154/87 H 131/72 Pulse Oximetry 96 100 <Pippa Hicks DO - Last Filed: 06/09/21 07:31> Orders Ordered: Discontinued Medications Albuterol (Albuterol 2.5 Mg/3 Ml Neb (Adult)) 2.5 mg INH NOW PRN PRN Reason: Coughing, Wheezing, Dyspnea Apixaban (Apixaban 5 Mg Tablet) 5 mg PO BID [facility] Apixaban (Apixaban 5 Mg Tablet) 5 mg PO BID [facility] Last Admin: 06/07/21 08:30 Dose: 5 mg Documented by: Admin: 06/06/21 20:43 Dose: 5 mg Documented by: CTR.[email or web address] Bisacodyl (Bisacodyl 10 Mg Supp) 10 mg NM DAILY PRN PRN Reason: Constipation Cefazolin Sodium/Dextrose (Cefazolin 2 Gm/20 Ml Syringe) 2 gm IV Q8H [facility] Last Admin: 06/06/21 13:15 Dose: 2 gm Documented by: Admin: 06/06/21 06:04 Dose: 2 gm Documented by: Admin: 06/05/21 22:20 Dose: 2 gm Documented by: Admin: 06/05/21 13:45 Dose: 2 gm Documented by: Admin: 06/05/21 06:40 Dose: 2 gm Documented by: Admin: 06/04/21 21:53 Dose: 2 gm Documented by: Admin: 06/04/21 15:21 Dose: 2 gm Documented by: OLGA LIDIA Cephalexin HCl (Cephalexin 250 Mg Capsule) 500 mg PO QID [facility] Last Admin: 06/07/21 11:55 Dose: 500 mg Documented by: Admin: 06/07/21 08:30 Dose: 500 mg Documented by: Admin: 06/06/21 20:43 Dose: 500 mg Documented by: CTR.[email or web address] Sodium Chloride 1,000 ml/ (Gentamicin Sulfate 80 mg) 0 ml IRR NOW ONE Stop: 06/05/21 16:59 Last Admin: 06/05/21 16:58 Dose: 1,002 ml Documented by: ADELE Enoxaparin Sodium (Enoxaparin 40 Mg/0.4 Ml Syringe) 40 mg SUBCUT DAILY [facility] Last Admin: 06/06/21 08:54 Dose: 40 mg Documented by: Admin: 06/05/21 08:53 Dose: Not Given Documented by: FAHAD Heparin Sodium (Porcine) (Heparin Flush (Cl/Picc/Mid-Line) 50 Unit/5 Ml Syringe) 50 unit IV PRN PRN PRN Reason: Flush Last Admin: 06/06/21 13:13 Dose: 50 unit Documented by: DASHA Heparin Sodium (Porcine) (Heparin Flush (Cl/Picc/Mid-Line) 50 Unit/5 Ml Syringe) 50 unit IV BID [facility] Last Admin: 06/07/21 08:30 Dose: Not Given Documented by: Admin: 06/06/21 20:53 Dose: Not Given Documented by: Admin: 06/06/21 08:54 Dose: 50 unit Documented by: DASHA Hydromorphone HCl (Hydromorphone 1 Mg Inj) 1 mg IV NOW ONE Stop: 06/04/21 12:43 Last Admin: 06/04/21 14:06 Dose: 1 mg Documented by: OLGA LIDIA Hydromorphone HCl (Hydromorphone 0.5 Mg Inj) 0.5 mg IV Q4H PRN PRN Reason: Breakthrough pain only (8-10) Last Admin: 06/05/21 09:27 Dose: 0.5 mg Documented by: Admin: 06/05/21 05:30 Dose: 0.5 mg Documented by: Admin: 06/05/21 01:51 Dose: 0.5 mg Documented by: Admin: 06/04/21 19:34 Dose: 0.5 mg Documented by: JAVIER Hydromorphone HCl (Hydromorphone 1 Mg Inj) 1 mg IV Q4H PRN PRN Reason: Pain, Severe (7-10) Last Admin: 06/06/21 13:13 Dose: 1 mg Documented by: Admin: 06/06/21 07:47 Dose: 1 mg Documented by: Admin: 06/06/21 03:25 Dose: 1 mg Documented by: Admin: 06/05/21 22:19 Dose: 1 mg Documented by: Admin: 06/05/21 15:45 Dose: 1 mg Documented by: ALVIN Hydromorphone HCl (Hydromorphone 0.5 Mg Inj) 0.5 mg IV Q4H PRN PRN Reason: Pain, Moderate (4-6) Hydromorphone HCl (Hydromorphone 1 Mg Inj) 1 mg IV NOW ONE Stop: 06/05/21 12:25 Last Admin: 06/05/21 12:37 Dose: 1 mg Documented by: FAHAD Hydromorphone HCl (Hydromorphone 2 Mg Inj) 0 mg IV Q5M PRN PRN Reason: Pain, Moderate (4-6) Last Admin: 06/05/21 18:22 Dose: 0.5 mg Documented by: [email or web address] Admin: 06/05/21 18:10 Dose: 0.5 mg Documented by: [email or web address] Admin: 06/05/21 18:05 Dose: 0.5 mg Documented by: [email or web address] Admin: 06/05/21 17:55 Dose: 0.5 mg Documented by: [email or web address] Hydromorphone HCl (Hydromorphone 2 Mg Inj) 0 mg IV Q5M PRN PRN Reason: Pain, Severe (7-10) Hydromorphone HCl (Hydromorphone 1 Mg Inj) 2 mg IV NOW ONE Stop: 06/05/21 19:02 Last Admin: 06/05/21 19:20 Dose: 2 mg Documented by: PELON Sodium Chloride (Normal Saline 0.9%) 1,000 mls @ 1,000 mls/hr IV BOLUS ONE Stop: 06/04/21 13:41 Last Admin: 06/04/21 15:16 Dose: Not Given Documented by: OLGA LIDIA Piperacillin Sod/Tazobactam (Sod 4.5 gm/ Sodium Chloride) 100 mls @ 200 mls/hr IV NOW ONE Stop: 06/04/21 12:43 Last Infusion: 06/04/21 15:07 Dose: 0 mls/hr Documented by: Admin: 06/04/21 14:11 Dose: 200 mls/hr Documented by: OLGA LIDIA Sodium Chloride (Normal Saline 0.9%) 1,000 mls @ 1,000 mls/hr IV BOLUS ONE Stop: 06/04/21 13:48 Last Infusion: 06/04/21 16:16 Dose: 0 mls/hr Documented by: OLGA LIDIA Admin: 06/04/21 13:53 Dose: 1,000 mls/hr Documented by: OLGA LIDIA Vancomycin HCl (Vancomycin) 1,250 mg in 250 mls @ 166.667 mls/hr IV NOW ONE Stop: 06/04/21 14:59 Last Admin: 06/04/21 15:20 Dose: Not Given Documented by: OLGA LIDIA Admin: 06/04/21 15:17 Dose: Not Given Documented by: OLGA LIDIA Sodium Chloride (Normal Saline 0.9%) 1,000 mls @ 42 mls/hr IV DAILY K[facility]RINA Stop: 06/04/21 18:17 Last Infusion: 06/06/21 10:21 Dose: 0 mls/hr Documented by: Infusion: 06/04/21 19:02 Dose: 0 mls/hr Documented by: Admin: 06/04/21 16:23 Dose: 42 mls/hr Documented by: OLGA LIDIA Lactated Ringer's (Lactated Ringers) 1,000 mls @ 100 mls/hr IV CONT KATRINA Last Infusion: 06/06/21 09:51 Dose: 0 mls/hr Documented by: Admin: 06/06/21 04:38 Dose: 100 mls/hr Documented by: Infusion: 06/06/21 04:38 Dose: 100 mls/hr Documented by: Infusion: 06/05/21 20:56 Dose: 100 mls/hr Documented by: Admin: 06/05/21 19:19 Dose: 50 mls/hr Documented by: Infusion: 06/05/21 16:06 Dose: 50 mls/hr Documented by: Infusion: 06/05/21 15:45 Dose: 0 mls/hr Documented by: Admin: 06/05/21 05:02 Dose: 100 mls/hr Documented by: Infusion: 06/05/21 05:02 Dose: 100 mls/hr Documented by: Admin: 06/04/21 19:02 Dose: 100 mls/hr Documented by: FAHAD POTASSIUM CHLORIDE IN WATER (Potassium Cl 10 Meq/100 Ml [place]) 10 meq in 100 mls @ 100 mls/hr IV Q1H [facility] Stop: 06/05/21 12:44 Last Infusion: 06/05/21 13:45 Dose: 0 mls/hr Documented by: Admin: 06/05/21 12:43 Dose: 100 mls/hr Documented by: Infusion: 06/05/21 12:43 Dose: 100 mls/hr Documented by: Admin: 06/05/21 11:43 Dose: 100 mls/hr Documented by: FAHAD Ketorolac Tromethamine (Ketorolac 30 Mg/Ml Vial) 15 mg IV NOW ONE Stop: 06/04/21 15:10 Last Admin: 06/04/21 15:26 Dose: 15 mg Documented by: OLGA LIDIA Ketorolac Tromethamine (Ketorolac 30 Mg/Ml Vial) 30 mg IV Q6H [facility] Stop: 06/07/21 18:29 Last Admin: 06/06/21 10:22 Dose: Not Given Documented by: Admin: 06/05/21 11:42 Dose: 30 mg Documented by: Admin: 06/05/21 06:20 Dose: 30 mg Documented by: Admin: 06/04/21 23:13 Dose: 30 mg Documented by: Admin: 06/04/21 19:39 Dose: Not Given Documented by: JAVIER Lorazepam (Lorazepam 0.5 Mg Tablet) 1 mg PO NOW ONE Stop: 06/04/21 13:05 Last Admin: 06/04/21 14:04 Dose: 1 mg Documented by: OLGA LIDIA Lorazepam (Lorazepam 2 Mg/Ml Inj) 0.25 mg IV NOW PRN PRN Reason: Anxiety Lorazepam (Lorazepam 1 Mg Tablet) 1 mg PO Q6HR PRN PRN Reason: Anxiety Last Admin: 06/07/21 03:35 Dose: 1 mg Documented by: Admin: 06/06/21 17:02 Dose: 1 mg Documented by: DASHA Naloxone HCl (Naloxone 0.4 Mg/Ml Vial) 0.2 mg IV Q2MIN PRN PRN Reason: Opiate Reversal Naloxone HCl (Naloxone 0.4 Mg/Ml Vial) 0.2 mg IV Q2MIN PRN PRN Reason: Opiate Reversal Glecaprevir 100mg & Pibrentasvir 40mg( Mavyret) Tablets 0 mg PO DAILY [facility] Last Admin: 06/07/21 08:30 Dose: Not Given Documented by: Admin: 06/06/21 10:20 Dose: Not Given Documented by: Admin: 06/05/21 09:28 Dose: Not Given Documented by: FAHAD Non-Formulary Medication (Glecaprevir-Pibrentasvir [Mavyret]) 3 tab PO DAILY [facility] Ondansetron HCl (Ondansetron 4 Mg/2 Ml Inj) 4 mg IV Q8HR PRN PRN Reason: Nausea And Vomiting Oxycodone HCl (Oxycodone Ir 5 Mg Tablet) 10 mg PO Q4HR PRN PRN Reason: Pain, Severe (7-10) Last Admin: 06/07/21 10:37 Dose: 10 mg Documented by: Admin: 06/07/21 06:55 Dose: 10 mg Documented by: CTR.[email or web address] Admin: 06/07/21 00:32 Dose: 10 mg Documented by: CTR.[email or web address] Admin: 06/06/21 17:02 Dose: 10 mg Documented by: Admin: 06/06/21 12:45 Dose: 10 mg Documented by: Admin: 06/06/21 08:53 Dose: 10 mg Documented by: Admin: 06/06/21 04:38 Dose: 10 mg Documented by: PELON Oxycodone HCl (Oxycodone Ir 5 Mg Tablet) 5 mg PO Q4HR PRN PRN Reason: Pain, Moderate (4-6) Last Admin: 06/07/21 03:34 Dose: 5 mg Documented by: CTR.[email or web address] Admin: 06/06/21 20:47 Dose: 5 mg Documented by: [email or web address] Vancomycin HCl (Vancomycin Per Pharmacy) 1 request [facility] [place] NOW ONE Stop: 06/04/21 12:43 Last Admin: 06/04/21 15:15 Dose: Not Given Documented by: OLGA LIDIA Vancomycin HCl (Vancomycin 1,000 Mg Vial) 1,000 mg TOP NOW ONE Stop: 06/05/21 17:01 Last Admin: 06/05/21 17:00 Dose: 1,000 mg Documented by: RICCOS Vital Signs Vital signs: Vital Signs - 8 hr 06/04/21 11:42 06/04/21 13:10 06/04/21 13:30 Temperature 98.9 F Pulse Rate 103 H 90 85 Respiratory Rate 18 25 H 23 Blood Pressure 112/63 130/64 Pulse Oximetry 97 100 100 06/04/21 14:00 06/04/21 14:11 06/04/21 14:15 Temperature Pulse Rate 82 80 79 Respiratory Rate 28 H 24 26 H Blood Pressure 136/62 Pulse Oximetry 99 100 100 06/04/21 14:30 06/04/21 14:45 06/04/21 15:00 Temperature Pulse Rate 80 81 76 Respiratory Rate 25 H 23 32 H Blood Pressure Pulse Oximetry 100 99 99 06/04/21 15:35 06/04/21 16:00 Temperature Pulse Rate 74 68 Respiratory Rate 22 22 Blood Pressure 154/87 H 131/72 Pulse Oximetry 96 100 MDM - Extremity Injury (Upper) <ALEX Maxwell - Last Filed: 06/04/21 18:36> Lab Data Lab results narrative: Located Within [facility] CLIA ID [id number] [address] [place] [address], [id number] RUN DATE: 06/04/21 Specimen Inquiry PAGE 1 RUN TIME: 1306 Name: Mino Benitez Age/Sex: 71/M Attend Dr: Freddy Marin MD Unit#: [id number] : 1950Location: ED Re06/03/21 Disch: Status: DEP ER SPEC #: [id number] PRAMOD: 06/03/21 STATUS: COMP REQ #: [id number] SPDESC: RECD: 06/03/[address]: Torrey Marin MD SOURCE: Arm Rt ENTR: 06/03/21-[address]: FAX TO: ORDERED: WOUND Cx and GS Procedure Result Verified Site Gram Stain Final 06/04/21- 6 White blood cells Many WBCs seen Gram Positive Cocci 4+ Aerobic Culture for wounds Final 06/04/21- 1252 Group A Strep pos Organism 1 Streptococcus group A Growth HEAVY Action to follow No Further Workup Called To: ZAHCARY All Beta-hemolytic Streptococcus organisms are considered sensitive to penicillins and cephalosporins. Anaerobic Culture Final 06/04/21- 1240 Test not performed Result diagrams: 06/06/21 04:24 06/05/21 06:00 Labs: Lab Results 06/04/21 06/04/21 06/04/21 Range/Units 13:20 13:50 14:41 WBC 9.8 (4.5-11.0) X10^3/uL RBC 4.60 (4.5-5.9) X10^6/uL Hgb 14.1 (13.5-17.5) g/dL Hct 41.4 (41-53) % MCV 90.0 (80-100) fL MCH 30.6 (26-34) PG MCHC 34.0 (30-36) % RDW 15.1 H (11.6-14.8) % Plt Count 394 (150-400) X10^3/uL Neut % (Auto) 77.3 H (50-75) % Lymph % (Auto) 12.5 L (25-40) % [place] % (Auto) 8.2 (3-14) % Eos % (Auto) 1.5 L (2-4) % Baso % (Auto) 0.5 (0-2) % Neut # (Auto) 7600 H (8172-4799) /uL Lymph # (Auto) 1200 (6727-4503) /uL [place] # (Auto) 800 (0-900) /uL Eos # (Auto) 100 (0-450) /uL Baso # (Auto) 0 (0-100) /uL Sodium (137-145) mmol/L Potassium (3.4-5.1) mmol/L Chloride (98-107) mmol/L Carbon Dioxide (22-32) mmol/L BUN (9-20) mg/dL Creatinine (0.66-1.25) mg/dL Estimated GFR (>60) mL/min BUN/Creatinine Ratio (6-22) Glucose (80-110) mg/dL Lactate 1.3 (0.7-2.1) mmol/L Calcium (8.4-10.2) mg/dL Total Bilirubin (0.2-1.3) mg/dL AST (17-59) IU/L ALT (<50) IU/L Alkaline Phosphatase (38-126) U/L Total Protein (6.3-8.2) g/dL Albumin (3.5-5.0) g/dL Globulin (1.7-4.1) g/dL Albumin/Globulin Ratio (1.0-2.8) Procalcitonin (<0.5) ng/mL SARS-CoV-2 (PCR) Negative (Negative) 06/04/21 06/04/21 Range/Units 14:41 14:41 WBC (4.5-11.0) X10^3/uL RBC (4.5-5.9) X10^6/uL Hgb (13.5-17.5) g/dL Hct (41-53) % MCV (80-100) fL MCH (26-34) PG MCHC (30-36) % RDW (11.6-14.8) % Plt Count (150-400) X10^3/uL Neut % (Auto) (50-75) % Lymph % (Auto) (25-40) % [place] % (Auto) (3-14) % Eos % (Auto) (2-4) % Baso % (Auto) (0-2) % Neut # (Auto) (1110-9629) /uL Lymph # (Auto) (1646-4327) /uL [place] # (Auto) (0-900) /uL Eos # (Auto) (0-450) /uL Baso # (Auto) (0-100) /uL Sodium 133 L (137-145) mmol/L Potassium 3.4 (3.4-5.1) mmol/L Chloride 101 (98-107) mmol/L Carbon Dioxide 24 (22-32) mmol/L BUN 13 (9-20) mg/dL Creatinine 0.60 L (0.66-1.25) mg/dL Estimated GFR > 60.0 (>60) mL/min BUN/Creatinine Ratio 21.7 (6-22) Glucose 106 (80-110) mg/dL Lactate (0.7-2.1) mmol/L Calcium 8.5 (8.4-10.2) mg/dL Total Bilirubin 1.4 H (0.2-1.3) mg/dL AST 15 L (17-59) IU/L ALT 8 (<50) IU/L Alkaline Phosphatase 87 (38-126) U/L Total Protein 6.7 (6.3-8.2) g/dL Albumin 3.2 L (3.5-5.0) g/dL Globulin 3.5 (1.7-4.1) g/dL Albumin/Globulin Ratio 0.9 L (1.0-2.8) Procalcitonin 0.09 (<0.5) ng/mL SARS-CoV-2 (PCR) (Negative) Imaging Data CT Rt arm: Radiologist's Impression: PROCEDURE:? CT UE RT WO CON ? INDICATIONS:? pain/abscess ? TECHNIQUE:? Noncontrast 1-1.5 mm thick sections acquired from the acromioclavicular joint to the inferior scapula, with coronal and sagittal reformatting.? ? COMPARISON:? Located Within [facility], CT, CT UE RT W CON, 10/09/2020, 9:08. ? FINDINGS:? Image quality:? Excellent.? ? Bones:? No fracture or osseous lesion. ? Soft tissues:? There is a subcutaneous collection of gas and debris within the right upper arm laterally measuring roughly 17 mm.? ? ? IMPRESSION:? 1. Gas containing abscess within the subcutaneous fat of the right upper arm.? Infection with gas producing organism could produce this appearance. ? ? Dictated by: Gifty Taveras M.D. on 06/03/2021 at 21:19 ? ? Approved by: Gifty Taveras M.D. on 06/03/2021 at 21:21 ? CT Lt arm: Radiologist's Impression: PROCEDURE:? CT UE LT WO CON ? INDICATIONS:? pain/abscess ? TECHNIQUE:? Noncontrast 1-1.5 mm thick sections acquired from the acromioclavicular joint to the inferior scapula, with coronal and sagittal reformatting.? ? COMPARISON:? Located Within [facility], CT, CT UE LT W CON, 10/09/2020, 9:08. ? FINDINGS:? Image quality:? Excellent.? ? Bones:? No fracture or osseous lesion. ? Soft tissues:? There are a few small adjacent foci of subcutaneous gas within the subcutaneous fat of the anterolateral aspect of the left upper arm, with surrounding fat stranding.? ? ? IMPRESSION:? 1. Small amount of subcutaneous gas within the left arm, possibly indicating infection with a gas producing organism. ? ? Dictated by: Gifty Taveras M.D. on 06/03/2021 at 21:34 ? ? Approved by: Gifty Taveras M.D. on 06/03/2021 at 21:36 ? ECG Data Interpretation: EKG reviewed by myself and Dr. Hicks which reveals normal sinus rhythm at 89 bpm with regular axis and intervals. No STEMI, ST segment changes, arrhythmia, or acute ischemic changes. MDM Narrative Medical decision making narrative: 71-year-old male presents emergency department with request for dressing change to his bilateral upper extremity wounds. Who has found that patient had very large wounds that were draining pus down both of his arms, he was tachycardic, tremulous, flushed, and appeared septic initially. Patient had I&D of his 16 cm right deltoid abscess yesterday with drainage and packing. He was given doxycycline in the emergency department but did not have any other antibiotics. He refused admission to the hospital for IV antibiotics yesterday. Patient was warned that he could from this infection, encouraged him to stay in the hospital for IV antibiotics, patient agreed. Blood cultures were obtained, patient was given IV access, 1 L of normal saline given for tachycardia and low volume status. His lab work is pending. His blood cultures from yesterday grew Streptococcus group A. Discussion with pharmacy and agreed on Rocephin 2 g q.8 hours, pending conversation with hospitalist for admission after lab work obtained. Patient's leukocytosis improved from 11.3 yesterday to 9.8 today, H&H remains the same, patient's total bilirubin of 1.4, COVID negative PCR, creatinine 0.6, Procalcitonin 0.09,no gross electrolyte abnormalities, no focal neuro deficits, patient is cooperative, calm, pleasant. <Pippa Hicks, DO - Last Filed: 06/09/21 07:31> Lab Data Labs: Lab Results 06/04/21 06/04/21 06/04/21 Range/Units 13:20 13:50 14:41 WBC 9.8 (4.5-11.0) X10^3/uL RBC 4.60 (4.5-5.9) X10^6/uL Hgb 14.1 (13.5-17.5) g/dL Hct 41.4 (41-53) % MCV 90.0 (80-100) fL MCH 30.6 (26-34) PG MCHC 34.0 (30-36) % RDW 15.1 H (11.6-14.8) % Plt Count 394 (150-400) X10^3/uL Neut % (Auto) 77.3 H (50-75) % Lymph % (Auto) 12.5 L (25-40) % Sully % (Auto) 8.2 (3-14) % Eos % (Auto) 1.5 L (2-4) % Baso % (Auto) 0.5 (0-2) % Neut # (Auto) 7600 H (1897-5811) /uL Lymph # (Auto) 1200 (2401-2070) /uL [place] # (Auto) 800 (0-900) /uL Eos # (Auto) 100 (0-450) /uL Baso # (Auto) 0 (0-100) /uL Sodium (137-145) mmol/L Potassium (3.4-5.1) mmol/L Chloride (98-107) mmol/L Carbon Dioxide (22-32) mmol/L BUN (9-20) mg/dL Creatinine (0.66-1.25) mg/dL Estimated GFR (>60) mL/min BUN/Creatinine Ratio (6-22) Glucose (80-110) mg/dL Lactate 1.3 (0.7-2.1) mmol/L Calcium (8.4-10.2) mg/dL Total Bilirubin (0.2-1.3) mg/dL AST (17-59) IU/L ALT (<50) IU/L Alkaline Phosphatase (38-126) U/L Total Protein (6.3-8.2) g/dL Albumin (3.5-5.0) g/dL Globulin (1.7-4.1) g/dL Albumin/Globulin Ratio (1.0-2.8) Procalcitonin (<0.5) ng/mL SARS-CoV-2 (PCR) Negative (Negative) 06/04/21 06/04/21 Range/Units 14:41 14:41 WBC (4.5-11.0) X10^3/uL RBC (4.5-5.9) X10^6/uL Hgb (13.5-17.5) g/dL Hct (41-53) % MCV (80-100) fL MCH (26-34) PG MCHC (30-36) % RDW (11.6-14.8) % Plt Count (150-400) X10^3/uL Neut % (Auto) (50-75) % Lymph % (Auto) (25-40) % [place] % (Auto) (3-14) % Eos % (Auto) (2-4) % Baso % (Auto) (0-2) % Neut # (Auto) (7343-6011) /uL Lymph # (Auto) (6265-4790) /uL [place] # (Auto) (0-900) /uL Eos # (Auto) (0-450) /uL Baso # (Auto) (0-100) /uL Sodium 133 L (137-145) mmol/L Potassium 3.4 (3.4-5.1) mmol/L Chloride 101 (98-107) mmol/L Carbon Dioxide 24 (22-32) mmol/L BUN 13 (9-20) mg/dL Creatinine 0.60 L (0.66-1.25) mg/dL Estimated GFR > 60.0 (>60) mL/min BUN/Creatinine Ratio 21.7 (6-22) Glucose 106 (80-110) mg/dL Lactate (0.7-2.1) mmol/L Calcium 8.5 (8.4-10.2) mg/dL Total Bilirubin 1.4 H (0.2-1.3) mg/dL AST 15 L (17-59) IU/L ALT 8 (<50) IU/L Alkaline Phosphatase 87 (38-126) U/L Total Protein 6.7 (6.3-8.2) g/dL Albumin 3.2 L (3.5-5.0) g/dL Globulin 3.5 (1.7-4.1) g/dL Albumin/Globulin Ratio 0.9 L (1.0-2.8) Procalcitonin 0.09 (<0.5) ng/mL SARS-CoV-2 (PCR) (Negative) Discharge Plan Departure Patient Disposition: Admitted As Inpatient Clinical Impression: Cellulitis of left upper arm, Cellulitis of right arm Admit Date/Time: 06/04/21 16:03 Admit Provider: Yomaira Griffin <Pippa Hicks DO - Last Filed: 06/09/21 07:31> Cosign ED Attending Cosignature Attestation: I have seen and evaluated patient. He does have erythema drainage on his left deltoid. Unappreciable fluctuation. I was immediately available in the department for consultation. Documentation has been reviewed. I agree with assessment and plan.
[2021-06-04] MEDS: SODIUM CHLORIDE 0.9% 1,000 ML 1000 ML IV (13:53)
[2021-06-04] MEDS: LORazepam 0.5 MG TABLET 1 MG PO (14:04)
[2021-06-04 14:05] LABS: COVID19 -Nasal RAPID Negative (Negative)
[2021-06-04] MEDS: HYDROMORPHONE 1 MG INJ IV (14:06)
[2021-06-04] MEDS: PIPERACILLIN/TAZO 4.5 GM in SODIUM CHLORIDE 0.9% 100 ML 200 ML IV (14:11)
[2021-06-04 14:52] LABS: Alanine Aminotransferase 8 IU/L (<50); Albumin 3.2 g/dL (3.5-5.0); Albumin Globulin Ratio 0.9 (1.0-2.8); Alkaline Phosphatase 87 U/L (38-126); Aspartate Aminotransferase 15 IU/L (17-59); BUN Creatinine Ratio 21.7 (6-22); Bilirubin Total 1.4 mg/dL (0.2-1.3); Blood Urea Nitrogen 13 mg/dL (9-20); Calcium 8.5 mg/dL (8.4-10.2); Carbon Dioxide 24 mmol/L (22-32); Chloride 101 mmol/L (98-107); Estimated Glomerular Filt Rate > 60.0 mL/min (>60); Globulin 3.5 g/dL (1.7-4.1); Glucose 106 mg/dL (80-110); HEMOLYSIS < 15 (0-50); Potassium 3.4 mmol/L (3.4-5.1); Sodium 133 mmol/L (137-145); Total Protein 6.7 g/dL (6.3-8.2)
[2021-06-04 14:53] LABS: Add Manual Diff / Slide Review NO; Basophils Absolute Auto 0 /uL (0-100); Basophils Percent Auto 0.5 % (0-2); Eosinophils Absolute Auto 100 /uL (0-450); Eosinophils Percent Auto 1.5 % (2-4); Hematocrit 41.4 % (41-53); Hemoglobin 14.1 g/dL (13.5-17.5); Lymphocytes Absolute Auto 1200 /uL (1100-4500); Lymphocytes Percent Auto 12.5 % (25-40); Mean Corpuscular Hemoglobin 30.6 PG (26-34); Monocytes Absolute Auto 800 /uL (0-900); Monocytes Percent Auto 8.2 % (3-14); Neutrophils Absolute Auto 7600 /uL (1500-7000); Neutrophils Percent Auto 77.3 % (50-75); Platelet Count 394 X10^3/uL (150-400); Red Cell Distribution Width 15.1 % (11.6-14.8); White Blood Cell Count 9.8 X10^3/uL (4.5-11.0)
[2021-06-04 14:57] LABS: Lactate (Lactic Acid) 1.3 mmol/L (0.7-2.1)
[2021-06-04] MEDS: CEFAZOLIN 2 GM/20 ML SYRINGE IV ×2 (15:21→21:53)
[2021-06-04] MEDS: KETOROLAC 30 MG/ML VIAL 15 MG IV (15:26)
[2021-06-04 15:59] LABS: Procalcitonin 0.09 ng/mL (<0.5)
[2021-06-04] MEDS: SODIUM CHLORIDE 0.9% 1,000 ML 42 ML IV (16:23)
--- NOTE | 2021-06-04 18:23 | PM.HP.1 ---
History of Present Illness History of Present Illness Date Patient Seen: 06/04/21 Time Patient Seen: 18:24 Chief complaint: Change bandages on wounds. Here yesterday Narrative: The patient is a 71-year-old male with a history of IV drug use with heroin, alcohol abuse, homeless, who developed bilateral arm abscesses over the past few weeks. Presented to the emergency room yesterday. He had an I&D of the right arm, was started on oral antibiotics, and discharged home. Recommendations were made for the patient to be admitted to the hospital however he refused admission. He was discharged home on or doxycycline. The patient return to the emergency room today as he had significant drainage from both arms. He had wound cultures done yesterday that grew group a strep. Patient has no fever chills. He denies any shortness of breath. He has no nausea vomiting or diarrhea. Patient was seen and evaluated in the emergency room. He was placed on IV cefazolin for group a strep. He is admitted to the hospital at this time for definitive treatment. Patient History Medical History (Updated 06/04/21 @ 18:26 by Yomaira Griffin MD) Abscess Acute CVA (cerebrovascular accident) Hepatitis C antibody test positive Heroin abuse Family & Social History Family History (Updated 06/04/21 @ 18:32 by Yomaira Griffin MD) Father Cancer Social History: household members none Safety & Behavioral: Feels Safe in Current Yes Environment Been Physically Hurt or No Threatened By a Person Tobacco & Substance use: Tobacco type cigarettes Smoking Status Current every day smoker alcohol intake frequency 3 or more drinks per day Substance Use Type marijuana,heroin Meds Home Medications and Allergies Home Medications Medication Instructions Recorded Confirmed Type apixaban 5 mg tablet (Eliquis) 5 mg PO BID 06/04/21 06/04/21 History glecaprevir 100 mg-pibrentasvir 40 3 tab PO DAILY 06/04/21 06/04/21 History mg tablet (Mavyret) Allergies Allergy/AdvReac Type Severity Reaction Status Date / Time No Known Drug Allergies Allergy Verified 03/04/21 17:23 Review of Systems Review of Systems Narrative: 10 point review of systems is negative Exam Vital Signs (past 8 hours): - 06/04/21 11:42 06/04/21 13:10 06/04/21 13:30 Temperature 98.9 F Pulse Rate 103 H 90 85 Respiratory Rate 18 25 H 23 Blood Pressure 112/63 130/64 Pulse Oximetry 97 100 100 06/04/21 14:00 06/04/21 14:11 06/04/21 14:15 Temperature Pulse Rate 82 80 79 Respiratory Rate 28 H 24 26 H Blood Pressure 136/62 Pulse Oximetry 99 100 100 06/04/21 14:30 06/04/21 14:45 06/04/21 15:00 Temperature Pulse Rate 80 81 76 Respiratory Rate 25 H 23 32 H Blood Pressure Pulse Oximetry 100 99 99 06/04/21 15:35 06/04/21 16:00 06/04/21 17:06 Temperature Pulse Rate 74 68 78 Respiratory Rate 22 22 18 Blood Pressure 154/87 H 131/72 136/73 Pulse Oximetry 96 100 98 Oxygen Delivery Method Room Air Narrative Exam Narrative: Elderly male lying in bed uncomfortable HENMT Other: HEENT: Normocephalic, left eye with a bruise, Eyes Other: Sclera appeared mildly gentle Neck Other: Neck is supple Resp Other: Lungs: Clear to auscultation Cardio Other: Cardiac exam: Regular rate and rhythm normal S1-S2 GI Other: Abdomen: Soft nontender nondistended Skin Other: Right deltoid has in scarred area, erythema, and draining hsivani pus, the left deltoid is draining shivani pus as well. Both areas are erythematous with chronic scarring from prior injection drug use There is tenderness to palpation along the right deltoid, shivani pus is expressed from both upper extremities Extrem Other: Lower extremities: 1+ edema Objective Labs Result Diagrams: 06/04/21 14:41 06/04/21 14:41 Labs: Laboratory Results - last 24 hr 06/04/21 06/04/21 06/04/21 13:20 13:50 14:41 WBC 9.8 RBC 4.60 Hgb 14.1 Hct 41.4 MCV 90.0 MCH 30.6 MCHC 34.0 RDW 15.1 H Plt Count 394 Neut % (Auto) 77.3 H Lymph % (Auto) 12.[address] [place] % (Auto) 8.2 Eos % (Auto) 1.5 L Baso % (Auto) 0.5 Neut # (Auto) 7600 H Lymph # (Auto) 1200 [place] # (Auto) 800 Eos # (Auto) 100 Baso # (Auto) 0 Sodium Potassium Chloride Carbon Dioxide BUN Creatinine Estimated GFR BUN/Creatinine Ratio Glucose Lactate 1.3 Calcium Total Bilirubin AST ALT Alkaline Phosphatase Total Protein Albumin Globulin Albumin/Globulin Ratio Procalcitonin SARS-CoV-2 (PCR) Negative 06/04/21 06/04/21 14:41 14:41 WBC RBC Hgb Hct MCV MCH MCHC RDW Plt Count Neut % (Auto) Lymph % (Auto) [place] % (Auto) Eos % (Auto) Baso % (Auto) Neut # (Auto) Lymph # (Auto) [place] # (Auto) Eos # (Auto) Baso # (Auto) Sodium 133 L Potassium 3.4 Chloride 101 Carbon Dioxide 24 BUN 13 Creatinine 0.60 L Estimated GFR > 60.0 BUN/Creatinine Ratio 21.7 Glucose 106 Lactate Calcium 8.5 Total Bilirubin 1.4 H AST 15 L ALT 8 Alkaline Phosphatase 87 Total Protein 6.7 Albumin 3.2 L Globulin 3.5 Albumin/Globulin Ratio 0.9 L Procalcitonin 0.09 SARS-CoV-2 (PCR) Assessment & Plan Assessment & Plan narrative: 71-year-old male with a history of hepatitis-C, history of Galina fungemia, history of endocarditis admitted to the hospital with bilateral upper extremity abscesses Patient is growing group a strep from both wounds Will continue IV cefazolin Consult orthopedic surgery for I&D as both wounds are continuing to drain significant copious amount of pus Patient is made NPO Anticipate going to the OR either later tonight or 1st thing in the morning Will continue Dilaudid for pain, consider switching to methadone at once he is off IV pain medication Will obtain an HIV test Patient has hep C will continue his Mavyet Patient reports he was previously on Eliquis for endocarditis, will hold this evening, need to determine whether he should be on this medication or not DVT prophylaxis will be held tonight in anticipation of surgery, start it tomorrow. Patient reports his sister Melissa is his durable power of email production consultant, he wishes to be full code, will note that his record accordingly Patient will be admitted as an inpatient as it is anticipated he will be in the hospital for greater than 48 hours Time Spent With Patient Critical Care time: I spent a total of [] minutes of critical care time on this patient's care today; this time is exclusive of procedural time.
[2021-06-04] MEDS: LACTATED RINGERS 1,000 ML 100 ML IV (19:02)
--- NOTE | 2021-06-04 19:10 | P.HP_ITS ---
History of Present Illness History of Present Illness Date Patient Seen: 06/04/21 Time Patient Seen: 19:10 Chief complaint: Bilateral arm pain and pus Narrative: This is a 71-year-old intravenous drug abuser who was seen in the emergency room and has had ongoing problems with abscesses from his deltoids bilaterally. He has had previous local irrigations and debridements in the emergency room. He returned and noted increased drainage and pain in bilateral deltoids. He admits to interview denies drug abuse. He says he is not using methamphetamine currently. Patient History Medical History Abscess Acute CVA (cerebrovascular accident) Hepatitis C antibody test positive Heroin abuse Family & Social History Family History Father Cancer Social History: household members none Safety & Behavioral: Feels Safe in Current Yes Environment Been Physically Hurt or No Threatened By a Person Tobacco & Substance use: Tobacco type cigarettes Smoking Status Current every day smoker alcohol intake frequency 3 or more drinks per day Substance Use Type marijuana,heroin Meds Home Medications and Allergies Home Medications Medication Instructions Recorded Confirmed Type apixaban 5 mg tablet (Eliquis) 5 mg PO BID 06/04/21 06/04/21 History glecaprevir 100 mg-pibrentasvir 40 3 tab PO DAILY 06/04/21 06/04/21 History mg tablet (Mavyret) Allergies Allergy/AdvReac Type Severity Reaction Status Date / Time No Known Drug Allergies Allergy Verified 03/04/21 17:23 Review of Systems Review of Systems Narrative: Denies severe fevers or chills, has not had recent chest pain or shortness of breath, still actively using heroin, Exam Vital Signs (past 8 hours): - 06/04/21 11:42 06/04/21 13:10 06/04/21 13:30 Temperature 98.9 F Pulse Rate 103 H 90 85 Respiratory Rate 18 25 H 23 Blood Pressure 112/63 130/64 Pulse Oximetry 97 100 100 06/04/21 14:00 06/04/21 14:11 06/04/21 14:15 Temperature Pulse Rate 82 80 79 Respiratory Rate 28 H 24 26 H Blood Pressure 136/62 Pulse Oximetry 99 100 100 06/04/21 14:30 06/04/21 14:45 06/04/21 15:00 Temperature Pulse Rate 80 81 76 Respiratory Rate 25 H 23 32 H Blood Pressure Pulse Oximetry 100 99 99 06/04/21 15:35 06/04/21 16:00 06/04/21 17:06 Temperature Pulse Rate 74 68 78 Respiratory Rate 22 22 18 Blood Pressure 154/87 H 131/72 136/73 Pulse Oximetry 96 100 98 Oxygen Delivery Method Room Air Narrative Exam Narrative: In general he is alert he is oriented he is resting comfortably in bed, his neck is supple cor is slightly irregular lungs are clear abdomen is benign examination of bilateral upper extremities shows abscess formation with necrotic tissue and draining open wounds with gross purulence material draining from bilateral shoulders in the deltoid region. He has mild pain with range of motion in his shoulders bilaterally there is no significant swelling distally and he can move his hands without difficulty. Objective Labs Result Diagrams: 06/04/21 14:41 06/04/21 14:41 Labs: Laboratory Results - last 24 hr 06/04/21 06/04/21 06/04/21 13:20 13:50 14:41 WBC 9.8 RBC 4.60 Hgb 14.1 Hct 41.4 MCV 90.0 MCH 30.6 MCHC 34.0 RDW 15.1 H Plt Count 394 Neut % (Auto) 77.3 H Lymph % (Auto) 12.5 L [place] % (Auto) 8.2 Eos % (Auto) 1.5 L Baso % (Auto) 0.5 Neut # (Auto) 7600 H Lymph # (Auto) 1200 [place] # (Auto) 800 Eos # (Auto) 100 Baso # (Auto) 0 Sodium Potassium Chloride Carbon Dioxide BUN Creatinine Estimated GFR BUN/Creatinine Ratio Glucose Lactate 1.3 Calcium Total Bilirubin AST ALT Alkaline Phosphatase Total Protein Albumin Globulin Albumin/Globulin Ratio Procalcitonin SARS-CoV-2 (PCR) Negative 06/04/21 06/04/21 14:41 14:41 WBC RBC Hgb Hct MCV MCH MCHC RDW Plt Count Neut % (Auto) Lymph % (Auto) [place] % (Auto) Eos % (Auto) Baso % (Auto) Neut # (Auto) Lymph # (Auto) [place] # (Auto) Eos # (Auto) Baso # (Auto) Sodium 133 L Potassium 3.4 Chloride 101 Carbon Dioxide 24 BUN 13 Creatinine 0.60 L Estimated GFR > 60.0 BUN/Creatinine Ratio 21.7 Glucose 106 Lactate Calcium 8.5 Total Bilirubin 1.4 H AST 15 L ALT 8 Alkaline Phosphatase 87 Total Protein 6.7 Albumin 3.2 L Globulin 3.5 Albumin/Globulin Ratio 0.9 L Procalcitonin 0.09 SARS-CoV-2 (PCR) Assessment & Plan Assessment and plan (1) IV drug abuse: Status: Acute (2) Sepsis: Status: Acute (3) Cellulitis of right arm: Status: Acute (4) Cutaneous abscess of right upper extremity: Status: Acute (5) Abscess of right arm: Status: Acute (6) Abscess of arm, left: Status: Acute (7) Cellulitis of arm, left: Status: Acute Plan He has open draining abscesses on bilateral shoulders. They look in adequately decompressed. I have recommended irrigation and debridement of bilateral should ers in the deltoid area. The procedure alternatives risks benefits and complications were discussed. He is still actively using intravenous drugs drugs. He is COVID negative. The plan is going to be to do an irrigation and debridement and then packed his wounds open debriding only grossly necrotic or infectious tissues. His cultures currently are growing a strep. Time Spent With Patient Critical Care time: I spent a total of [] minutes of critical care time on this patient's care today; this time is exclusive of procedural time.
[2021-06-04] MEDS: HYDROMORPHONE 0.5 MG INJ IV (19:34)
[2021-06-04] MEDS: KETOROLAC 30 MG/ML VIAL IV (23:13)
[2021-06-05] VITALS (18 sets, daily range): BP systolic 117–147; BP diastolic 58–78; PULSE 62–82; RESP 12–20; TEMP 35.9–36.8; O2SAT 94–99; BMI 20.7
[2021-06-05] MEDS: HYDROMORPHONE 0.5 MG INJ IV ×3 (01:51→09:27)
[2021-06-05] MEDS: LACTATED RINGERS 1,000 ML 100 ML IV (05:02)
[2021-06-05] MEDS: KETOROLAC 30 MG/ML VIAL IV ×2 (06:20→11:42)
[2021-06-05] MEDS: CEFAZOLIN 2 GM/20 ML SYRINGE IV ×3 (06:40→22:20)
[2021-06-05 08:57] LABS: Add Manual Diff / Slide Review NO; Basophils Absolute Auto 100 /uL (0-100); Basophils Percent Auto 1.2 % (0-2); Eosinophils Absolute Auto 200 /uL (0-450); Eosinophils Percent Auto 2.7 % (2-4); Hematocrit 36.4 % (41-53); Hemoglobin 12.3 g/dL (13.5-17.5); Lymphocytes Absolute Auto 1400 /uL (1100-4500); Lymphocytes Percent Auto 16.3 % (25-40); Mean Corpuscular HGB Conc 33.8 % (30-36); Mean Corpuscular Hemoglobin 30.5 PG (26-34); Mean Corpuscular Volume 90.2 fL (80-100); Monocytes Absolute Auto 700 /uL (0-900); Monocytes Percent Auto 8.7 % (3-14); Neutrophils Absolute Auto 5900 /uL (1500-7000); Neutrophils Percent Auto 71.1 % (50-75); Platelet Count 383 X10^3/uL (150-400); Red Blood Cell Count 4.04 X10^6/uL (4.5-5.9); White Blood Cell Count 8.3 X10^3/uL (4.5-11.0)
[2021-06-05 09:09] LABS: Alanine Aminotransferase 6 IU/L (<50); Albumin 2.9 g/dL (3.5-5.0); Albumin Globulin Ratio 0.8 (1.0-2.8); Alkaline Phosphatase 67 U/L (38-126); Aspartate Aminotransferase 17 IU/L (17-59); BUN Creatinine Ratio 21.7 (6-22); Bilirubin Total 0.5 mg/dL (0.2-1.3); Blood Urea Nitrogen 15 mg/dL (9-20); Calcium 8.5 mg/dL (8.4-10.2); Carbon Dioxide 27 mmol/L (22-32); Chloride 104 mmol/L (98-107); Estimated Glomerular Filt Rate > 60.0 mL/min (>60); Globulin 3.7 g/dL (1.7-4.1); Glucose 110 mg/dL (80-110); HEMOLYSIS 16 (0-50); Potassium 3.4 mmol/L (3.4-5.1); Sodium 136 mmol/L (137-145); Total Protein 6.6 g/dL (6.3-8.2)
--- NOTE | 2021-06-05 10:10 | PC.NURSE ---
Addendum entered by Dwight Sagastume R.N. 06/05/21 19:03: Pt is having significant pain to upper arms rating 11/10 describes as burning. Is tearful. Attempted ice packs and repositioning without improvement. Called to Dr. Giron and obtained orders. Addendum entered by Dwight Sagastume R.N. 06/05/21 18:34: Dr. Cristina called me via phone. States that some of the transfer orders may be confusing. Reviewed orders with Dr. Cristina via phone. Dr. Cristina states to discontinue eliquis now due to arm bleeding. States she will readdress need for eliquis tomorrow. States discharge order was entered in error and requests discharge order be canceled. States that surgical dressings may need to be reinforced or reapplied. Dressing change orders received: remove or reinforce saturated outer dressing(s). Leave packing in place. Apply abd pads, kerlix gauze dsg, mikael wrap as needed. Addendum entered by Dwight Sagastume R.N. 06/05/21 15:53: Pt to OR via bed. VSS. Report given to preop RN. Addendum entered by Dwight Sagastume R.N. 06/05/21 12:20: Pt able to void 325 ML. Performed PVR showing 207 ML. Pt states he does not feel the need to void at this time. Pt reports pain is 8/10 after scheduled toradol. Not time for PRN rx at this time. Called to Dr. Giron and obtained orders. Original Note: Pt has attempted to void twice without success. He states that he does not really feel the urge to urinate. Bladder scan done showing 511 ML. Pt is declining straight cath at this time and is requesting to wait a little longer before add'l intervention. He is agreeable to having repeat bladder scan after he rests.
[2021-06-05] MEDS: POTASSIUM CHLORIDE IN WATER 10 MEQ/100 ML PIGGYBACK 100 MEQ IV ×2 (11:43→12:43)
[2021-06-05] MEDS: HYDROMORPHONE 1 MG INJ IV ×3 (12:37→22:19)
--- NOTE | 2021-06-05 13:09 | CM.IDA ---
Initial DCP Assessment Note Pt is a 71 yo male, chronically homeless, currently sleeping outdoors on a friend's property PMH includes hepatitis-C, history of Galina fungemia, history of endocarditis admitted to the hospital with bilateral upper extremity abscesses. Current IV heroin abuse and ETOH abuse admitted inpatient for I+D of open draining abscesses on bilateral shoulders. cultures currently are growing a strep. PCP: [facility], ALEX Bhatti 02.25.21 Payer: [facility] Reviewed chart, pt discussed in multidisciplinary rounds this morning. Patient scheduled for I+D of bilateral shoulders this afternoon w/Dr Cristina. Patient familiar to this [facility] from prior admissions; patient ambulates indp. at baseline; will follow closely as medical POC unfolds. Will plan to met w/patient after I+D to discuss DCP and offer [facility] treatment resources if patient interested ANGELLA Pantoja Discharge Planning/Care Management CM Discharge Assessment Start: 06/05/21 13:04 Freq: Status: Active Protocol: Document 06/05/21 13:04 JAIRO (Rec: 06/05/21 13:08 JAIRO [id number]) Discharge Planning Assessment Assigned Rail Director ANGELLA Castrejon DPOA/Assigned Designee Name sister Avalos Contact Information [phone] Advance Directives? No History Provided By Patient,Medical Record Prior Living Arrangements Homeless Comment Chronically homeless Household Members none Type of transporation used prior to Relies on Others admit Independent with ADL's Yes Is patient alert and oriented? Yes Barriers to Discharge Yes Comment Homeless, current IV drug user which will be barriers to securing facility placement if recommended Transportation Arrangement Pending Referrals Initiated Other Additional Comment hx of DC to [facility] beds for IV abx, was not considered an active IVDU at that time
--- NOTE | 2021-06-05 13:30 | DIET.CONS ---
Dietary Consultation Note Admission Date: 06/04/2021 16:03 Assessment: 71 y/o M with a history of hepatitis-C, IV drug use, ETOH abuse, homelessness admitted to the hospital with bilateral upper extremity abscesses. Reports use of food assistance with food card. States he lives on the porch of a friend's house and eats two meals per day there. Reports breakfast as eggs and waffles or pancakes and dinner as lasagna or sandwiches. Drug use and poor wound healing. Upon NFPE, indication of muscle wasting in temporal depression/scooping, protrusion of clavicle. Wt hx: 03/04/2021: 70.3kg (-6.4% in 3 months) 01/17/2021: 72.6kg (-9.4% in 5 months) He has not had significant weight loss, however with physical signs of muscle wasting, drug use, chronic food insecurity, low BMI (<21) for his age, and poorly healing wounds he does qualify for malnutrition. Ht: 177.8 cm Wt: 65.771 kg BMI: 20.7 UBW: 64kg reported Last BM: 06/03/21 (06/04/21 20:42) MNA: 11 Ricky Score: 19 Diet: 06/04/21 Dinner Heart Healthy Diet Diet Modifications: Sodium Level: 2 gm Sodium 06/05/21 00:01 NPO Diet Diet Modifications: NPO Type: NPO after Midnight Nutrition Percent Meal Consumed 100% 06/04/21 18:30 Labs: RBC 4.04 X10^6/uL (4.5-5.9) L 06/05/21 06:00 Hgb 12.3 g/dL (13.5-17.5) L 06/05/21 06:00 Hct 36.4 % (41-53) L 06/05/21 06:00 Creatinine 0.69 mg/dL (0.66-1.25) 06/05/21 06:00 Lactate 1.3 mmol/L (0.7-2.1) 06/04/21 13:50 Nutrition Diagnosis: Severe chronic malnutrition r/t increased nutrient needs for wounds, homelessness, and drug use aeb bilateral shoulder wounds, food insecurity, low BMI for age, and physical signs of muscle wasting in significant scooping of temporal regions and protruding clavicle. Interventions: Currently NPO for I&D this afternoon. Would rec ONS BID and nabor daily after NPO status changed. Will update the kitchen on future order. Discussed importance of protein intake for healing and overall nutrition health. EER: [id number] kcals (25-30kcal/kg per BMI and wound) 98-118g PRO (1.5-1.8g/kg per malnutrition) Monitoring/Evaluations: ONS tolerance, weight, RD f/u in 3-5 days Electronically Signed by: Gissell Roy 06/05/21 13:30 Clinical Dietitian [address] [address]
--- NOTE | 2021-06-05 14:27 | PM.PN.1 ---
Subjective Subjective Date Patient Seen: 06/05/21 Interval history: 71-year-old male with a history of IV drug use with heroin, alcohol abuse, homeless, who developed bilateral arm abscesses. Wound cultures are positive for strep bacteria. Patient complaining of pain in bilateral arms. Exam Vital Signs (past 8 hours): - 06/05/21 07:35 06/05/21 11:26 Temperature 97.9 F 98.3 F Pulse Rate 62 62 Respiratory Rate 15 17 Blood Pressure 136/65 142/73 H Pulse Oximetry 97 97 Oxygen Delivery Method Room Air Oxygen Flow Rate 0 Narrative Exam Narrative: General: Alert, NAD Extremities: Large area of draining cellulitis/abscess on bilateral shoulders Objective Labs Result Diagrams: 06/05/21 06:00 06/05/21 06:00 Labs: Laboratory Results - last 24 hr 06/04/21 06/04/21 06/04/21 13:50 14:41 14:41 WBC 9.8 RBC 4.60 Hgb 14.1 Hct 41.4 MCV 90.0 MCH 30.6 MCHC 34.0 RDW 15.1 H Plt Count 394 Neut % (Auto) 77.3 H Lymph % (Auto) 12.5 L Jackson % (Auto) 8.2 Eos % (Auto) 1.5 L Baso % (Auto) 0.5 Neut # (Auto) 7600 H Lymph # (Auto) 1200 Jackson # (Auto) 800 Eos # (Auto) 100 Baso # (Auto) 0 Sodium 133 L Potassium 3.4 Chloride 101 Carbon Dioxide 24 BUN 13 Creatinine 0.60 L Estimated GFR > 60.0 BUN/Creatinine Ratio 21.7 Glucose 106 Lactate 1.3 Calcium 8.5 Total Bilirubin 1.4 H AST 15 L ALT 8 Alkaline Phosphatase 87 Total Protein 6.7 Albumin 3.2 L Globulin 3.5 Albumin/Globulin Ratio 0.9 L Procalcitonin Nasal Screen MRSA (PCR) 06/04/21 06/04/21 06/05/21 14:41 16:50 06:00 WBC 8.3 RBC 4.04 L Hgb 12.3 L Hct 36.4 L MCV 90.2 MCH 30.5 MCHC 33.8 RDW 15.0 H Plt Count 383 Neut % (Auto) 71.1 Lymph % (Auto) 16.3 L Jackson % (Auto) 8.7 Eos % (Auto) 2.7 Baso % (Auto) 1.2 Neut # (Auto) 5900 Lymph # (Auto) 1400 Jackson # (Auto) 700 Eos # (Auto) 200 Baso # (Auto) 100 Sodium Potassium Chloride Carbon Dioxide BUN Creatinine Estimated GFR BUN/Creatinine Ratio Glucose Lactate Calcium Total Bilirubin AST ALT Alkaline Phosphatase Total Protein Albumin Globulin Albumin/Globulin Ratio Procalcitonin 0.09 Nasal Screen MRSA (PCR) Positive for mrsa H 06/05/21 06:00 WBC RBC Hgb Hct MCV MCH MCHC RDW Plt Count Neut % (Auto) Lymph % (Auto) Jackson % (Auto) Eos % (Auto) Baso % (Auto) Neut # (Auto) Lymph # (Auto) Jackson # (Auto) Eos # (Auto) Baso # (Auto) Sodium 136 L Potassium 3.4 Chloride 104 Carbon Dioxide 27 BUN 15 Creatinine 0.69 Estimated GFR > 60.0 BUN/Creatinine Ratio 21.7 Glucose 110 Lactate Calcium 8.5 Total Bilirubin 0.5 AST 17 ALT 6 Alkaline Phosphatase 67 Total Protein 6.6 Albumin 2.9 L Globulin 3.7 Albumin/Globulin Ratio 0.8 L Procalcitonin Nasal Screen MRSA (PCR) [facility] Medical History Abscess Acute CVA (cerebrovascular accident) Hepatitis C antibody test positive Heroin abuse Family History Father Cancer Social History household members: none Smoking Status: Current every day smoker Assessment & Plan Assessment & Plan narrative: 71-year-old male with a history of hepatitis-C, history of Galina fungemia, history of endocarditis admitted to the hospital with bilateral upper extremity abscesses Patient is growing group a strep from both wounds Will continue IV cefazolin Consult orthopedic surgery for I&D as both wounds are continuing to drain significant copious amount of pus Patient is made NPO Anticipate going to the OR later today Will continue Dilaudid for pain, consider switching to methadone at once he is off IV pain medication Will obtain an HIV test, pending Patient has hep C will continue his Mavyet Patient reports he was previously on Eliquis for endocarditis, will hold this evening, need to determine whether he should be on this medication or not Time Spent With Patient Critical Care time: I spent a total of [] minutes of critical care time on this patient's care today; this time is exclusive of procedural time.
[2021-06-05] MEDS: SODIUM CHLORIDE 0.9% 1,000 ML, GENTAMICIN 80 MG IRR (16:58)
[2021-06-05] MEDS: VANCOMYCIN 1,000 MG VIAL 1000 MG TOP (17:00)
--- NOTE | 2021-06-05 17:02 | SUR.OPER ---
Supine on padded OR bed, head on gel donut, arms secured on padded arm boards at <90 degrees abduction and in control of the surgeon. legs uncrossed, safety belt at thigh, tape over blanket over lower legs. Pillow under knees.
[2021-06-05] MEDS: HYDROMORPHONE 2 MG INJ IV ×4 (17:55→18:22)
--- NOTE | 2021-06-05 18:29 | SUR.PHASEI ---
notified surgeon of bleeding from right shoulder, verbal order to reinforce drsg [id number]
[2021-06-05] MEDS: LACTATED RINGERS 1,000 ML 50 ML IV (19:19)
[2021-06-05] MEDS: HYDROMORPHONE 1 MG INJ 2 MG IV (19:20)
--- NOTE | 2021-06-05 22:12 | PM.OP.1 ---
Operative Date/Time/Diagnoses Date of procedure: 06/05/21 Time of procedure: 16:00 Pre-op diagnosis: Bilateral upper arm abscesses Post-op diagnosis: same Procedure & Clinicians Procedure: Bilateral arm irrigation and debridement, excisional debridement of bilateral arms removing necrotic muscle fat and subcutaneous tissues as well as purulence material Same procedure as scheduled: Yes Indications: Is a 71-year-old who has a history of intravenous drug abuse. He was admitted to the medicine service with draining wounds from bilateral arms. He had previously been seen in the emergency room several times and had undergone a local irrigation and debridement in the emergency room. His cultures have grown a strep. Surgeon: Lainey Cristina Anesthesia Type: General Operative Notes Findings: Gross purulent material extending down into the deltoid bilaterally with necrotic black appearing deltoid muscle and some subcutaneous tissues. Closure Type: primary Specimen(s): none sent Applied: drain(s) (Packed with multiple iodoform cathi) Estimated Blood Loss (mL): 50 Blood products transfused: none Procedure in detail: Patient is brought the operating room. He underwent induction of a general anesthesia. Bilateral shoulders were prepped and draped standard sterile fashion. He had multiple wounds on bilateral shoulders directly over the deltoid bilaterally. Attention was 1st directed to the right arm. The multiple draining infected wounds appeared to run along the tract for his cephalic vein. There was gross purulence draining. Skin incision was made connecting several of the tracks in a longitudinal manner. Dissection was carried out through skin and subcutaneous tissues. He had necrotic subcutaneous tissue and gross pus. I dissection down to the level of the deltoid there was black deltoid muscle which clearly looked like it had been injected. The grossly necrotic deltoid muscle was carefully debrided. Both deltoid muscle as well as necrotic subcutaneous tissue was removed. The infection did not track deeper than the deltoid muscle. The wound was meticulously irrigated with normal saline. Small amount of vancomycin powder was used. The wound was packed with iodoform gauze. There was 1 large approximately 5 cm wound as well as multiple sinus tracts. Three gauze packing strips were used. Attention was then directed to the left arm. It also had multiple areas that were actively draining pus. About a 5 cm incision was made over the lateral deltoid dissection was carried out through skin and subcutaneous tissues and into the pus pockets. Gross purulent material was removed. There was necrotic deltoid and subcutaneous tissue. This was meticulously removed. The wound was copiously irrigated with normal saline. Only necrotic tissue was removed. The wound was packed with iodoform gauze. There were also multiple sinuses noted on this side. Three separates drips were placed in the wounds. The wounds were dressed sterilely with ABDs Kerlix and Guevara wrap. Patient tolerated the procedure was transferred to cover room in satisfactory condition. Complications: none Post-operative Condition: stable Disposition: Acute Care Plan for aftercare: Dressing change tomorrow okay to gradually work on removing the cathi. To outpatient dressing changes as needed and refer to Wound Clinic as needed. Continue IV antibiotics for 24-48 hours.
--- NOTE | 2021-06-05 22:51 | PC.NURSE ---
Addendum entered by Ibeth Gilmore R.N. 06/06/21 03:58: Moderate amount break through bleeding from R shoulder through outer gauze and ABD. Gauze and two ABDs reapplied and secured with coban. Linens changed. R arm elevated on pillow and ice packs applied to hayden shoulders. Patient pre-medicated with Hydromorphone 1 mg IV before dressing change and turning. CMS intack to hayden UE. Original Note: Patient states Hydromorphone 2 mg IV given earlier reduced pain to 8/10. Minimal facial grimacing until questioned about pain. FLACC score 3. Patient moving arms some. Ice packs applied to bilateral shoulders. Patient dozing on and off. Patient ate all of dinner and requested egg salad sandwich later in the evening.
[2021-06-06] VITALS (10 sets, daily range): BP systolic 143–163; BP diastolic 67–105; PULSE 72–82; RESP 16–19; TEMP 36.3–37.4; O2SAT 92–98
[2021-06-06] MEDS: HYDROMORPHONE 1 MG INJ IV ×3 (03:25→13:13)
[2021-06-06] MEDS: LACTATED RINGERS 1,000 ML 100 ML IV (04:38)
[2021-06-06] MEDS: OXYCODONE IR 5 MG TABLET 10 MG PO ×4 (04:38→17:02)
[2021-06-06 05:02] LABS: Hematocrit 37.1 % (41-53); Hemoglobin 12.3 g/dL (13.5-17.5); Mean Corpuscular HGB Conc 33.2 % (30-36); Mean Corpuscular Hemoglobin 29.9 PG (26-34); Mean Corpuscular Volume 90.2 fL (80-100); Platelet Count 385 X10^3/uL (150-400); Red Blood Cell Count 4.12 X10^6/uL (4.5-5.9); Red Cell Distribution Width 15.4 % (11.6-14.8); White Blood Cell Count 8.8 X10^3/uL (4.5-11.0)
[2021-06-06] MEDS: CEFAZOLIN 2 GM/20 ML SYRINGE IV ×2 (06:04→13:15)
[2021-06-06] MEDS: ENOXAPARIN 40 MG/0.4 ML SYRINGE SUBCUT (08:54)
--- NOTE | 2021-06-06 10:31 | P.PN_ITS ---
Subjective Subjective Date Patient Seen: 06/06/21 Time Patient Seen: 10:31 Interval history: Sitting up in bed comfortably. Exam Vital Signs (past 8 hours): - 06/06/21 04:00 06/06/21 08:00 06/06/21 09:01 Temperature 97.4 F L 98.3 F Pulse Rate 82 72 Respiratory Rate 18 16 Blood Pressure 163/73 H 157/76 H Pulse Oximetry 98 96 95 06/06/21 09:19 Temperature Pulse Rate Respiratory Rate Blood Pressure Pulse Oximetry 93 Oxygen Delivery Method Room Air Oxygen Flow Rate 0 Narrative Exam Narrative: Dressing on right arm was reinforced with additional abds. Full ROM with both upper extremities. Objective Labs Result Diagrams: 06/06/21 04:24 06/05/21 06:00 Labs: Laboratory Results - last 24 hr 06/06/21 04:24 WBC 8.8 RBC 4.12 L Hgb 12.3 L Hct 37.1 L MCV 90.2 MCH 29.9 MCHC 33.2 RDW 15.4 H Plt Count 385 PFSH Medical History Abscess Acute CVA (cerebrovascular accident) Hepatitis C antibody test positive Heroin abuse Family History Father Cancer Social History household members: none Smoking Status: Current every day smoker Assessment & Plan Post-op Postoperative Procedures: Procedures Operation Date: 06/05/21 16:45 Actual Procedure Side Surgeon p Incision and Drainage shoulders Bilateral Lainey Cristina MD Postoperative day: 1 Postoperative plan narrative: 1) Daily dressing changes while in hospital; wet kerlix in wound with dry gauze/abd on top. 2) Follow up with wound care after discharge. 3) Pain control and antibiotics per hospitalist service.
--- NOTE | 2021-06-06 11:31 | P.PN_ITS ---
Subjective Subjective Date Patient Seen: 06/06/21 Interval history: 71-year-old male with a history of IV drug use with heroin, alcohol abuse, homeless, who developed bilateral arm abscesses. Patient is status post bilateral shoulder I and D in OR. Wound cultures are positive for strep bacteria. Exam Vital Signs (past 8 hours): - 06/06/21 04:00 06/06/21 08:00 06/06/21 09:01 Temperature 97.4 F L 98.3 F Pulse Rate 82 72 Respiratory Rate 18 16 Blood Pressure 163/73 H 157/76 H Pulse Oximetry 98 96 95 06/06/21 09:19 Temperature Pulse Rate Respiratory Rate Blood Pressure Pulse Oximetry 93 Oxygen Delivery Method Room Air Oxygen Flow Rate 0 Narrative Exam Narrative: General: Alert and cooperative NAD Extremities: Large area of draining cellulitis on bilateral shoulders Objective Labs Result Diagrams: 06/06/21 04:24 06/05/21 06:00 Labs: Laboratory Results - last 24 hr 06/06/21 04:24 WBC 8.8 RBC 4.12 L Hgb 12.3 L Hct 37.1 L MCV 90.2 MCH 29.9 MCHC 33.2 RDW 15.4 H Plt Count 385 PFSH Medical History Abscess Acute CVA (cerebrovascular accident) Hepatitis C antibody test positive Heroin abuse Family History Father Cancer Social History household members: none Smoking Status: Current every day smoker Assessment & Plan Assessment & Plan narrative: 71-year-old male with a history of hepatitis-C, history of Galina fungemia, history of endocarditis admitted to the hospital with bilateral upper extremity abscesses * Patient is growing group a strep from both wounds * Will continue IV cefazolin * Status post bilateral incision and drainage 06/05/2021 * Oxycodone as needed, hydromorphone IV as needed * Patient has hep C will continue his Mavyet * Patient reports he was previously on Eliquis for endocarditis, resumed Eliquis * Will need wound care follow-up Time Spent With Patient Critical Care time: I spent a total of [] minutes of critical care time on this patient's care today; this time is exclusive of procedural time.
--- NOTE | 2021-06-06 12:50 | PT-IP ANOTE ---
pt eating lunch at this time. will check back later and informed pt.
--- NOTE | 2021-06-06 14:39 | PC.NURSE ---
Addendum entered by Sosa Baez R.N. 06/06/21 18:40: midline x 2 pulled out during this shift- attempted x several to restart iv line - unable to do so- update to Dr. Giron with new orders for po abx received Addendum entered by Sosa Baez R.N. 06/06/21 16:56: PT AT DOOR TO HIS ROOM , NAKED, POUNDING HIS WALKING STICK ON THE GLASS- HE STATES THAT HE HAS BEEN HOLLERING FOR F2 HOURS STRAIGHT HE ALSO STATED THAT HE COULD NOT FIND CALL BUTTON ( WHICH WAS ON THE BEDSDIE TABLE NEAR THE BED) HE APPEARRED CONFUSED AND SOMEWHAT DISORIENTED- ASSISTED PT BACK TO BED AND SPOKE CLEARLY AND CALMLY WITH HIM UNTIL HE SETTLED A BIT- UPDATE TO MD AND ORDERS RECEIVED Original Note: CHANGED DRESSINGS TO BILAT DELTOID AREA - PAINFUL FOR PT. MEDICATED WITH PO OXYCODONE WITH MEAL AND THEN IV DILAUDID JUST PRIOR TO CHANGING DRESSINGS. RIGHT MORE PAINFUL THAN LEFT- BOTH WOUNDS BEFFY RED WITH MODERATE-LARGE AMOUNT OF BLOODY DRAINAGE SOME EVEN CONTINUING TO OOZE FROM THE LEFT- FEW POKE HOLE INCISIONS ALSO USING Q-TIP AND 0.5 IODOFORM GAUZE COVERED WITH 4X4'S AND ABD PAD THEN WRAPPED WITH CONFORM STRETCH GAUZE AND TAPED - ALREADY NOTED SOME STRIKE THRU DRAINAGE TO LEFT DELTOID DRESSING WILL REINFORCE NEEDED
[2021-06-06] MEDS: LORazepam 1 MG TABLET PO (17:02)
--- NOTE | 2021-06-06 17:03 | PT-IP ANOTE ---
pt refused PT. stated that he has a lot of UE pain when he moves. stated that if he goes home tomorrow then that is when he will walk. informed pt that PT will check back tomorrow and agreed.
[2021-06-06] MEDS: APIXABAN 5 MG TABLET PO (20:43)
[2021-06-06] MEDS: cephALEXin 250 MG CAPSULE 500 MG PO (20:43)
[2021-06-06] MEDS: OXYCODONE IR 5 MG TABLET PO (20:47)
[2021-06-07] MEDS: OXYCODONE IR 5 MG TABLET 10 MG PO ×3 (00:32→10:37)
[2021-06-07] MEDS: OXYCODONE IR 5 MG TABLET PO (03:34)
[2021-06-07] MEDS: LORazepam 1 MG TABLET PO (03:35)
[2021-06-07 03:52] VITALS: BP 137/65; PULSE 81; RESP 20; TEMP 37.3; O2SAT 96
--- NOTE | 2021-06-07 03:58 | PC.NURSE ---
Shift Note: Patient was alert and oriented to self, confused at times, s/p post-op dressing on bilateral upper arms, clean, dry and intact. Afebrile, vital signs within acceptable limits. No active bleeding noted from post-op sites. Patient complained of post-op pain PS-8/10, due pain meds given. Patient had episode of confusion and attempted to light a cigarette and admittedly that he thought he was in his friend's house. Re-orientation was done and patient assisted back to the bed, complained of post-op pain. Patient uses urinal, with adequate urine output.
[2021-06-07 08:00] VITALS: BP 163/80; PULSE 71; RESP 17; TEMP 36.8; O2SAT 97
[2021-06-07] MEDS: APIXABAN 5 MG TABLET PO (08:30)
[2021-06-07] MEDS: cephALEXin 250 MG CAPSULE 500 MG PO ×2 (08:30→11:55)
--- NOTE | 2021-06-07 08:46 | P.PN_ITS ---
Subjective Subjective Date Patient Seen: 06/07/21 Time Patient Seen: 08:46 Interval history: Sitting up in bed, comfortable, about to have breakfast. 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 Sensation to light touch intact throughout BUE, brisk capillary refill. Objective Labs Result Diagrams: 06/06/21 04:24 06/05/21 06:00 [facility] Medical History Abscess Acute CVA (cerebrovascular accident) Hepatitis C antibody test positive Heroin abuse Family History Father Cancer Social History household members: none Smoking Status: Current every day smoker Assessment & Plan Post-op Postoperative Procedures: Procedures Operation Date: 06/05/21 16:45 Actual Procedure Side Surgeon p Incision and Drainage shoulders Bilateral Lainey Cristina MD Postoperative day: 2 Postoperative plan narrative: Continue daily wet-to-dry dressing changes. Antibiotics, pain control per hospitalist team. Follow up with wound care clinic when discharged.
[2021-06-07 08:51] VITALS: PULSE 78; O2SAT 97
--- NOTE | 2021-06-07 10:19 | PT.IIE ---
Current Diagnoses Sepsis, unspecified organism (06/04/21) Cutaneous abscess of right upper limb (06/04/21) Cutaneous abscess of left upper limb (06/04/21) Cellulitis of right upper limb (06/04/21) Cellulitis of left upper limb (06/04/21) Surgery Performed Operation Date: 06/05/21 16:45 Actual Procedures p Incision and Drainage shoulders(Bilateral) - Lainey Cristina MD Medical History (Last Reviewed 06/04/21 @ 19:12 by Lainey Cristina MD) Abscess Acute CVA (cerebrovascular accident) Hepatitis C antibody test positive Heroin abuse Physical Therapy Inpatient Evaluation/Re-Eval M1 PT/OT-IP Prior Functional Status Start: 06/07/21 09:39 Freq: NEEDED Status: Active Protocol: Document 06/07/21 10:13 [facility] (Rec: 06/07/21 10:19 [facility] [id number]) Medical Review Prior Functional Status Medical History Reviewed Yes Mobility and Gait has own cane; uses no device for short distances at home, but uses for longer. Denies falls. Activities of Daily Living and IADL's independent Social History Household Members none Living Arrangements Homeless Home Environment Standard Height Toilet,Tub/ Shower Home Equipment Straight Cane Employment Status Retired M2 PT-IP Current Condition Start: 06/07/21 09:39 Freq: NEEDED Status: Active Protocol: Document 06/07/21 10:13 [facility] (Rec: 06/07/21 10:19 [facility] [id number]) Physical Therapy Current Condition Current Condition Evaluation Date 06/07/21 Treatment Diagnosis weakness M3 PT-IP Subjective Start: 06/07/21 09:39 Freq: NEEDED Status: Active Protocol: Document 06/07/21 10:13 [facility] (Rec: 06/07/21 10:19 [facility] [id number]) Subjective Physical Therapy Visit Type Type Initial Evaluation Visit Start Time 09:50 Visit Stop Time 10:10 Total Visit Minutes 20 Notes seen for mobility clearance prior to discharge home Physical Therapy Visit Comments Patient Comments Initially reported he didn't want PT, when told it was something he needed to do prior to discharge to make sure he was safe he agreed. Patient Goals discharge home today Therapy Pain Assessment Pain When Pain Assessed At Rest Pain Present Pain Present Pain Reported Location Bilateral Upper Arm Intensity 7 Scale Used Numeric (0 - 10) M4 PT-IP Mobility and Gait Start: 06/07/21 09:39 Freq: NEEDED Status: Active Protocol: Document 06/07/21 10:13 [facility] (Rec: 06/07/21 10:19 [facility] [id number]) PT-Bed Mobility Assessment Rolling Level of Assist Independent Supine to Sit Supine to Sit Independent Sit to Supine Sit to Supine Independent Scooting Scooting to Edge of Bed Independent PT-Transfer Assessment Sit to and From Stand Sit to and from Stand Independent Equipment Transfer Assistive Device Straight Cane Transfers Transfer Destination Bed,Chair Transfer Technique Stand Step Pivot Transfer Ability Level of Assist Independent Gait Assessment Gait Gait Assistance Required: Independent Distance (Feet) 30 Assistive Devices Assistive Device Gait Belt,Straight Cane Orthotic/Prosthetic Devices or Brace: No Gait Deviations General Gait Pattern Decreased Stride Length, Decreased Feet Clearance Factors Limiting Gait Function Factors Limiting Gait Function Decreased Strength,Pain Stair Climbing Assessment Comments Stair Climbing Comments no stairs at home PT-Balance Assessment Sitting Balance and Reactions Static Sitting Balance Ability Normal Dynamic Sitting Balance Ability Normal Standing Balance and Reactions Static Standing Balance Ability Good Dynamic Standing Balance Ability Good M5 PT-IP Objective Assessments Start: 06/07/21 09:39 Freq: NEEDED Status: Active Protocol: Document 06/07/21 10:13 [facility] (Rec: 06/07/21 10:19 [facility] [id number]) Orientation Orientation/Cognition Orientation Name,Date,Place,Situation Safety Awareness Understands Safety Issues Memory Description No Deficits Noted Gross Range of Motion Upper Extremity ROM Assessment Within Functional Limits Lower Extremity ROM Assessment Within Functional Limits Strength Upper Extremity Strength Assessment Bilaterally Impaired Lower Extremity Strength Assessment Within Functional Limits Comments Strength Comments UE's limited by pain M6 PT-IP Treatment Start: 06/07/21 09:39 Freq: NEEDED Status: Active Protocol: Document 06/07/21 10:13 [facility] (Rec: 06/07/21 10:19 [facility] [id number]) Physical Therapy Treatment Other Treatments Other Treatment Performed evaluation of safety with mobility M7 PT-IP Assessment and Plan Start: 06/07/21 09:39 Freq: NEEDED Status: Active Protocol: Document 06/07/21 10:13 [facility] (Rec: 06/07/21 10:19 [facility] [id number]) PT Summary Assessment and Plan Potential Rehabilitation Potential Good Status of Condition at Evaluation Stable Summary Impairments Pain,Activity Tolerance Goals Other Goals no PT goals, cleared for discharge home Treatment Plan Other Recommendations and Next Treatment no further PT needs Focus Discharge Recommendations PT Discharge Recommendations Home with Assistance Transportation Needs at Discharge Private Vehicle
--- NOTE | 2021-06-07 10:19 | PT.OPDS ---
Current Diagnoses Sepsis, unspecified organism (06/04/21) Cutaneous abscess of right upper limb (06/04/21) Cutaneous abscess of left upper limb (06/04/21) Cellulitis of right upper limb (06/04/21) Cellulitis of left upper limb (06/04/21) Visit Care Team Role Provider Type Larisa Goldberg DPM Other Providers Non-Staff Specialty: Podiatry Address: [address] [place] [address], [address] Email: ALEX Cespedes Other Providers Advanced Color Room Attendant Specialty: Family Practice Address: [address] [place] [address], [id number] Email: [email or web address] Antonio MD Other Providers Physician Specialty: Wound Care Address: [address] [place] [address], [address] Email: [email or web address] Maxwell Emergency Provider Advanced Color Room Attendant Referring Provider Specialty: EM Address: [address] [place] [address], [address] Email: [email or web address] Griffin MD Admit Provider Physician Attending Provider Specialty: Internal Medicine Address: [address] [place] [address], [address] Email: [email or web address]
--- NOTE | 2021-06-07 10:49 | P.DS_ITS ---
History of Present Illness History of Present Illness Chief complaint: Bilateral arm pain and pus Narrative: 71-year-old male with a history of IV drug use with heroin, alcohol abuse, homeless, who developed bilateral arm abscesses over the past few weeks.? Presented to the emergency room yesterday.? He had an I&D of the right arm, was started on oral antibiotics, and discharged home.? Recommendations were made for the patient to be admitted to the hospital however he refused admission.? He was discharged home on or doxycycline.? The patient return to the emergency room today as he had significant drainage from both arms.? He had wound cultures done yesterday that grew group a strep.? Patient has no fever chills.? He denies any shortness of breath.? He has no nausea vomiting or diarrhea.? Patient was seen and evaluated in the emergency room.? He was placed on IV cefazolin for group a strep.? He is admitted to the hospital at this time for definitive treatment. Discharge Providers Provider Date of admission: 06/04/21 16:03 Discharge Date: 06/07/21 Consults: 06/04/21 11:48 [place] [facility] [place] Stat Comment: 06/04/21 12:59 Consult to Wound Care Stat Comment: [facility] 06/04/21 17:05 Consult to Dietitian, Adult Routine Comment: Reason For Exam: low weight, malnutrition Consult to [facility] [place] Hel[place] Routine Comment: Consult to Heater Operator Helper Routine Comment: 06/04/21 18:20 Consult to Dietitian, Adult Routine Comment: Reason For Exam: weight loss Consult to Discharge Planning Routine Comment: 06/05/21 17:51 Consult to Physical Therapy Evaluate & Treat Comment: Physician Instructions: Evaluate and Treat Consult to Respiratory Therapy Evaluate & Treat Comment: Physician Instructions: Evaluate and treat Discharge provider: Jose Giron MD Summary Hospital Course Discharge Diagnosis: 1. Bilateral upper arm abscess with group a Streptococcus 2. Chronic hepatitis-C 3. IV Heroin abuse Massotherapist: Dr. Lainey Cristina Procedure: Bilateral incision and drainage of upper arm abscesses Hospital Course: Patient was admitted and initially treated with cefazolin then transition to cephalexin day prior to discharge. He had bilateral incision and drainage with wound packing performed in OR. He will be following up at Wound Care Clinic. Status at Discharge Cognitive/behavioral status at discharge: oriented Functional status at discharge: independent ambulation Overall status at discharge: patient is progressing back to baseline Time Spent with Patient Time spent: Less than 30 minutes Exam Vital Signs (past 8 hours): - 06/07/21 03:52 06/07/21 08:00 06/07/21 08:51 Temperature 99.1 F 98.2 F Pulse Rate 81 71 78 Respiratory Rate 20 17 Blood Pressure 137/65 163/80 H Pulse Oximetry 96 97 97 Oxygen Delivery Method Room Air Oxygen Flow Rate 0 Narrative Exam Narrative: General: Alert cooperative NAD Extremities: Bilateral shoulder large wounds which are packed with gauze and wick with minimal drainage Objective Labs Result Diagrams: 06/06/21 04:24 06/05/21 06:00 PFSH Medical History Abscess Acute CVA (cerebrovascular accident) Hepatitis C antibody test positive Heroin abuse Family History Father Cancer Social History household members: none Smoking Status: Current every day smoker Discharge Plan Discharge Plan Patient Disposition: Home Provider Discharge Comment: Call wound care clinic Tuesday to be seen. Keep wounds clean and dry. You can alternate Tylenol and ibuprofen every 6 hours as needed for pain relief. Take antibiotic as prescribed. Discharge orders & Medications Prescriptions: New cephalexin 500 mg capsule 500 mg PO QID Qty: 28 0RF Continued Eliquis 5 mg tablet 5 mg PO BID 0RF Label Comments: take 1 tablet by mouth twice a day Mavyret 100-40 mg tablet 3 tab PO DAILY 0RF Label Comments: TAKE 3 TABLETS BY MOUTH EVERY DAY Follow up/Referrals: Rod Antonio MD [Physician] - Discharge Health Status Multidrug resistant organism: No MDRO Diet/Activity/Treatments Diet: Regular
--- NOTE | 2021-06-07 11:50 | CM.DPNOTE ---
DC Note Patient returning home today. Met w/patient and RN to review DCP: Patient will return to his friend's property on where he sleeps under a porch states he has an easy chair and lots of blankets. Patient is being instructed on poper medication use and to keep bilateral shoulder wounds clean dry and dressed properly. Patient states understanding. Patient will be sent home w/addtl. wound care supplies. Patient instructed to contact wound care and hyperbaric center first thing tomorrow morning to schedule/establish care in the wound care clinic. This PLASTICS TOOLING ENGINEER has left [facility] [place] for Clarice Flowers, director re this patient and expected needs. In addition, patient states his friend Marilu can help him w/the bilateral shoulder dressing changes. Patient is instructed to visit the WIC or ER w/any signs sx of infection, patient states understanding. Plan: DC home to a friend's property/porch via pov or on foot; patient agrees to call wound care center tomorrow AM to secure first available wound care appt to assist in the care of bilateral shoulder wounds, s/p I+D JW
--- NOTE | 2021-06-07 12:03 | PC.NURSE ---
Patient discharged with prescription for PO antibiotics to be picked up at [facility] and instructions to contact the wound care clinic tomorrow for an appointment. This nurse changed bilateral upper arm dressing, packed with iodoform packing, covered with 4x4 gauze and an abdominal pad, wrapped with nonadherent gauze wrap. Patient given detailed instructions on keeping dressings clean/dry and what the signs of worsening infection are. Patient says he will go to the walk-in clinic or ER if he starts to feel worse or if the wounds become exposed or soiled. Patient is homeless but says he has somewhere dry to stay tonight and a ride coming to pick him up, although he declined to wait for his ride in his room and chose to wait outside on the bench. SW met with patient prior to discharge. Patient had no IV access or telemetry.
== END 2021-06-07 12:13 | disposition home or self-care (01) | DRG 580 ==
LOC: ED 12:27 → AC 16:03 → ICU 16:36
PROVIDERS: Emergency Medicine; Orthopaedic Surgery; Admitting Provider Internal Medicine; Emergency Provider Nurse Practitioner Critical Care Medicine; Referring Provider Nurse Practitioner Critical Care Medicine; Visit Provider Internal Medicine
PROC: 0KB60ZZ Excision of Left Shoulder Muscle, Open Approach (ICD-10-PCS; principal; 2021-06-05 16:45)
DX: L03.114 Cellulitis of left upper limb (principal); I96 Gangrene, not elsewhere classified; L03.113 Cellulitis of right upper limb; F11.10 Opioid abuse, uncomplicated; F10.10 Alcohol abuse, uncomplicated; B95.0 Streptococcus, group A, as the cause of diseases classified elsewhere; L02.414 Cutaneous abscess of left upper limb; L02.413 Cutaneous abscess of right upper limb; B18.2 Chronic viral hepatitis C; F17.210 Nicotine dependence, cigarettes, uncomplicated; Z59.02 Unsheltered homelessness; Z53.29 Procedure and treatment not carried out because of patient's decision for other reasons
CPT/HCPCS: 10060; 36415; 36592; 73200; 80053; 83605; 84145; 85007; 85025; 85027; 87070; 87075; 87077; 87147; 87205; 87635; 87797; 93005; 94760; 96361; 96365; 96375; 97161; 99284; C9803; J0690; J1170; J1642; J1650; J1885; J2250; J2405; J2543; J2704; J3010

== ENCOUNTER 2021-06-08 10:07 | Emergency (ER) | payer MEDICARE, MEDICAID, SELFPAY ==
[2021-06-04 20:42] VITALS: BMI 20.7
[2021-06-08 10:20] VITALS: BP 143/77; PULSE 99; RESP 15; TEMP 36.5; O2SAT 99
--- NOTE | 2021-06-08 11:28 | PC.NURSE ---
gaping open dry wounds in bilateral upper arms. No drainage, dry. No pain upon palpation.
--- NOTE | 2021-06-08 11:34 | ED_ITS ---
HPI - Skin/Abscess/Foreign Bdy General Chief complaint: Skin/Abscess/Foreign Body Stated complaint: Wound infection- wound care can't see him Time Seen by Provider: 06/08/21 11:06 Source: patient Mode of arrival: Wheelchair Limitations: no limitations History of Present Illness HPI narrative: The patient has a history of IV heroin abuse. Was recently admitted with abscesses over both deltoid areas. He required surgical debridement. Wound culture done, growing group A Strep. He was discharged from hospital yesterday with instructions to follow-up wound care. He and wrap the wounds, he freaked out. He has not yet obtained an appointment I wound care. He came here for evaluation. There is no drainage from the sites. There is some discomfort to the sites. He has no fever. Related Data Home Medications Medication Instructions Recorded Confirmed apixaban 5 mg tablet (Eliquis) 5 mg PO BID 06/04/21 06/04/21 glecaprevir 100 mg-pibrentasvir 40 3 tab PO DAILY 06/04/21 06/04/21 mg tablet (Mavyret) Previous Rx's Medication Instructions Recorded cephalexin 500 mg capsule 500 mg PO QID #28 cap 06/07/21 cephalexin 500 mg capsule 500 mg PO QID #28 cap 06/07/21 Allergies Allergy/AdvReac Type Severity Reaction Status Date / Time No Known Drug Allergies Allergy Verified 03/04/21 17:23 Patient History Medical History Abscess Acute CVA (cerebrovascular accident) Hepatitis C antibody test positive Heroin abuse Family History Father Cancer Social History household members: none Smoking Status: Current every day smoker Smoking Status: Current every day smoker alcohol intake frequency: 3 or more drinks per day Substance Use Type: marijuana and heroin Exam Initial Vital Signs Initial Vital Signs: Vital Signs Temperature 97.7 F 06/08/21 10:20 Pulse Rate 99 H 06/08/21 10:20 Respiratory Rate 15 06/08/21 10:20 Blood Pressure 143/77 H 06/08/21 10:20 Pulse Oximetry 99 06/08/21 10:20 Const General: cooperative, healthy appearing and comfortable Orientation: Orientation (Normal) [facility] [place] Head: normocephalic and atraumatic Skin Other: Open wounds on both upper arms over the deltoid regions from recent I and D's. Both wounds are dry the base. There is no purulent discharge. There is no erythema/cellulitis. Neuro General: patient awake, patient oriented x3 and no focal motor deficits Extrem Other: For range of motion in both upper extremities. Psych Appearance: grossly normal Course Course Course Narrative: The wounds were cleansed/packed by nursing. He tolerated the procedure well. Orders Ordered: ED Orders 06/08/21 10:[address] [facility] [place] Wafer Fabrication Technician Stat Vital Signs Vital signs: Vital Signs - 8 hr 06/08/21 10:20 Temperature 97.7 F Pulse Rate 99 H Respiratory Rate 15 Blood Pressure 143/77 H Pulse Oximetry 99 Discharge Plan Departure Patient Disposition: Home Clinical Impression: Encounter for wound care, Heroin abuse Instructions: DI for Skin Abscess Activity Restrictions/Additional Instructions: Go from the ER to the Wound Care Center, to make arrangements for ongoing wound care. I Strongly advise you to avoid IV drugs. Return to the ER as needed. Prescriptions: No Action Eliquis 5 mg tablet 5 mg PO BID 0RF Label Comments: take 1 tablet by mouth twice a day Mavyret 100-40 mg tablet 3 tab PO DAILY 0RF Label Comments: TAKE 3 TABLETS BY MOUTH EVERY DAY cephalexin 500 mg capsule 500 mg PO QID Qty: 28 0RF cephalexin 500 mg capsule 500 mg PO QID Qty: 28 0RF
[2021-06-08 11:55] VITALS: BP 170/93; PULSE 83; RESP 18; O2SAT 100
--- NOTE | 2021-06-08 11:58 | PC.NURSE ---
Called down to ED to assess and dress Pt's bilateral upper extremity wounds. Wound lightly debrided and cleaned with NS and sterile gauze. Right wound had some scabbing in the upper aspect of the wound and bloody drainage on the lower aspect. Left wound was cleaned similarily. Both wounds are down to fascia, oval in shape with crusting along the edges. Dr. Duffy went into assess the wounds prior to applying the dressings. Again it was reiterated to the Pt the he go down stairs after he is done with ED to speak to Wound Care and set up an appointment.
== END 2021-06-08 11:56 | disposition home or self-care (01) ==
PROVIDERS: Emergency Provider Emergency Medicine
DX: Z48.01 Encounter for change or removal of surgical wound dressing (principal); F11.10 Opioid abuse, uncomplicated; F17.200 Nicotine dependence, unspecified, uncomplicated
CPT/HCPCS: 99281

== ENCOUNTER → 2021-06-10 10:12 | Outpatient (CLI) | payer MEDICARE, MEDICAID, SELFPAY ==
[2021-06-04 20:42] VITALS: BMI 20.7
== END ==
PROVIDERS: PCP Emergency Medicine; Referring Provider Emergency Medicine; Visit Provider Family Medicine
DX: T81.89XA Other complications of procedures, not elsewhere classified, initial encounter (principal); S41.001A Unspecified open wound of right shoulder, initial encounter; S41.002A Unspecified open wound of left shoulder, initial encounter; L08.9 Local infection of the skin and subcutaneous tissue, unspecified; F11.10 Opioid abuse, uncomplicated; Z72.0 Tobacco use; Z79.01 Long term (current) use of anticoagulants; Z59.89 Other problems related to housing and economic circumstances
CPT/HCPCS: 11042; 11043; 11046; 99204; 99213

== ENCOUNTER → 2021-06-16 15:13 | Outpatient (CLI) | payer MEDICARE, MEDICAID, SELFPAY ==
[2021-06-04 20:42] VITALS: BMI 20.7
== END ==
PROVIDERS: PCP Emergency Medicine; Referring Provider Emergency Medicine; Visit Provider Family Medicine
DX: T81.89XA Other complications of procedures, not elsewhere classified, initial encounter (principal); S41.001A Unspecified open wound of right shoulder, initial encounter; S41.002A Unspecified open wound of left shoulder, initial encounter; L08.9 Local infection of the skin and subcutaneous tissue, unspecified; F11.10 Opioid abuse, uncomplicated; Z72.0 Tobacco use; Z59.89 Other problems related to housing and economic circumstances; Z79.01 Long term (current) use of anticoagulants
CPT/HCPCS: 11043; 11046; 87070; 87075; 87077; 87147; 87186; 87205; 97607; 99213

== ENCOUNTER → 2021-06-18 10:30 | Outpatient (CLI) | payer MEDICARE, MEDICAID, SELFPAY ==
[2021-06-04 20:42] VITALS: BMI 20.7
== END ==
PROVIDERS: PCP Emergency Medicine; Referring Provider Emergency Medicine; Visit Provider Family Medicine
DX: S41.001A Unspecified open wound of right shoulder, initial encounter (principal); S41.002A Unspecified open wound of left shoulder, initial encounter
CPT/HCPCS: 97607

== ENCOUNTER → 2021-06-19 11:17 | Outpatient (CLI) | payer MEDICARE, MEDICAID, SELFPAY ==
[2021-06-04 20:42] VITALS: BMI 20.7
== END ==
PROVIDERS: PCP Emergency Medicine; Referring Provider Emergency Medicine; Visit Provider Family Medicine
DX: S41.001A Unspecified open wound of right shoulder, initial encounter (principal); S41.002A Unspecified open wound of left shoulder, initial encounter
CPT/HCPCS: 97607

== ENCOUNTER → 2021-06-22 15:43 | Outpatient (CLI) | payer MEDICARE, MEDICAID, SELFPAY ==
[2021-06-04 20:42] VITALS: BMI 20.7
== END ==
PROVIDERS: PCP Emergency Medicine; Referring Provider Emergency Medicine; Visit Provider Family Medicine
DX: T81.89XA Other complications of procedures, not elsewhere classified, initial encounter (principal); S41.001A Unspecified open wound of right shoulder, initial encounter; S41.002A Unspecified open wound of left shoulder, initial encounter; B95.7 Other staphylococcus as the cause of diseases classified elsewhere; L23.9 Allergic contact dermatitis, unspecified cause; F11.10 Opioid abuse, uncomplicated; Z72.0 Tobacco use; Z79.01 Long term (current) use of anticoagulants
CPT/HCPCS: 11043; 97607; 99214

== ENCOUNTER → 2021-06-25 09:10 | Outpatient (CLI) | payer MEDICARE, MEDICAID, SELFPAY ==
[2021-06-04 20:42] VITALS: BMI 20.7
== END ==
PROVIDERS: PCP Emergency Medicine; Referring Provider Emergency Medicine; Visit Provider Family Medicine
DX: T81.89XA Other complications of procedures, not elsewhere classified, initial encounter (principal); S41.001A Unspecified open wound of right shoulder, initial encounter; S41.002A Unspecified open wound of left shoulder, initial encounter; B95.7 Other staphylococcus as the cause of diseases classified elsewhere; F11.10 Opioid abuse, uncomplicated; Z72.0 Tobacco use; Z79.01 Long term (current) use of anticoagulants
CPT/HCPCS: 11043; 97607

== ENCOUNTER → 2021-06-29 09:51 | Outpatient (CLI) | payer MEDICARE, MEDICAID, SELFPAY ==
[2021-06-04 20:42] VITALS: BMI 20.7
== END ==
PROVIDERS: PCP Emergency Medicine; Referring Provider Emergency Medicine; Visit Provider Family Medicine
DX: T81.89XA Other complications of procedures, not elsewhere classified, initial encounter (principal); S41.001A Unspecified open wound of right shoulder, initial encounter; S41.002A Unspecified open wound of left shoulder, initial encounter; F11.10 Opioid abuse, uncomplicated; Z72.0 Tobacco use; Z79.01 Long term (current) use of anticoagulants
CPT/HCPCS: 11043; 97607

== ENCOUNTER → 2021-07-02 13:18 | Outpatient (CLI) | payer MEDICARE, MEDICAID, SELFPAY ==
[2021-06-04 20:42] VITALS: BMI 20.7
== END ==
PROVIDERS: PCP Emergency Medicine; Referring Provider Emergency Medicine; Visit Provider Family Medicine
DX: T81.89XA Other complications of procedures, not elsewhere classified, initial encounter (principal); S41.001A Unspecified open wound of right shoulder, initial encounter; S41.002A Unspecified open wound of left shoulder, initial encounter; R11.10 Vomiting, unspecified; Z72.0 Tobacco use; Z79.01 Long term (current) use of anticoagulants
CPT/HCPCS: 11043; 97607

== ENCOUNTER → 2021-07-06 09:03 | Outpatient (CLI) | payer MEDICARE, MEDICAID, SELFPAY ==
[2021-06-04 20:42] VITALS: BMI 20.7
== END ==
PROVIDERS: PCP Emergency Medicine; Referring Provider Emergency Medicine; Visit Provider Family Medicine
DX: T81.89XA Other complications of procedures, not elsewhere classified, initial encounter (principal); S41.001A Unspecified open wound of right shoulder, initial encounter; S41.002A Unspecified open wound of left shoulder, initial encounter; F11.10 Opioid abuse, uncomplicated; Z72.0 Tobacco use; Z79.01 Long term (current) use of anticoagulants
CPT/HCPCS: 15271; 97607; Q4110

== ENCOUNTER → 2021-07-09 09:01 | Outpatient (CLI) | payer MEDICARE, MEDICAID, SELFPAY ==
[2021-06-04 20:42] VITALS: BMI 20.7
== END ==
PROVIDERS: PCP Emergency Medicine; Referring Provider Emergency Medicine; Visit Provider Family Medicine
DX: T81.89XA Other complications of procedures, not elsewhere classified, initial encounter (principal); S41.001A Unspecified open wound of right shoulder, initial encounter; S41.002A Unspecified open wound of left shoulder, initial encounter; F11.10 Opioid abuse, uncomplicated; Z72.0 Tobacco use; Z79.01 Long term (current) use of anticoagulants
CPT/HCPCS: 11042; 97607; 99212

== ENCOUNTER → 2021-07-13 10:48 | Outpatient (CLI) | payer MEDICARE, MEDICAID, SELFPAY ==
[2021-06-04 20:42] VITALS: BMI 20.7
== END ==
PROVIDERS: PCP Emergency Medicine; Referring Provider Emergency Medicine; Visit Provider Family Medicine
DX: T81.89XA Other complications of procedures, not elsewhere classified, initial encounter (principal); S41.001A Unspecified open wound of right shoulder, initial encounter; S41.002A Unspecified open wound of left shoulder, initial encounter; F11.10 Opioid abuse, uncomplicated; Z72.0 Tobacco use; Z79.01 Long term (current) use of anticoagulants
CPT/HCPCS: 97607; 99212

== ENCOUNTER → 2021-07-16 10:34 | Outpatient (CLI) | payer MEDICARE, MEDICAID, SELFPAY ==
[2021-06-04 20:42] VITALS: BMI 20.7
== END ==
PROVIDERS: PCP Emergency Medicine; Referring Provider Emergency Medicine; Visit Provider Family Medicine
DX: T81.89XA Other complications of procedures, not elsewhere classified, initial encounter (principal); S41.001A Unspecified open wound of right shoulder, initial encounter; S41.002A Unspecified open wound of left shoulder, initial encounter
CPT/HCPCS: 97607

== ENCOUNTER → 2021-07-20 09:58 | Outpatient (CLI) | payer MEDICARE, MEDICAID, SELFPAY ==
[2021-06-04 20:42] VITALS: BMI 20.7
== END ==
PROVIDERS: PCP Emergency Medicine; Referring Provider Emergency Medicine; Visit Provider Family Medicine
DX: T81.89XA Other complications of procedures, not elsewhere classified, initial encounter (principal); S41.001A Unspecified open wound of right shoulder, initial encounter; S41.002A Unspecified open wound of left shoulder, initial encounter; F11.10 Opioid abuse, uncomplicated; Z72.0 Tobacco use; Z79.01 Long term (current) use of anticoagulants
CPT/HCPCS: 97607; 99213

== ENCOUNTER → 2021-07-23 13:25 | Outpatient (CLI) | payer MEDICARE, MEDICAID, SELFPAY ==
[2021-06-04 20:42] VITALS: BMI 20.7
== END ==
PROVIDERS: PCP Emergency Medicine; Referring Provider Emergency Medicine; Visit Provider Family Medicine
DX: T81.89XA Other complications of procedures, not elsewhere classified, initial encounter (principal); S41.001A Unspecified open wound of right shoulder, initial encounter; S41.002A Unspecified open wound of left shoulder, initial encounter; F11.10 Opioid abuse, uncomplicated; Z72.0 Tobacco use; Z79.01 Long term (current) use of anticoagulants
CPT/HCPCS: 11043; 97607

== ENCOUNTER → 2021-07-27 09:44 | Outpatient (CLI) | payer MEDICARE, MEDICAID, SELFPAY ==
[2021-06-04 20:42] VITALS: BMI 20.7
== END ==
PROVIDERS: PCP Emergency Medicine; Referring Provider Emergency Medicine; Visit Provider Family Medicine
DX: S41.001A Unspecified open wound of right shoulder, initial encounter (principal); S41.002A Unspecified open wound of left shoulder, initial encounter; Z72.0 Tobacco use; F11.10 Opioid abuse, uncomplicated
CPT/HCPCS: 15271; 97607; Q4110

== ENCOUNTER → 2021-07-30 13:48 | Outpatient (CLI) | payer MEDICARE, MEDICAID, SELFPAY ==
[2021-06-04 20:42] VITALS: BMI 20.7
== END ==
PROVIDERS: PCP Emergency Medicine; Referring Provider Emergency Medicine; Visit Provider Family Medicine
DX: T81.89XA Other complications of procedures, not elsewhere classified, initial encounter (principal); S41.001A Unspecified open wound of right shoulder, initial encounter; S41.002A Unspecified open wound of left shoulder, initial encounter; F11.10 Opioid abuse, uncomplicated; Z72.0 Tobacco use; Z79.01 Long term (current) use of anticoagulants
CPT/HCPCS: 11042; 97607

== ENCOUNTER → 2021-08-03 15:12 | Outpatient (CLI) | payer MEDICARE, MEDICAID, SELFPAY ==
[2021-06-04 20:42] VITALS: BMI 20.7
== END ==
PROVIDERS: PCP Emergency Medicine; Referring Provider Emergency Medicine; Visit Provider Family Medicine
DX: T81.89XA Other complications of procedures, not elsewhere classified, initial encounter (principal); S41.001A Unspecified open wound of right shoulder, initial encounter; S41.002A Unspecified open wound of left shoulder, initial encounter
CPT/HCPCS: 97607

== ENCOUNTER → 2021-08-06 11:55 | Outpatient (CLI) | payer MEDICARE, MEDICAID, SELFPAY ==
[2021-06-04 20:42] VITALS: BMI 20.7
== END ==
PROVIDERS: PCP Emergency Medicine; Referring Provider Emergency Medicine; Visit Provider Family Medicine
DX: T81.89XA Other complications of procedures, not elsewhere classified, initial encounter (principal); S41.001A Unspecified open wound of right shoulder, initial encounter; S41.002A Unspecified open wound of left shoulder, initial encounter; F11.10 Opioid abuse, uncomplicated; Z72.0 Tobacco use; Z79.01 Long term (current) use of anticoagulants
CPT/HCPCS: 11042

== ENCOUNTER → 2021-08-10 10:58 | Outpatient (CLI) | payer MEDICARE, MEDICAID, SELFPAY ==
[2021-06-04 20:42] VITALS: BMI 20.7
== END ==
PROVIDERS: PCP Emergency Medicine; Referring Provider Emergency Medicine; Visit Provider Family Medicine
DX: T81.89XA Other complications of procedures, not elsewhere classified, initial encounter (principal); S41.001A Unspecified open wound of right shoulder, initial encounter; S41.002A Unspecified open wound of left shoulder, initial encounter; F11.10 Opioid abuse, uncomplicated; Z72.0 Tobacco use; Z79.01 Long term (current) use of anticoagulants
CPT/HCPCS: 11042; 99213

== ENCOUNTER → 2021-08-17 10:56 | Outpatient (CLI) | payer MEDICARE, MEDICAID, SELFPAY ==
[2021-06-04 20:42] VITALS: BMI 20.7
== END ==
PROVIDERS: PCP Emergency Medicine; Referring Provider Emergency Medicine; Visit Provider Family Medicine
DX: T81.89XA Other complications of procedures, not elsewhere classified, initial encounter (principal); S41.001A Unspecified open wound of right shoulder, initial encounter; S41.002A Unspecified open wound of left shoulder, initial encounter; F11.10 Opioid abuse, uncomplicated; Z72.0 Tobacco use; Z79.01 Long term (current) use of anticoagulants
CPT/HCPCS: 15271; 99212; Q4110

== ENCOUNTER → 2021-08-27 10:17 | Outpatient (CLI) | payer MEDICARE, MEDICAID, SELFPAY ==
[2021-06-04 20:42] VITALS: BMI 20.7
== END ==
PROVIDERS: PCP Emergency Medicine; Referring Provider Emergency Medicine; Visit Provider Family Medicine
DX: T81.89XA Other complications of procedures, not elsewhere classified, initial encounter (principal); S41.001A Unspecified open wound of right shoulder, initial encounter; S41.002A Unspecified open wound of left shoulder, initial encounter
CPT/HCPCS: 99213

== ENCOUNTER → 2021-09-03 12:11 | Outpatient (CLI) | payer MEDICARE, MEDICAID, SELFPAY ==
[2021-06-04 20:42] VITALS: BMI 20.7
== END ==
PROVIDERS: PCP Emergency Medicine; Referring Provider Emergency Medicine; Visit Provider Family Medicine
DX: T81.89XA Other complications of procedures, not elsewhere classified, initial encounter (principal); S41.001A Unspecified open wound of right shoulder, initial encounter; S41.002A Unspecified open wound of left shoulder, initial encounter; F11.10 Opioid abuse, uncomplicated; Z72.0 Tobacco use; Z79.01 Long term (current) use of anticoagulants
CPT/HCPCS: 11042; 99212

== ENCOUNTER → 2021-09-10 10:36 | Outpatient (CLI) | payer MEDICARE, MEDICAID, SELFPAY ==
[2021-06-04 20:42] VITALS: BMI 20.7
== END ==
PROVIDERS: PCP Emergency Medicine; Referring Provider Emergency Medicine; Visit Provider Family Medicine
DX: T81.89XA Other complications of procedures, not elsewhere classified, initial encounter (principal); S41.001A Unspecified open wound of right shoulder, initial encounter; F11.10 Opioid abuse, uncomplicated; Z72.0 Tobacco use; Z79.01 Long term (current) use of anticoagulants
CPT/HCPCS: 15271; 99212; Q4110

== ENCOUNTER → 2021-09-15 10:52 | Outpatient (CLI) | payer MEDICARE, MEDICAID, SELFPAY ==
[2021-06-04 20:42] VITALS: BMI 20.7
== END ==
PROVIDERS: PCP Emergency Medicine; Referring Provider Emergency Medicine; Visit Provider Family Medicine
DX: T81.89XA Other complications of procedures, not elsewhere classified, initial encounter (principal); S41.001A Unspecified open wound of right shoulder, initial encounter; F11.10 Opioid abuse, uncomplicated; Z72.0 Tobacco use; Z79.01 Long term (current) use of anticoagulants
CPT/HCPCS: 99212; 99213

== ENCOUNTER → 2021-09-22 11:45 | Outpatient (CLI) | payer MEDICARE, MEDICAID, SELFPAY ==
[2021-06-04 20:42] VITALS: BMI 20.7
== END ==
PROVIDERS: PCP Emergency Medicine; Referring Provider Emergency Medicine; Visit Provider Family Medicine
DX: T81.89XA Other complications of procedures, not elsewhere classified, initial encounter (principal); S41.001A Unspecified open wound of right shoulder, initial encounter
CPT/HCPCS: 99212

== ENCOUNTER → 2021-09-24 09:45 | Outpatient (CLI) | payer MEDICARE, MEDICAID, SELFPAY ==
[2021-06-04 20:42] VITALS: BMI 20.7
== END ==
PROVIDERS: PCP Emergency Medicine; Referring Provider Emergency Medicine; Visit Provider Family Medicine
DX: T81.89XA Other complications of procedures, not elsewhere classified, initial encounter (principal); S41.001A Unspecified open wound of right shoulder, initial encounter; L08.9 Local infection of the skin and subcutaneous tissue, unspecified; F11.10 Opioid abuse, uncomplicated; Z72.0 Tobacco use; Z79.01 Long term (current) use of anticoagulants
CPT/HCPCS: 11042; 87070; 87075; 87077; 87186; 87205; 99214

== ENCOUNTER → 2021-09-29 10:02 | Outpatient (CLI) | payer MEDICARE, MEDICAID, SELFPAY ==
[2021-06-04 20:42] VITALS: BMI 20.7
== END ==
PROVIDERS: PCP Emergency Medicine; Referring Provider Emergency Medicine; Visit Provider Family Medicine
DX: T81.89XA Other complications of procedures, not elsewhere classified, initial encounter (principal); S41.001A Unspecified open wound of right shoulder, initial encounter; L08.89 Other specified local infections of the skin and subcutaneous tissue; B95.62 Methicillin resistant Staphylococcus aureus infection as the cause of diseases classified elsewhere; F11.10 Opioid abuse, uncomplicated; Z72.0 Tobacco use; Z79.01 Long term (current) use of anticoagulants
CPT/HCPCS: 99213; 99214

== ENCOUNTER → 2021-10-07 14:16 | Outpatient (CLI) | payer MEDICARE, MEDICAID, SELFPAY ==
[2021-06-04 20:42] VITALS: BMI 20.7
== END ==
PROVIDERS: PCP Emergency Medicine; Referring Provider Emergency Medicine; Visit Provider Family Medicine
DX: Z09 Encounter for follow-up examination after completed treatment for conditions other than malignant neoplasm (principal); F11.10 Opioid abuse, uncomplicated; Z72.0 Tobacco use; Z87.2 Personal history of diseases of the skin and subcutaneous tissue
CPT/HCPCS: 99212

== ENCOUNTER 2021-12-03 18:21 | Emergency (ER) | payer MEDICARE, MEDICAID, SELFPAY ==
[2021-06-04 20:42] VITALS: BMI 20.7
[2021-12-03] VITALS (11 sets, daily range): BP systolic 140–189; BP diastolic 62–96; PULSE 62–90; RESP 20–31; TEMP 36.1; O2SAT 93–100; BMI 19.0
--- NOTE | 2021-12-03 18:29 | DI.CT.S_ITS ---
PROCEDURE: CT CERVICAL SPINE WO CON INDICATIONS: fall with head injury on thinners/alcohol TECHNIQUE: Noncontrast 3 mm thick sections acquired from the skull base to the T4 level. Sagittal and coronal reformats were then constructed. For radiation dose reduction, the following was used: automated exposure control, adjustment of mA and/or kV according to patient size. COMPARISON: None. FINDINGS: Image quality: Excellent Bones: Moderate spondylotic changes. No acute fracture or dislocation Soft tissues: Prevertebral soft tissues are normal in thickness. No paravertebral hematomas. No apical pneumothoraces. IMPRESSION: Moderate spondylotic changes. No acute fracture or traumatic subluxation of the cervical spine. Dictated by: Manuel Bullock M.D. on 12/03/2021 at 19:20 Approved by: Manuel Bullock M.D. on 12/03/2021 at 19:22
--- NOTE | 2021-12-03 18:29 | DI.RAD.S_ITS ---
PROCEDURE: XR PELVIS 1-2V INDICATIONS: trauma TECHNIQUE: 1 view(s) of the pelvis acquired. COMPARISON: None. FINDINGS: Bones: No fractures or dislocations. No suspicious bony lesions. Soft tissues: Visualized bowel gas pattern is normal. No suspicious soft tissue calcifications. IMPRESSION: No acute radiographic abnormality. If there is high concern for occult injury, consider cross-sectional imaging. Dictated by: Manuel Bullock M.D. on 12/03/2021 at 19:16 Approved by: Manuel Bullock M.D. on 12/03/2021 at 19:17
--- NOTE | 2021-12-03 18:29 | DI.RAD.S_ITS ---
PROCEDURE: XR CHEST 1V INDICATIONS: trauma TECHNIQUE: One view of the chest was acquired. COMPARISON: [facility], CR, XR CHEST 1V, 03/04/2021, 18:44. [facility], CR, XR CHEST 1V, 01/17/2021, 9:20. FINDINGS: Surgical changes and devices: None. Lungs and pleura: Lungs are clear. No pleural effusions or pneumothorax. Mediastinum: Mediastinal contours appear normal. Heart size is normal. Bones and chest wall: No suspicious bony lesions. Overlying soft tissues appear unremarkable. IMPRESSION: No acute radiographic abnormality. Dictated by: Manuel Bullock M.D. on 12/03/2021 at 19:16 Approved by: Manuel Bullock M.D. on 12/03/2021 at 19:16
--- NOTE | 2021-12-03 18:29 | DI.CT.S_ITS ---
PROCEDURE: CT HEAD/BRAIN WO CON INDICATIONS: fall with head injury, on thinners TECHNIQUE: Noncontrast 4.5 mm thick angled axial sections acquired from the foramen magnum to the vertex, with coronal and sagittal reformats. For radiation dose reduction, the following was used: automated exposure control, adjustment of mA and/or kV according to patient size. COMPARISON: [facility], CT, CT HEAD/BRAIN WO CON, 02/25/2021, 17:17. FINDINGS: Image quality: Excellent. CSF spaces: Basal cisterns are patent. No extra-axial fluid collections. Ventricles are normal in size and shape. Brain: No midline shift. No intracranial masses or hemorrhage. Guevara-white matter interface is normal. Moderate volume loss. There are vascular calcifications. Periventricular white matter hypoattenuation likely reflects chronic small vessel disease. Skull and face: Calvarium and visualized facial bones are intact, without suspicious lesions. Sinuses: Visualized sinuses and mastoids are clear. IMPRESSION: No acute intracranial abnormality. Chronic volume loss. Vascular calcifications. Dictated by: Manuel Bullock M.D. on 12/03/2021 at 19:18 Approved by: Manuel Bullock M.D. on 12/03/2021 at 19:20
--- NOTE | 2021-12-03 18:33 | ED_ITS ---
HPI - Fall General Chief Complaint: Fall Stated Complaint: GLF,ETOH on board,+blood thinners Time Seen by Provider: 12/03/21 18:29 Source: patient and EMS Mode of arrival: EMS History of Present Illness HPI Narrative: 71M smoker with history of IVDA and use of anticoagulation (occasionally) presents by EMS for evaluation of a fall with head injury just prior to arrival. Patient denies any significant injury and admits that he feels quite well. He denies any neck or back pain. He has no S pain or shortness of breath. Denies abdominal pain or lower extremity injury such as hip, knee or ankle. He does have a superficial skin tear on the dorsum of his left hand. He admits to drinking alcohol today but is unclear on exactly how much that is. An unknown bystander called EMS. Related Data Home Medications Medication Instructions Recorded Confirmed apixaban 5 mg tablet (Eliquis) 5 mg PO BID 06/04/21 06/04/21 glecaprevir 100 mg-pibrentasvir 40 3 tab PO DAILY 06/04/21 06/04/21 mg tablet (Mavyret) Previous Rx's Medication Instructions Recorded cephalexin 500 mg capsule 500 mg PO QID #28 caps 06/07/21 cephalexin 500 mg capsule 500 mg PO QID #28 caps 06/07/21 Allergies Allergy/AdvReac Type Severity Reaction Status Date / Time No Known Drug Allergies Allergy Verified 12/03/21 18:23 Review of Systems Review of Systems Narrative: GENERAL: Denies chills, fatigue, malaise, fever, sweats. HEENT: Denies sinus pain, ear pain, sore throat, difficulty swallowing, dizziness. RESPIRATORY: Denies dyspnea, cough, wheezing, hemoptysis, sputum. CARDIOVASCULAR: Denies chest pain, palpitations, orthopnea, edema, GASTROINTESTINAL: Denies nausea, vomiting, abdominal pain, diarrhea, constipatio n, melena. : Denies dysuria, frequency, incontinence, hematuria, urinary retention. MUSCULOSKELETAL: see HPI SKIN: Denies rash, skin lesions, or other NEUROLOGIC: Denies weakness, headache, numbness, change in speech, confusion, seizures, incoordination. PSYCHIATRIC: No concerning psychosocial issues. 12 point review of systems is negative except for those stated above Patient History Medical History Abscess Acute CVA (cerebrovascular accident) Hepatitis C antibody test positive Heroin abuse Family History Father Cancer Social History household members: none Smoking Status: Current every day smoker Smoking Status: Current every day smoker alcohol intake frequency: 3 or more drinks per day Substance Use Type: marijuana and heroin Exam Narrative Exam Narrative: GENERAL: [71] year old patient appears stated age. Well-developed patient, in mild distress.GCS 15 HEAD: minimal super purple hematoma over left brow, no evidence of depressed skull fracture EYES: Pupils equal round and reactive. Extraocular motions intact. No scleral icterus. No injection or drainage. ENT: Nose without bleeding, purulent drainage. Throat without erythema, tonsillar hypertrophy or exudate. Airway patent. NECK: Trachea midline. Non tender CARDIOVASCULAR: Regular rate and rhythm without murmurs, gallops, or rubs. RESPIRATORY: Clear to auscultation. Breath sounds equal bilaterally. No wheezes, rales, or rhonchi. GASTROINTESTINAL: Abdomen soft, non-tender, nondistended. EXTREMITIES: Superficial abrasion with skin tear on dorsum of left hand BACK: Nontender without deformity or crepitance. No flank tenderness. NEURO: AOx3. SKIN: No rash or erythema of visible areas Initial Vital Signs Initial Vital Signs: Vital Signs Temperature 97.0 F L 12/03/21 18:23 Pulse Rate 72 12/03/21 18:23 Respiratory Rate 20 12/03/21 18:23 Blood Pressure 189/96 H 12/03/21 18:23 Pulse Oximetry 100 12/03/21 18:23 Oxygen Delivery Method 12/03/21 18:23 Course Orders Ordered: Discontinued Medications Diphtheria/Tetanus/Acell Pertussis (Tet,Diph,Pertuss(Acell),Vac/Pf 0.5 Ml Syringe) 0.5 ml IM .ONCE ONE Stop: 12/03/21 18:30 Last Admin: 12/03/21 19:46 Dose: 0.5 ml Documented By: NR Vital Signs Vital signs: Vital Signs - 8 hr 12/03/21 22:30 12/03/21 23:00 12/03/21 23:30 Pulse Rate 79 88 78 Respiratory Rate 21 21 21 Pulse Oximetry 100 98 95 MDM - Fall Lab Data Result diagrams: 12/03/21 19:45 12/03/21 19:45 Labs: Lab Results 12/03/21 12/03/21 12/03/21 Range/Units 19:45 19:45 19:45 WBC 7.5 (4.5-11.0) X10^3/uL RBC 4.75 (4.5-5.9) X10^6/uL Hgb 14.6 (13.5-17.5) g/dL Hct 43.9 (41-53) % MCV 92.5 (80-100) fL MCH 30.8 (26-34) PG MCHC 33.3 (30-36) % RDW 17.1 H (11.6-14.8) % Plt Count 266 (150-400) X10^3/uL Neut % (Auto) 59.4 (50-75) % Lymph % (Auto) 31.1 (25-40) % [place] % (Auto) 4.4 (3-14) % Eos % (Auto) 4.1 H (2-4) % Baso % (Auto) 1.0 (0-2) % Neut # (Auto) 4500 (2259-1480) /uL Lymph # (Auto) 2300 (0670-2188) /uL [place] # (Auto) 300 (0-900) /uL Eos # (Auto) 300 (0-450) /uL Baso # (Auto) 100 (0-100) /uL PT 10.3 (10.1-12.7) SECONDS INR 0.9 (0.9-1.3) Sodium 145 (137-145) mmol/L Potassium 4.1 (3.4-5.1) mmol/L Chloride 107 (98-107) mmol/L Carbon Dioxide 26 (22-32) mmol/L BUN 13 (9-20) mg/dL Creatinine 0.83 (0.66-1.25) mg/dL Estimated GFR > 60 (>60) mL/min BUN/Creatinine Ratio 15.7 (6-22) Glucose 94 (80-110) mg/dL Calcium 8.9 (8.4-10.2) mg/dL Total Bilirubin 0.4 (0.2-1.3) mg/dL AST 133 H (17-59) IU/L ALT 67 H (<50) IU/L Alkaline Phosphatase 83 (38-126) U/L Total Protein 8.5 H (6.3-8.2) g/dL Albumin 4.3 (3.5-5.0) g/dL Globulin 4.2 H (1.7-4.1) g/dL Albumin/Globulin Ratio 1.0 (1.0-2.8) Ethyl Alcohol 337 H ( - 10) mg/dL Imaging Data CT scan - head: Radiologist's Impression: [address] [address] [address] Scan Report Signed Patient: Mino Benitez MR#: [id number] : 1950 Acct:[id number] Age/Sex: 71 / M Date of Service: 12/03/21 Loc: ED Accession Number: [id number] ?? Procedure: CT head/brain wo con Ordering Provider: César Wheeler D.O. PROCEDURE:? CT HEAD/BRAIN WO CON ? INDICATIONS:? fall with head injury, on thinners ? TECHNIQUE:? Noncontrast 4.5 mm thick angled axial sections acquired from the foramen magnum to the vertex, with coronal and sagittal reformats.? For radiation dose reduction, the following was used:? automated exposure control, adjustment of mA and/or kV according to patient size.? ? COMPARISON:? [facility], CT, CT HEAD/BRAIN WO CON, 02/25/2021, 17:17. ? FINDINGS:? Image quality:? Excellent.? ? CSF spaces:? Basal cisterns are patent.? No extra-axial fluid collections.? Ventricles are normal in size and shape.? ? Brain:? No midline shift.? No intracranial masses or hemorrhage.? Guevara-white matter interface is normal.? Moderate volume loss.? There are vascular calcifications.? Periventricular white matter hypoattenuation likely reflects chronic small vessel disease. ? Skull and face:? Calvarium and visualized facial bones are intact, without suspicious lesions.? ? Sinuses:? Visualized sinuses and mastoids are clear.? ? IMPRESSION:? No acute intracranial abnormality.? Chronic volume loss.? Vascular calcifications.? ? ? Dictated by: Manuel Bullock M.D. on 12/03/2021 at 19:18 ? ? Approved by: Manuel Bullock M.D. on 12/03/2021 at 19:20 ? CT - cervical spine: Radiologist's Impression: [address] [address] [address] Scan Report Signed Patient: Mino Benitez MR#: [id number] : 1950 Acct:[id number] Age/Sex: 71 / M Date of Service: 12/03/21 Loc: ED Accession Number: [id number] ?? Procedure: CT cervical spine wo con Ordering Provider: César Wheeler D.O. PROCEDURE:? CT CERVICAL SPINE WO CON ? INDICATIONS:? fall with head injury on thinners/alcohol ? TECHNIQUE:? Noncontrast 3 mm thick sections acquired from the skull base to the T4 level.? Sagittal and coronal reformats were then constructed.? For radiation dose reduction, the following was used:? automated exposure control, adjustment of mA and/or kV according to patient size.? ? COMPARISON:? None. ? FINDINGS:? Image quality:?? Excellent Bones:? Moderate spondylotic changes.? No acute fracture or dislocation ? Soft tissues:? Prevertebral soft tissues are normal in thickness.? No paravertebral hematomas.? No apical pneumothoraces.? ? ? IMPRESSION:? Moderate spondylotic changes.? No acute fracture or traumatic subluxation of the cervical spine. ? Dictated by: Manuel Bullock M.D. on 12/03/2021 at 19:20 ? ? Approved by: Manuel Bullock M.D. on 12/03/2021 at 19:22 ? Chest x-ray: Radiologist's Impression: Close Pelvis X-Ray (Signed) Manuel Bullock - 12/03/[address] (Signed) Kobe,Manuel - 12/03/21 Chest X-Ray (Signed) Kobe,Maunel - 12/03/[address] (Signed) Kobe,Manuel - 12/03/21 Telemetry Strips 06/04/[address] (Signed) Gifty Taveras - 06/03/[address] (Signed) Gifty Taveras - 06/03/21 Chest X-Ray (Signed) Thang Talley - 03/04/[address] (Signed) Kevin Rosario - 02/25/21 Chest X-Ray (Signed) Angelo Veras - 01/17/21 Lumbar Spine MRI (Signed) Thang Talley - 10/10/20 Telemetry Strips 10/09/[address] (Signed) Dwight Mayer - 10/09/20 Lumbar Spine MRI (Signed) Thang Talley - 10/09/[address] (Signed) EdwardConner - 10/09/[address] (Signed) Dwight Mayer - 10/09/20 Echocardiogram Ultrasound (Signed) Terrell Joy - 10/08/20 Chest X-Ray (Signed) Víctor Galarza - 10/07/20 Chest X-Ray (Signed) DionneNora - 05/02/20 Launch?Image [address] [address] XRay Report Signed Patient: Mino Benitez MR#: [id number] : 1950 Acct:[id number] Age/Sex: 71 / M Date of Service: 12/03/21 Loc: ED Accession Number: [id number] ?? Procedure: XR chest 1V Ordering Provider: César Wheeler D.O. PROCEDURE:? XR CHEST 1V ? INDICATIONS:? trauma ? TECHNIQUE:? One view of the chest was acquired.? ? COMPARISON:? [facility], , XR CHEST 1V, 03/04/2021, 18:44.? [facility], , XR CHEST 1V, 01/17/2021, 9:20. ? FINDINGS:? ? Surgical changes and devices:? None.? ? Lungs and pleura:? Lungs are clear.? No pleural effusions or pneumothorax.? ? Mediastinum:? Mediastinal contours appear normal.? Heart size is normal.? ? Bones and chest wall:? No suspicious bony lesions.? Overlying soft tissues appear unremarkable.? ? IMPRESSION:? No acute radiographic abnormality. ? ? Dictated by: Manuel Bullock M.D. on 12/03/2021 at 19:16 ? ? Approved by: Manuel Bullock M.D. on 12/03/2021 at 19:16 ? Abdominal x-ray: Radiologist's Impression: [address] [address] XRay Report Signed Patient: Mino Benitez MR#: [id number] : 1950 Acct:[id number] Age/Sex: 71 / M Date of Service: 12/03/21 Loc: ED Accession Number: [id number] ?? Procedure: XR pelvis 1-2V Ordering Provider: César Wheeler D.O. PROCEDURE:? XR PELVIS 1-2V ? INDICATIONS:? trauma ? TECHNIQUE:? 1 view(s) of the pelvis acquired.? ? COMPARISON:? None. ? FINDINGS:? ? Bones:? No fractures or dislocations.? No suspicious bony lesions.? ? Soft tissues:? Visualized bowel gas pattern is normal.? No suspicious soft tissue calcifications.? ? IMPRESSION:? No acute radiographic abnormality.? If there is high concern for occult injury, consider cross-sectional imaging. ? ? Dictated by: Manuel Bullock M.D. on 12/03/2021 at 19:16 ? ? Approved by: Manuel Bullock M.D. on 12/03/2021 at 19:17 ? MDM Narrative Medical decision making narrative: Patient had what appears to be a low energy ground level fall without evidence of any significant injury. Imaging is very reassuring. Patient is alert and oriented, demonstrates capacity to make his own decisions, speaks clearly without slurring his words and walks at his baseline gait. We have arranged for a ride home, he has people meeting him there return precautions discussed Discharge Plan Departure Patient Disposition: Home Clinical Impression: Fall, Skin tear, Alcohol abuse Instructions: How to Prevent Falls Activity Restrictions/Additional Instructions: *You have been diagnosed with [fall with superficial skin tear. As we discussed your CT scans and x-rays are unremarkable as is your blood work. There is no significant abnormality or injury that would require specific or immediate intervention] *What to do: *Please continue to take your regular medications as directed. [ ] New medication prescriptions sent to your pharmacy: [ ] [ ] New medication written as a paper prescription [ x] No new medications given *Please follow up with your primary care provider in 2-3 days, call for an appointment. Let them know you were seen in the Emergency Department and that we ask that you be seen in follow up. We will electronically transmit a record of today's note if your PCP is in our system *If you do not have a primary care provider please contact the [facility] Resource line at [phone]. They will ask some questions about your medical history and help get you set up with a doctor in the community. *Return to Emergency Department if you should have any new, worsening or concerning symptoms, such as [fever greater than 101 F, shaking chills, worsen ing pain, persistent vomiting or other bothersome symptoms] Prescriptions: No Action Eliquis 5 mg tablet 5 mg PO BID Label Comments: take 1 tablet by mouth twice a day Mavyret 100-40 mg tablet 3 tab PO DAILY Label Comments: TAKE 3 TABLETS BY MOUTH EVERY DAY cephalexin 500 mg capsule 500 mg PO QID Qty: 28 0RF cephalexin 500 mg capsule 500 mg PO QID Qty: 28 0RF Referrals: Phil Duffy MD [Primary Care Provider] - Visit Report Forms: Patient Portal/API
--- NOTE | 2021-12-03 19:29 | PC.NURSE ---
pt appears intoxicated. pt is unsure when and where he fell, he talks about falling all the time. states he fell yesterday and injured his left hand and left knee. has an abrasion on right knee that appears fresh. bruise on left side of fore head pt states has maybe been there for a day or two. pt states he doesn't like taking his eliquis because he doesn't feel like it is working, it just makes him bruise and bleed all over. pt states he took it last night.
[2021-12-03] MEDS: TET,DIPH,PERTUSS(ACELL),VAC/PF 0.5 ML SYRINGE IM (19:46)
[2021-12-03 20:07] LABS: Add Manual Diff / Slide Review NO; Basophils Absolute Auto 100 /uL (0-100); Eosinophils Absolute Auto 300 /uL (0-450); Eosinophils Percent Auto 4.1 % (2-4); Hematocrit 43.9 % (41-53); Hemoglobin 14.6 g/dL (13.5-17.5); Lymphocytes Absolute Auto 2300 /uL (1100-4500); Lymphocytes Percent Auto 31.1 % (25-40); Mean Corpuscular HGB Conc 33.3 % (30-36); Mean Corpuscular Hemoglobin 30.8 PG (26-34); Mean Corpuscular Volume 92.5 fL (80-100); Monocytes Absolute Auto 300 /uL (0-900); Monocytes Percent Auto 4.4 % (3-14); Neutrophils Absolute Auto 4500 /uL (1500-7000); Neutrophils Percent Auto 59.4 % (50-75); Platelet Count 266 X10^3/uL (150-400); Red Blood Cell Count 4.75 X10^6/uL (4.5-5.9); Red Cell Distribution Width 17.1 % (11.6-14.8); White Blood Cell Count 7.5 X10^3/uL (4.5-11.0)
[2021-12-03 20:13] LABS: INR 0.9 (0.9-1.3); Prothrombin Time 10.3 SECONDS (10.1-12.7)
[2021-12-03 20:18] LABS: Alanine Aminotransferase 67 IU/L (<50); Albumin 4.3 g/dL (3.5-5.0); Alkaline Phosphatase 83 U/L (38-126); Aspartate Aminotransferase 133 IU/L (17-59); BUN Creatinine Ratio 15.7 (6-22); Bilirubin Total 0.4 mg/dL (0.2-1.3); Blood Urea Nitrogen 13 mg/dL (9-20); Calcium 8.9 mg/dL (8.4-10.2); Carbon Dioxide 26 mmol/L (22-32); Chloride 107 mmol/L (98-107); Estimated Glomerular Filt Rate > 60 mL/min (>60); Globulin 4.2 g/dL (1.7-4.1); Glucose 94 mg/dL (80-110); HEMOLYSIS < 15 (0-50); Potassium 4.1 mmol/L (3.4-5.1); Sodium 145 mmol/L (137-145); Total Protein 8.5 g/dL (6.3-8.2)
[2021-12-03 20:25] LABS: Ethanol (ETOH) 337 mg/dL
== END 2021-12-04 00:01 | disposition home or self-care (01) ==
PROVIDERS: Emergency Provider Emergency Medicine; PCP Emergency Medicine
DX: S61.412A Laceration without foreign body of left hand, initial encounter (principal); S09.90XA Unspecified injury of head, initial encounter; F10.129 Alcohol abuse with intoxication, unspecified; Y90.8 Blood alcohol level of 240 mg/100 ml or more; Z79.01 Long term (current) use of anticoagulants; W19.XXXA Unspecified fall, initial encounter; Z23 Encounter for immunization
CPT/HCPCS: 36415; 70450; 71045; 72125; 72170; 80053; 80320; 85025; 85610; 90471; 93005; 99284; 90715

== ENCOUNTER 2022-03-01 15:12 | Emergency (ER) | payer MEDICARE, MEDICAID, SELFPAY ==
[2021-06-04 20:42] VITALS: BMI 20.7
[2022-03-01 15:15] VITALS: BP 135/88; PULSE 83; RESP 17; TEMP 36.4; O2SAT 99
--- NOTE | 2022-03-01 15:57 | ED.SKABFB ---
HPI - Skin/Abscess/Foreign Bdy General Chief complaint: Skin/Abscess/Foreign Body Stated complaint: Feet swollen, Pain Time Seen by Provider: 03/01/22 15:51 Source: patient Mode of arrival: Ambulatory History of Present Illness HPI narrative: Patient is a 72-year-old male. Known history of drug abuse and also alcohol use. Is here because of redness and swelling to both of his legs. He states that a couple days/weeks ago he had some severe itching in his legs. He scratches like so much that he excoriated his legs. Since that time he has had increasing swelling and redness and pain and weeping from the areas. He has not tried anything for his symptoms. No fevers. Overall he does feel well. No chest pain. No shortness of breath. Related Data Home Medications Medication Instructions Recorded Confirmed apixaban 5 mg tablet (Eliquis) 5 mg PO BID 06/04/21 06/04/21 glecaprevir 100 mg-pibrentasvir 40 3 tab PO DAILY 06/04/21 06/04/21 mg tablet (Mavyret) Previous Rx's Medication Instructions Recorded doxycycline hyclate 100 mg tablet 100 mg PO BID 10 days #20 tabs 03/01/22 Allergies Allergy/AdvReac Type Severity Reaction Status Date / Time No Known Drug Allergies Allergy Verified 12/03/21 18:23 Review of Systems Constitutional Constitutional: Reports system reviewed and no additional complaints, except as documented Respiratory Respiratory: Reports system reviewed and no additional complaints, except as documented Musculoskeletal Musculoskeletal: Reports system reviewed and no additional complaints, except as documented Integumentary/Breasts Skin/Breast: Reports system reviewed and no additional complaints, except as documented Hematologic/Lymphatic On Anticoagulants: No Patient History Medical History Abscess Acute CVA (cerebrovascular accident) Hepatitis C antibody test positive Heroin abuse Family History Father Cancer Social History household members: none Smoking Status: Current every day smoker Smoking Status: Current every day smoker alcohol intake frequency: 3 or more drinks per day Alcohol type: hard liquor Substance Use Type: marijuana and heroin Exam Initial Vital Signs Initial Vital Signs: Vital Signs Temperature 97.6 F 03/01/22 15:15 Pulse Rate 83 03/01/22 15:15 Respiratory Rate 17 03/01/22 15:15 Blood Pressure 135/88 03/01/22 15:15 Pulse Oximetry 99 03/01/22 15:15 Oxygen Delivery Method 03/01/22 15:15 Const General: cooperative and disheveled [facility] Head: normal to inspection Resp Effort & Inspection: normal respiratory effort Cardio Rate: regular rate Pulses: dorsalis pedis present bilaterally Skin Other: Excoriation with superficial ulcerations to the front of both of his legs. There is surrounding erythema. Some warmth to the skin. No crepitus felt. Neuro General: patient alert, patient awake and moves all extremities Extrem Other: Swelling bilateral lower extremities with erythema and also excoriation/superficial ulcers to the front of both of his legs. Course Orders Ordered: ED Orders 03/01/22 15:40 Basic Metabolic Panel Stat Complete Blood Count AUTO DIFF Stat Lactate (Lactic Acid) Stat Procalcitonin Stat Vital Signs Vital signs: Vital Signs - 8 hr 03/01/22 15:15 03/01/22 16:37 03/01/22 16:39 Temperature 97.6 F Pulse Rate 83 72 Respiratory Rate 17 Blood Pressure 135/88 125/60 Pulse Oximetry 99 96 Oxygen Delivery Method Room Air Room Air 03/01/22 16:39 03/01/22 17:00 03/01/22 17:00 Temperature Pulse Rate 74 66 Respiratory Rate Blood Pressure 129/60 Pulse Oximetry 99 98 Oxygen Delivery Method Room Air Room Air MDM - Skin/Abscess/Foreign Bdy Lab Data Attestation: I reviewed the patient's lab results. Result diagrams: 03/01/22 15:40 03/01/22 15:40 Labs: Lab Results 03/01/22 03/01/22 03/01/22 Range/Units 15:40 15:40 15:40 WBC 7.8 (4.5-11.0) X10^3/uL RBC 4.14 L (4.5-5.9) X10^6/uL Hgb 13.2 L (13.5-17.5) g/dL Hct 39.8 L (41-53) % MCV 96.1 (80-100) fL MCH 31.9 (26-34) PG MCHC 33.2 (30-36) % RDW 17.5 H (11.6-14.8) % Plt Count 366 (150-400) X10^3/uL Neut % (Auto) 49.8 L (50-75) % Lymph % (Auto) 36.7 (25-40) % [place] % (Auto) 6.9 (3-14) % Eos % (Auto) 6.4 H (2-4) % Baso % (Auto) 0.2 (0-2) % Neut # (Auto) 3900 (8611-0276) /uL Lymph # (Auto) 2900 (6801-0116) /uL [place] # (Auto) 500 (0-900) /uL Eos # (Auto) 500 H (0-450) /uL Baso # (Auto) 0 (0-100) /uL Sodium 146 H (137-145) mmol/L Potassium 4.1 (3.4-5.1) mmol/L Chloride 110 H (98-107) mmol/L Carbon Dioxide 25 (22-32) mmol/L BUN 18 (9-20) mg/dL Creatinine 0.93 (0.66-1.25) mg/dL Estimated GFR > 60 (>60) mL/min BUN/Creatinine Ratio 19.4 (6-22) Glucose 84 (80-110) mg/dL Lactate 2.2 H (0.7-2.1) mmol/L Calcium 8.6 (8.4-10.2) mg/dL Procalcitonin (<0.5) ng/mL 03/01/22 Range/Units 15:40 WBC (4.5-11.0) X10^3/uL RBC (4.5-5.9) X10^6/uL Hgb (13.5-17.5) g/dL Hct (41-53) % MCV (80-100) fL MCH (26-34) PG MCHC (30-36) % RDW (11.6-14.8) % Plt Count (150-400) X10^3/uL Neut % (Auto) (50-75) % Lymph % (Auto) (25-40) % [place] % (Auto) (3-14) % Eos % (Auto) (2-4) % Baso % (Auto) (0-2) % Neut # (Auto) (0945-6224) /uL Lymph # (Auto) (7303-6578) /uL [place] # (Auto) (0-900) /uL Eos # (Auto) (0-450) /uL Baso # (Auto) (0-100) /uL Sodium (137-145) mmol/L Potassium (3.4-5.1) mmol/L Chloride (98-107) mmol/L Carbon Dioxide (22-32) mmol/L BUN (9-20) mg/dL Creatinine (0.66-1.25) mg/dL Estimated GFR (>60) mL/min BUN/Creatinine Ratio (6-22) Glucose (80-110) mg/dL Lactate (0.7-2.1) mmol/L Calcium (8.4-10.2) mg/dL Procalcitonin 0.05 (<0.5) ng/mL MDM Narrative Medical decision making narrative: Patient is afebrile. No leukocytosis. Does have findings that are consistent with either a dermatitis/cellulitis of both of his lower extremities. There is no crepitus felt. Low suspicion for ulcers. Despite being disheveled and most likely intoxicated he overall appears nontoxic. Plan be is to discharge home with oral antibiotics. He was given strict return precautions. He expressed understanding and agreement. He does have swelling to both of his lower extremities however is not clinically in heart failure. Discharge Plan Departure Patient Disposition: Home Clinical Impression: Cellulitis Instructions: DI for Cellulitis -- Adult Activity Restrictions/Additional Instructions: I recommend that you try to keep the areas clean with soap and water. A prescription for antibiotics was sent to the pharmacy of your choice. Please start taking it as directed. Contact your primary doctor for follow-up. Return to the emergency department for any new or worsening symptoms. Prescriptions: New doxycycline hyclate 100 mg tablet 100 mg PO BID 10 Days Qty: 20 0RF No Action Eliquis 5 mg tablet 5 mg PO BID Label Comments: take 1 tablet by mouth twice a day Mavyret 100-40 mg tablet 3 tab PO DAILY Label Comments: TAKE 3 TABLETS BY MOUTH EVERY DAY Referrals: Phil Duffy MD [Primary Care Provider] -
[2022-03-01 16:10] LABS: Add Manual Diff / Slide Review NO; Basophils Absolute Auto 0 /uL (0-100); Basophils Percent Auto 0.2 % (0-2); Eosinophils Absolute Auto 500 /uL (0-450); Eosinophils Percent Auto 6.4 % (2-4); Hematocrit 39.8 % (41-53); Hemoglobin 13.2 g/dL (13.5-17.5); Lymphocytes Absolute Auto 2900 /uL (1100-4500); Lymphocytes Percent Auto 36.7 % (25-40); Mean Corpuscular HGB Conc 33.2 % (30-36); Mean Corpuscular Hemoglobin 31.9 PG (26-34); Mean Corpuscular Volume 96.1 fL (80-100); Monocytes Absolute Auto 500 /uL (0-900); Monocytes Percent Auto 6.9 % (3-14); Neutrophils Absolute Auto 3900 /uL (1500-7000); Neutrophils Percent Auto 49.8 % (50-75); Platelet Count 366 X10^3/uL (150-400); Red Blood Cell Count 4.14 X10^6/uL (4.5-5.9); Red Cell Distribution Width 17.5 % (11.6-14.8); White Blood Cell Count 7.8 X10^3/uL (4.5-11.0)
[2022-03-01 16:16] LABS: BUN Creatinine Ratio 19.4 (6-22); Blood Urea Nitrogen 18 mg/dL (9-20); Calcium 8.6 mg/dL (8.4-10.2); Carbon Dioxide 25 mmol/L (22-32); Chloride 110 mmol/L (98-107); Estimated Glomerular Filt Rate > 60 mL/min (>60); Glucose 84 mg/dL (80-110); HEMOLYSIS 19 (0-50); Lactate (Lactic Acid) 2.2 mmol/L (0.7-2.1); Potassium 4.1 mmol/L (3.4-5.1); Sodium 146 mmol/L (137-145)
[2022-03-01 16:37] VITALS: PULSE 72; O2SAT 96
[2022-03-01 16:37] LABS: Procalcitonin 0.05 ng/mL (<0.5)
[2022-03-01 16:39] VITALS: BP 125/60; PULSE 74; O2SAT 99
[2022-03-01 17:00] VITALS: BP 129/60; PULSE 66; O2SAT 98
[2022-03-01 17:30] VITALS: BP 126/62; PULSE 76; O2SAT 98
[2022-03-01 18:05] LABS: Reflexed Lactate in 2 Hours Y
== END 2022-03-01 18:10 | disposition home or self-care (01) ==
PROVIDERS: Emergency Provider Emergency Medicine; PCP Emergency Medicine
DX: L03.116 Cellulitis of left lower limb (principal); L03.115 Cellulitis of right lower limb
CPT/HCPCS: 36415; 80048; 83605; 84145; 85025; 99283

== ENCOUNTER 2022-03-13 14:37 | Emergency (ER) | payer MEDICARE, MEDICAID, SELFPAY ==
[2021-06-04 20:42] VITALS: BMI 20.7
[2022-03-13 14:50] VITALS: BP 132/63; PULSE 79; RESP 22; TEMP 36.3; O2SAT 98; BMI 21.7
--- NOTE | 2022-03-13 15:42 | ED.SKABFB ---
HPI - Skin/Abscess/Foreign Bdy <Velvet An PA-C - Last Filed: 03/13/22 21:16> General Chief complaint: Skin/Abscess/Foreign Body Stated complaint: both legs infected t-14 Time Seen by Provider: 03/13/22 14:50 Source: patient Mode of arrival: Wheelchair Limitations: no limitations History of Present Illness HPI narrative: The patient is unfortunate 72 years old male, with history of IV drug abuse hepatitis-C, MRSA, presents today with bilateral leg pain, swelling, redness, and weeping discharge. Note he was recently treated for cellulitis with doxycycline, however he believes it did not make a difference in his leg edema and erythema, in fact it is worse. Admits to panel walking, ibuprofen is not helping. He denies fever chills. Related Data Home Medications Medication Instructions Recorded Confirmed apixaban 5 mg tablet (Eliquis) 5 mg PO BID 06/04/21 06/04/21 glecaprevir 100 mg-pibrentasvir 40 3 tab PO DAILY 06/04/21 06/04/21 mg tablet (Mavyret) Previous Rx's Medication Instructions Recorded cephalexin 500 mg capsule 500 mg PO TID #30 caps 03/13/22 gabapentin 100 mg capsule 100 mg PO TID #90 caps 03/13/22 (Neurontin) mupirocin 2 % topical ointment 1 applic topical TID 15 days #3 03/13/22 tubes spironolactone 25 mg tablet 25 mg PO DAILY #30 tabs 03/13/22 (Aldactone) Allergies Allergy/AdvReac Type Severity Reaction Status Date / Time No Known Drug Allergies Allergy Verified 12/03/21 18:23 Review of Systems <Velvet An PA-C - Last Filed: 03/13/22 21:16> Review of Systems Narrative: GENERAL: Denies chills, admits to fatigue , malaise, fever, sweats. HEENT: Denies sinus pain, ear pain, sore throat, difficulty swallowing, dizziness. RESPIRATORY: Denies dyspnea, cough, wheezing, hemoptysis, sputum. CARDIOVASCULAR: Denies chest pain, palpitations, orthopnea, edema, GASTROINTESTINAL: Denies nausea, vomiting, abdominal pain, diarrhea, constipation, melena. : Denies dysuria, frequency, incontinence, hematuria, urinary retention. MUSCULOSKELETAL: Admits to joint pain, no bony pain SKIN: Painful lower extremity swelling and blistering NEUROLOGIC: Denies focal weakness, headache, admits to burning pain and lower extremity Patient History <Velvet An PA-C - Last Filed: 03/13/22 21:16> Medical History Abscess Acute CVA (cerebrovascular accident) Hepatitis C antibody test positive Heroin abuse Family History Father Cancer Social History household members: none Smoking Status: Current every day smoker Smoking Status: Current every day smoker alcohol intake frequency: 3 or more drinks per day Alcohol type: hard liquor Substance Use Type: marijuana and heroin Exam <Velvet An PA-C - Last Filed: 03/13/22 21:16> Narrative Exam Narrative: GENERAL: 72 year old patient appears stated age. Thin unkempt patient, in no acute distress. He appears comfortable hospital bed HEAD: Atraumatic. Normocephalic. EYES: Pupils equal round and reactive. Extraocular motions intact. No scleral icterus. No injection or drainage. ENT: Nose without bleeding, purulent drainage. Throat without erythema, tonsillar hypertrophy or exudate. Airway patent. NECK: Trachea midline. Non tender CARDIOVASCULAR: Regular rate and rhythm without murmurs, gallops, or rubs. RESPIRATORY: Clear to auscultation. Breath sounds equal bilaterally. No wheezes, rales, or rhonchi. GASTROINTESTINAL: Abdomen soft, non-tender, nondistended. EXTREMITIES: Left lower extremity with erythema edema there are several opened blistering wounds with serosanguineous discharge, the right lower extremity with lesser extent erythema edema BACK: Nontender without deformity or crepitance. No flank tenderness. NEURO: AOx3. SKIN: As above swelling lower extremity Initial Vital Signs Initial Vital Signs: Vital Signs Temperature 97.4 F L 03/13/22 14:50 Pulse Rate 79 03/13/22 14:50 Respiratory Rate 22 03/13/22 14:50 Blood Pressure 132/63 03/13/22 14:50 Pulse Oximetry 98 03/13/22 14:50 Oxygen Delivery Method 03/13/22 14:50 <DO Norberto Stanley Last Filed: 03/14/22 07:13> Initial Vital Signs Initial Vital Signs: Vital Signs Temperature 97.4 F L 03/13/22 14:50 Pulse Rate 79 03/13/22 14:50 Respiratory Rate 22 03/13/22 14:50 Blood Pressure 132/63 03/13/22 14:50 Pulse Oximetry 98 03/13/22 14:50 Oxygen Delivery Method 03/13/22 14:50 Course <Velvet An PA-C - Last Filed: 03/13/22 21:16> Orders Ordered: Discontinued Medications Bacitracin (Bacitracin Oint 0.9 Gm Pckt) 10 applic TOP NOW ONE Stop: 03/13/22 17:36 Last Admin: 03/13/22 18:15 Dose: 7 applic Documented By: BT Cephalexin HCl (Cephalexin 250 Mg Capsule) 500 mg PO NOW ONE Stop: 03/13/22 17:36 Last Admin: 03/13/22 18:14 Dose: 500 mg Documented By: BT Vital Signs Vital signs: Vital Signs - 8 hr 03/13/22 14:50 03/13/22 19:04 Temperature 97.4 F L Pulse Rate 79 70 Respiratory Rate 22 18 Blood Pressure 132/63 147/77 H Pulse Oximetry 98 98 Oxygen Delivery Method Room Air Room Air <DO Norberto Stanley Last Filed: 03/14/22 07:13> Orders Ordered: Discontinued Medications Bacitracin (Bacitracin Oint 0.9 Gm Pckt) 10 applic TOP NOW ONE Stop: 03/13/22 17:36 Last Admin: 03/13/22 18:15 Dose: 7 applic Documented By: BT Cephalexin HCl (Cephalexin 250 Mg Capsule) 500 mg PO NOW ONE Stop: 03/13/22 17:36 Last Admin: 03/13/22 18:14 Dose: 500 mg Documented By: BT Vital Signs Vital signs: Vital Signs - 8 hr 03/13/22 14:50 03/13/22 19:04 Temperature 97.4 F L Pulse Rate 79 70 Respiratory Rate 22 18 Blood Pressure 132/63 147/77 H Pulse Oximetry 98 98 Oxygen Delivery Method Room Air Room Air MDM - Skin/Abscess/Foreign Bdy <NAS Alfredo Last Filed: 03/13/22 21:16> MDM Narrative Medical decision making narrative: pt is dealing with slow healing cellulitis, in setting of CHRISTI LE edema Reiterated that patient need to be compliant with his antibiotics medication, and his extremity wounds to be cared for in wound care center, referral was made Findings and discharge diagnosis discussed with patient Return precautions discussed with patient, who verbalized understanding. Discharge Plan Departure Patient Disposition: Home Clinical Impression: Bilateral cellulitis of lower leg, Leg edema Instructions: DI for Cellulitis -- Adult Activity Restrictions/Additional Instructions: *You have been diagnosed with recurrent LE cellulitis *What to do: *Please continue to take your regular medications as directed. New medication prescriptions sent to your pharmacy: Cephalexin, Neurontin, Aldactone mupirocin ointment *Please follow up with your primary care provider in 2-3 days, call for an appointment. Let them know you were seen in the Emergency Department and that we ask that you be seen in follow up. We will electronically transmit a record of today's note if your PCP is in our system *Return to Emergency Department if you should have any new, worsening or concerning symptoms, such as fever greater than 101 F, shaking chills, worsening pain Prescriptions: New cephalexin 500 mg capsule 500 mg PO TID Qty: 30 0RF mupirocin 2 % ointment 1 applic topical TID 15 Days Qty: 3 0RF Rx Instructions: apply to lower extremities 3 times a day thin film gabapentin [Neurontin] 100 mg capsule 100 mg PO TID Qty: 90 0RF spironolactone [Aldactone] 25 mg tablet 25 mg PO DAILY Qty: 30 0RF No Action Eliquis 5 mg tablet 5 mg PO BID Label Comments: take 1 tablet by mouth twice a day Mavyret 100-40 mg tablet 3 tab PO DAILY Label Comments: TAKE 3 TABLETS BY MOUTH EVERY DAY Referrals: Torrey Flowers MD [Physician] - Phil Duffy MD [Primary Care Provider] - Visit Report Forms: Patient Portal/API <Morgan Jiménez DO - Last Filed: 03/14/22 07:13> Cosign ED Attending Cosignature Attestation: Dr Jiménez Co-Sign Statement: I was available for consultation during this patient's emergency department visit. This chart is signed by myself for administrative purposes only. I did not have direct contact with this patient during this visit. They were seen independently by the APC.
--- NOTE | 2022-03-13 16:32 | PC.NURSE ---
pt has BLE redness, pt being treated for cellulitis, antibiotic by mouth, pt states he's been taking it for a week and not better.
--- NOTE | 2022-03-13 17:09 | CM.SWNOTE ---
DCP/ORAL SURGERY TECHNICIAN Note ORAL SURGERY TECHNICIAN receives consult from [employer] due to reported concerns for food/housing and transportation insecurity. Patient is 72 y/o male who presents to ED due to concern for BLLE for the last two weeks. Patient denies current PCP and denies need for PCP, per EMR patient goes to [facility] and ED as needed. Patient has Medicare and Medicaid insurance. Patient has hx of Sepsis, IV drug use, Cellulitis, and Abscesses. Patient presents as A/Ox3, patient endorses he resides at friends house. Patient endorses he feels safe at home. Patient endorses that he receives rides from friends as needed. ORAL SURGERY TECHNICIAN asks about substance use and patient endorses daily ETOH use too much and states that he drinks 1/5 of whiskey daily due to pain. Patient denies resources or needs from ORAL SURGERY TECHNICIAN. Patient endorses he has access to food, ORAL SURGERY TECHNICIAN offers to set up PCP for patient but patient denied need. Plan: Patient to d/c to home upon medical clearance, ORAL SURGERY TECHNICIAN to f/u if patient needs arise upon d/c. OZ Lazaro
[2022-03-13] MEDS: cephALEXin 250 MG CAPSULE 500 MG PO (18:14)
[2022-03-13] MEDS: BACITRACIN OINT 0.9 GM PCKT 10 APPLIC TOP (18:15)
--- NOTE | 2022-03-13 18:36 | PC.NURSE ---
only needed 7 bacitracin packets, reported to provider.
--- NOTE | 2022-03-13 18:37 | PC.NURSE ---
dressed both lower legs with abd pads, bacitracin, curlex like wrap per provider request.
[2022-03-13 19:04] VITALS: BP 147/77; PULSE 70; RESP 18; O2SAT 98
== END 2022-03-13 19:20 | disposition home or self-care (01) ==
PROVIDERS: Emergency Provider Physician Assistant Medical; PCP Emergency Medicine
DX: L03.116 Cellulitis of left lower limb (principal); L03.115 Cellulitis of right lower limb; R60.0 Localized edema
CPT/HCPCS: 36415; 99283; 99284

== ENCOUNTER → 2022-03-22 14:34 | Outpatient (CLI) | payer MEDICARE, MEDICAID, SELFPAY ==
[2021-06-04 20:42] VITALS: BMI 20.7
== END ==
PROVIDERS: PCP Emergency Medicine; Referring Provider Emergency Medicine; Visit Provider Surgery
DX: L03.115 Cellulitis of right lower limb (principal); L03.116 Cellulitis of left lower limb; L97.812 Non-pressure chronic ulcer of other part of right lower leg with fat layer exposed; L97.822 Non-pressure chronic ulcer of other part of left lower leg with fat layer exposed; R60.0 Localized edema; F17.200 Nicotine dependence, unspecified, uncomplicated; Z87.898 Personal history of other specified conditions
CPT/HCPCS: 87070; 87075; 87077; 87186; 87205; 97597; 97598; 99214

== ENCOUNTER → 2022-03-24 15:35 | Outpatient (CLI) | payer MEDICARE, MEDICAID, SELFPAY ==
[2021-06-04 20:42] VITALS: BMI 20.7
== END ==
PROVIDERS: PCP Emergency Medicine; Referring Provider Emergency Medicine; Visit Provider Surgery
DX: L03.115 Cellulitis of right lower limb (principal); L03.116 Cellulitis of left lower limb; R60.0 Localized edema; M79.605 Pain in left leg; M79.604 Pain in right leg
CPT/HCPCS: 99213

== ENCOUNTER → 2022-03-30 10:34 | Outpatient (CLI) | payer MEDICARE, MEDICAID, SELFPAY ==
[2021-06-04 20:42] VITALS: BMI 20.7
== END ==
PROVIDERS: PCP Emergency Medicine; Referring Provider Emergency Medicine; Visit Provider Surgery
DX: L03.115 Cellulitis of right lower limb (principal); L03.116 Cellulitis of left lower limb; L97.812 Non-pressure chronic ulcer of other part of right lower leg with fat layer exposed; L97.822 Non-pressure chronic ulcer of other part of left lower leg with fat layer exposed
CPT/HCPCS: 99213

== ENCOUNTER → 2022-04-02 13:34 | Outpatient (CLI) | payer MEDICARE, MEDICAID, SELFPAY ==
[2021-06-04 20:42] VITALS: BMI 20.7
== END ==
PROVIDERS: PCP Emergency Medicine; Referring Provider Emergency Medicine; Visit Provider Surgery
DX: L03.115 Cellulitis of right lower limb (principal); L97.812 Non-pressure chronic ulcer of other part of right lower leg with fat layer exposed; L97.822 Non-pressure chronic ulcer of other part of left lower leg with fat layer exposed
CPT/HCPCS: 99213

== ENCOUNTER → 2022-04-06 11:33 | Outpatient (CLI) | payer MEDICARE, MEDICAID, SELFPAY ==
[2021-06-04 20:42] VITALS: BMI 20.7
== END ==
PROVIDERS: PCP Emergency Medicine; Referring Provider Emergency Medicine; Visit Provider Surgery
DX: L03.115 Cellulitis of right lower limb (principal); L97.812 Non-pressure chronic ulcer of other part of right lower leg with fat layer exposed; L97.822 Non-pressure chronic ulcer of other part of left lower leg with fat layer exposed
CPT/HCPCS: 99213

== ENCOUNTER → 2022-04-12 09:39 | Outpatient (CLI) | payer MEDICARE, MEDICAID, SELFPAY ==
[2021-06-04 20:42] VITALS: BMI 20.7
== END ==
PROVIDERS: PCP Emergency Medicine; Referring Provider Emergency Medicine; Visit Provider Surgery
DX: L03.115 Cellulitis of right lower limb (principal); L03.116 Cellulitis of left lower limb; L97.812 Non-pressure chronic ulcer of other part of right lower leg with fat layer exposed; L97.822 Non-pressure chronic ulcer of other part of left lower leg with fat layer exposed; R60.0 Localized edema; K73.8 Other chronic hepatitis, not elsewhere classified
CPT/HCPCS: 97597

== ENCOUNTER → 2022-04-19 10:12 | Outpatient (CLI) | payer MEDICARE, MEDICAID, SELFPAY ==
[2021-06-04 20:42] VITALS: BMI 20.7
== END ==
PROVIDERS: PCP Emergency Medicine; Referring Provider Emergency Medicine; Visit Provider Surgery
DX: L03.115 Cellulitis of right lower limb (principal); L03.116 Cellulitis of left lower limb; R60.0 Localized edema
CPT/HCPCS: 97597; 99212

== ENCOUNTER → 2022-04-26 11:05 | Outpatient (CLI) | payer MEDICARE, MEDICAID, SELFPAY ==
[2021-06-04 20:42] VITALS: BMI 20.7
== END ==
PROVIDERS: PCP Emergency Medicine; Referring Provider Emergency Medicine; Visit Provider Surgery
DX: L03.115 Cellulitis of right lower limb (principal); L03.116 Cellulitis of left lower limb; L97.812 Non-pressure chronic ulcer of other part of right lower leg with fat layer exposed; L97.822 Non-pressure chronic ulcer of other part of left lower leg with fat layer exposed; R60.0 Localized edema; L53.9 Erythematous condition, unspecified
CPT/HCPCS: 15271; Q4195

== ENCOUNTER 2022-04-26 12:34 | Emergency (ER) | payer MEDICARE, MEDICAID, SELFPAY ==
[2021-06-04 20:42] VITALS: BMI 20.7
[2022-04-26 12:40] VITALS: BP 161/79; PULSE 80; RESP 18; TEMP 36.4; O2SAT 98; BMI 25.8
--- NOTE | 2022-04-26 12:45 | DI.CT.S_ITS ---
PROCEDURE: CT HEAD/BRAIN WO CON INDICATIONS: Fall, hit head on car, usure when last took blood thinners TECHNIQUE: Noncontrast 4.5 mm thick angled axial sections acquired from the foramen magnum to the vertex, with coronal and sagittal reformats. For radiation dose reduction, the following was used: automated exposure control, adjustment of mA and/or kV according to patient size. COMPARISON: [facility], CT, CT HEAD/BRAIN WO CON, 12/03/2021, 18:36. FINDINGS: Image quality: Excellent. CSF spaces: Basal cisterns are patent. No extra-axial fluid collections. The ventricles are symmetric in size and shape. Brain: No intracranial bleeds or masses. There is cerebral volume loss for age, with resultant ventricular and sulcal prominence. There are [id number] periventricular and deep white matter chronic small vessel ischemic changes. There is intracranial internal carotid artery atherosclerosis. Skull and face: Calvarium and visualized facial bones appear intact, without suspicious lesions. Sinuses: Visualized sinuses and mastoids are clear. IMPRESSION: Age-related volume loss and small vessel ischemic change. No evidence of acute intracranial process. Dictated by: Tadeo Mancia M.D. on 04/26/2022 at 13:40 Approved by: Tadeo Mancia M.D. on 04/26/2022 at 13:41
--- NOTE | 2022-04-26 12:45 | DI.RAD.S_ITS ---
PROCEDURE: XR RIBS RT MIN 3V W CXR 1V INDICATIONS: FALL RIB PAIN TECHNIQUE: 2 views of the right ribs were acquired, along with a single view chest. COMPARISON: [facility], , XR CHEST 1 VIEW, 12/12/2021, 13:48. FINDINGS: Surgical changes and devices: None. Bones and chest wall: Mildly displaced fractures of the right anterolateral 9th and 10th ribs.. No suspicious bony lesions. Overlying soft tissues appear unremarkable. Lungs and pleura: No pleural effusions or pneumothorax. Mild diffuse reticulonodular pulmonary opacity. Mediastinum: Mediastinal contours appear normal. Heart size is normal. IMPRESSION: 1. Mild atypical pneumonia versus atelectasis. 2. Right 9th and 10th rib fractures. Dictated by: Gifty Taveras M.D. on 04/26/2022 at 13:16 Approved by: Gifty Taveras M.D. on 04/26/2022 at 13:17
--- NOTE | 2022-04-26 16:43 | ED_ITS ---
HPI - Back Pain/Injury <Misael Barr PA-C - Last Filed: 04/26/22 16:54> General Chief Complaint: Back Pain/Injury Stated Complaint: Renate ribdavis Time Seen by Provider: 04/26/22 16:21 History of Present Illness HPI Narrative: 72-year-old male with past medical history IV drug use, alcohol use disorder, hepatitis-C, MRSA presents to the ED with right-sided lower rib pain. Patient states that he sustained a mechanical fall when he got out from his car, lost his balance, had his wooden cane jammed into his right lower rib area. Patient also had a head strike but no loss of consciousness. Patient was on blood thinners until about a month or more ago, when he ran out. Patient denies feeling lightheaded or dizzy or experiencing chest pain or shortness of breath prior to falling. Patient denies fever, chills, chest pain, shortness of breath, cough, rhinorrhea, lightheadedness, dizziness, syncope. Related Data Home Medications Medication Instructions Recorded Confirmed apixaban 5 mg tablet (Eliquis) 5 mg PO BID 06/04/21 04/26/22 glecaprevir 100 mg-pibrentasvir 40 3 tab PO DAILY 06/04/21 04/26/22 mg tablet (Mavyret) Previous Rx's Medication Instructions Recorded cephalexin 500 mg capsule 500 mg PO TID #30 caps 03/13/22 gabapentin 100 mg capsule 100 mg PO TID #90 caps 03/13/22 (Neurontin) spironolactone 25 mg tablet 25 mg PO DAILY #30 tabs 03/13/22 (Aldactone) Allergies Allergy/AdvReac Type Severity Reaction Status Date / Time No Known Drug Allergies Allergy Verified 04/26/22 12:44 Review of Systems <Misael Brar PA-C - Last Filed: 04/26/22 16:54> Review of Systems ROS Unobtainable: All systems reviewed & are unremarkable except as noted in HPI and below Constitutional Constitutional: Denies chills, Denies fatigue, Denies fever(s), Denies frequent falls, Denies lethargy and Denies weakness Eyes Eyes: Denies change in vision, Denies eye discharge, Denies irritation and Denies loss of vision ENT Ears, Nose, Mouth, and Throat: Denies change in voice, Denies dizziness, Denies neck pain, Denies sore throat and Denies throat swelling Cardiovascular Cardiovascular: Denies chest pain, Denies irregular heart rhythm, Denies lightheadedness, Denies palpitations, Denies dyspnea, Denies dyspnea on exertion and Denies orthopnea Respiratory Respiratory: Denies cough, Denies dyspnea, Denies dyspnea on exertion and Denies wheezing Gastrointestinal Gastrointestinal: Denies abdominal pain, Denies change in bowel habits, Denies diarrhea, Denies nausea and Denies vomiting Genitourinary Genitourinary: Denies hematuria, Denies flank pain, Denies urinary incontinence and Denies urinary urgency Musculoskeletal Musculoskeletal: Denies back pain, Denies muscle weakness, Denies neck pain, Denies numbness and Denies tingling Integumentary/Breasts Skin/Breast: Denies pruritus, Denies erythema, Denies rash and Denies wounds Comments: Right-sided lower Rib pain Neurologic Neurologic: Denies behavioral changes, Denies confusion, Denies dizziness, Denies frequent falls, Denies loss of vision, Denies numbness, Denies tingling and Denies weakness Psychiatric Psychiatric: Denies anxiety, Denies behavioral changes, Denies confusion, Denies depression, Denies homicidal ideation and Denies suicidal ideation Endocrine Endocrine: Denies fatigue, Denies flushing and Denies palpitations Hematologic/Lymphatic Hematologic/Lymphatic: Denies easy bruising Allergic/Immunologic Allergic/Immunologic: Denies urticaria, Denies throat swelling and Denies wheezing Patient History <Misael Barr PA-C - Last Filed: 04/26/22 16:54> Medical History Abscess Acute CVA (cerebrovascular accident) Hepatitis C antibody test positive Heroin abuse Family History Father Cancer Social History household members: none Smoking Status: Current every day smoker Smoking Status: Current every day smoker alcohol intake frequency: 3 or more drinks per day Alcohol type: hard liquor Substance Use Type: marijuana and heroin Exam <Misael Barr PA-C - Last Filed: 04/26/22 16:54> Narrative Exam Narrative: Const General:?cooperative, healthy appearing and comfortable [facility] Head:?normal to inspection Ears:?hearing grossly normal bilaterally Nose:?external nose normal Face and sinus:?normal facial exam and sinuses nontender Mouth:?oral mucosae normal Throat:?posterior oropharynx normal Eyes General:?appearance normal, both eyes and all related structures Neck Neck:?normal visual inspection and no lymphadenopathy noted Resp Effort & Inspection:?normal respiratory effort Auscultation:?clear to auscultation bilaterally Cardio Rate:?regular rate Rhythm:?regular rhythm Musculoskeletal Tenderness to palpation in the right lower rib area. No bruising visualized on exam. GI Abdomen is soft, nondistended, nontender to palpation. Neuro General:?patient alert, patient awake and patient oriented x3 Initial Vital Signs Initial Vital Signs: Vital Signs Temperature 97.6 F 04/26/22 12:40 Pulse Rate 80 04/26/22 12:40 Respiratory Rate 18 04/26/22 12:40 Blood Pressure 161/79 H 04/26/22 12:40 Pulse Oximetry 98 04/26/22 12:40 Oxygen Delivery Method 04/26/22 12:40 <DO Norberto Olivares Last Filed: 04/29/22 02:21> Initial Vital Signs Initial Vital Signs: Vital Signs Temperature 97.6 F 04/26/22 12:40 Pulse Rate 80 04/26/22 12:40 Respiratory Rate 18 04/26/22 12:40 Blood Pressure 161/79 H 04/26/22 12:40 Pulse Oximetry 98 04/26/22 12:40 Oxygen Delivery Method 04/26/22 12:40 Course <Misael Barr PA-C - Last Filed: 04/26/22 16:54> Orders Ordered: ED Orders 04/26/22 12:45 CT head/brain wo con Stat XR ribs RT min 3V w CXR1V Stat Vital Signs Vital signs: Vital Signs - 8 hr 04/26/22 12:40 Temperature 97.6 F Pulse Rate 80 Respiratory Rate 18 Blood Pressure 161/79 H Pulse Oximetry 98 Oxygen Delivery Method Room Air <DO Norberto Olivares Last Filed: 04/29/22 02:21> Orders Ordered: ED Orders 04/26/22 12:45 CT head/brain wo con Stat XR ribs RT min 3V w CXR1V Stat Vital Signs Vital signs: Vital Signs - 8 hr 04/26/22 12:40 Temperature 97.6 F Pulse Rate 80 Respiratory Rate 18 Blood Pressure 161/79 H Pulse Oximetry 98 Oxygen Delivery Method Room Air MDM - Back Pain/Injury <Misael Barr PA-C - Last Filed: 04/26/22 16:54> MDM Narrative Medical decision making narrative: 72-year-old male with past medical history IV drug use, alcohol use disorder, hepatitis-C, MRSA presents to the ED with right-sided lower rib pain. Concern for rib fracture versus musculoskeletal sprain/strain versus intracranial hemorrhage versus skull fracture versus other. CT head and rib x-rays were obtained. CT head without acute findings. Rib x-rays show fracture of 9th and 10th right-sided ribs. Chest x-ray shows mild atypical pneumonia versus atelectasis, however there is no clinical correlation with patient's symptoms to pneumonia. Will control pain with Percocet. ED return precautions were discussed with patient. Patient verbalized understanding. ? Medical records reviewed:??Yes ? Imaging studies independently reviewed: Yes ? Disposition: see below, along with detailed discharge instructions that have been reviewed with patient as well as indications for ED re-evaluation and additional outpatient follow up Discharge Plan Departure Patient Disposition: Home Clinical Impression: Closed rib fracture Instructions: DI for Rib Fracture Activity Restrictions/Additional Instructions: You were evaluated in the ED today for a fall and right-sided rib pain. Your x- ray shows that you have fractured the 9th and 10th rib on the right side. You may take Percocet for the pain for the next 2-3 days, after which you may take Tylenol or ibuprofen. Please return to the ED if you experience shortness of breath. Prescriptions: No Action Eliquis 5 mg tablet 5 mg PO BID Label Comments: take 1 tablet by mouth twice a day Mavyret 100-40 mg tablet 3 tab PO DAILY Label Comments: TAKE 3 TABLETS BY MOUTH EVERY DAY cephalexin 500 mg capsule 500 mg PO TID Qty: 30 0RF gabapentin [Neurontin] 100 mg capsule 100 mg PO TID Qty: 90 0RF spironolactone [Aldactone] 25 mg tablet 25 mg PO DAILY Qty: 30 0RF Referrals: Phil Duffy MD [Primary Care Provider] - Stand Alone Forms: Patient Portal/API <Pippa Hicks DO - Last Filed: 01/26/23 02:21> Cosign ED Attending Cosignature Attestation: I was immediately available in the department for consultation. Documentation has been reviewed.
[2022-04-26 17:10] VITALS: BP 168/72; PULSE 88; RESP 18; O2SAT 96
== END 2022-04-26 17:10 | disposition home or self-care (01) ==
PROVIDERS: Emergency Provider Student in an Organized Health Care Education/Training Program; PCP Emergency Medicine
DX: S22.31XA Fracture of one rib, right side, initial encounter for closed fracture (principal); W18.30XA Fall on same level, unspecified, initial encounter; L03.115 Cellulitis of right lower limb; L03.116 Cellulitis of left lower limb; L97.812 Non-pressure chronic ulcer of other part of right lower leg with fat layer exposed; L97.822 Non-pressure chronic ulcer of other part of left lower leg with fat layer exposed; R60.0 Localized edema; L53.9 Erythematous condition, unspecified; K60.0 Acute anal fissure
CPT/HCPCS: 15271; 70450; 71101; 99283; Q4195

== ENCOUNTER → 2022-05-03 08:08 | Outpatient (CLI) | payer MEDICARE, MEDICAID, SELFPAY ==
[2021-06-04 20:42] VITALS: BMI 20.7
--- NOTE | 2022-05-03 08:10 | DI.US.S_ITS ---
PROCEDURE: US ARTERIAL DUPLEX LE BI INDICATIONS: BILATERAL NON-HEALING ULCERS TECHNIQUE: Color and pulse Doppler interrogation was performed of both lower extremity arterial systems, with image documentation. COMPARISON: None. FINDINGS: Right lower extremity: Common femoral artery: 172 cm/sec, with triphasic flow. Deep femoral artery: 101 cm/sec, with triphasic flow. Proximal superficial femoral artery: 131 cm/sec, with triphasic flow. Mid superficial femoral artery: 152 cm/sec, with triphasic flow. Distal superficial femoral artery: 153 cm/sec, with triphasic flow. Popliteal artery: 79 cm/sec, with triphasic flow. Posterior tibial artery: 68 cm/sec, with monophasic flow. Anterior tibial artery/dorsalis pedis: 21 cm/sec, with monophasic flow. Guevara-scale imaging description: Moderate diffuse plaque Left lower extremity: Common femoral artery: 186 cm/sec, with triphasic flow. Deep femoral artery: 91 cm/sec, with triphasic flow. Proximal superficial femoral artery: 125 cm/sec, with triphasic flow. Mid superficial femoral artery: 116 cm/sec, with triphasic flow. Distal superficial femoral artery: 79 cm/sec, with monophasic flow. Popliteal artery: 97 cm/sec, with monophasic flow. Posterior tibial artery: 83 cm/sec, with monophasic flow. Anterior tibial artery/dorsalis pedis: 23 cm/sec, with monophasic flow. Guevara-scale imaging description: Moderate diffuse plaque IMPRESSION: 1. No significant right-sided outflow stenosis. 2. Findings suggestive of a hemodynamically significant left-sided outflow stenosis. 3. Findings suggestive of hemodynamically significant stenosis within the right anterior and posterior tibial arteries. Dictated by: Gifty Taveras M.D. on 05/03/2022 at 11:40 Transcribed by: SAMMIE on 05/03/2022 at 11:43 Approved by: Gifty Taveras M.D. on 05/03/2022 at 16:31
== END ==
PROVIDERS: PCP Emergency Medicine; Referring Provider Surgery; Visit Provider Surgery
DX: L97.911 Non-pressure chronic ulcer of unspecified part of right lower leg limited to breakdown of skin (principal); L97.921 Non-pressure chronic ulcer of unspecified part of left lower leg limited to breakdown of skin
CPT/HCPCS: 93925

== ENCOUNTER → 2022-05-04 10:47 | Outpatient (CLI) | payer MEDICARE, MEDICAID, SELFPAY ==
[2021-06-04 20:42] VITALS: BMI 20.7
== END ==
PROVIDERS: PCP Emergency Medicine; Referring Provider Emergency Medicine; Visit Provider Surgery
DX: L03.115 Cellulitis of right lower limb (principal); L03.116 Cellulitis of left lower limb; L97.812 Non-pressure chronic ulcer of other part of right lower leg with fat layer exposed; L97.822 Non-pressure chronic ulcer of other part of left lower leg with fat layer exposed; R60.0 Localized edema; F17.210 Nicotine dependence, cigarettes, uncomplicated
CPT/HCPCS: 15271; 99213; Q4195

== ENCOUNTER → 2022-05-11 10:37 | Outpatient (CLI) | payer MEDICARE, MEDICAID, SELFPAY ==
[2021-06-04 20:42] VITALS: BMI 20.7
== END ==
PROVIDERS: PCP Emergency Medicine; Referring Provider Emergency Medicine; Visit Provider Surgery
DX: L03.115 Cellulitis of right lower limb (principal); L97.812 Non-pressure chronic ulcer of other part of right lower leg with fat layer exposed; R60.0 Localized edema; F17.210 Nicotine dependence, cigarettes, uncomplicated
CPT/HCPCS: 15271; Q4196

== ENCOUNTER → 2022-05-18 11:21 | Outpatient (CLI) | payer MEDICARE, MEDICAID, SELFPAY ==
[2021-06-04 20:42] VITALS: BMI 20.7
== END ==
PROVIDERS: PCP Emergency Medicine; Referring Provider Emergency Medicine; Visit Provider Surgery
DX: L97.812 Non-pressure chronic ulcer of other part of right lower leg with fat layer exposed (principal); L03.116 Cellulitis of left lower limb; L03.115 Cellulitis of right lower limb; R60.0 Localized edema; I73.9 Peripheral vascular disease, unspecified; F17.210 Nicotine dependence, cigarettes, uncomplicated; I70.212 Atherosclerosis of native arteries of extremities with intermittent claudication, left leg
CPT/HCPCS: 15271; 99213; Q4196

== ENCOUNTER → 2022-05-25 09:54 | Outpatient (CLI) | payer MEDICARE, MEDICAID, SELFPAY ==
[2021-06-04 20:42] VITALS: BMI 20.7
== END ==
PROVIDERS: PCP Emergency Medicine; Referring Provider Emergency Medicine; Visit Provider Surgery
DX: L03.115 Cellulitis of right lower limb (principal); L97.812 Non-pressure chronic ulcer of other part of right lower leg with fat layer exposed; L03.116 Cellulitis of left lower limb; R60.0 Localized edema; I73.9 Peripheral vascular disease, unspecified; F10.10 Alcohol abuse, uncomplicated; F17.210 Nicotine dependence, cigarettes, uncomplicated
CPT/HCPCS: 99212; 99213

== ENCOUNTER → 2022-06-01 15:02 | Outpatient (CLI) | payer MEDICARE, MEDICAID, SELFPAY ==
[2021-06-04 20:42] VITALS: BMI 20.7
== END ==
PROVIDERS: PCP Emergency Medicine; Referring Provider Emergency Medicine; Visit Provider Surgery
DX: L03.115 Cellulitis of right lower limb (principal); L03.116 Cellulitis of left lower limb; L97.812 Non-pressure chronic ulcer of other part of right lower leg with fat layer exposed; R60.0 Localized edema; I73.9 Peripheral vascular disease, unspecified; F17.210 Nicotine dependence, cigarettes, uncomplicated
CPT/HCPCS: 99213

== ENCOUNTER → 2022-06-07 09:41 | Outpatient (CLI) | payer MEDICARE, MEDICAID, SELFPAY ==
[2021-06-04 20:42] VITALS: BMI 20.7
== END ==
PROVIDERS: PCP Emergency Medicine; Referring Provider Emergency Medicine; Visit Provider Surgery
DX: I87.2 Venous insufficiency (chronic) (peripheral) (principal); L03.115 Cellulitis of right lower limb; L03.116 Cellulitis of left lower limb; L97.812 Non-pressure chronic ulcer of other part of right lower leg with fat layer exposed; R60.0 Localized edema; I73.9 Peripheral vascular disease, unspecified
CPT/HCPCS: 97602; 99213

== ENCOUNTER → 2022-06-14 15:14 | Outpatient (CLI) | payer MEDICARE, MEDICAID, SELFPAY ==
[2021-06-04 20:42] VITALS: BMI 20.7
== END ==
PROVIDERS: PCP Emergency Medicine; Referring Provider Emergency Medicine; Visit Provider Surgery
DX: L03.115 Cellulitis of right lower limb (principal); L03.116 Cellulitis of left lower limb; R60.0 Localized edema; I73.9 Peripheral vascular disease, unspecified
CPT/HCPCS: 99213; 99214

== ENCOUNTER → 2022-06-21 14:38 | Outpatient (CLI) | payer MEDICARE, MEDICAID, SELFPAY ==
[2021-06-04 20:42] VITALS: BMI 20.7
== END ==
PROVIDERS: PCP Emergency Medicine; Referring Provider Emergency Medicine; Visit Provider Surgery
DX: L03.115 Cellulitis of right lower limb (principal); L03.116 Cellulitis of left lower limb; R60.0 Localized edema; F17.210 Nicotine dependence, cigarettes, uncomplicated
CPT/HCPCS: 99211; 99212

== ENCOUNTER 2022-08-10 13:23 | Emergency (ER) | payer MEDICARE, MEDICAID, SELFPAY ==
[2021-06-04 20:42] VITALS: BMI 20.7
[2022-08-10 13:33] VITALS: BP 136/73; PULSE 92; RESP 18; TEMP 36.4; O2SAT 96
--- NOTE | 2022-08-10 13:33 | DI.CT.S_ITS ---
PROCEDURE: CT HEAD/BRAIN WO CON INDICATIONS: etoh, fall TECHNIQUE: Noncontrast 4.5 mm thick angled axial sections acquired from the foramen magnum to the vertex, with coronal and sagittal reformats. For radiation dose reduction, the following was used: automated exposure control, adjustment of mA and/or kV according to patient size. COMPARISON: [facility], CT, CT HEAD WITHOUT CONTRAST, 12/04/2021, 21:21. [facility], CT, CT CERVICAL SPINE WO CON, 08/10/2022, 13:47. [facility], CT, CT FACIAL BONES WO CON, 08/10/2022, 13:47. [facility], CT, CT HEAD/BRAIN WO CON, 04/26/2022, 13:15. FINDINGS: Image quality: Excellent. CSF spaces: Basal cisterns are patent. No extra-axial fluid collections. The ventricles are symmetric in size and shape. Brain: No intracranial bleeds or masses. There is cerebral volume loss for age, with resultant ventricular and sulcal prominence. There are periventricular and deep white matter chronic small vessel ischemic changes. There is intracranial internal carotid artery atherosclerosis. Skull and face: There is a minimal scalp hematoma seen involving the right temporal region, as on series 2, image 18. No underlying fracture can be seen. Calvarium and visualized facial bones appear intact, without suspicious lesions. Sinuses: Moderate mucosal thickening is seen within the ethmoid air cells. There is mild mucosal thickening within the inferior medial frontal sinuses. No abnormal fluid is seen within the mastoid air cells. IMPRESSION: Minimal right temporal scalp hematoma, without an associated fracture. No acute intracranial hemorrhage is seen. No acute intracranial process is seen. Dictated by: Sage Brito M.D. on 08/10/2022 at 13:07 Approved by: Sage Brito M.D. on 08/10/2022 at 13:09
--- NOTE | 2022-08-10 13:33 | DI.CT.S_ITS ---
PROCEDURE: CT FACIAL BONES WO CON INDICATIONS: etoh fall TECHNIQUE: Noncontrast 2.5 mm thick axial images acquired from the mandible through the frontal sinuses, with coronal and sagittal reformatting. For radiation dose reduction, the following was used: automated exposure control, adjustment of mA and/or kV according to patient size. COMPARISON: [facility], CT, CT HEAD/BRAIN WO CON, 08/10/2022, 13:47. [facility], CT, CT CERVICAL SPINE WO CON, 08/10/2022, 13:47. FINDINGS: Image quality: Excellent. Bones and teeth: Orbital ma are intact. Sinus ma show no fracture or deformity. Nasal bones and septum are intact. Visualized portions of the mandible demonstrate no fractures or subluxation. Zygomatic arches are intact. Pterygoid plates are intact. Visualized portions of the skull base and auditory canals are intact. Poor dentition is noted. Sinuses: Paranasal sinus disease is seen, which is worst ethmoid air cells. Soft tissues: No edema, masses, or fluid collections. No enlarged lymph nodes. No soft tissue lacerations or debris. Vascular: Visualized vascular structures appear normal in the absence of contrast. Bony vascular foramina and canals are intact. IMPRESSION: Negative for displaced facial bone fracture. Dictated by: Sage Brito M.D. on 08/10/2022 at 13:10 Approved by: Sage Brito M.D. on 08/10/2022 at 13:12
--- NOTE | 2022-08-10 13:33 | DI.CT.S_ITS ---
PROCEDURE: CT CERVICAL SPINE WO CON INDICATIONS: fall TECHNIQUE: Noncontrast 3 mm thick sections acquired from the skull base to the T4 level. Sagittal and coronal reformats were then constructed. For radiation dose reduction, the following was used: automated exposure control, adjustment of mA and/or kV according to patient size. COMPARISON: [facility], CT, CT CERVICAL SPINE WO CON, 12/03/2021, 18:36. FINDINGS: Image quality: Excellent. Bones: No fractures or dislocations. Visualized superior ribs are intact. Focal degenerative change is seen involving the C1-C2 interface anteriorly. Lktu-xr-qlbvmmin disc space narrowing seen at the C3-C4 level. Moderate to severe disc space narrowing seen at C4-C5, C5-C6, and C6-C7. Endplate irregularity and sclerosis are seen, which are worst at the C4-C5 level. Posteriorly directed endplate osteophytes are seen, which are worst at C5-C6. Soft tissues: Prevertebral soft tissues are normal in thickness. No paravertebral hematomas. No apical pneumothoraces. IMPRESSION: Negative for acute fracture. Relatively prominent underlying cervical spine degenerative changes are seen. Dictated by: Sage Brito M.D. on 08/10/2022 at 13:13 Approved by: Sage Brito M.D. on 08/10/2022 at 13:16
--- NOTE | 2022-08-10 14:21 | ED.FALL ---
HPI - Fall General Chief Complaint: Fall Stated Complaint: GLF Time Seen by Provider: 08/10/22 13:33 Source: patient and EMS Mode of arrival: EMS History of Present Illness HPI Narrative: Patient is a 72-year-old male known alcoholic history of drug abuse presents today after ground level fall. according 2 roommates AMS he has an atypical gait at baseline but has been falling a lot more over the last couple days. He is obviously intoxicated. He fell and hit his nose he is a small laceration. He is supposed to be taking Eliquis but it is questionable if he is taking it. He denies any pain or weakness. No nausea or vomiting. He admits to drinking alcohol today. His legs are erythematous but he is afebrile. He stays with some people who are apparently kicking him out and he now no longer has a place to live. Community medic Lonny Leslie, has been involved in his case. Apparently there was an APS report made about him yesterday. Related Data Home Medications Medication Instructions Recorded Confirmed apixaban 5 mg tablet (Eliquis) 5 mg PO BID 06/04/21 04/26/22 glecaprevir 100 mg-pibrentasvir 40 3 tab PO DAILY 06/04/21 04/26/22 mg tablet (Mavyret) Previous Rx's Medication Instructions Recorded cephalexin 500 mg capsule 500 mg PO TID #30 caps 03/13/22 gabapentin 100 mg capsule 100 mg PO TID #90 caps 03/13/22 (Neurontin) spironolactone 25 mg tablet 25 mg PO DAILY #30 tabs 03/13/22 (Aldactone) Allergies Allergy/AdvReac Type Severity Reaction Status Date / Time No Known Drug Allergies Allergy Verified 04/26/22 12:44 Review of Systems Review of Systems ROS Unobtainable: All systems reviewed & are unremarkable except as noted in HPI and below Patient History Medical History Abscess Acute CVA (cerebrovascular accident) Hepatitis C antibody test positive Heroin abuse Family History Father Cancer Social History household members: none Smoking Status: Current every day smoker Smoking Status: Current every day smoker alcohol intake frequency: 3 or more drinks per day Alcohol type: hard liquor Substance Use Type: marijuana and heroin Exam Initial Vital Signs Initial Vital Signs: Vital Signs Temperature 97.6 F 08/10/22 13:33 Pulse Rate 92 H 08/10/22 13:33 Respiratory Rate 18 08/10/22 13:33 Blood Pressure 136/73 08/10/22 13:33 Pulse Oximetry 96 08/10/22 13:33 Oxygen Delivery Method Room Air 08/10/22 13:33 GENERAL: Alert disheveled 72-year-old male, smells of defecation HEENT: Head small laceration over bridge of no CARDIOVASCULAR: Regular rate and rhythm without murmurs, rubs or gallops. RESPIRATORY: Breath sounds equal bilaterally, no wheezes rales or rhonchi. ABDOMEN: Soft, nontender. Normoactive bowel sounds all 4 quadrants. No guarding or rebound. EXTREMITIES: Normal range of motion, no clubbing or edema. Neurovascularly intact NEUROLOGICAL: Alert and oriented x4. gui developer strength equal bilaterally, good heel to goode SKIN: Nose has a very small pinpoint laceration, this is actively bleeding but easily controlled with Course Orders Ordered: ED Orders 08/10/22 13:33 CT cervical spine wo con Stat CT facial bones wo con Stat CT head/brain wo con Stat 08/10/22 15:49 Consult to STUD DAIRY CATTLE FARMER - Car Scrubber Stat 08/10/22 17:20 CBC Auto Diff [Complete Blood Count AUTO DIFF] Stat 08/10/22 17:59 CMP [Comprehensive Metabolic Panel] Stat ETOH [Ethanol (ETOH)] Stat Discontinued Medications Thiamine HCl 100 mg/ Sodium (Chloride) 101 mls @ 404 mls/hr IV NOW ONE Stop: 08/10/22 18:31 Vital Signs Vital signs: Vital Signs - 8 hr 08/10/22 13:33 08/10/22 17:50 08/10/22 19:23 Temperature 97.6 F 98.3 F Pulse Rate 92 H 73 103 H Respiratory Rate 18 22 Blood Pressure 136/73 186/72 H 173/89 H Pulse Oximetry 96 98 96 Oxygen Delivery Method Room Air Room Air Room Air MDM - Fall Lab Data 08/10/22 17:20 08/10/22 17:59 Labs: Lab Results 08/10/22 08/10/22 Range/Units 17:20 17:59 WBC 7.0 (4.5-11.0) X10^3/uL RBC 3.98 L (4.5-5.9) X10^6/uL Hgb 13.0 L (13.5-17.5) g/dL Hct 37.8 L (41-53) % MCV 94.9 (80-100) fL MCH 32.7 (26-34) PG MCHC 34.4 (30-36) % RDW 15.5 H (11.6-14.8) % Plt Count 216 (150-400) X10^3/uL Neut % (Auto) 58.6 (50-75) % Lymph % (Auto) 27.6 (25-40) % [place] % (Auto) 8.1 (3-14) % Eos % (Auto) 4.6 H (2-4) % Baso % (Auto) 1.1 (0-2) % Neut # (Auto) 4100 (3692-1590) /uL Lymph # (Auto) 1900 (6527-8778) /uL [place] # (Auto) 600 (0-900) /uL Eos # (Auto) 300 (0-450) /uL Baso # (Auto) 100 (0-100) /uL Sodium 142 (137-145) mmol/L Potassium 4.0 (3.4-5.1) mmol/L Chloride 107 (98-107) mmol/L Carbon Dioxide 27 (22-32) mmol/L BUN 13 (9-20) mg/dL Creatinine 0.79 (0.66-1.25) mg/dL Estimated GFR > 60 (>60) mL/min BUN/Creatinine Ratio 16.5 (6-22) Glucose 90 (80-110) mg/dL Calcium 8.5 (8.4-10.2) mg/dL Total Bilirubin 0.3 (0.2-1.3) mg/dL AST 145 H (17-59) IU/L ALT 82 H (<50) IU/L Alkaline Phosphatase 47 (38-126) U/L Total Protein 7.5 (6.3-8.2) g/dL Albumin 4.0 (3.5-5.0) g/dL Globulin 3.5 (1.7-4.1) g/dL Albumin/Globulin Ratio 1.1 (1.0-2.8) Ethyl Alcohol 159 H ( - 10) mg/dL Urine Dip Bedside Urine Glucose Negative Bedside Urine Bilirubin - Negative Bedside Urine Ketone - Negative Urine Specific [place] 1.015 Bedside Urine Occult Blood - Negative Bedside Urine pH 6.0 Bedside Urine Protein - Negative Bedside Urine Urobilinogen - Negative Bedside Urine Nitrite - Negative Bedside Urine Leukocytes - Negative Esterase Imaging Data CT scan - head: Radiologist's Impression: PROCEDURE:? CT HEAD/BRAIN WO CON ? INDICATIONS:? etoh, fall ? TECHNIQUE:? Noncontrast 4.5 mm thick angled axial sections acquired from the foramen magnum to the vertex, with coronal and sagittal reformats.? For radiation dose reduction, the following was used:? automated exposure control, adjustment of mA and/or kV according to patient size.? ? COMPARISON:? [facility], CT, CT HEAD WITHOUT CONTRAST, 12/04/2021, 21:21.? [facility], CT, CT CERVICAL SPINE WO CON, 08/10/2022, 13:47.? [facility], CT, CT FACIAL BONES WO CON, 08/10/2022, 13:47.? [facility], CT, CT HEAD/BRAIN WO CON, 04/26/2022, 13:15. ? FINDINGS:? Image quality:? Excellent.? ? CSF spaces:? Basal cisterns are patent.? No extra-axial fluid collections.? The ventricles are symmetric in size and shape.? ? Brain:? No intracranial bleeds or masses.? There is cerebral volume loss for age, with resultant ventricular and sulcal prominence.? There are periventricular and deep white matter chronic small vessel ischemic changes.? There is intracranial internal carotid artery atherosclerosis.? ? Skull and face:? There is a minimal scalp hematoma seen involving the right temporal region, as on series 2, image 18.? No underlying fracture can be seen.? Calvarium and visualized facial bones appear intact, without suspicious lesions.? ? Sinuses:? Moderate mucosal thickening is seen within the ethmoid air cells.? There is mild mucosal thickening within the inferior medial frontal sinuses. No abnormal fluid is seen within the mastoid air cells. ? ? IMPRESSION:? Minimal right temporal scalp hematoma, without an associated fracture. ? No acute intracranial hemorrhage is seen.? ? No acute intracranial process is seen.? ? ? Dictated by: Sage Brito M.D. on 08/10/2022 at 13:07 ? ? CT - cervical spine: Radiologist's Impression: PROCEDURE:? CT CERVICAL SPINE WO CON ? INDICATIONS:? fall ? TECHNIQUE:? Noncontrast 3 mm thick sections acquired from the skull base to the T4 level.? Sagittal and coronal reformats were then constructed.? For radiation dose reduction, the following was used:? automated exposure control, adjustment of mA and/or kV according to patient size.? ? COMPARISON:? [facility], CT, CT CERVICAL SPINE WO CON, 12/03/2021, 18:36. ? FINDINGS:? Image quality:? Excellent.? ? Bones:? No fractures or dislocations.? Visualized superior ribs are intact.? ? Focal degenerative change is seen involving the C1-C2 interface anteriorly.? Hkwl-[id number] disc space narrowing seen at the C3-C4 level.? Moderate to severe disc space narrowing seen at C4-C5, C5-C6, and C6-C7.? Endplate irregularity and sclerosis are seen, which are worst at the C4-C5 level.? Posteriorly directed endplate osteophytes are seen, which are worst at C5-C6. ? Soft tissues:? Prevertebral soft tissues are normal in thickness.? No paravertebral hematomas.? No apical pneumothoraces.? ? ? IMPRESSION:? Negative for acute fracture. ? Relatively prominent underlying cervical spine degenerative changes are seen. ? ? ? Dictated by: Sage Brito M.D. on 08/10/2022 at 13:13 ? ? CT Facial: Radiologist's Impression: PROCEDURE:? CT FACIAL BONES WO CON ? INDICATIONS:? etoh fall ? TECHNIQUE:? Noncontrast 2.5 mm thick axial images acquired from the mandible through the frontal sinuses, with coronal and sagittal reformatting.? For radiation dose reduction, the following was used:? automated exposure control, adjustment of mA and/or kV according to patient size.? ? COMPARISON:? [facility], CT, CT HEAD/BRAIN WO CON, 08/10/2022, 13:47.? [facility], CT, CT CERVICAL SPINE WO CON, 08/10/2022, 13:47. ? FINDINGS:? Image quality:? Excellent.? ? Bones and teeth:? Orbital ma are intact.? Sinus ma show no fracture or deformity.? Nasal bones and septum are intact.? Visualized portions of the mandible demonstrate no fractures or subluxation.? Zygomatic arches are intact.? Pterygoid plates are intact.? Visualized portions of the skull base and auditory canals are intact.? ? Poor dentition is noted. ? Sinuses:? Paranasal sinus disease is seen, which is worst ethmoid air cells.? ? Soft tissues:? No edema, masses, or fluid collections.? No enlarged lymph nodes.? No soft tissue lacerations or debris.? ? Vascular:? Visualized vascular structures appear normal in the absence of contrast.? Bony vascular foramina and canals are intact.? ? ? IMPRESSION:? Negative for displaced facial bone fracture. ? ? Dictated by: Sage Brito M.D. on 08/10/2022 at 13:10? [facility] Narrative Medical decision making narrative: Patient 72-year-old alcoholic presenting today with alcohol intoxication and falling. CT head neck and face are all negative for intracranial bleed or fracture. Blood work is done he is not significantly hyponatremic or having other electrolyte abnormalities no LUI leukocytosis or anemia present. Patient was cleaned up his clothes were washed, he was requesting to go home. He is a steady gait in the emergency department. Social work has been in to evaluate him. Social work and community medic are helping to fine permanent and better placement for this patient, which will take time. At this time he does not meet any sort of admission criteria Discharge Plan Departure Patient Disposition: Home Clinical Impression: Alcohol intoxication Instructions: Alcohol Use Disorder Activity Restrictions/Additional Instructions: *You have been diagnosed with intoxication *What to do: *Continue to take medications as directed *Follow up with your primary care provider in 2-3 days or call [phone] *Return to ER if you should have any new, worsening or concerning symptoms Prescriptions: No Action Eliquis 5 mg tablet 5 mg PO BID Patient Comments: take 1 tablet by mouth twice a day Mavyret 100-40 mg tablet 3 tab PO DAILY Patient Comments: TAKE 3 TABLETS BY MOUTH EVERY DAY cephalexin 500 mg capsule 500 mg PO TID Qty: 30 0RF gabapentin [Neurontin] 100 mg capsule 100 mg PO TID Qty: 90 0RF spironolactone [Aldactone] 25 mg tablet 25 mg PO DAILY Qty: 30 0RF Referrals: Phil Duffy MD [Physician] - Stand Alone Forms: Patient Portal/API
--- NOTE | 2022-08-10 15:49 | PC.NURSE ---
reported that patient's roommate/friend does not want him to return to the house. PRODUCTION TRUCK DRIVER consult placed for help sorting out living situation of patient.
[2022-08-10 17:41] LABS: Add Manual Diff / Slide Review NO; Basophils Absolute Auto 100 /uL (0-100); Basophils Percent Auto 1.1 % (0-2); Eosinophils Absolute Auto 300 /uL (0-450); Eosinophils Percent Auto 4.6 % (2-4); Hematocrit 37.8 % (41-53); Lymphocytes Absolute Auto 1900 /uL (1100-4500); Lymphocytes Percent Auto 27.6 % (25-40); Mean Corpuscular HGB Conc 34.4 % (30-36); Mean Corpuscular Hemoglobin 32.7 PG (26-34); Mean Corpuscular Volume 94.9 fL (80-100); Monocytes Absolute Auto 600 /uL (0-900); Monocytes Percent Auto 8.1 % (3-14); Neutrophils Absolute Auto 4100 /uL (1500-7000); Neutrophils Percent Auto 58.6 % (50-75); Platelet Count 216 X10^3/uL (150-400); Red Blood Cell Count 3.98 X10^6/uL (4.5-5.9); Red Cell Distribution Width 15.5 % (11.6-14.8)
[2022-08-10 17:50] VITALS: BP 186/72; PULSE 73; O2SAT 98
[2022-08-10 18:20] LABS: Alanine Aminotransferase 82 IU/L (<50); Albumin Globulin Ratio 1.1 (1.0-2.8); Alkaline Phosphatase 47 U/L (38-126); Aspartate Aminotransferase 145 IU/L (17-59); BUN Creatinine Ratio 16.5 (6-22); Bilirubin Total 0.3 mg/dL (0.2-1.3); Blood Urea Nitrogen 13 mg/dL (9-20); Calcium 8.5 mg/dL (8.4-10.2); Carbon Dioxide 27 mmol/L (22-32); Chloride 107 mmol/L (98-107); Estimated Glomerular Filt Rate > 60 mL/min (>60); Ethanol (ETOH) 159 mg/dL; Globulin 3.5 g/dL (1.7-4.1); Glucose 90 mg/dL (80-110); HEMOLYSIS 45 (0-50); Sodium 142 mmol/L (137-145); Total Protein 7.5 g/dL (6.3-8.2)
--- NOTE | 2022-08-10 19:05 | CM.SWNOTE ---
ED AUTOMATION QA TESTER Note Patient is 72 y/o male who presents to ED via EMS due to recent GLF after ETOH use. EMS reports concerns for self neglect. Patient presents with laceration on nose. Per Community Machine Maintenance Technician Lonny Leslie who is involved in patient's care, there is an open APS case in regards to patient due to Lonny's referral yesterday due to concern for self neglect. Lonny calls [facility] and identifies that they have availability but new tenants need to be brought in by LE. Lonny provides patient's information and to [facility] employee. Lonny provides phone number for patient's brother Adrian who lives in [facility]. Adrian (ph. # [phone]), it is reported that patient's siblings do not support patient due to his ETOH use. Patient does not have PCP and chooses not to pursue one. Patient has Medicare and Medicaid insurance. AUTOMATION QA TESTER enters room to meet with patient, patient presents as A/Ox3, patient states I think I need to go to an assisted living facility. Patient endorses difficulty walking, patient endorses he owns and uses a cane to walk. Patient endorses he is living at a landlord's house, patient states he paid rent but the landlord wants to kick patient out. Patient endorses ability managing ADLs. Patient endorses daily ETOH use of 1/2 of a fifth of whiskey each day, patient denies any other substances. AUTOMATION QA TESTER offers assistance with PCP, patient denies need. AUTOMATION QA TESTER discusses tiny homes in [place], patient endorses he knows of them and is interested in them but not today. Patient endorses preference to d/c to home today, and plans to return to home. Patient endorses the only number that he can be reached at is his landlord Zacarias's number (Ph. # [phone]), patient states that he does not have a phone. AUTOMATION QA TESTER discusses Community spot sprayer and that Lonny can f/u with patient regarding housing at Tiny homes or setting up evaluation for [facility]. AUTOMATION QA TESTER calls Lonny and leaves regarding patient's medical clearance and d/c, as well as patient's future interest in tiny homes and [facility] [facility]. Patient to d/c via taxi voucher as patient does not have any funds with him at this time. CABLE INSPECTOR/medical record technician supports patient with ambulation trial, patient presents with ability to ambulate and presents at baseline. Plan: patient to d/c to home upon medical clearance via taxi, KAILEY to f/u with patient, Lonny Leslie to f/u with patient in regards to housing. Denise Fischer, [employer]
[2022-08-10 19:23] VITALS: BP 173/89; PULSE 103; RESP 22; TEMP 36.8; O2SAT 96
== END 2022-08-10 19:30 | disposition home or self-care (01) ==
PROVIDERS: Emergency Provider Emergency Medicine
DX: F10.129 Alcohol abuse with intoxication, unspecified (principal); Y90.6 Blood alcohol level of 120-199 mg/100 ml; S09.90XA Unspecified injury of head, initial encounter; W18.30XA Fall on same level, unspecified, initial encounter; Z79.01 Long term (current) use of anticoagulants
CPT/HCPCS: 36415; 70450; 70486; 72125; 80053; 80320; 81003; 85025; 99284

== ENCOUNTER 2022-08-30 21:18 | Inpatient (IN) | payer MEDICARE, MEDICAID, SELFPAY ==
[2021-06-04 20:42] VITALS: BMI 20.7
[2022-08-30] VITALS (8 sets, daily range): BP systolic 153–159; BP diastolic 73; PULSE 64–83; RESP 9–23; TEMP 36.6; O2SAT 96–99; BMI 21.7
--- NOTE | 2022-08-30 21:30 | PC.NURSE ---
Pt complains my neck hurts. Rigid C-collar placed by this RN and OBED Peres.
--- NOTE | 2022-08-30 21:40 | DI.CT.S_ITS ---
PROCEDURE: CT CERVICAL SPINE WO CON INDICATIONS: fall TECHNIQUE: Noncontrast 3 mm thick sections acquired from the skull base to the T4 level. Sagittal and coronal reformats were then constructed. For radiation dose reduction, the following was used: automated exposure control, adjustment of mA and/or kV according to patient size. COMPARISON: [facility], CT, CT CERVICAL SPINE WO CON, 08/10/2022, 13:47. [facility], CT, CT CERVICAL SPINE WO CON, 12/03/2021, 18:36. FINDINGS: Image quality: Excellent. Bones: There is a nondisplaced fracture at the base of the odontoid process of C2. Visualized superior ribs are intact. Moderate to severe multilevel degenerative disc disease and uncovertebral joint and facet hypertrophy. No high-grade narrowing of the bony spinal canal. Soft tissues: Prevertebral soft tissues are normal in thickness. No paravertebral hematomas. No apical pneumothoraces. Mild centrilobular emphysema. IMPRESSION: Nondisplaced type 2 odontoid fracture. Findings were discussed with the referring physician, Dr. Hicks, by telephone on 08/30/2022 at 10:37 PM. Approved by: Bernard Ceja M.D. on 08/30/2022 at 22:37
--- NOTE | 2022-08-30 21:40 | DI.CT.S_ITS ---
PROCEDURE: CT HEAD/BRAIN WO CON INDICATIONS: fall TECHNIQUE: Noncontrast 4.5 mm thick angled axial sections acquired from the foramen magnum to the vertex, with coronal and sagittal reformats. For radiation dose reduction, the following was used: automated exposure control, adjustment of mA and/or kV according to patient size. COMPARISON: [facility], CT, CT HEAD/BRAIN WO CON, 08/10/2022, 13:47. [facility], CT, CT HEAD/BRAIN WO CON, 04/26/2022, 13:15. FINDINGS: Image quality: Excellent. CSF spaces: Basal cisterns are patent. No extra-axial fluid collections. The ventricles are symmetric in size and shape. Brain: No acute intracranial hemorrhage or mass effect. There is cerebral volume loss for age, with resultant ventricular and sulcal prominence. There are periventricular and deep white matter chronic small vessel ischemic changes. There is intracranial internal carotid artery atherosclerosis. Skull and face: Calvarium and visualized facial bones appear intact, without suspicious lesions. Sinuses: Visualized sinuses and mastoids are clear. IMPRESSION: No acute intracranial abnormality. Stable chronic findings. Approved by: Bernard Ceja M.D. on 08/30/2022 at 22:32
--- NOTE | 2022-08-30 22:36 | DI.RAD.S_ITS ---
PROCEDURE: XR CHEST 1V INDICATIONS: chest pain TECHNIQUE: One view of the chest was acquired. COMPARISON: [facility], , CHEST 1 VIEW, 10/03/2015, 17:29. FINDINGS: Surgical changes and devices: None. Lungs and pleura: Cervical collar overlies the lung apices. Mildly low lung volumes are seen bilaterally with probable bibasilar atelectasis. No pleural effusions or pneumothorax. Mediastinum: Mediastinal contours appear normal. Heart size is normal. Bones and chest wall: No suspicious bony lesions. Overlying soft tissues appear unremarkable. No obvious displaced rib fracture. IMPRESSION: No acute cardiopulmonary abnormality. No pneumothorax. Approved by: Bernard Ceja M.D. on 08/30/2022 at 23:33
--- NOTE | 2022-08-30 22:36 | ED.FALL ---
HPI - Fall General Chief Complaint: Fall Stated Complaint: Fall-head injury- ETOH on thinners Time Seen by Provider: 08/30/22 21:40 Source: patient and EMS Mode of arrival: EMS History of Present Illness HPI Narrative: The patient 72-year-old male history alcohol abuse, CVA-noncompliant with Eliquis, presents today after ground level fall. It is questionable how he fell but was found covered in stool. He lives in a house with other people he has been reported that he is drinking and intoxicated. He fell he has obvious abrasion on forehead in the top of his head his legs so have wounds. He is awake alert moving all extremities no real complaints. Extremely hard of hearing difficult to get history from. Chart has been reviewed he has been to the ED a fair bit for alcohol related problems. He admits to drinking Related Data Home Medications Medication Instructions Recorded Confirmed apixaban 5 mg tablet (Eliquis) 5 mg PO BID 06/04/21 04/26/22 glecaprevir 100 mg-pibrentasvir 40 3 tab PO DAILY 06/04/21 04/26/22 mg tablet (Mavyret) Previous Rx's Medication Instructions Recorded cephalexin 500 mg capsule 500 mg PO TID #30 caps 03/13/22 gabapentin 100 mg capsule 100 mg PO TID #90 caps 03/13/22 (Neurontin) spironolactone 25 mg tablet 25 mg PO DAILY #30 tabs 03/13/22 (Aldactone) Allergies Allergy/AdvReac Type Severity Reaction Status Date / Time No Known Drug Allergies Allergy Verified 04/26/22 12:44 Review of Systems Review of Systems ROS Unobtainable: All systems reviewed & are unremarkable except as noted in HPI and below Patient History Medical History Abscess Acute CVA (cerebrovascular accident) Hepatitis C antibody test positive Heroin abuse Family History Father Cancer Social History household members: none Smoking Status: Current every day smoker Smoking Status: Current every day smoker alcohol intake frequency: 3 or more drinks per day Alcohol type: hard liquor Substance Use Type: marijuana and heroin Exam Initial Vital Signs Initial Vital Signs: Vital Signs Temperature 97.9 F 08/30/22 21:25 Pulse Rate 83 08/30/22 21:25 Respiratory Rate 18 08/30/22 21:25 Blood Pressure 153/73 H 08/30/22 21:25 Pulse Oximetry 96 08/30/22 21:25 Oxygen Delivery Method Room Air 08/30/22 21:25 GENERAL: Alert 72-year-old male HEENT: Head forehead and head abrasions laceration, EOMI [id number] in place CARDIOVASCULAR: Regular rate and rhythm without murmurs, rubs or gallops. RESPIRATORY: Breath sounds equal bilaterally, no wheezes rales or rhonchi. ABDOMEN: Soft, nontender. Normoactive bowel sounds all 4 quadrants. No guarding or rebound. EXTREMITIES: Normal range of motion, no clubbing or edema. 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 Course Orders Ordered: ED Orders 08/30/22 21:40 CT cervical spine wo con Stat CT head/brain wo con Stat 08/30/22 22:36 XR chest 1V Stat 08/30/22 23:36 Complete Blood Count AUTO DIFF Stat Comprehensive Metabolic Panel Stat ETOH [Ethanol (ETOH)] Stat Lactate (Lactic Acid) Stat Lipase Stat Troponin & CK Cardiac Panel Stat 08/31/22 00:10 Procalcitonin Stat 08/31/22 01:45 UA Complete [Urinalysis and Microscopic] Stat Urine Drug Screen, Rapid Stat 08/31/22 02:53 Consult to Occupational Therapy Evaluate & Treat Consult to Physical Therapy Evaluate & Treat 08/31/22 05:00 Basic Metabolic Panel Routine Complete Blood Count AUTO DIFF Routine Magnesium Routine Acetaminophen (Acetaminophen 325 Mg Tablet) 650 mg PO Q6H PRN PRN Reason: Fever/Mild Pain (1-3) Enoxaparin Sodium (Enoxaparin 40 Mg/0.4 Ml Syringe) 40 mg SUBCUT DAILY [facility] Folic Acid (Folic Acid 1 Mg Tablet) 1 mg PO DAILY [facility] Thiamine HCl 500 mg/ Sodium (Chloride) 105 mls @ 420 mls/hr IV TID KATRINA Last Admin: 08/31/22 03:34 Dose: 420 mls/hr Documented By: AM Lorazepam (Lorazepam 1 Mg Tablet) 0 mg PO CIWAPRN PRN; Protocol PRN Reason: Alcohol Withdrawal Multivitamins (Multivitamin 1 Tablet) 1 tab PO DAILY KATRINA Naloxone HCl (Naloxone 0.4 Mg/Ml Vial) 0.2 mg IV Q2MIN PRN PRN Reason: Opiate Reversal Ondansetron HCl (Ondansetron 4 Mg/2 Ml Inj) 4 mg IV Q8HR PRN PRN Reason: Nausea And Vomiting Oxycodone HCl (Oxycodone Ir 5 Mg Tablet) 5 mg PO Q4HR PRN PRN Reason: Pain, Moderate (4-6) Last Admin: 08/31/22 03:33 Dose: 5 mg Documented By: AM Discontinued Medications Sodium Chloride (Normal Saline 0.9%) 1,000 mls @ 1,000 mls/hr IV BOLUS ONE Stop: 08/31/22 01:05 Last Infusion: 08/31/22 01:52 Dose: 0 mls/hr Documented By: Admin: 08/31/22 00:22 Dose: 1,000 mls/hr Documented By: ARISTEO Piperacillin Sod/Tazobactam (Sod 4.5 gm/ Sodium Chloride) 100 mls @ 200 mls/hr IV NOW ONE Stop: 08/31/22 00:40 Last Infusion: 08/31/22 01:52 Dose: 0 mls/hr Documented By: Admin: 08/31/22 01:14 Dose: 200 mls/hr Documented By: KEENAN Morphine Sulfate (Morphine 2 Mg/Ml Inj) 2 mg IV NOW ONE Stop: 08/31/22 00:30 Last Admin: 08/31/22 00:33 Dose: 2 mg Documented By: ARISTEO Vital Signs Vital signs: Vital Signs - 8 hr 08/30/22 21:25 08/30/22 21:26 08/30/22 21:27 Temperature 97.9 F Pulse Rate 83 64 72 Respiratory Rate 18 Blood Pressure 153/73 H Pulse Oximetry 96 99 98 Oxygen Delivery Method Room Air 08/30/22 21:27 08/30/22 21:30 08/30/22 21:30 Temperature Pulse Rate 78 Respiratory Rate Blood Pressure 153/73 H 159/73 H Pulse Oximetry 98 Oxygen Delivery Method 08/30/22 22:02 08/30/22 22:30 08/30/22 23:00 Temperature Pulse Rate 82 70 77 Respiratory Rate 9 L Blood Pressure Pulse Oximetry 97 96 96 Oxygen Delivery Method 08/30/22 23:30 08/31/22 00:00 08/31/22 00:30 Temperature Pulse Rate 81 79 86 Respiratory Rate 23 18 35 H Blood Pressure Pulse Oximetry 96 92 96 Oxygen Delivery Method 08/31/22 01:00 08/31/22 01:30 08/31/22 01:51 Temperature Pulse Rate 83 89 90 Respiratory Rate 16 36 H 22 Blood Pressure Pulse Oximetry 97 97 96 Oxygen Delivery Method 08/31/22 01:51 08/31/22 02:00 Temperature Pulse Rate 84 Respiratory Rate 16 Blood Pressure 160/76 H Pulse Oximetry 98 Oxygen Delivery Method MDM - Fall Lab Data 08/30/22 23:36 08/30/22 23:36 Labs: Lab Results 08/30/22 08/30/22 08/30/22 Range/Units 23:36 23:36 23:36 WBC 7.5 (4.5-11.0) X10^3/uL RBC 4.51 (4.5-5.9) X10^6/uL Hgb 14.6 (13.5-17.5) g/dL Hct 43.0 (41-53) % MCV 95.2 (80-100) fL MCH 32.4 (26-34) PG MCHC 34.1 (30-36) % RDW 15.1 H (11.6-14.8) % Plt Count 411 H (150-400) X10^3/uL Neut % (Auto) 67.3 (50-75) % Lymph % (Auto) 22.7 L (25-40) % [place] % (Auto) 7.1 (3-14) % Eos % (Auto) 1.5 L (2-4) % Baso % (Auto) 1.4 (0-2) % Neut # (Auto) 5000 (1164-1903) /uL Lymph # (Auto) 1700 (8360-9385) /uL [place] # (Auto) 500 (0-900) /uL Eos # (Auto) 100 (0-450) /uL Baso # (Auto) 100 (0-100) /uL Sodium 144 (137-145) mmol/L Potassium 4.1 (3.4-5.1) mmol/L Chloride 105 (98-107) mmol/L Carbon Dioxide 23 (22-32) mmol/L BUN 15 (9-20) mg/dL Creatinine 0.83 (0.66-1.25) mg/dL Estimated GFR > 60 (>60) mL/min BUN/Creatinine Ratio 18.1 (6-22) Glucose 104 (80-110) mg/dL Lactate 4.1 H* (0.7-2.1) mmol/L Calcium 9.1 (8.4-10.2) mg/dL Total Bilirubin 0.4 (0.2-1.3) mg/dL AST 119 H (17-59) IU/L ALT 49 (<50) IU/L Alkaline Phosphatase 115 (38-126) U/L Total Creatine Kinase 864 H (55-170) U/L CK-MB (CK-2) TNP CK-MB (CK-2) Rel Index TNP Troponin I < 0.012 (0.01-0.034) ng/mL Total Protein 8.6 H (6.3-8.2) g/dL Albumin 4.7 (3.5-5.0) g/dL Globulin 3.9 (1.7-4.1) g/dL Albumin/Globulin Ratio 1.2 (1.0-2.8) Lipase 94 (23-300) U/L Procalcitonin (<0.5) ng/mL Urine Color Urine Appearance Urine pH (4.5-8.0) Ur Specific [place] (1.000-1.035) Urine Protein (Negative) Urine Glucose (UA) (Negative) g/dL Urine Ketones (NEGATIVE) Urine Occult Blood (Negative) Urine Nitrate (Negative) Urine Bilirubin (NEGATIVE) Urine Urobilinogen (0.2) E.U./dL Ur Leukocyte Esterase (NEGATIVE) Urine RBC (0-5/HPF) Urine WBC (0-5/HPF) Ur Squamous Epith Cells (0-5/HPF) Ur Transition Epith Cell (0-5/HPF) Urine Bacteria (None) Ur Culture Indicated? U Opiates 300ng/mL cut (Negative) Ur Oxycodone Screen (Negative) Urine Methadone Screen (Negative) Ur Barbiturates Screen (Negative) U Tricyclic Antidepress (Negative) Ur Phencyclidine Scrn (Negative) Ur Amphetamines Screen (Negative) U Methamphetamines Scrn (Negative) Ur MDMA Scrn (Ecstasy) (Negative) U Benzodiazepines Scrn (Negative) Urine Cocaine Screen (Negative) U Marijuana (THC) Screen (Negative) Ethyl Alcohol 291 H ( - 10) mg/dL 08/30/22 08/31/22 08/31/22 Range/Units 23:36 01:45 01:45 WBC (4.5-11.0) X10^3/uL RBC (4.5-5.9) X10^6/uL Hgb (13.5-17.5) g/dL Hct (41-53) % MCV (80-100) fL MCH (26-34) PG MCHC (30-36) % RDW (11.6-14.8) % Plt Count (150-400) X10^3/uL Neut % (Auto) (50-75) % Lymph % (Auto) (25-40) % [place] % (Auto) (3-14) % Eos % (Auto) (2-4) % Baso % (Auto) (0-2) % Neut # (Auto) (8312-8558) /uL Lymph # (Auto) (2181-4604) /uL [place] # (Auto) (0-900) /uL Eos # (Auto) (0-450) /uL Baso # (Auto) (0-100) /uL Sodium (137-145) mmol/L Potassium (3.4-5.1) mmol/L Chloride (98-107) mmol/L Carbon Dioxide (22-32) mmol/L BUN (9-20) mg/dL Creatinine (0.66-1.25) mg/dL Estimated GFR (>60) mL/min BUN/Creatinine Ratio (6-22) Glucose (80-110) mg/dL Lactate (0.7-2.1) mmol/L Calcium (8.4-10.2) mg/dL Total Bilirubin (0.2-1.3) mg/dL AST (17-59) IU/L ALT (<50) IU/L Alkaline Phosphatase (38-126) U/L Total Creatine Kinase (55-170) U/L CK-MB (CK-2) CK-MB (CK-2) Rel Index Troponin I (0.01-0.034) ng/mL Total Protein (6.3-8.2) g/dL Albumin (3.5-5.0) g/dL Globulin (1.7-4.1) g/dL Albumin/Globulin Ratio (1.0-2.8) Lipase (23-300) U/L Procalcitonin 0.07 (<0.5) ng/mL Urine Color Yellow Urine Appearance Clear Urine pH 5.5 (4.5-8.0) Ur Specific [place] 1.010 (1.000-1.035) Urine Protein Trace H (Negative) Urine Glucose (UA) Negative (Negative) g/dL Urine Ketones Negative (NEGATIVE) Urine Occult Blood Trace-intact (Negative) Urine Nitrate Negative (Negative) Urine Bilirubin Negative (NEGATIVE) Urine Urobilinogen 0.2 (0.2) E.U./dL Ur Leukocyte Esterase Negative (NEGATIVE) Urine RBC 1-5/hpf (0-5/HPF) Urine WBC None seen (0-5/HPF) Ur Squamous Epith Cells 0-1 /hpf (0-5/HPF) Ur Transition Epith Cell 1-5/hpf (0-5/HPF) Urine Bacteria None seen (None) Ur Culture Indicated? Cult not indicated U Opiates 300ng/mL cut Negative (Negative) Ur Oxycodone Screen Negative (Negative) Urine Methadone Screen Negative (Negative) Ur Barbiturates Screen Negative (Negative) U Tricyclic Antidepress Negative (Negative) Ur Phencyclidine Scrn Negative (Negative) Ur Amphetamines Screen Negative (Negative) U Methamphetamines Scrn Negative (Negative) Ur MDMA Scrn (Ecstasy) Negative (Negative) U Benzodiazepines Scrn Negative (Negative) Urine Cocaine Screen Negative (Negative) U Marijuana (THC) Screen Negative (Negative) Ethyl Alcohol ( - 10) mg/dL 08/31/22 Range/Units 01:50 WBC (4.5-11.0) X10^3/uL RBC (4.5-5.9) X10^6/uL Hgb (13.5-17.5) g/dL Hct (41-53) % MCV (80-100) fL MCH (26-34) PG MCHC (30-36) % RDW (11.6-14.8) % Plt Count (150-400) X10^3/uL Neut % (Auto) (50-75) % Lymph % (Auto) (25-40) % [place] % (Auto) (3-14) % Eos % (Auto) (2-4) % Baso % (Auto) (0-2) % Neut # (Auto) (8025-9647) /uL Lymph # (Auto) (7716-9153) /uL [place] # (Auto) (0-900) /uL Eos # (Auto) (0-450) /uL Baso # (Auto) (0-100) /uL Sodium (137-145) mmol/L Potassium (3.4-5.1) mmol/L Chloride (98-107) mmol/L Carbon Dioxide (22-32) mmol/L BUN (9-20) mg/dL Creatinine (0.66-1.25) mg/dL Estimated GFR (>60) mL/min BUN/Creatinine Ratio (6-22) Glucose (80-110) mg/dL Lactate 3.4 H (0.7-2.1) mmol/L Calcium (8.4-10.2) mg/dL Total Bilirubin (0.2-1.3) mg/dL AST (17-59) IU/L ALT (<50) IU/L Alkaline Phosphatase (38-126) U/L Total Creatine Kinase (55-170) U/L CK-MB (CK-2) CK-MB (CK-2) Rel Index Troponin I (0.01-0.034) ng/mL Total Protein (6.3-8.2) g/dL Albumin (3.5-5.0) g/dL Globulin (1.7-4.1) g/dL Albumin/Globulin Ratio (1.0-2.8) Lipase (23-300) U/L Procalcitonin (<0.5) ng/mL Urine Color Urine Appearance Urine pH (4.5-8.0) Ur Specific [place] (1.000-1.035) Urine Protein (Negative) Urine Glucose (UA) (Negative) g/dL Urine Ketones (NEGATIVE) Urine Occult Blood (Negative) Urine Nitrate (Negative) Urine Bilirubin (NEGATIVE) Urine Urobilinogen (0.2) E.U./dL Ur Leukocyte Esterase (NEGATIVE) Urine RBC (0-5/HPF) Urine WBC (0-5/HPF) Ur Squamous Epith Cells (0-5/HPF) Ur Transition Epith Cell (0-5/HPF) Urine Bacteria (None) Ur Culture Indicated? U Opiates 300ng/mL cut (Negative) Ur Oxycodone Screen (Negative) Urine Methadone Screen (Negative) Ur Barbiturates Screen (Negative) U Tricyclic Antidepress (Negative) Ur Phencyclidine Scrn (Negative) Ur Amphetamines Screen (Negative) U Methamphetamines Scrn (Negative) Ur MDMA Scrn (Ecstasy) (Negative) U Benzodiazepines Scrn (Negative) Urine Cocaine Screen (Negative) U Marijuana (THC) Screen (Negative) Ethyl Alcohol ( - 10) mg/dL Point of Care Testing Glucose POC [address] scan - head: Radiologist's Impression: PROCEDURE:? CT HEAD/BRAIN WO CON ? INDICATIONS:? fall ? TECHNIQUE:? Noncontrast 4.5 mm thick angled axial sections acquired from the foramen magnum to the vertex, with coronal and sagittal reformats.? For radiation dose reduction, the following was used:? automated exposure control, adjustment of mA and/or kV according to patient size.? ? COMPARISON:? [facility], CT, CT HEAD/BRAIN WO CON, 08/10/2022, 13:47.? [facility], CT, CT HEAD/BRAIN WO CON, 04/26/2022, 13:15. ? FINDINGS:? Image quality:? Excellent.? ? CSF spaces:? Basal cisterns are patent.? No extra-axial fluid collections.? The ventricles are symmetric in size and shape.? ? Brain:? No acute intracranial hemorrhage or mass effect.? There is cerebral volume loss for age, with resultant ventricular and sulcal prominence.? There are periventricular and deep white matter chronic small vessel ischemic changes.? There is intracranial internal carotid artery atherosclerosis.? ? Skull and face:? Calvarium and visualized facial bones appear intact, without suspicious lesions.? ? Sinuses:? Visualized sinuses and mastoids are clear.? ? IMPRESSION:? No acute intracranial abnormality.? Stable chronic findings. ? ? ? Approved by: Bernard Ceja M.D. on 08/30/2022 at 22:32? CT - cervical spine: Radiologist's Impression: PROCEDURE:? CT CERVICAL SPINE WO CON ? INDICATIONS:? fall ? TECHNIQUE:? Noncontrast 3 mm thick sections acquired from the skull base to the T4 level.? Sagittal and coronal reformats were then constructed.? For radiation dose reduction, the following was used:? automated exposure control, adjustment of mA and/or kV according to patient size.? ? COMPARISON:? [facility], CT, CT CERVICAL SPINE WO CON, 08/10/2022, 13:47.? [facility], CT, CT CERVICAL SPINE WO CON, 12/03/2021, 18:36. ? FINDINGS:? Image quality:? Excellent.? ? Bones:? There is a nondisplaced fracture at the base of the odontoid process of C2.? Visualized superior ribs are intact.? Moderate to severe multilevel degenerative disc disease and uncovertebral joint and facet hypertrophy.? No high-grade narrowing of the bony spinal canal. ? Soft tissues:? Prevertebral soft tissues are normal in thickness.? No paravertebral hematomas.? No apical pneumothoraces.? Mild centrilobular emphysema. ? IMPRESSION:? Nondisplaced type 2 odontoid fracture. ? Findings were discussed with the referring physician, Dr. Hicks, by telephone on 08/30/2022 at 10:37 PM. ? ? Approved by: Bernard Ceja M.D. on 08/30/2022 at 22:37? Chest x-ray: Radiologist's Impression: PROCEDURE:? XR CHEST 1V ? INDICATIONS:? chest pain ? TECHNIQUE:? One view of the chest was acquired.? ? COMPARISON:? [facility], CR, CHEST 1 VIEW, 10/03/2015, 17:29. ? FINDINGS:? ? Surgical changes and devices:? None.? ? Lungs and pleura:? Cervical collar overlies the lung apices.? Mildly low lung volumes are seen bilaterally with probable bibasilar atelectasis.? No pleural effusions or pneumothorax.? ? Mediastinum:? Mediastinal contours appear normal.? Heart size is normal.? ? Bones and chest wall:? No suspicious bony lesions.? Overlying soft tissues appear unremarkable.? No obvious displaced rib fracture. ? IMPRESSION:? No acute cardiopulmonary abnormality.? No pneumothorax. ? ? ? Approved by: Bernard Ceja M.D. on 08/30/2022 at 23:33? ECG Data Interpretation: Low voltage regular rate rate 74 difficult to see P waves previous EKGs showed definite sinus rhythm 12/03/2021 today possible junctional no ST changes MDM Narrative Medical decision making narrative: Patient is a 72-year-old male history of alcohol abuse presents today with alcohol intoxication and a fall. Alcohol of today is 291. He is got some slurring of speech. He is also found have a nondisplaced odontoid fracture on his cervical spine CT. He is immediately placed in [place] collar. Dr. Gamez, by Orthopedic surgery, updated recommends [place] collar and follow-up in clinic. Patient other blood work does not show any electrolyte abnormality LUI leukocytosis or anemia. Troponin is negative although CPK minimally elevated at 864. Lactic acid is noted to be 4.1 which improved to 3.4 with IV fluids. Think this is unlikely to be infectious etiology no sources found. Chest x-ray and urinalysis are negative he is afebrile. Nonetheless he is empirically given 1 dose of Zosyn. He is not hypotensive no sign of severe sepsis. He does not have an anion gap do not suspect other toxic ingestion. Patient history of alcoholism currently intoxicated frequent falls now so odontoid fracture having significant pain and neck requiring multiple pain medication doses and with an elevated lactic acid without obvious cause. Patient seems reasonable to put for observation. Dr. Borja accepts patient Discharge Plan Departure Patient Disposition: Admitted as Observation Clinical Impression: Alcohol intoxication, Odontoid fracture, Falls frequently Admit Date/Time: 08/31/22 02:29 Admit Provider: Yoni Borja
[2022-08-30 23:46] LABS: Add Manual Diff / Slide Review NO; Basophils Absolute Auto 100 /uL (0-100); Basophils Percent Auto 1.4 % (0-2); Eosinophils Absolute Auto 100 /uL (0-450); Eosinophils Percent Auto 1.5 % (2-4); Hemoglobin 14.6 g/dL (13.5-17.5); Lymphocytes Absolute Auto 1700 /uL (1100-4500); Lymphocytes Percent Auto 22.7 % (25-40); Mean Corpuscular HGB Conc 34.1 % (30-36); Mean Corpuscular Hemoglobin 32.4 PG (26-34); Mean Corpuscular Volume 95.2 fL (80-100); Monocytes Absolute Auto 500 /uL (0-900); Monocytes Percent Auto 7.1 % (3-14); Neutrophils Absolute Auto 5000 /uL (1500-7000); Neutrophils Percent Auto 67.3 % (50-75); Platelet Count 411 X10^3/uL (150-400); Red Blood Cell Count 4.51 X10^6/uL (4.5-5.9); Red Cell Distribution Width 15.1 % (11.6-14.8); White Blood Cell Count 7.5 X10^3/uL (4.5-11.0)
[2022-08-31] VITALS (22 sets, daily range): BP systolic 151–169; BP diastolic 72–90; PULSE 79–108; RESP 16–36; TEMP 36.2–37.2; O2SAT 92–98; BMI 21.7
[2022-08-31 00:01] LABS: Alanine Aminotransferase 49 IU/L (<50); Albumin 4.7 g/dL (3.5-5.0); Albumin Globulin Ratio 1.2 (1.0-2.8); Alkaline Phosphatase 115 U/L (38-126); Aspartate Aminotransferase 119 IU/L (17-59); BUN Creatinine Ratio 18.1 (6-22); Bilirubin Total 0.4 mg/dL (0.2-1.3); Blood Urea Nitrogen 15 mg/dL (9-20); Calcium 9.1 mg/dL (8.4-10.2); Carbon Dioxide 23 mmol/L (22-32); Chloride 105 mmol/L (98-107); Creatine Kinase 864 U/L (55-170); Estimated Glomerular Filt Rate > 60 mL/min (>60); Globulin 3.9 g/dL (1.7-4.1); Glucose 104 mg/dL (80-110); HEMOLYSIS < 15 (0-50); Lipase 94 U/L (23-300); Potassium 4.1 mmol/L (3.4-5.1); Sodium 144 mmol/L (137-145); Total Protein 8.6 g/dL (6.3-8.2)
[2022-08-31 00:08] LABS: Ethanol (ETOH) 291 mg/dL
[2022-08-31 00:10] LABS: Lactate (Lactic Acid) 4.1 mmol/L (0.7-2.1)
[2022-08-31] MEDS: SODIUM CHLORIDE 0.9% 1,000 ML 1000 ML IV (00:22)
[2022-08-31 00:28] LABS: Troponin I < 0.012 ng/mL (0.01-0.034)
[2022-08-31] MEDS: MORPHINE 2 MG/ML INJ IV (00:33)
[2022-08-31 00:42] LABS: Procalcitonin 0.07 ng/mL (<0.5)
[2022-08-31] MEDS: PIPERACILLIN/TAZO 4.5 GM in SODIUM CHLORIDE 0.9% 100 ML IV (01:14)
[2022-08-31 01:43] LABS: Reflexed Lactate in 2 Hours Y
[2022-08-31 02:05] LABS: Lactate 2HR (Lactic Acid Rflx) 3.4 mmol/L (0.7-2.1)
[2022-08-31 02:14] LABS: Appearance Urine UA CLEAR; Bilirubin Urine UA NEGATIVE (NEGATIVE); Color Urine UA YELLOW; Glucose Urine UA NEGATIVE (Negative); Ketones Urine UA NEGATIVE (NEGATIVE); Leukocyte Esterase Urine UA NEGATIVE (NEGATIVE); Nitrite Urine UA NEGATIVE (Negative); Occult Blood Urine UA TRACE-INTACT (Negative); Protein Urine UA TRACE (Negative); Urobilinogen Urine UA 0.2 E.U./dL (0.2); pH Urine UA 5.5 (4.5-8.0)
[2022-08-31 02:16] LABS: RBC Urine 1-5/HPF (0-5/HPF); Transitional Epi Cells Urine 1-5/HPF (0-5/HPF); WBC Urine None Seen (0-5/HPF)
[2022-08-31 02:17] LABS: Squamous Epithelial Cell Urine 0-1 /HPF (0-5/HPF)
[2022-08-31 02:18] LABS: Bacteria Urine None Seen; Culture Indicated Urine Cult Not Indicated
[2022-08-31 02:19] LABS: UR Morphine/Opiate cutoff 300 Negative (Negative); Ur Creatinine Normal (Normal); Ur Specific Gravity Normal (Normal); Urine Amphetamines Negative (Negative); Urine Barbiturates Negative (Negative); Urine Benzodiazepines Negative (Negative); Urine Cocaine Negative (Negative); Urine MDMA Negative (Negative); Urine Methadone Negative (Negative); Urine Methamphetamines Negative (Negative); Urine Oxycodone Negative (Negative); Urine Phencyclidine Negative (Negative); Urine Tetrahydrocannabinol Negative (Negative); Urine Tricyclic Antidepressant Negative (Negative); Urine pH Normal (Normal)
[2022-08-31] MEDS: OXYCODONE IR 5 MG TABLET PO ×4 (03:33→22:47)
[2022-08-31] MEDS: THIAMINE 500 MG in SODIUM CHLORIDE 0.9% 100 ML 420 MG IV ×4 (03:34→20:59)
--- NOTE | 2022-08-31 05:56 | PC.NURSE ---
Addendum entered by Camilo Buhs R.N. 08/31/22 05:57: Skin assessment photos completed with Merlene CLAY Original Note:
--- NOTE | 2022-08-31 06:34 | PM.HP.1 ---
History of Present Illness History of Present Illness Date Patient Seen: 08/31/22 Time Patient Seen: 02:00 Chief complaint: Fall-head injury- ETOH on thinners Narrative: Mr. Benitez is a 72M with H alcohol abuse, cva, hepatitis C, cva who presents to the hospital with a fall. He has a history of heroin abuse as well but denies currently using. He has a history of endocarditis previously as well. He is on multiple medications but does not seem to be adherent to them. He drinks significantly at least a fifth every couple days. His last drink was earlier today. He has no recollection of the fall. He is unclear if he had a head strike. He has presented before after a fall and has had rib fractures. He appears somewhat confused when I see him, but does have elevated EtOH level. In the ED workup was done, vitals notable for afebrile, heart rate 80s, blood pressure 150s/70s, sats 96% on room air. Labs reviewed by me and notable for WBC 7.5, hgb 14.6, plts 411. BUN 15, creatinine 0.83. Lactate 4.1. CK 864. Trop negative. EtOH 291. Procal 0.07. UA negative. UDS negative. He did have urinary retention in the ED and had straight cath, he had urinary retention on the floor and had colbert ordered. Chext xray reviewed by me and not acute process. CT c-spine showed nondisplaced type 2 odontoid fracture, he had c-collar placed. Neurosurgery was consulted and recommended follow up as outpatient. CT head showed no acute process. He was ordered for antibiotics and fluids, his lactate improved to 3.4. He was admitted for further treatment. [facility] Medical History Abscess Acute CVA (cerebrovascular accident) Hepatitis C antibody test positive Heroin abuse Family History Father Cancer Social History household members: none Smoking Status: Current every day smoker alcohol intake: current Meds Home Medications and Allergies Allergies Allergy/AdvReac Type Severity Reaction Status Date / Time No Known Drug Allergies Allergy Verified 04/26/22 12:44 Review of Systems Review of Systems Narrative: 14 systems reviewed and negative aside from what is noted in HPI Exam Vital Signs (past 8 hours): - 08/30/22 23:00 08/30/22 23:30 08/31/22 00:00 Temperature Pulse Rate 77 81 79 Respiratory Rate 9 L 23 18 Blood Pressure Pulse Oximetry 96 96 92 Oxygen Delivery Method Oxygen Flow Rate 08/31/22 00:30 08/31/22 01:00 08/31/22 01:30 Temperature Pulse Rate 86 83 89 Respiratory Rate 35 H 16 36 H Blood Pressure Pulse Oximetry 96 97 97 Oxygen Delivery Method Oxygen Flow Rate 08/31/22 01:51 08/31/22 01:51 08/31/22 02:00 Temperature Pulse Rate 90 84 Respiratory Rate 22 16 Blood Pressure 160/76 H Pulse Oximetry 96 98 Oxygen Delivery Method Oxygen Flow Rate 08/31/22 02:30 08/31/22 03:00 08/31/22 02:53 Temperature 97.1 F L Pulse Rate 93 H 93 H Respiratory Rate 24 20 Blood Pressure 160/83 H Pulse Oximetry 98 96 96 Oxygen Delivery Method Room Air Oxygen Flow Rate 0 Oxygen Delivery Method Room Air Oxygen Flow Rate 0 Narrative Exam Narrative: GEN: confused, no acute distress, head lacerations HEENT: moist mucous membranes, PERRL CV: tachycardic, no murmurs PULM: clear bilaterally, no wheezes, rhonchi, rales ABD: soft, nontender, nondistended, no organomegaly, normal bowel sounds EXT: warm and well perfused, no edema NEURO: awake, confused, no focal deficits noted Objective Labs 08/30/22 23:36 08/30/22 23:36 Labs: Laboratory Results - last 24 hr 08/30/22 08/30/22 08/30/22 23:36 23:36 23:36 WBC 7.5 RBC 4.51 Hgb 14.6 Hct 43.0 MCV 95.2 MCH 32.4 MCHC 34.1 RDW 15.1 H Plt Count 411 H Neut % (Auto) 67.3 Lymph % (Auto) 22.7 L [place] % (Auto) 7.1 Eos % (Auto) 1.5 L Baso % (Auto) 1.4 Neut # (Auto) 5000 Lymph # (Auto) 1700 [place] # (Auto) 500 Eos # (Auto) 100 Baso # (Auto) 100 Sodium 144 Potassium 4.1 Chloride 105 Carbon Dioxide 23 BUN 15 Creatinine 0.83 Estimated GFR > 60 BUN/Creatinine Ratio 18.1 Glucose 104 Lactate 4.1 H* Calcium 9.1 Total Bilirubin 0.4 AST 119 H ALT 49 Alkaline Phosphatase 115 Total Creatine Kinase 864 H CK-MB (CK-2) TNP CK-MB (CK-2) Rel Index TNP Troponin I < 0.012 Total Protein 8.6 H Albumin 4.7 Globulin 3.9 Albumin/Globulin Ratio 1.2 Lipase 94 Procalcitonin Urine Color Urine Appearance Urine pH Ur Specific [place] Urine Protein Urine Glucose (UA) Urine Ketones Urine Occult Blood Urine Nitrate Urine Bilirubin Urine Urobilinogen Ur Leukocyte Esterase Urine RBC Urine WBC Ur Squamous Epith Cells Ur Transition Epith Cell Urine Bacteria Ur Culture Indicated? U Opiates 300ng/mL cut Ur Oxycodone Screen Urine Methadone Screen Ur Barbiturates Screen U Tricyclic Antidepress Ur Phencyclidine Scrn Ur Amphetamines Screen U Methamphetamines Scrn Ur MDMA Scrn (Ecstasy) U Benzodiazepines Scrn Urine Cocaine Screen U Marijuana (THC) Screen Ethyl Alcohol 291 H 08/30/22 08/31/22 08/31/22 23:36 01:45 01:45 WBC RBC Hgb Hct MCV MCH MCHC RDW Plt Count Neut % (Auto) Lymph % (Auto) [place] % (Auto) Eos % (Auto) Baso % (Auto) Neut # (Auto) Lymph # (Auto) [place] # (Auto) Eos # (Auto) Baso # (Auto) Sodium Potassium Chloride Carbon Dioxide BUN Creatinine Estimated GFR BUN/Creatinine Ratio Glucose Lactate Calcium Total Bilirubin AST ALT Alkaline Phosphatase Total Creatine Kinase CK-MB (CK-2) CK-MB (CK-2) Rel Index Troponin I Total Protein Albumin Globulin Albumin/Globulin Ratio Lipase Procalcitonin 0.07 Urine Color Yellow Urine Appearance Clear Urine pH 5.5 Ur Specific [place] 1.010 Urine Protein Trace H Urine Glucose (UA) Negative Urine Ketones Negative Urine Occult Blood Trace-intact Urine Nitrate Negative Urine Bilirubin Negative Urine Urobilinogen 0.2 Ur Leukocyte Esterase Negative Urine RBC 1-5/hpf Urine WBC None seen Ur Squamous Epith Cells 0-1 /hpf Ur Transition Epith Cell 1-5/hpf Urine Bacteria None seen Ur Culture Indicated? Cult not indicated U Opiates 300ng/mL cut Negative Ur Oxycodone Screen Negative Urine Methadone Screen Negative Ur Barbiturates Screen Negative U Tricyclic Antidepress Negative Ur Phencyclidine Scrn Negative Ur Amphetamines Screen Negative U Methamphetamines Scrn Negative Ur MDMA Scrn (Ecstasy) Negative U Benzodiazepines Scrn Negative Urine Cocaine Screen Negative U Marijuana (THC) Screen Negative Ethyl Alcohol 08/31/22 01:50 WBC RBC Hgb Hct MCV MCH MCHC RDW Plt Count Neut % (Auto) Lymph % (Auto) [place] % (Auto) Eos % (Auto) Baso % (Auto) Neut # (Auto) Lymph # (Auto) [place] # (Auto) Eos # (Auto) Baso # (Auto) Sodium Potassium Chloride Carbon Dioxide BUN Creatinine Estimated GFR BUN/Creatinine Ratio Glucose Lactate 3.4 H Calcium Total Bilirubin AST ALT Alkaline Phosphatase Total Creatine Kinase CK-MB (CK-2) CK-MB (CK-2) Rel Index Troponin I Total Protein Albumin Globulin Albumin/Globulin Ratio Lipase Procalcitonin Urine Color Urine Appearance Urine pH Ur Specific [place] Urine Protein Urine Glucose (UA) Urine Ketones Urine Occult Blood Urine Nitrate Urine Bilirubin Urine Urobilinogen Ur Leukocyte Esterase Urine RBC Urine WBC Ur Squamous Epith Cells Ur Transition Epith Cell Urine Bacteria Ur Culture Indicated? U Opiates 300ng/mL cut Ur Oxycodone Screen Urine Methadone Screen Ur Barbiturates Screen U Tricyclic Antidepress Ur Phencyclidine Scrn Ur Amphetamines Screen U Methamphetamines Scrn Ur MDMA Scrn (Ecstasy) U Benzodiazepines Scrn Urine Cocaine Screen U Marijuana (THC) Screen Ethyl Alcohol Assessment & Plan Assessment & Plan narrative: 1. Acute encephalopathy -presume secondary to EtOH -other etiology is wernickes vs post-concussive vs less likely infectious -infectious workup so far negative, will not continue antibiotics -for now will treat with high dose IV thiamine -CT head negative for acute process -monitor mental status as patient monika up 2. Falls, with odontoid fracture, neck pain -suspect secondary to intoxication -continue to monitor -risk of being on eliquis likely outweighs benefit with continued drinking and multiple falls resulting in rib and odontoid fractures -PT consult -continue with oxycodone for pain control -will need outpatient neurosurgery follow up 3. Alcohol abuse -patient unsure if he wishes to stop drinking -for now place on ciwa protocol -intial etoh 291 -ordered thiamine, mvi, folate 4. Elevated lactate -etiology likely secondary to alcohol abuse -continue to trend -suspect will improve with thiamine -suspect less likely cause is infection, but continue to monitor for infectious symptoms 5. Urinary retention -colbert placed I have discussed plan with patient. I have discussed plan of care with ED physician and bedside nurse. I have reviewed labs, imaging, and previous medical notes. CODE: Full Proxy:Torrey Emmanuel, brother
--- NOTE | 2022-08-31 06:48 | PC.NURSE ---
0300: Pt states drinking 1/2 of a fifth of whiskey a day, denies any other substances. Denies any home medications. States he sleeps on his friends porch since he was kicked out of house. AxO3, lungs clear. Seizure pads placed, oriented to call light and room.
--- NOTE | 2022-08-31 06:55 | PC.NURSE ---
Pt arrived around 0300 from ED in stretcher, slide board used. Pt AxO3, stating September 1922. States drinks 1/2 of a fifth of whiskey a day, denies any other substances. Seizure pads placed. Pt oriented to room and call light.
[2022-08-31] MEDS: FOLIC ACID 1 MG TABLET PO (08:17)
[2022-08-31] MEDS: MULTIVITAMIN 1 TABLET 1 TAB PO (08:17)
[2022-08-31] MEDS: ACETAMINOPHEN 325 MG TABLET 650 MG PO (08:17)
[2022-08-31] MEDS: ENOXAPARIN 40 MG/0.4 ML SYRINGE SUBCUT (08:18)
[2022-08-31] MEDS: LORazepam 1 MG TABLET PO ×3 (08:35→14:42)
--- NOTE | 2022-08-31 09:30 | PT.IIE ---
Medical History (Last Reviewed 08/31/22 @ 06:34 by Yoni Borja MD) Abscess Acute CVA (cerebrovascular accident) Hepatitis C antibody test positive Heroin abuse Physical Therapy Inpatient Evaluation/Re-Eval M1 PT/OT-IP Prior Functional Status Start: 08/31/22 11:26 Freq: NEEDED Status: Active Protocol: Document 08/31/22 09:30 AB (Rec: 08/31/22 11:41 AB [id number]) Medical Review Prior Functional Status Medical History Reviewed Yes Communication able to make needs known; [place] Mobility and Gait stated that he is modified independent with all mobilities and ambulation using a quad cane Social History Household Members none Number of Stairs To Enter/Railing? pt stated that he is staying in h is friend's front porch: has 4 steps 2 wide rails (can only hold on to one at a time) to get to the porch. Home Environment High Toilet,Tub/Shower Home Equipment Quad Cane,Hand Held Shower Additional Social History Comment pt stated that he can use his friend's toilet/shower if needed M2 PT-IP Current Condition Start: 08/31/22 11:26 Freq: NEEDED Status: Active Protocol: Document 08/31/22 09:30 AB (Rec: 08/31/22 11:41 AB [id number]) Physical Therapy Current Condition Current Condition Evaluation Date 08/31/22 Treatment Diagnosis GLF; odontoid fx; acute encephalopathy due to ETOH; difficulty in walking Onset Date 08/31/22 M3 PT-IP Subjective Start: 08/31/22 11:26 Freq: NEEDED Status: Active Protocol: Document 08/31/22 09:30 AB (Rec: 08/31/22 11:41 AB [id number]) Subjective Physical Therapy Visit Type Type Initial Evaluation Visit Start Time 09:30 Visit Stop Time 10:35 Total Visit Minutes 35 Notes seen for split visits: 930 to 945 and 1015 to 1035 Number of RECYCLING OPERATIONS MANAGER Visits 35 Physical Therapy Visit Comments Patient Comments agreeable to do PT Therapy Pain Assessment Pain When Pain Assessed At Rest Pain Present Pain Present Pain Reported Location Neck Scale Used stated: a lot of pain; unable to give numeric scale Pain Management Techniques Distraction,Modification of Treatment,Re-positioning, Timing of Activity with Medications M4 PT-IP Mobility and Gait Start: 05/30/23 11:26 Freq: NEEDED Status: Active Protocol: Document 08/31/22 09:30 AB (Rec: 08/31/22 11:41 AB [id number]) PT-Bed Mobility Assessment Rolling Type of Rolling Log Rolling Level of Assist Maximal Assistance,1 Person Assistance,2 Person Assistance Supine to Sit Supine to Sit Maximum Assistance,2 Person Assistance Sit to Supine Sit to Supine Maximum Assistance,1 Person Assistance,2 Person Assistance PT-Transfer Assessment Sit to and From Stand Sit to and from Stand Maximum Assistance,2 Person Assistance,Use of Upper Extremities Equipment Transfer Assistive Device Gait Belt,Front Wheeled Walker Orthotic/Prosthetic Devices or Brace: Yes Comments Mobility Comments educated on cervical precautions and log roll bed mobility. (+) overall tremors BP: 177/78. completed log roll supine to sit. HOB elevated to ~ 25 deg max A x 1-2 and max cues. able to sit on EOB CGA. completed sit to stand max A x 2 and max cues. increase tremors noted. attempted to ambulate but only able to take ~ 2 steps using FWW and pt with increase tremors and unable to take more steps and assisted to sit on EOB max A x 2. BP checked : 174/77. pt requested to go back to bed. completed sit to stand on EOB max A x 2 and max cues and able to take side steps max A x 2 using FWW towards HOB. completed log roll sit to supine max A x 1-2 and max cues. positioned in bed. Left pt with OT. Gait Assessment Comments Gait Comments able to take side steps towards [place] using FWW PT-Balance Assessment Sitting Balance and Reactions Static Sitting Balance Ability Good Dynamic Sitting Balance Ability Fair Standing Balance and Reactions Static Standing Balance Ability Poor Dynamic Standing Balance Ability Poor Device Used FWW M5 PT-IP Objective Assessments Start: 08/31/22 11:26 Freq: NEEDED Status: Active Protocol: Document 08/31/22 09:30 AB (Rec: 08/31/22 11:41 AB [id number]) Orientation Orientation/Cognition Level of Alertness Confusional State Orientation Name,Situation Language Function Ability Hard of Hearing Safety Awareness Decreased Safety Awareness Memory Description Short Term Impaired Gross Range of Motion Lower Extremity ROM Assessment Within Functional Limits Strength Lower Extremity Strength Hip 4-/5 Knee 4-/5 Other Assessments Other Other Assessments (+) overall body tremors: more evident on BUE M6 PT-IP Treatment Start: 08/31/22 11:26 Freq: NEEDED Status: Active Protocol: Document 08/31/22 09:30 AB (Rec: 08/31/22 11:41 AB [id number]) Physical Therapy Treatment Education Education Provided Safety M7 PT-IP Assessment and Plan Start: 08/31/22 11:26 Freq: NEEDED Status: Active Protocol: Document 08/31/22 09:30 AB (Rec: 08/31/22 11:41 AB [id number]) PT Summary Assessment and Plan Potential Rehabilitation Potential Fair Status of Condition at Evaluation Evolving Summary Impairments Pain,ROM,Strength,Balance, Coordination,Sensation,Tone, Cognition,Bed Mobility, Transfers,Gait,Activity Tolerance Assessment Summary Pt with GLF and sustained an odontoid fx and currently on aspen cervical brace. pt also has acute encehalopahty secondary to ETOH abuse. pt requiring max A x 2 with all mobilities and unable to ambulate and only able to take a few steps to position in bed. pt will require SNF rehab to improve overall strength and mobility. Goals Bed Mobility Goal Standby Assistance Transfer Goal Minimal Assistance,Front Wheeled Walker Gait Goal Minimal Assistance,Front Wheel Walker Gait Distance 25 Other Goals improve transfers and ambulation using FWW SBA 100 ft up/down 4 steps 1 rail SBA Days to Meet Goals 10 Frequency of Treatment Frequency Of Treatment Once a Day Treatment Plan Physical Therapy Treatment Plan Bed Mobility Training,Transfer Training,Gait Training, Therapeutic Exercise,Balance Retraining,Discharge Planning, Hot or Cold Pack,Neuromuscular Re-ed,Coordination Retraining ,Manual Therapy Precautions Other Precautions falls Recommendations To Nursing Amount of Assist Needed PT/OT Assist Only Discharge Recommendations PT Discharge Recommendations SNF Rehab Transportation Needs at Discharge Wheelchair/Cabulance
--- NOTE | 2022-08-31 10:38 | OT.IP.EVAL ---
Past Medical History (Last Reviewed 08/31/22 @ 06:34 by Yoni Borja MD) Abscess Acute CVA (cerebrovascular accident) Hepatitis C antibody test positive Heroin abuse Occupational Therapy Inpatient Evaluation/Re-Eval M1 PT/OT-IP Prior Functional Status Start: 08/31/22 12:47 Freq: NEEDED Status: Active Protocol: Document 08/31/22 10:11 [facility] (Rec: 08/31/22 13:08 [facility] [id number]) Medical Review Prior Functional Status Medical History Reviewed Yes Communication able to make needs known; [place] Mobility and Gait stated that he is modified independent with all mobilities and ambulation using a quad cane Activities of Daily Living and IADL's Pt uses toilet/shower as needed at his friend's house. Social History Household Members none Living Arrangements Homeless Number of Stairs To Enter/Railing? pt stated that he is staying in h is friend's front porch: has 4 steps 2 wide rails (can only hold on to one at a time) to get to the porch. Home Environment High Toilet,Tub/Shower Home Equipment Quad Cane,Hand Held Shower Additional Social History Comment pt stated that he can use his friend's toilet/shower if needed M2 OT-IP Current Condition Start: 08/31/22 12:47 Freq: Status: Active Protocol: Document 08/31/22 10:11 [facility] (Rec: 08/31/22 13:08 [facility] [id number]) Occupational Therapy Current Condition Current Condition Evaluation Date 08/31/22 Treatment Diagnosis Non displaces type 2 odontoid fx Diagnosis Onset Date 08/31/22 Post Operative Precautions Cervical Spine Precautions Rigid Collar,No Heavy Lifting, Log Roll M3 OT- IP Subjective and Pain Start: 08/31/22 12:47 Freq: Status: Active Protocol: Document 08/31/22 10:11 [facility] (Rec: 08/31/22 13:08 [facility] [id number]) OT- Subjective Occupational Therapy Visit Type Type Initial Evaluation Visit Start Time 10:11 Visit Stop Time 10:38 Total Visit Minutes 27 Occupational Therapy Visit Comments Patient Comments Pt agreed to get up and able too see pt for OT eval with PT . Patient/Caregiver Goals Pt not able to state at this time. OT Pain Assessment Pain When Pain Assessed During Mobility Pain Present Pain Present Pain Reported M4 OT- IP ADL's Start: 08/31/22 12:47 Freq: Status: Active Protocol: Document 08/31/22 10:11 [facility] (Rec: 08/31/22 13:08 [facility] [id number]) OT [id number] Comments OT Self-Feeding Comments Not at meal time. OT ADL-Grooming General Evaluation Grooming Ability Moderate Assistance Comments OT Grooming Comments Pt needing assist to wash the top on his face and able to reach the bottom of his face. OT ADL-Oral Care Comments Oral Care Comments Not performed. OT ADL-Dressing General Eval Lower Body Dressing Ability Maximum Assistance Areas Needing Assistance Socks OT ADL-Toileting General Evaluation Toileting Ability Total Assistance Comments OT Toileting Comments Brasher in place. OT ADL-Bathing Comments OT Bathing Comments Sponge bath more appropriate at this time. M6 OT- IP Functional Cognition Start: 08/31/22 12:47 Freq: Status: Active Protocol: Document 08/31/22 10:11 [facility] (Rec: 08/31/22 13:08 [facility] [id number]) Cognitive Factors Limiting Selfcare Function Cognitive Ability Level of Alertness Alert,Confusional State Patient Orientation Name Attention Span Ability Capable of Focused Attention, Capable of Sustained Attention Ability to Follow Commands Able to Follow One Step Commands with Increased Time, Able to Follow One Step Commands with Repetition Cognitive Comments Cognitive Assessment Comments Pt able to follow simple concrete cues for bed mobility needs. As pt clears would be beneficial to do a formal cognitive assessment. OT- Vision and Hearing OT- Hearing Assessment OT- Hearing Assessment WFL OT- Vision Assessment Vision Assessment Comments Pt able to read the clock accurately. M7 OT- IP Mobility and Balance Start: 08/31/22 12:47 Freq: Status: Active Protocol: Document 08/31/22 10:11 [facility] (Rec: 08/31/22 13:08 [facility] [id number]) OT- Bed Mobility Assessment Supine to Sit Supine to Sit Assist Maximum Assistance,2 Person Assistance,Bedrails Sit to Supine Sit to Supine Assist Maximum Assistance,2 Person Assistance OT-Transfer Assessment Sit to and From Stand Sit to and from Stand Maximum Assistance,2 Person Assistance Comments Mobility Comments Assist to help roll and get his leg to the edge of the bed and trunk upright. Pt needing MAX AX 2 to stand to FWW and able to take a few side steps to the head of the bed before wanting to lie down again. OT- Balance Assessment Sitting Balance and Reactions Static Sitting Balance Ability Good Dynamic Sitting Balance Ability Fair Standing Balance and Reactions Static Standing Balance Ability Poor Dynamic Standing Balance Ability Poor Comments Other Balance Tests/Deviations/Treatment Pt MAX A x2 to stand and : assist to guide the FWW and vc to use his arms on the FWW so able to take a few side steps to the head of the bed. M8 OT- IP Objective Assessments Start: 08/31/22 12:47 Freq: Status: Active Protocol: Document 08/31/22 10:11 [facility] (Rec: 08/31/22 13:08 [facility] [id number]) OT Gross Range of Motion Upper Extremity Range of Motion ROM Impairments grossly WFL OT Strength Comments Strength Comments BUE elbow to distal 4/5 OT-Muscle Tone Assessment Muscle Tone WNL No Comments Muscle Tone Comments Pt has bilateral hand tremors. M9 OT- IP Assessment and Plan Start: 08/31/22 12:47 Freq: Status: Active Protocol: Document 08/31/22 10:11 [facility] (Rec: 08/31/22 13:08 [facility] [id number]) OT Summary Assessment and Plan Potential Rehabilitation Potential Fair Analytic Complexity at Evaluation Moderate Summary OT Impairments Pain,Strength,Balance, Functional Cognition, Functional Mobility,Self- Feeding,Grooming,Dressing, Toileting,Bathing,Toilet Transfers Progress Towards Goals Slow Progress due to Pain,Slow Progress due to Medical Issues,Slow Progress due to Cognition Assessment Summary Pt MOD complexity and main barriers are pain, decreased safety awareness, and now needing extensive two person assist for mobility need at this time. Pt would benefit from practice of log rolling, and to go to skilled rehab to maximize his level of independence for his needs of ADl's and mobility. Goals Grooming Goal Independent Dressing Goal Independent Toileting Goal Independent Bathing Goal Independent Toilet Transfer Goal Independent Shower Transfer Goal Independent Days to Meet Goals 30 Frequency of Treatment Frequency Of Treatment Once a Day Treatment Plan OT Treatment Plan ADL Training,Functional Cognition Training,Functional Mobility,Patient/Family Education,Discharge Planning Other Treatment Recommendations and Next Transfer to [facility] with MODA X 2. Treatment Focus Discharge Recommendations OT Discharge Recommendations SNF Rehab Transportation Needs at Discharge Wheelchair/Cabulance
[2022-08-31 11:01] LABS: Add Manual Diff / Slide Review NO; Basophils Absolute Auto 100 /uL (0-100); Basophils Percent Auto 1.5 % (0-2); Eosinophils Absolute Auto 100 /uL (0-450); Eosinophils Percent Auto 1.2 % (2-4); Hematocrit 36.5 % (41-53); Hemoglobin 12.5 g/dL (13.5-17.5); Lymphocytes Absolute Auto 1200 /uL (1100-4500); Lymphocytes Percent Auto 18.3 % (25-40); Mean Corpuscular HGB Conc 34.2 % (30-36); Mean Corpuscular Hemoglobin 32.3 PG (26-34); Mean Corpuscular Volume 94.5 fL (80-100); Monocytes Absolute Auto 500 /uL (0-900); Monocytes Percent Auto 8.2 % (3-14); Neutrophils Absolute Auto 4600 /uL (1500-7000); Neutrophils Percent Auto 70.8 % (50-75); Platelet Count 345 X10^3/uL (150-400); Red Blood Cell Count 3.86 X10^6/uL (4.5-5.9); White Blood Cell Count 6.5 X10^3/uL (4.5-11.0)
[2022-08-31 11:13] LABS: Blood Urea Nitrogen 12 mg/dL (9-20); Carbon Dioxide 20 mmol/L (22-32); Chloride 105 mmol/L (98-107); Estimated Glomerular Filt Rate > 60 mL/min (>60); Glucose 79 mg/dL (80-110); HEMOLYSIS < 15 (0-50); Lactate (Lactic Acid) 2.9 mmol/L (0.7-2.1); Magnesium 1.5 mg/dL (1.6-2.3); Sodium 139 mmol/L (137-145)
--- NOTE | 2022-08-31 11:53 | CM.DANOTE ---
Initial Discharge Assessment Note: Case reviewed, met with patient who is somewhat obtunded. Introduced self and role. Payer: Medicare and Medicaid PCP: ? 72 year old with PMH etoh and heroin abuse, CVA, endocarditis, hepatitis C who presented with a fall. He is an every day smoker, drinks a fifth every few days per ER notes and has no recollection of the fall. He -r Discharge Planning/Care Management CM Discharge Assessment Start: 08/31/22 11:50 Freq: Status: Active Protocol: Document 08/31/22 11:50 (Rec: 08/31/22 11:52 [id number]) Discharge Planning Assessment Assigned Veneer Production Machine Operator Carmela Navarro RN/DCP Advance Directives? No History Provided By Patient,Medical Record Prior Living Arrangements Homeless Comment Patient has been living on the porch of a local friend/ family? in [place] Household Members none Type of transporation used prior to Relies on Others admit Caregiver for Another No Comment Homeless, current IV drug user which will be barriers to securing facility placement if recommended Transportation Arrangement Pending Referrals Initiated Other Additional Comment OLD NOTE hx of DC to [facility] beds for IV abx, was not considered an active IVDU at that time Review Status In Process Next Review Type Continued Stay Review
--- NOTE | 2022-08-31 11:56 | CM.DANOTE ---
Discharge Assessment Note: Case reviewed, met with patient who is somewhat obtunded. Introduced self and role. Payer: Medicare and Medicaid PCP: Unknown 72 year ol with PMH etoh and heroin abuse, CVA, endocarditis, hepatitis C who presented with a fall and was confused with no recollection of fall. Every day smoker and drinks a fifth every few days according to notes. Diagnosed with an ondontoid fracture and an [place] collar was placed, outpatient follow up is recommended. PT Eval pending. Per nursing staff, patient has been living on someone's porch in [place]. Patient is unable to tell me whose house it is, friend or family? Apparently his brother, Torrey, is his proxy and he lives locally. He has a sister Melissa who resides in [facility]. freight manager Danette spoke with community client technical specialist Lonny Leslie who states patient has been sleeping on other people's porches. He has filed an APS report on him. Let nurse Dahlia know this and to notify me if any family/friends come to visit. Plan: Discharge Planning needs to be determined, patient is somewhat obtunded. MIKE Discharge Planning/Care Management CM Discharge Assessment Start: 08/31/22 11:50 Freq: Status: Active Protocol: Document 08/31/22 11:50 (Rec: 08/31/22 11:52 [id number]) Discharge Planning Assessment Assigned Basket Maker Carmela Navarro RN/DCP Advance Directives? No History Provided By Patient,Medical Record Prior Living Arrangements Homeless Comment Patient has been living on the porch of a local friend/ family? in [place] Household Members none Type of transporation used prior to Relies on Others admit Caregiver for Another No Comment Homeless, current IV drug user which will be barriers to securing facility placement if recommended Transportation Arrangement Pending Referrals Initiated Other Additional Comment OLD NOTE hx of DC to [facility] beds for IV abx, was not considered an active IVDU at that time Review Status In Process Next Review Type Continued Stay Review
[2022-08-31] MEDS: MAGNESIUM CHLORIDE 64 MG TABLET 128 MG PO (12:53)
[2022-08-31 12:58] LABS: Reflexed Lactate in 2 Hours Y
[2022-08-31 15:02] LABS: Lactate 2HR (Lactic Acid Rflx) 1.4 mmol/L (0.7-2.1)
[2022-08-31] MEDS: SODIUM CHLORIDE 0.9% FLUSH 10 ML IV (21:02)
--- NOTE | 2022-08-31 23:46 | PC.NURSE ---
Patient is oriented to self, birthdate age, year and situation; thought month was June and day was / and identified place as [facility]. Breath sounds CTA with RA sat of 95%. HRR w/HR of 108 and BP of 151/89; telemetry reading was SR w/rate of 99. Denies nausea. BT present and abdomen is soft. Indwelling catheter is patent and urine is clear, dark yellow. Is fidgety in bed and staff is assisting to reposition if he does not do on his own. Did complain of headache, back and neck pain earlier and was medicated with oxycodone. Has multiple bruises and abrasions on all extremities. Indentations noted on bilateral buttocks but no open areas appreciated. Wearing hard cervical collar. Seizure pads on bed. CIWA scores have been 5 and 6 this shift. Fall risk score is high and bed alarm is activated. Patient states pain in neck/back still /[address] Borja informed and will review orders and place additional pain med orders.
[2022-09-01] VITALS (8 sets, daily range): BP systolic 118–155; BP diastolic 58–81; PULSE 68–84; RESP 16–19; TEMP 36.2–37; O2SAT 93–97
[2022-09-01] MEDS: GABAPENTIN 100 MG CAPSULE PO ×4 (00:45→21:38)
[2022-09-01] MEDS: SODIUM CHLORIDE 0.9% FLUSH 10 ML IV ×4 (00:45→22:03)
[2022-09-01] MEDS: KETOROLAC 30 MG/ML VIAL 15 MG IV ×3 (00:45→17:41)
[2022-09-01] MEDS: OXYCODONE IR 5 MG TABLET PO (05:35)
[2022-09-01] MEDS: MULTIVITAMIN 1 TABLET 1 TAB PO (09:19)
[2022-09-01] MEDS: FOLIC ACID 1 MG TABLET PO (09:19)
[2022-09-01] MEDS: ENOXAPARIN 40 MG/0.4 ML SYRINGE SUBCUT (09:19)
[2022-09-01] MEDS: THIAMINE 500 MG in SODIUM CHLORIDE 0.9% 100 ML 420 MG IV ×3 (09:31→21:38)
--- NOTE | 2022-09-01 10:20 | P.PN_ITS ---
Subjective Subjective Interval history: 72 M with PMH of etoh abuse, presented after a fall and found to have an odontoid fracture. Now in an aspen collar. Complains of neck pain today, improved shakiness and withdrawal symptoms today. Remains on [facility] protocol. Exam Vital Signs (past 8 hours): - 09/01/22 03:00 09/01/22 03:00 09/01/22 07:00 Temperature 97.2 F L Pulse Rate 84 Respiratory Rate 18 Blood Pressure 155/66 H Pulse Oximetry 96 96 97 Oxygen Delivery Method Room Air Room Air Oxygen Flow Rate 0 0 0 09/01/22 07:00 Temperature 97.4 F L Pulse Rate 79 Respiratory Rate 18 Blood Pressure 136/76 Pulse Oximetry 97 Oxygen Delivery Method Oxygen Flow Rate 0 Oxygen Delivery Method Room Air Oxygen Flow Rate 0 Narrative Exam Narrative: GEN: confused, no acute distress, head lacerations HEENT: moist mucous membranes, PERRL CV: tachycardic, no murmurs PULM: clear bilaterally, no wheezes, rhonchi, rales ABD: soft, nontender, nondistended, no organomegaly, normal bowel sounds EXT: warm and well perfused, no edema NEURO: awake, confused, no focal deficits noted Objective Labs 08/31/22 10:20 08/31/22 10:20 Labs: Laboratory Results - last 24 hr 08/31/22 08/31/22 08/31/22 10:20 10:20 10:20 WBC 6.5 RBC 3.86 L Hgb 12.5 L Hct 36.5 L MCV 94.5 MCH 32.3 MCHC 34.2 RDW 15.0 H Plt Count 345 Neut % (Auto) 70.8 Lymph % (Auto) 18.3 L Duchesne % (Auto) 8.2 Eos % (Auto) 1.2 L Baso % (Auto) 1.5 Neut # (Auto) 4600 Lymph # (Auto) 1200 [place] # (Auto) 500 Eos # (Auto) 100 Baso # (Auto) 100 Sodium 139 Potassium 4.0 Chloride 105 Carbon Dioxide 20 L BUN 12 Creatinine 0.80 Estimated GFR > 60 BUN/Creatinine Ratio 15.0 Glucose 79 L Lactate 2.9 H Calcium 8.0 L Magnesium 1.5 L 08/31/22 14:45 WBC RBC Hgb Hct MCV MCH MCHC RDW Plt Count Neut % (Auto) Lymph % (Auto) Duc[place]ne % (Auto) Eos % (Auto) Baso % (Auto) Neut # (Auto) Lymph # (Auto) Duchesne # (Auto) Eos # (Auto) Baso # (Auto) Sodium Potassium Chloride Carbon Dioxide BUN Creatinine Estimated GFR BUN/Creatinine Ratio Glucose Lactate 1.4 Calcium Magnesium [facility] Medical History Abscess Acute CVA (cerebrovascular accident) Hepatitis C antibody test positive Heroin abuse Family History Father Cancer Social History household members: none Smoking Status: Current every day smoker alcohol intake: current Assessment & Plan Assessment & Plan narrative: 1. Acute alcohol withdrawal with encephalopathy -elevated CIWA scores, but fairly mild. Continues on prn ativan with CIWA protocol. 2. Falls, with odontoid fracture, neck pain -suspect secondary to intoxication, had elevated alcohol level on admission -risk of being on eliquis likely outweighs benefit with continued drinking and multiple falls resulting in rib and odontoid fractures -PT consult -continue with oxycodone for pain control, will increase dose today with ineffective pain relief -will need outpatient neurosurgery follow up 3. Elevated lactate -etiology likely secondary to alcohol abuse -continue to trend -suspect will improve with thiamine -suspect less likely cause is infection, but continue to monitor for infectious symptoms 4. Urinary retention -colbert placed, will attempt trial of void in a few days when alcohol withdrawal improved. CODE: Full Proxy:Torrey Benitez, brother
--- NOTE | 2022-09-01 10:21 | PC.NURSE ---
0820 Pt resting in bed-is awake and alert. Oriented to name, age, birthday, place, year and situation but thinks it is September and or Tuesday. Denies nausea, shortness of breath, or dizziness but states he has a headache and neck and back pain 4-5/10. Has moderate tremor with arms extended but is able to feed himself and assist with repositioning in bed for breakfast. Pt given pain meds. Able to serial add and follow directions. State he would like to have the c-collar off and that he hates it. Denies auditory or visual hallucinations. Able to make needs known. Ate 65% of his breakfast. When asked where he would go if he was discharged he stated that he didn't know. Pt denies needs at this time.
--- NOTE | 2022-09-01 10:50 | PT.IPTN ---
Current Diagnoses Anterior displaced Type II dens fracture, initial encounter for closed fracture (08/31/22) Physical Therapy Treatment Note M2 PT-IP Current Condition Start: 08/31/22 11:26 Freq: NEEDED Status: Active Protocol: Document 08/31/22 09:30 AB (Rec: 08/31/22 11:41 AB [id number]) Physical Therapy Current Condition Current Condition Evaluation Date 08/31/22 Treatment Diagnosis GLF; odontoid fx; acute encephalopathy due to ETOH; difficulty in walking Onset Date 08/31/22 M3 PT-IP Subjective Start: 08/31/22 11:26 Freq: NEEDED Status: Active Protocol: Document 09/01/22 11:19 TS (Rec: 09/01/22 11:52 TS [id number]) Subjective Physical Therapy Visit Type Type Treatment Note Visit Start Time 10:50 Visit Stop Time 11:03 Total Visit Minutes 13 Number of HVAC DESIGNER Visits 1 Physical Therapy Visit Comments Patient Comments Pt found resting in bed, reports pain is 8/10 in neck, agreeable to PT. Therapy Pain Assessment Pain When Pain Assessed At Rest Pain Present Pain Present Pain Reported Location Back Intensity 8 Scale Used Numeric (0 - 10) Description With Movement Pain Behaviors Facial Grimacing,Moaning, Restlessness,Wincing Pain Management Techniques Distraction,Modification of Treatment,Re-positioning, Timing of Activity with Medications M4 PT-IP Mobility and Gait Start: 08/31/22 11:26 Freq: NEEDED Status: Active Protocol: Document 09/01/22 11:19 TS (Rec: 09/01/22 11:52 TS [id number]) PT-Bed Mobility Assessment Rolling Type of Rolling Log Rolling Level of Assist Maximal Assistance,1 Person Assistance,2 Person Assistance Supine to Sit Supine to Sit Maximum Assistance,1 Person Assistance,2 Person Assistance Sit to Supine Sit to Supine Maximum Assistance,1 Person Assistance,2 Person Assistance Scooting Scooting to Edge of Bed Maximum Assistance Scooting Up and Down in Bed Maximum Assistance PT-Transfer Assessment Sit to and From Stand Sit to and from Stand Maximum Assistance,2 Person Assistance Equipment Transfer Assistive Device Gait Belt,Front Wheeled Walker Orthotic/Prosthetic Devices or Brace: Yes Transfers Transfer Destination Bed,Chair Transfer Technique Stand Step Pivot Transfer Ability Level of Assist Maximum Assistance,2 Person Assistance Comments Mobility Comments Pt found resting in bed, agreeable to PT. Logroll MaxA for rolling onto R side, provided cues for handrail assist and logroll sequencing, pt having difficulty following intstructions. Supine to sit MaxA x2 for uprighting trunk, provided cues for BUE support and handrail assist. Pt scooted to EOB MaxA with BUE support. Sit to stand x2 MaxA x1-2, provided cues for pushing from bed/arms of chair. Stand step pivot transfer MaxA x2, provided tactile and verbal cues for FWW management, pt tremulous and impulsive to sit before it is safe. Sit to supine MaxA x2 for trunk and LE positioning into bed. Pt was left in bed with call light nearby, requesting more pain med, RN notified. Gait Assessment Gait Gait Assistance Required: Maximum Assistance,1 Person Assist,2 Person Assist Distance (Feet) 4 Assistive Devices Assistive Device Gait Belt,Front Wheeled Walker Orthotic/Prosthetic Devices or Brace: Yes Gait Deviations General Gait Pattern Antalgic,Decreased Stride Length,Decreased Feet Clearance,Flexed Trunk,Step-to Gait,Wide Based Gait Factors Limiting Gait Function Factors Limiting Gait Function Decreased Activity Tolerance, Decreased Strength,Difficulty Following Directions, Incoordination,Limited Range of Motion,Pain,Poor Balance, Poor Safety Awareness Comments Gait Comments See mobility comments. PT-Balance Assessment Sitting Balance and Reactions Static Sitting Balance Ability Good Dynamic Sitting Balance Ability Fair Standing Balance and Reactions Static Standing Balance Ability Poor Dynamic Standing Balance Ability Poor Device Used FWW Comments Other Balance Tests/Deviations/Treatment Standing balance is poor, : requires heavy cueing for posture and MaxA for ambulation due to poor safety awareness. M5 PT-IP Objective Assessments Start: 08/31/22 11:26 Freq: NEEDED Status: Active Protocol: Document 08/31/22 09:30 AB (Rec: 08/31/22 11:41 AB [id number]) Orientation Orientation/Cognition Level of Alertness Confusional State Orientation Name,Situation Language Function Ability Hard of Hearing Safety Awareness Decreased Safety Awareness Memory Description Short Term Impaired Gross Range of Motion Lower Extremity ROM Assessment Within Functional Limits Strength Lower Extremity Strength Hip 4-/5 Knee 4-/5 Other Assessments Other Other Assessments (+) overall body tremors: more evident on BUE M6 PT-IP Treatment Start: 08/31/22 11:26 Freq: NEEDED Status: Active Protocol: Document 09/01/22 11:19 TS (Rec: 09/01/22 11:52 TS [id number]) Physical Therapy Treatment Education Education Provided Safety M7 PT-IP Assessment and Plan Start: 08/31/22 11:26 Freq: NEEDED Status: Active Protocol: Document 09/01/22 11:19 TS (Rec: 09/01/22 11:52 TS [id number]) PT Summary Assessment and Plan Potential Rehabilitation Potential Fair Summary Impairments Pain,ROM,Strength,Balance, Coordination,Sensation,Tone, Cognition,Bed Mobility, Transfers,Gait,Activity Tolerance Progress Towards Goals Slow Progress due to Pain,Slow Progress due to Medical Issues,Slow Progress due to Activity Tolerance Assessment Summary Pt continues to require MaxA x1-2 person for all mobility. He has poor safety awareness with mobility and has difficulty following instructions, he is very impulsive to move when therapist is not ready. He required Max cueing for all bed mobility, sit to stands, stand step pivot transfer from /to bed and managment of FWW, pt becomes agitated when given instructions. PT continues to recommend SNF rehab to improve overall strength and mobility. Goals Bed Mobility Goal Standby Assistance Transfer Goal Minimal Assistance,Front Wheeled Walker Gait Goal Minimal Assistance,Front Wheel Walker Gait Distance 25 Other Goals improve transfers and ambulation using FWW SBA 100 ft up/down 4 steps 1 rail SBA Days to Meet Goals 10 Frequency of Treatment Frequency Of Treatment Once a Day Treatment Plan Physical Therapy Treatment Plan Bed Mobility Training,Transfer Training,Gait Training, Therapeutic Exercise,Balance Retraining,Discharge Planning, Hot or Cold Pack,Neuromuscular Re-ed,Coordination Retraining ,Manual Therapy Other Recommendations and Next Treatment Continue to progress bed Focus mobility, sit to stands and transfers. Precautions Other Precautions falls Recommendations To Nursing Amount of Assist Needed PT/OT Assist Only Discharge Recommendations PT Discharge Recommendations SNF Rehab Transportation Needs at Discharge Wheelchair/Cabulance
[2022-09-01 11:04] LABS: Magnesium 1.6 mg/dL (1.6-2.3)
[2022-09-01] MEDS: OXYCODONE IR 5 MG TABLET 10 MG PO ×4 (11:15→22:06)
--- NOTE | 2022-09-01 12:20 | OT.IP.TRT ---
Current Diagnoses Anterior displaced Type II dens fracture, initial encounter for closed fracture (08/31/22) Occupational Therapy Treatment Note M2 OT-IP Current Condition Start: 08/31/22 12:47 Freq: Status: Active Protocol: Document 08/31/22 10:11 [facility] (Rec: 08/31/22 13:08 [facility] [id number]) Occupational Therapy Current Condition Current Condition Evaluation Date 08/31/22 Treatment Diagnosis Non displaces type 2 odontoid fx Diagnosis Onset Date 08/31/22 Post Operative Precautions Cervical Spine Precautions Rigid Collar,No Heavy Lifting, Log Roll M3 OT- IP Subjective and Pain Start: 08/31/22 12:47 Freq: Status: Active Protocol: Document 09/01/22 11:04 [facility] (Rec: 09/01/22 12:20 [facility] [id number]) OT- Subjective Occupational Therapy Visit Type Visit Start Time 10:52 Visit Stop Time 11:12 Total Visit Minutes 8 Notes Cotxt with MANAGER LEGAL as pt needing skilled therapy to mobilize due to decrease safety,balance , and impulsivity. Occupational Therapy Visit Comments Patient Comments Pt agreed to get up, MANAGER LEGAL present for mobility needs. Patient/Caregiver Goals Pt did not state. OT Pain Assessment Pain When Pain Assessed During Mobility Pain Present Pain Present Pain Reported Location Neck Intensity 8 Scale Used Numeric (0 - 10) M4 OT- IP ADL's Start: 08/31/22 12:47 Freq: Status: Active Protocol: Document 09/01/22 11:04 [facility] (Rec: 09/01/22 12:20 [facility] [id number]) OT [id number] Comments OT Self-Feeding Comments Not at meal time. OT ADL-Grooming Comments OT Grooming Comments Pt refusing to do. OT ADL-Oral Care Comments Oral Care Comments Pt refused. OT ADL-Dressing General Eval Lower Body Dressing Ability Maximum Assistance Areas Needing Assistance Socks OT ADL-Toileting Comments OT Toileting Comments Brasher in place. OT ADL-Bathing Comments OT Bathing Comments Pt refused. M6 OT- IP Functional Cognition Start: 08/31/22 12:47 Freq: Status: Active Protocol: Document 09/01/22 11:04 [facility] (Rec: 09/01/22 12:20 [facility] [id number]) Cognitive Factors Limiting Selfcare Function Cognitive Ability Level of Alertness Alert Patient Orientation Name Attention Span Ability Capable of Focused Attention, Capable of Sustained Attention Ability to Follow Commands Able to Follow One Step Commands with Increased Time, Able to Follow One Step Commands with Repetition Safety Awareness Underestimates Need for Assistance Cognitive Comments Cognitive Assessment Comments Pt is impulsive, needing MAX vc for FWW safety and to slow down. M7 OT- IP Mobility and Balance Start: 08/31/22 12:47 Freq: Status: Active Protocol: Document 09/01/22 11:04 [facility] (Rec: 09/01/22 12:20 [facility] [id number]) OT- Bed Mobility Assessment Supine to Sit Supine to Sit Assist Maximum Assistance,2 Person Assistance Sit to Supine Sit to Supine Assist Maximum Assistance,2 Person Assistance OT-Transfer Assessment Sit to and From Stand Sit to and from Stand Maximum Assistance,2 Person Assistance Transfers Transfer Ability Maximum Assistance,2 Person Assistance Technique Transfer Destination Bed,Chair Comments Mobility Comments Assist to help get his legs off the edge of the bed and trunk upright. MAX AX 2 to stand to FWW and assist to guide the FWW, weight shifting , to assist to keep the walker closer to him, and for his balance. Pt trying to reach out to the bed and recliner prior to sitting down . OT- Balance Assessment Sitting Balance and Reactions Static Sitting Balance Ability Good Dynamic Sitting Balance Ability Fair Standing Balance and Reactions Static Standing Balance Ability Poor Dynamic Standing Balance Ability Poor Comments Other Balance Tests/Deviations/Treatment Pt is tremulous and unsteady : on his feet. M8 OT- IP Objective Assessments Start: 08/31/22 12:47 Freq: Status: Active Protocol: Document 08/31/22 10:11 [facility] (Rec: 08/31/22 13:08 [facility] [id number]) OT Gross Range of Motion Upper Extremity Range of Motion ROM Impairments grossly WFL OT Strength Comments Strength Comments BUE elbow to distal 4/5 OT-Muscle Tone Assessment Muscle Tone WNL No Comments Muscle Tone Comments Pt has bilateral hand tremors. M9 OT- IP Assessment and Plan Start: 08/31/22 12:47 Freq: Status: Active Protocol: Document 09/01/22 11:04 [facility] (Rec: 09/01/22 12:20 [facility] [id number]) OT Summary Assessment and Plan Potential Rehabilitation Potential Fair Analytic Complexity at Evaluation Moderate Summary OT Impairments Pain,Strength,Balance, Functional Cognition, Functional Mobility,Self- Feeding,Grooming,Dressing, Toileting,Bathing,Toilet Transfers Progress Towards Goals Slow Progress due to Pain,Slow Progress due to Medical Issues,Slow Progress due to Cognition Assessment Summary Pt able to do transfer with MAX AX 2 with FWW. Pt is tremulous, unsteady and needing constant cues for safety. Pt will benefit from skilled rehab to maximize his level of independence or benefit from LTC facility if pt does not make progress. Goals Grooming Goal Independent Dressing Goal Independent Toileting Goal Independent Bathing Goal Independent Toilet Transfer Goal Independent Shower Transfer Goal Independent Days to Meet Goals 30 Frequency of Treatment Frequency Of Treatment Once a Day Treatment Plan OT Treatment Plan ADL Training,Functional Cognition Training,Functional Mobility,Patient/Family Education,Discharge Planning Other Treatment Recommendations and Next Transfer to [facility] with MODA X 2. Treatment Focus Discharge Recommendations OT Discharge Recommendations SNF Rehab Transportation Needs at Discharge Wheelchair/Cabulance
--- NOTE | 2022-09-01 12:35 | CM.DPC ---
DCP Continued: CM spoke with [facility] in [facility] to the clinic transitions GWENDOLYN Meza she was requesting medical records be faxed to her clinic for follow up care. CM directed her to Medical records. She also asked that nursing or CM call the clinic for DR. hicks [phone] to set up a follow up appointment for 1 week after patients DC. CM called Home and community services looking to see if patient has an established with [facility] and to see if there is any other support available for this patient. CM talked to Lonny Leslie - [facility] guideman this is one of the patients he works with regularly and he informed me that the patient is homeless and the friend whos porch he was sleeping on does not want him to return. CM team will continue to attempt to reach patients brother and sister to work on safe DC plan. However, per Lonny family does not want patient in or around there homes due to patient HX of alcoholism. Patient dose have a health home contract associate manager Mary Ball- CM will be reaching out to discuss this case. CM will attempt to start looking for SNF placement options. [facility], [facility]. [facility], [facility] and [facility] clinicals were sent . CM team will continue to work on safe DC plan for patient.
[2022-09-01] MEDS: ACETAMINOPHEN 325 MG TABLET 650 MG PO (17:41)
--- NOTE | 2022-09-01 22:58 | PC.NURSE ---
Patient is more alert and conversant tonight. Knows name, birthdate, age, year and place. Breath sounds diminished but CTA with RA sat of 93%. HRR w/telemetry reading of SR. Continues to be hypertensive w/BP of 155/81. Denies nausea. BT present and abdomen is soft; round. Indwelling catheter related to urinary retention on admit; urine is clear, chung but has low UOP having put out only 200cc on previous 12h shift. Is moving himself more in bed but staff make sure he repositions q2h. Is wearing bilateral calf SCD's. Seizure pads on bed. Last CIWA score was 6. Medicated with oxycodone earlier for complaint of 7/10 neck pain; wearing [place] collar. Fall risk score is high and bed alarm is activated.
[2022-09-02] VITALS (15 sets, daily range): BP systolic 142–165; BP diastolic 66–95; PULSE 66–99; RESP 12–19; TEMP 36.2–37.1; O2SAT 93–100
[2022-09-02] MEDS: ACETAMINOPHEN 325 MG TABLET 650 MG PO ×2 (00:19→15:32)
[2022-09-02] MEDS: OXYCODONE IR 5 MG TABLET 10 MG PO ×4 (04:53→20:42)
[2022-09-02] MEDS: SODIUM CHLORIDE 0.9% FLUSH 10 ML IV ×3 (04:54→20:42)
[2022-09-02 05:11] LABS: Add Manual Diff / Slide Review NO; Basophils Absolute Auto 0 /uL (0-100); Basophils Percent Auto 0.6 % (0-2); Eosinophils Absolute Auto 400 /uL (0-450); Eosinophils Percent Auto 5.9 % (2-4); Hematocrit 35.9 % (41-53); Hemoglobin 11.9 g/dL (13.5-17.5); Lymphocytes Absolute Auto 1700 /uL (1100-4500); Lymphocytes Percent Auto 25.7 % (25-40); Mean Corpuscular HGB Conc 33.1 % (30-36); Mean Corpuscular Hemoglobin 31.4 PG (26-34); Mean Corpuscular Volume 94.8 fL (80-100); Monocytes Absolute Auto 500 /uL (0-900); Monocytes Percent Auto 8.3 % (3-14); Neutrophils Absolute Auto 3900 /uL (1500-7000); Neutrophils Percent Auto 59.5 % (50-75); Platelet Count 247 X10^3/uL (150-400); Red Blood Cell Count 3.79 X10^6/uL (4.5-5.9); Red Cell Distribution Width 15.2 % (11.6-14.8); White Blood Cell Count 6.5 X10^3/uL (4.5-11.0)
[2022-09-02 05:23] LABS: BUN Creatinine Ratio 14.5 (6-22); Blood Urea Nitrogen 12 mg/dL (9-20); Calcium 8.3 mg/dL (8.4-10.2); Carbon Dioxide 27 mmol/L (22-32); Chloride 102 mmol/L (98-107); Estimated Glomerular Filt Rate > 60 mL/min (>60); Glucose 94 mg/dL (80-110); HEMOLYSIS < 15 (0-50); Magnesium 1.7 mg/dL (1.6-2.3); Potassium 3.3 mmol/L (3.4-5.1); Sodium 134 mmol/L (137-145)
[2022-09-02] MEDS: THIAMINE 500 MG in SODIUM CHLORIDE 0.9% 100 ML 420 MG IV ×3 (08:45→20:40)
[2022-09-02] MEDS: ENOXAPARIN 40 MG/0.4 ML SYRINGE SUBCUT (08:45)
[2022-09-02] MEDS: GABAPENTIN 100 MG CAPSULE PO ×3 (08:45→20:43)
[2022-09-02] MEDS: MULTIVITAMIN 1 TABLET 1 TAB PO (08:45)
[2022-09-02] MEDS: FOLIC ACID 1 MG TABLET PO (08:45)
--- NOTE | 2022-09-02 10:35 | PT-IP ANOTE ---
Pt reports having a headache and is refusing to work with PT at this time.
[2022-09-02] MEDS: POTASSIUM CHLORIDE 20 MEQ TAB 40 MEQ PO ×2 (12:05→17:36)
--- NOTE | 2022-09-02 13:20 | CM.DPC ---
Addendum entered by ANGELLA Garcia 09/02/22 14:34: Bertha from home and community services let me know that the next steps would be for us to send a new referral in order to get expedited functional assessment. Bertha requested that we let her know the d/c plan when patient discharges. DEPARTMENT HELPER team filled out intake referral form and sent it to [address] ( fax #[phone]). Pending their assessment availability at this time. Plan: CM team will continue to follow closely. CM team will continue to pursue SNF options. CM team is waiting home and community services response. SL Original Note: DCP: DEPARTMENT HELPER spoke with Bola with home and community services. According to Bola, patient's case has been assigned to MARGO Acosta (#[phone]). Patient's function assessment has been scheduled 09-16 at 1330. DEPARTMENT HELPER called Bertha and JORGE L to inquire about expediting terminal operator care functional assessment. September from [facility] contacted BUDDY Singh and will be denying patient for care at this time. Plan: Pending Bertha Acosta availability to expedite assessment for assisted terminal operator care. CM team will continue to pursue SNF options. ANGELLA Garcia
[2022-09-02] MEDS: LORazepam 1 MG TABLET PO ×4 (14:14→21:55)
--- NOTE | 2022-09-02 14:46 | PM.PN.1 ---
Subjective Subjective Interval history: 72 M with PMH of etoh abuse, presented after a fall and found to have an odontoid fracture. Now in an aspen collar. Complains of neck pain today, improved shakiness and withdrawal symptoms today. He is much more alert today than the past few days as well. Exam Vital Signs (past 8 hours): - 09/02/22 09:00 09/02/22 07:00 09/02/22 08:00 Temperature 97.8 F Pulse Rate 89 Respiratory Rate 17 Blood Pressure 143/66 H Pulse Oximetry 94 94 Oxygen Delivery Method Room Air Room Air Oxygen Flow Rate 0 0 09/02/22 12:00 09/02/22 13:00 Temperature 97.8 F Pulse Rate 99 H Respiratory Rate 17 Blood Pressure Pulse Oximetry 96 96 Oxygen Delivery Method Room Air Oxygen Flow Rate 0 0 Oxygen Delivery Method Room Air Oxygen Flow Rate 0 Narrative Exam Narrative: GEN: no acute distress, more alert, head lacerations HEENT: moist mucous membranes, PERRL CV: tachycardic, no murmurs PULM: clear bilaterally, no wheezes, rhonchi, rales ABD: soft, nontender, nondistended, no organomegaly, normal bowel sounds EXT: warm and well perfused, no edema NEURO: awake, alert, no focal deficits noted Objective Labs 09/02/22 05:00 09/02/22 05:00 Labs: Laboratory Results - last 24 hr 09/02/22 09/02/22 05:00 05:00 WBC 6.5 RBC 3.79 L Hgb 11.9 L Hct 35.9 L MCV 94.8 MCH 31.4 MCHC 33.1 RDW 15.2 H Plt Count 247 Neut % (Auto) 59.5 Lymph % (Auto) 25.7 [place] % (Auto) 8.3 Eos % (Auto) 5.9 H Baso % (Auto) 0.6 Neut # (Auto) 3900 Lymph # (Auto) 1700 [place] # (Auto) 500 Eos # (Auto) 400 Baso # (Auto) 0 Sodium 134 L Potassium 3.3 L Chloride 102 Carbon Dioxide 27 BUN 12 Creatinine 0.83 Estimated GFR > 60 BUN/Creatinine Ratio 14.5 Glucose 94 Calcium 8.3 L Magnesium 1.7 [facility] Medical History Abscess Acute CVA (cerebrovascular accident) Hepatitis C antibody test positive Heroin abuse Family History Father Cancer Social History household members: none Smoking Status: Current every day smoker alcohol intake: current Assessment & Plan Assessment & Plan narrative: 1. Acute alcohol withdrawal with encephalopathy -elevated CIWA scores, but fairly mild. Continues on prn ativan with CIWA protocol. -encephalopathy is improving today as withdrawal seemingly fades. 2. Falls, with odontoid fracture, neck pain -suspect secondary to intoxication, had elevated alcohol level on admission -risk of being on eliquis likely outweighs benefit with continued drinking and multiple falls resulting in rib and odontoid fractures -PT consult -continue with oxycodone for pain control, will increase dose today with ineffective pain relief -will need outpatient neurosurgery follow up 3. Elevated lactate -etiology likely secondary to alcohol abuse -continue to trend -suspect will improve with thiamine -suspect less likely cause is infection, but continue to monitor for infectious symptoms 4. Urinary retention -colbert placed, will attempt trial of void tomorrow. CODE: Full Proxy:Torrey Benitez, brother Dispo: inpatient, recommended for SNF but placement may be difficult given substance use history. with improving encephalopathy hope that may have more mobility in the coming days for discharge home.
--- NOTE | 2022-09-02 15:54 | OT.IP.TRT ---
Current Diagnoses Anterior displaced Type II dens fracture, initial encounter for closed fracture (08/31/22) Occupational Therapy Treatment Note M2 OT-IP Current Condition Start: 08/31/22 12:47 Freq: Status: Active Protocol: Document 08/31/22 10:11 [facility] (Rec: 08/31/22 13:08 [facility] [id number]) Occupational Therapy Current Condition Current Condition Evaluation Date 08/31/22 Treatment Diagnosis Non displaces type 2 odontoid fx Diagnosis Onset Date 08/31/22 Post Operative Precautions Cervical Spine Precautions Rigid Collar,No Heavy Lifting, Log Roll M3 OT- IP Subjective and Pain Start: 08/31/22 12:47 Freq: Status: Active Protocol: Document 09/02/22 15:58 [facility] (Rec: 09/02/22 16:42 [facility] [id number]) OT- Subjective Occupational Therapy Visit Type Type Treatment Note Visit Start Time 15:45 Visit Stop Time 15:54 Total Visit Minutes 9 Occupational Therapy Visit Comments Patient Comments Pt not wanting to get up and promising to get up tomorrow. Patient/Caregiver Goals Pt not able to state. OT Pain Assessment Pain When Pain Assessed At Rest Pain Present Pain Present Pain Reported M4 OT- IP ADL's Start: 08/31/22 12:47 Freq: Status: Active Protocol: Document 09/02/22 15:58 [facility] (Rec: 09/02/22 16:42 [facility] [id number]) OT ADL-Grooming Comments OT Grooming Comments Pt given a wash cloth to wash his hands and not able to do so with completeness. OT ADL-Oral Care Comments Oral Care Comments Pt not wanting to brush his teeth but agreed to swab his mouth out. M6 OT- IP Functional Cognition Start: 08/31/22 12:47 Freq: Status: Active Protocol: Document 09/02/22 15:58 [facility] (Rec: 09/02/22 16:42 [facility] [id number]) Cognitive Factors Limiting Selfcare Function Cognitive Ability Level of Alertness Alert Patient Orientation Name Attention Span Ability Capable of Focused Attention, Capable of Sustained Attention Ability to Follow Commands Able to Follow One Step Commands with Increased Time, Able to Follow One Step Commands with Repetition Cognitive Comments Cognitive Assessment Comments When asked pt able to eventually find the call light to call for help as needing another person to help to pull him up in bed. Asked pt what he plans to do after the hospital stay. Pt states has no idea. Pt did not respond to the therapist when asked if he is going to consider stop drinking and using. M9 OT- IP Assessment and Plan Start: 08/31/22 12:47 Freq: Status: Active Protocol: Document 09/02/22 15:58 [facility] (Rec: 09/02/22 16:42 [facility] [id number]) OT Summary Assessment and Plan Potential Rehabilitation Potential Poor Analytic Complexity at Evaluation Moderate Summary OT Impairments Pain,Strength,Balance, Functional Cognition, Functional Mobility,Self- Feeding,Grooming,Dressing, Toileting,Bathing,Toilet Transfers Progress Towards Goals Slow Progress due to Pain,Slow Progress due to Medical Issues,Slow Progress due to Cognition Assessment Summary Pt refusing to get up. Pt agreed to swab his mouth and let the the therapist readjust the padding on his Ramsay collar. To check on the pt again tomorrow for OT. Goals Grooming Goal Independent Dressing Goal Independent Toileting Goal Independent Bathing Goal Independent Toilet Transfer Goal Independent Shower Transfer Goal Independent Days to Meet Goals 30 Frequency of Treatment Frequency Of Treatment Once a Day Treatment Plan OT Treatment Plan ADL Training,Functional Cognition Training,Functional Mobility,Patient/Family Education,Discharge Planning Other Treatment Recommendations and Next [place] [facility] [place]. Treatment Focus Discharge Recommendations OT Discharge Recommendations SNF Rehab,LTAC Transportation Needs at Discharge Wheelchair/Cabulance
[2022-09-02] MEDS: KETOROLAC 30 MG/ML VIAL 15 MG IV (17:31)
[2022-09-03] VITALS (14 sets, daily range): BP systolic 128–164; BP diastolic 63–86; PULSE 79–121; RESP 16–19; TEMP 36.2–37.2; O2SAT 93–99
[2022-09-03 06:06] LABS: Add Manual Diff / Slide Review NO; Basophils Absolute Auto 100 /uL (0-100); Basophils Percent Auto 1.5 % (0-2); Eosinophils Absolute Auto 700 /uL (0-450); Eosinophils Percent Auto 8.8 % (2-4); Hematocrit 37.5 % (41-53); Hemoglobin 12.7 g/dL (13.5-17.5); Lymphocytes Absolute Auto 1800 /uL (1100-4500); Lymphocytes Percent Auto 21.7 % (25-40); Mean Corpuscular HGB Conc 33.8 % (30-36); Mean Corpuscular Hemoglobin 32.3 PG (26-34); Mean Corpuscular Volume 95.8 fL (80-100); Monocytes Absolute Auto 700 /uL (0-900); Monocytes Percent Auto 8.6 % (3-14); Neutrophils Absolute Auto 4900 /uL (1500-7000); Neutrophils Percent Auto 59.4 % (50-75); Platelet Count 253 X10^3/uL (150-400); Red Blood Cell Count 3.92 X10^6/uL (4.5-5.9); Red Cell Distribution Width 14.8 % (11.6-14.8); White Blood Cell Count 8.2 X10^3/uL (4.5-11.0)
[2022-09-03 06:22] LABS: BUN Creatinine Ratio 12.3 (6-22); Blood Urea Nitrogen 10 mg/dL (9-20); Carbon Dioxide 26 mmol/L (22-32); Chloride 100 mmol/L (98-107); Estimated Glomerular Filt Rate > 60 mL/min (>60); Glucose 99 mg/dL (80-110); HEMOLYSIS < 15 (0-50); Magnesium 1.7 mg/dL (1.6-2.3); Sodium 133 mmol/L (137-145)
[2022-09-03] MEDS: KETOROLAC 30 MG/ML VIAL 15 MG IV (07:57)
[2022-09-03] MEDS: LORazepam 1 MG TABLET PO (07:57)
[2022-09-03] MEDS: SODIUM CHLORIDE 0.9% FLUSH 10 ML IV ×2 (08:01→20:51)
[2022-09-03] MEDS: FOLIC ACID 1 MG TABLET PO (08:01)
[2022-09-03] MEDS: GABAPENTIN 100 MG CAPSULE PO ×2 (08:01→20:50)
[2022-09-03] MEDS: ENOXAPARIN 40 MG/0.4 ML SYRINGE SUBCUT (08:02)
[2022-09-03] MEDS: MULTIVITAMIN 1 TABLET 1 TAB PO (08:02)
[2022-09-03] MEDS: THIAMINE 500 MG in SODIUM CHLORIDE 0.9% 100 ML 420 MG IV ×3 (09:00→20:51)
--- NOTE | 2022-09-03 09:27 | CM.DPC ---
Addendum entered by ANGELLA Garcia 09/03/22 14:49: DCP Continued: BUILDING ARCHITECTURAL DESIGNER spoke with Sofie ( #[phone]) at [facility] regarding potential SNF placement. Sofie said that they will not be accepting him at this time. Plan: CM team will continue to follow along. - Original Note: DCP Continued: BUILDING ARCHITECTURAL DESIGNER spoke with Tory at [facility] ([phone]) to inquire about patient's expedited functional assessment. Tory said that his intake referral that was sent over has not been processed yet and it takes about three weeks for an assessment, unless a patient is on hospice. Tory stated that his current assessment for 09/16 with [facility] is likely the soonest availability. BUILDING ARCHITECTURAL DESIGNER will continue to pursue sooner assessment options. Plan: CM team will continue to pursue SNF placement options. CM team will continue to inquire about expediting functional assessment. CM team will continue to follow closely. ANGELLA Garcia
[2022-09-03] MEDS: OXYCODONE IR 5 MG TABLET 10 MG PO ×2 (09:37→20:52)
--- NOTE | 2022-09-03 10:57 | OT.IPNOTE ---
Checked on pt and asleep, to check on pt later for OT.
--- NOTE | 2022-09-03 11:10 | PC.NURSE ---
@1050, CIWA reassessed, pt scored 8. I double checked Ativan parameters. Ativan is to be administered with CIWA of 8, 1 mg tablet Q2. Documented CIWA score and took ativan tablet from [facility]. Went to administer tablet to pt. Stated that med was for alcohol withdrawal and that he has had a few doses prior, yesterday and overnight. Pt stated he did not want to take anymore pills and pushed away med cup. Educated pt about the importance of med, but pt continued to refuse med. Undid, documentation of Ativan administration on [facility], and wasted tablet with RN, Rod in [facility]. Pt sleeping comfortably at this time.
--- NOTE | 2022-09-03 12:14 | OT.IPNOTE ---
Checked on pt, pt still sleeping soundly and per nursing aid to let therapy know when is stirring/alert in order to try to get the pt up to see how he is mobilizing.
--- NOTE | 2022-09-03 12:43 | PM.PN.1 ---
Subjective Subjective Interval history: 72 M with PMH of etoh abuse, presented after a fall and found to have an odontoid fracture. Now in an aspen collar. Complains of neck pain today, CIWAs as high as 10 today but mainly due to agitation. He has been much more alert the last few days. Exam Vital Signs (past 8 hours): - 09/03/22 05:32 09/03/22 08:47 09/03/22 08:00 Temperature 97.4 F L Pulse Rate 86 92 H Respiratory Rate 16 16 Blood Pressure 148/78 H 152/86 H Pulse Oximetry 99 99 Oxygen Delivery Method Room Air Oxygen Flow Rate 0 0 09/03/22 12:00 09/03/22 12:00 Temperature 97.4 F L Pulse Rate Respiratory Rate Blood Pressure Pulse Oximetry 99 Oxygen Delivery Method Room Air Oxygen Flow Rate 0 Oxygen Delivery Method Room Air Oxygen Flow Rate 0 Narrative Exam Narrative: GEN: no acute distress, more alert, head lacerations HEENT: moist mucous membranes, PERRL CV: tachycardic, no murmurs PULM: clear bilaterally, no wheezes, rhonchi, rales ABD: soft, nontender, nondistended, no organomegaly, normal bowel sounds EXT: warm and well perfused, no edema NEURO: awake, alert, no focal deficits noted Objective Labs 09/03/22 05:22 09/03/22 05:22 Labs: Laboratory Results - last 24 hr 09/03/22 09/03/22 05:22 05:22 WBC 8.2 RBC 3.92 L Hgb 12.7 L Hct 37.5 L MCV 95.8 MCH 32.3 MCHC 33.8 RDW 14.8 Plt Count 253 Neut % (Auto) 59.4 Lymph % (Auto) 21.7 L [place] % (Auto) 8.6 Eos % (Auto) 8.8 H Baso % (Auto) 1.5 Neut # (Auto) 4900 Lymph # (Auto) 1800 [place] # (Auto) 700 Eos # (Auto) 700 H Baso # (Auto) 100 Sodium 133 L Potassium 4.0 Chloride 100 Carbon Dioxide 26 BUN 10 Creatinine 0.81 Estimated GFR > 60 BUN/Creatinine Ratio 12.3 Glucose 99 Calcium 9.0 Magnesium 1.7 PFSH Medical History Abscess Acute CVA (cerebrovascular accident) Hepatitis C antibody test positive Heroin abuse Family History Father Cancer Social History household members: none Smoking Status: Current every day smoker alcohol intake: current Assessment & Plan Assessment & Plan narrative: 1. Acute alcohol withdrawal with acute toxic and metabolic encephalopathy -elevated CIWA scores, but fairly mild. Continues on prn ativan with CIWA protocol. Initial encephalopathy likely due to intoxication, then withdrawal afterward. Now improving. -encephalopathy is improving today, though CIWA intermittently elevated as high as 10 today. 2. Falls, with odontoid fracture, neck pain -suspect secondary to intoxication, had elevated alcohol level on admission -risk of being on eliquis likely outweighs benefit with continued drinking and multiple falls resulting in rib and odontoid fractures -PT consult -continue with oxycodone for pain control -will need outpatient neurosurgery follow up 3. Elevated lactate -etiology likely secondary to alcohol abuse -continue to trend -suspect will improve with thiamine -suspect less likely cause is infection, but continue to monitor for infectious symptoms 4. Urinary retention -colbert placed, consider trial of void in the coming days after starting flomax today CODE: Full Proxy:Torrey Benitez, brother Dispo: inpatient, recommended for SNF but placement may be difficult given substance use history. with improving encephalopathy hope that may have more mobility in the coming days for discharge home. Additional history obtained from bedside RN.
[2022-09-03] MEDS: TAMSULOSIN 0.4 MG CAPSULE PO (13:39)
[2022-09-03] MEDS: methocarbamoL 500 MG TABLET PO (13:39)
--- NOTE | 2022-09-03 14:10 | OT.IP.TRT ---
Current Diagnoses Anterior displaced Type II dens fracture, initial encounter for closed fracture (08/31/22) Occupational Therapy Treatment Note M2 OT-IP Current Condition Start: 08/31/22 12:47 Freq: Status: Active Protocol: Document 08/31/22 10:11 [facility] (Rec: 08/31/22 13:08 [facility] [id number]) Occupational Therapy Current Condition Current Condition Evaluation Date 08/31/22 Treatment Diagnosis Non displaces type 2 odontoid fx Diagnosis Onset Date 08/31/22 Post Operative Precautions Cervical Spine Precautions Rigid Collar,No Heavy Lifting, Log Roll M3 OT- IP Subjective and Pain Start: 08/31/22 12:47 Freq: Status: Active Protocol: Document 09/03/22 14:13 [facility] (Rec: 09/03/22 14:26 [facility] [id number]) OT- Subjective Occupational Therapy Visit Type Type Treatment Note Visit Start Time 13:53 Visit Stop Time 14:10 Total Visit Minutes 17 Occupational Therapy Visit Comments Patient Comments Pt awake and went with nursing aid to get pt up as he agreed to try. Patient/Caregiver Goals Pt says does not want to stay in the hospital forever. OT Pain Assessment Pain When Pain Assessed At Rest Pain Present Pain Present Pain Reported Location Neck Pain Behaviors Facial Grimacing,Moaning M4 OT- IP ADL's Start: 08/31/22 12:47 Freq: Status: Active Protocol: Document 09/03/22 14:13 [facility] (Rec: 09/03/22 14:26 [facility] [id number]) OT [id number]-[id number] Comments OT Self-Feeding Comments not at meal time M6 OT- IP Functional Cognition Start: 08/31/22 12:47 Freq: Status: Active Protocol: Document 09/03/22 14:13 [facility] (Rec: 09/03/22 14:26 [facility] [id number]) Cognitive Factors Limiting Selfcare Function Cognitive Ability Level of Alertness Alert,Confusional State Patient Orientation Name Attention Span Ability Capable of Focused Attention, Unable to Focus Ability to Follow Commands Able to Follow One Step Commands with Increased Time, Able to Follow One Step Commands with Repetition Safety Awareness Underestimates Need for Assistance Cognitive Comments Cognitive Assessment Comments Pt having difficulty to follow commands and tends to initiate his care. Pt getting frustrated as not able to move his legs when standing. M7 OT- IP Mobility and Balance Start: 08/31/22 12:47 Freq: Status: Active Protocol: Document 09/03/22 14:13 [facility] (Rec: 09/03/22 14:26 [facility] [id number]) OT- Bed Mobility Assessment Supine to Sit Supine to Sit Assist Moderate Assistance Sit to Supine Sit to Supine Assist Maximum Assistance,2 Person Assistance OT-Transfer Assessment Sit to and From Stand Sit to and from Stand Moderate Assistance,2 Person Assistance Comments Mobility Comments Pt is impulsive and pulling himself with the bedrails to long sitting and then able to get his legs to the edge of the bed and then needing MAXA to help scoot his hips to the edge of the bed. Pt having difficulty to motor plan his movements. Pt able to stand with MODA X 2 to FWW and then unable to take any steps. Pt just kept pushing the FWW in front of him. Even with assist to weight shift pt unable to advance his feet to take a step at this time. OT- Balance Assessment Sitting Balance and Reactions Static Sitting Balance Ability Fair Dynamic Sitting Balance Ability Poor Standing Balance and Reactions Static Standing Balance Ability Poor M8 OT- IP Objective Assessments Start: 08/31/22 12:47 Freq: Status: Active Protocol: Document 08/31/22 10:11 [facility] (Rec: 08/31/22 13:08 [facility] [id number]) OT Gross Range of Motion Upper Extremity Range of Motion ROM Impairments grossly WFL OT Strength Comments Strength Comments BUE elbow to distal 4/5 OT-Muscle Tone Assessment Muscle Tone WNL No Comments Muscle Tone Comments Pt has bilateral hand tremors. M9 OT- IP Assessment and Plan Start: 08/31/22 12:47 Freq: Status: Active Protocol: Document 09/03/22 14:13 [facility] (Rec: 09/03/22 14:26 [facility] [id number]) OT Summary Assessment and Plan Potential Rehabilitation Potential Poor Analytic Complexity at Evaluation Moderate Summary OT Impairments Pain,Strength,Balance, Functional Cognition, Functional Mobility,Self- Feeding,Grooming,Dressing, Toileting,Bathing,Toilet Transfers Progress Towards Goals Slow Progress due to Pain,Slow Progress due to Medical Issues,Slow Progress due to Activity Tolerance,Slow Progress due to Cognition Assessment Summary Pt able to come to stand with MODA X 2 to FWW and unable to motor plan to be able to move his feet at this time and also having posterior lean. Pt getting frustrated and finally able to talk him into just getting back to bed versus going to the recliner. To continues to check on the pt for progress to best determine his disposition. Pt would benefit from skilled rehab if willing otherwise possible LTC , pending what his options are. Goals Grooming Goal Independent Dressing Goal Independent Toileting Goal Independent Bathing Goal Independent Toilet Transfer Goal Independent Shower Transfer Goal Independent Days to Meet Goals 30 Frequency of Treatment Frequency Of Treatment Once a Day Treatment Plan OT Treatment Plan ADL Training,Functional Cognition Training,Functional Mobility,Patient/Family Education,Discharge Planning Other Treatment Recommendations and Next Transfer to [facility] with MODA X 2. Treatment Focus Discharge Recommendations OT Discharge Recommendations SNF Rehab,LTAC Transportation Needs at Discharge Wheelchair/Cabulance
--- NOTE | 2022-09-03 15:44 | PC.NURSE ---
Addendum entered by Maranda Rodríguez R.N. 09/03/22 15:59: Reassessed pt @ 1530, when OT and PTC were getting pt out of bed. CIWA score of 14. Offered pt PO Ativan, and pt refused PO meds, as well as other scheduled PO meds. Called pharmacy to ask to switch Ativan from PO to IV. Pharmacist, Mickey, stated that providers needed to okay order. Informed hospitalist, Delfino, and he okayed order. Awaiting new orders and pharmacy. Original Note: Pt asleep @ 1300 when reassessing CIWA scale. Pt agitated when staff awakes him for care and assessments. Pt allowed to sleep. Continuing to monitor and will reassess when pt is awake.
[2022-09-03] MEDS: LORazepam 2 MG/ML INJ IV ×3 (16:19→20:55)
--- NOTE | 2022-09-03 17:00 | PT-IP ANOTE ---
Attempt to work with patient. Patient was drowsy, stated he did not want to do anything. Offered to help patient out of bed, patient refused. Offered to assist patient with repositioning of cervical collar, patient again refused. Offered to do exercises with patient in the bed, patient continued to refuse. Due to hx of agitation, did not pursue further treatment. Will attempt tomorrow.
[2022-09-03] MEDS: NICOTINE 21 MG PATCH TOP (20:55)
[2022-09-04] VITALS (11 sets, daily range): BP systolic 103–144; BP diastolic 64–88; PULSE 85–100; RESP 8–20; TEMP 36.1–36.6; O2SAT 93–96
[2022-09-04] MEDS: OXYCODONE IR 5 MG TABLET 10 MG PO ×2 (02:43→20:29)
[2022-09-04] MEDS: ACETAMINOPHEN 325 MG TABLET 650 MG PO (08:40)
[2022-09-04] MEDS: MULTIVITAMIN 1 TABLET 1 TAB PO (08:40)
[2022-09-04] MEDS: GABAPENTIN 100 MG CAPSULE PO ×3 (08:40→20:29)
[2022-09-04] MEDS: FOLIC ACID 1 MG TABLET PO (08:40)
[2022-09-04] MEDS: LORazepam 1 MG TABLET PO ×2 (08:40→14:04)
[2022-09-04] MEDS: TAMSULOSIN 0.4 MG CAPSULE PO (08:40)
[2022-09-04] MEDS: OXYCODONE IR 5 MG TABLET PO ×2 (08:42→14:04)
[2022-09-04] MEDS: THIAMINE 500 MG in SODIUM CHLORIDE 0.9% 100 ML 420 MG IV (09:00)
[2022-09-04] MEDS: SODIUM CHLORIDE 0.9% FLUSH 10 ML IV ×2 (09:02→20:30)
[2022-09-04] MEDS: NICOTINE 21 MG PATCH TOP (09:12)
[2022-09-04] MEDS: ENOXAPARIN 40 MG/0.4 ML SYRINGE SUBCUT (09:45)
[2022-09-04 09:55] LABS: Add Manual Diff / Slide Review NO; Basophils Absolute Auto 100 /uL (0-100); Basophils Percent Auto 1.2 % (0-2); Eosinophils Absolute Auto 500 /uL (0-450); Eosinophils Percent Auto 7.4 % (2-4); Hematocrit 41.2 % (41-53); Lymphocytes Absolute Auto 1200 /uL (1100-4500); Lymphocytes Percent Auto 16.2 % (25-40); Mean Corpuscular Hemoglobin 32.5 PG (26-34); Mean Corpuscular Volume 95.6 fL (80-100); Monocytes Absolute Auto 500 /uL (0-900); Monocytes Percent Auto 7.4 % (3-14); Neutrophils Absolute Auto 5000 /uL (1500-7000); Neutrophils Percent Auto 67.8 % (50-75); Platelet Count 258 X10^3/uL (150-400); Red Blood Cell Count 4.31 X10^6/uL (4.5-5.9); Red Cell Distribution Width 15.1 % (11.6-14.8); White Blood Cell Count 7.3 X10^3/uL (4.5-11.0)
[2022-09-04 10:10] LABS: BUN Creatinine Ratio 14.9 (6-22); Blood Urea Nitrogen 13 mg/dL (9-20); Calcium 9.2 mg/dL (8.4-10.2); Carbon Dioxide 28 mmol/L (22-32); Chloride 100 mmol/L (98-107); Estimated Glomerular Filt Rate > 60 mL/min (>60); Glucose 155 mg/dL (80-110); Magnesium 1.8 mg/dL (1.6-2.3); Sodium 135 mmol/L (137-145)
[2022-09-04 10:11] LABS: HEMOLYSIS 78 (0-50)
--- NOTE | 2022-09-04 13:13 | CM.DPNOTE ---
DCP Note Patient more alert today, sitting up in chair, eating his lunch. PT planning to see this afternoon Thus far, no SNFs have accepted this patient. Clinical faxed to [facility] swing beds last week with no response Patient still being monitored closely for withdrawal sx, last CIWA was 11 at 0500 6.3.23, last dose of ativan 6.3.23 at 0840 Will need to wait until Tuesday to research standings of patient's [facility] ([facility]) assessment for jail care and what social organization professor is assigned to complete this assessment (?) Meanwhile, w/addtl inpatient PT/OT- patient may progress to walking and completing ADLs independently, at which point patient can be considered for discharge to a friends home vs intermediate CM team following along closely. Plan: Once updated therapy notes are available, CM team can plan to make addtl. calls to SNF (broaden search?) vs swing bed in case patient is a candidate vs home w/friend (?) or intermediate outpatient services JW
--- NOTE | 2022-09-04 13:50 | PT.IPTN ---
Current Diagnoses Anterior displaced Type II dens fracture, initial encounter for closed fracture (08/31/22) Physical Therapy Treatment Note M2 PT-IP Current Condition Start: 08/31/22 11:26 Freq: NEEDED Status: Active Protocol: Document 08/31/22 09:30 AB (Rec: 08/31/22 11:41 AB [id number]) Physical Therapy Current Condition Current Condition Evaluation Date 08/31/22 Treatment Diagnosis GLF; odontoid fx; acute encephalopathy due to ETOH; difficulty in walking Onset Date 08/31/22 M3 PT-IP Subjective Start: 08/31/22 11:26 Freq: NEEDED Status: Active Protocol: Document 09/04/22 13:50 AB (Rec: 09/04/22 15:38 AB [id number]) Subjective Physical Therapy Visit Type Type Treatment Note Visit Start Time 13:50 Visit Stop Time 14:05 Total Visit Minutes 15 Number of STAFF OCCUPATIONAL THERAPIST Visits 0 Physical Therapy Visit Comments Patient Comments requesting to go back to bed Therapy Pain Assessment Pain When Pain Assessed At Rest Location Neck Scale Used pain scale not stated Pain Management Techniques Modification of Treatment,Re- positioning,Timing of Activity with Medications M4 PT-IP Mobility and Gait Start: 08/31/22 11:26 Freq: NEEDED Status: Active Protocol: Document 09/04/22 13:50 AB (Rec: 09/04/22 15:38 AB [id number]) PT-Bed Mobility Assessment Sit to Supine Sit to Supine Maximum Assistance,2 Person Assistance,Bedrails PT-Transfer Assessment Sit to and From Stand Sit to and from Stand Moderate Assistance,Maximum Assistance,2 Person Assistance ,Use of Upper Extremities Equipment Transfer Assistive Device Front Wheeled Walker Orthotic/Prosthetic Devices or Brace: Yes Transfers Transfer Destination Bed Transfer Technique Stand Step Pivot Transfer Ability Level of Assist Maximum Assistance,2 Person Assistance,Use of Upper Extremities Comments Mobility Comments pt sitting on the chair and requesting to go back to chair but agreed to do PT first. nurse in room to assist. pt completed sit to stand max A x 2 and max cues. instructed to walk but unable with increase guarding noted. instructed pt to sit back on chair. educated on how to use FWW for support and weight shifting to be able to move LE forward. completed sit to stand mod x 2 to max A x 2 and max cues. ambulated using FWW 2 ft max A x 2 and max cues and chair follow. pt needs assist with weight shifting to be able to move LLE forward. requires max cues for all tasks. pt continues to have tremors but seems less from when initial PT eval was completed. completed sit to stand mod A x 2 and max cues and step transfer using FWW chair to bed max A x 2 and max cues. pt sat midway during transfer and needing max A x 2 to pivot and sit on EOB. completed sit to supine log roll max A x 2 and max cues. positioned pt in bed. call light and table placed within reach. Gait Assessment Gait Gait Assistance Required: Maximum Assistance,2 Person Assist Distance (Feet) 2 Able to Maintain Weight Bearing Status Yes During Gait Assistive Devices Assistive Device Gait Belt,Front Wheeled Walker Orthotic/Prosthetic Devices or Brace: Yes Gait Deviations General Gait Pattern Ataxic,Decreased Stride Length ,Decreased Feet Clearance,Step -to Gait,Wide Based Gait Factors Limiting Gait Function Factors Limiting Gait Function Decreased Activity Tolerance, Decreased Strength,Difficulty Following Directions, Incoordination,Limited Range of Motion,Pain,Poor Balance, Poor Safety Awareness M5 PT-IP Objective Assessments Start: 08/31/22 11:26 Freq: NEEDED Status: Active Protocol: Document 08/31/22 09:30 AB (Rec: 08/31/22 11:41 AB [id number]) Orientation Orientation/Cognition Level of Alertness Confusional State Orientation Name,Situation Language Function Ability Hard of Hearing Safety Awareness Decreased Safety Awareness Memory Description Short Term Impaired Gross Range of Motion Lower Extremity ROM Assessment Within Functional Limits Strength Lower Extremity Strength Hip 4-/5 Knee 4-/5 Other Assessments Other Other Assessments (+) overall body tremors: more evident on BUE M6 PT-IP Treatment Start: 08/31/22 11:26 Freq: NEEDED Status: Active Protocol: Document 09/04/22 13:50 AB (Rec: 09/04/22 15:38 AB [id number]) Physical Therapy Treatment Education Education Provided Safety M7 PT-IP Assessment and Plan Start: 08/31/22 11:26 Freq: NEEDED Status: Active Protocol: Document 09/04/22 13:50 AB (Rec: 09/04/22 15:38 AB [id number]) PT Summary Assessment and Plan Potential Rehabilitation Potential Fair Summary Impairments Pain,ROM,Strength,Balance, Coordination,Sensation,Tone, Cognition,Bed Mobility, Transfers,Gait,Activity Tolerance Progress Towards Goals Slow Progress due to Pain,Slow Progress due to Medical Issues,Slow Progress due to Activity Tolerance Assessment Summary pt progressing slowly and was able to take a few steps using FWW max A x 2 and max cues. pt continues to require max A x 2 for transfers using FWW and max cues required for all tasks. pt will need SNF rehab to improve mobility independence. Goals Bed Mobility Goal Standby Assistance Transfer Goal Minimal Assistance,Front Wheeled Walker Gait Goal Minimal Assistance,Front Wheel Walker Gait Distance 25 Other Goals improve transfers and ambulation using FWW SBA 100 ft up/down 4 steps 1 rail SBA Days to Meet Goals 10 Frequency of Treatment Frequency Of Treatment Once a Day Treatment Plan Physical Therapy Treatment Plan Bed Mobility Training,Transfer Training,Gait Training, Therapeutic Exercise,Balance Retraining,Discharge Planning, Hot or Cold Pack,Neuromuscular Re-ed,Coordination Retraining ,Manual Therapy Recommendations To Nursing Amount of Assist Needed Mechanical Lift Discharge Recommendations PT Discharge Recommendations SNF Rehab Transportation Needs at Discharge Wheelchair/Cabulance
--- NOTE | 2022-09-04 14:27 | PM.PN.1 ---
Subjective Subjective Interval history: 72-year-old male with alcohol dependence, hepatitis-C, and previous stroke who was admitted with a nondisplaced type 2 odontoid fracture and acute presumed toxic encephalopathy. RN notes that patient did have CIWA scores up to 13-14 overnight. He received lorazepam with good effect. He did sleep through the night. Patient complains of pain in his neck as well as discomfort from wearing the [place] collar. He denies any other significant complaints. While I was in the room, breakfast arrive. I assisted getting him upright to eat and he was eating his Sinhala toast with his fingers. Exam Vital Signs (past 8 hours): - 09/04/22 09:46 09/04/22 07:00 09/04/22 08:00 Temperature Pulse Rate 85 Respiratory Rate 20 Blood Pressure 144/88 H Pulse Oximetry 95 Oxygen Delivery Method Room Air Room Air Oxygen Flow Rate 09/04/22 11:46 09/04/22 12:00 Temperature 97 F L Pulse Rate 98 H Respiratory Rate 8 L Blood Pressure 113/67 Pulse Oximetry 95 95 Oxygen Delivery Method Room Air Oxygen Flow Rate 0 Oxygen Delivery Method Room Air Oxygen Flow Rate 0 Narrative Exam Narrative: GEN: Disheveled middle-aged male, Alert and oriented x 2, NAD HEENT:NC, Face symmetric, [place] collar in place CHEST: Respiratory excursions symmetric, CTAB CV: RRR, no M/R/G ABD: Soft, NT/ND, BT present in all 4 quadrants, no organomegaly or masses EXTR: warm, well perfused, no C/C/E SKIN: warm and dry, no rash NEURO: Alert and oriented x 2, nonfocal Objective Labs 09/04/22 09:45 09/04/22 09:45 Labs: Laboratory Results - last 24 hr 09/04/22 09/04/22 09:45 09:45 WBC 7.3 RBC 4.31 L Hgb 14.0 Hct 41.2 MCV 95.6 MCH 32.5 MCHC 34.0 RDW 15.1 H Plt Count 258 Neut % (Auto) 67.8 Lymph % (Auto) 16.2 L [place] % (Auto) 7.4 Eos % (Auto) 7.4 H Baso % (Auto) 1.2 Neut # (Auto) 5000 Lymph # (Auto) 1200 [place] # (Auto) 500 Eos # (Auto) 500 H Baso # (Auto) 100 Sodium 135 L Potassium 4.0 Chloride 100 Carbon Dioxide 28 BUN 13 Creatinine 0.87 Estimated GFR > 60 BUN/Creatinine Ratio 14.9 Glucose 155 H Calcium 9.2 Magnesium 1.8 PFSH Medical History Abscess Acute CVA (cerebrovascular accident) Hepatitis C antibody test positive Heroin abuse Family History Father Cancer Social History household members: none Smoking Status: Current every day smoker alcohol intake: current Assessment & Plan Assessment & Plan narrative: 1. Nondisplaced type 2 odontoid fracture after mechanical fall Continue aspirin collar for C-spine protection. Await PT and OT reassessment, as he has refused therapy over the last 2 days. Based on prior assessment on August 31, intermediate was recommended. He may do better now that his withdrawal is under better control. 2. Alcohol dependence with withdrawal Continue monitoring. Will discontinue high-dose thiamine. Continue multivitamin. 3. Urinary retention Brasher catheter remains in place while his mobility is impaired. Will likely pursue a voiding trial in the coming days Resolved issues: Lactic acidosis (likely d/t hypovolemia from alcohol intoxication) Code status Full Prophylaxis On Lovenox Disposition Pending Surrogate decision maker: Torrey Bond, brother
--- NOTE | 2022-09-04 18:37 | PC.NURSE ---
alert, oriented. able to correctly state name, date, place. understands why his neck is hurting and why he is wearing a soft collar. forgetful at times, sleepy between meals and med times. wakens easily to verbal stimulus. CIWA ranged from 8-14 thru the shift: mostly for tremors, in all limbs, agitation and anxiety. PRN lorazepam 1mg tab given w/ good effect, PRN oxycodone 5mg given x 2 w/ good effect for c/o back/neck pain. continues w/ bruising, abraised areas. will attempt a shower tomorrow, if possible. tolerated bed bath this morning. allowed frequent turning and repositioning. tolerated OOB w/ 2pa w/ FWW to chair, sat up for approx 2 hours, became fidgety and tired. attempted to stand w/ 1pa w/ FWW, this was unsuccessful. PT and this RN assisted patient to amb a few steps w/ FWW w/ extensive cues. patient w/ extreme tremors to all limbs at this time of the afternoon; was able to follow commands, and shows some slight improvements as the day went on. appetite is good, encouraged to take PO fluids, as UOP is small, dark chung urine via colbert to gravity bag. accepts the fluids, prefers milk and water. accepted meds whole w/ sips of water. seizure pads are in place, no seizure activity noted. Bed alarm is on, call light w/in reach. no attempts to self- transfer OOB. care management is working on placement for patient, barriers to d/c are that he is homeless and has hx of non-compliance re: substance and ETOH abuse. CTM
[2022-09-04] MEDS: methocarbamoL 500 MG TABLET PO (20:29)
[2022-09-04] MEDS: KETOROLAC 30 MG/ML VIAL 15 MG IV (22:19)
[2022-09-05] VITALS (11 sets, daily range): BP systolic 115–137; BP diastolic 62–84; PULSE 60–96; RESP 15–20; TEMP 36.2–37; O2SAT 92–98
[2022-09-05] MEDS: ACETAMINOPHEN 325 MG TABLET 650 MG PO ×2 (03:21→09:59)
[2022-09-05] MEDS: methocarbamoL 500 MG TABLET PO ×2 (03:21→09:59)
[2022-09-05] MEDS: OXYCODONE IR 5 MG TABLET 10 MG PO ×6 (03:22→21:32)
[2022-09-05] MEDS: NICOTINE 21 MG PATCH TOP (08:39)
[2022-09-05] MEDS: ENOXAPARIN 40 MG/0.4 ML SYRINGE SUBCUT (08:39)
[2022-09-05] MEDS: MULTIVITAMIN 1 TABLET 1 TAB PO (08:41)
[2022-09-05] MEDS: KETOROLAC 30 MG/ML VIAL 15 MG IV ×2 (08:42→15:27)
[2022-09-05] MEDS: SODIUM CHLORIDE 0.9% FLUSH 10 ML IV ×3 (08:43→21:32)
[2022-09-05] MEDS: TAMSULOSIN 0.4 MG CAPSULE PO (08:43)
[2022-09-05] MEDS: GABAPENTIN 100 MG CAPSULE PO ×3 (08:43→21:31)
[2022-09-05] MEDS: FOLIC ACID 1 MG TABLET PO (08:43)
[2022-09-05] MEDS: LORazepam 1 MG TABLET PO ×3 (09:59→14:08)
[2022-09-05] MEDS: OXYCODONE IR 5 MG TABLET PO (09:59)
--- NOTE | 2022-09-05 11:20 | PT-IP ANOTE ---
Pt refused PT today due to pain and fatigue. Offered to assist pt w/ transfer, repositioning, LE exercises in bed, pt refused all. States come back tomorrow.
--- NOTE | 2022-09-05 11:43 | CM.DPNOTE ---
Discharge Planning Note: Patient up with PT yesterday, they are still recommending SNF. [facility], [facility], [facility]. [facility] possibly could, check end of week but would have to have a safe discharge plan, which is doubtful at this point. Faxed a referral to [facility] and left message. Patient is still weak and tremulous at times, CIWA is 8. Declined PT today due to pain (neck) and fatigue. When asked, patient states he would like to live in an [place], earliest HCS assessment is 09/16/22. Refer to previous CM notes. Plan: Continue to reach out to SNFs (but without safe discharge plan difficult). After assessment can pursue ALFs, try [facility] in [place]. Check back with [facility] at the end of the week. Carmela Navarro RN/DCP
--- NOTE | 2022-09-05 13:09 | PM.PN.1 ---
Subjective Subjective Interval history: 72-year-old male with alcohol dependence, hepatitis-C, and previous stroke who was admitted with a nondisplaced type 2 odontoid fracture (in an [place] collar) and acute presumed toxic encephalopathy. Hospital course has been complicated by alcohol w/d w/scores up to 13-14 on 09/03/22. Patient has been more of the day up yesterday in a chair. He states he is feeling better today but continues to have neck pain. He denies any dysphagia. He is asking for boxer underwear. I advised we only have paper briefs here and he states he will call his brother to bring some. He states he can not stay with his brother at discharge as his brother has a family in a small home. He states he has no other friends or family who with whom he could stay after discharge. He states he will have to be mobile on his own and independent. Exam Vital Signs (past 8 hours): - 09/04/22 15:28 09/04/22 14:53 09/04/22 18:00 Temperature 98 F Pulse Rate 98 H 100 H Respiratory Rate 20 17 Blood Pressure 113/67 103/64 Pulse Oximetry 95 94 Oxygen Delivery Method Room Air Oxygen Flow Rate 0 Oxygen Delivery Method Room Air Oxygen Flow Rate 0 Narrative Exam Narrative: GEN:? Disheveled middle-aged male, Alert and oriented x 3, NAD HEENT:NC, Face symmetric, [place] collar in place CHEST: Respiratory excursions symmetric, CTAB CV: RRR, no M/R/G ABD: Soft, NT/ND, BT present in all 4 quadrants, no organomegaly or masses EXTR: warm, well perfused, no C/C/E SKIN: warm and dry, no rash NEURO: Alert and oriented x 3, nonfocal Objective Labs 09/04/22 09:45 09/04/22 09:45 Labs: Laboratory Results - last 24 hr 09/04/22 09/04/22 09:45 09:45 WBC 7.3 RBC 4.31 L Hgb 14.0 Hct 41.2 MCV 95.6 MCH 32.5 MCHC 34.0 RDW 15.1 H Plt Count 258 Neut % (Auto) 67.8 Lymph % (Auto) 16.2 L [place] % (Auto) 7.4 Eos % (Auto) 7.4 H Baso % (Auto) 1.2 Neut # (Auto) 5000 Lymph # (Auto) 1200 [place] # (Auto) 500 Eos # (Auto) 500 H Baso # (Auto) 100 Sodium 135 L Potassium 4.0 Chloride 100 Carbon Dioxide 28 BUN 13 Creatinine 0.87 Estimated GFR > 60 BUN/Creatinine Ratio 14.9 Glucose 155 H Calcium 9.2 Magnesium 1.8 PFSH Medical History Abscess Acute CVA (cerebrovascular accident) Hepatitis C antibody test positive Heroin abuse Family History Father Cancer Social History household members: none Smoking Status: Current every day smoker alcohol intake: current Assessment & Plan Assessment & Plan narrative: 1. Nondisplaced type 2 odontoid fracture after mechanical fall Continue aspen collar for C-spine protection.? PT reassessed yesterday and continues to feel he needs group home facility for rehab. Declined to participate in therapy today. 2. Alcohol dependence with withdrawal Continue monitoring.? Continue multivitamin. He did have a CIWA score of 8 today and did get a single dose of lorazepam. 3. Urinary retention Brasher catheter remains in place while his mobility is impaired.? Will likely pursue a voiding trial in the coming days Resolved issues: Lactic acidosis (likely d/t hypovolemia from alcohol intoxication) Code status Full Prophylaxis On Lovenox Disposition Pending Surrogate decision maker: Torrey Bond, brother
--- NOTE | 2022-09-05 14:11 | PC.NURSE ---
Pt was yelling for help at approximately 1400, this RN came to see why the pt was yelling. The pt was shaking, was not making sense when talking or when answering a question. Unsure if the pt was having a panic attack or if this even was related to ETOH withdrawals. OBED Peguero was present and helped. OBED Peguero pulled the Ativan and this RN administered 1 mg IV push of Ativan. Will continue to monitor the pt.
[2022-09-05] MEDS: LORazepam 2 MG/ML INJ IV ×2 (15:26→18:44)
[2022-09-06] VITALS (9 sets, daily range): BP systolic 129–162; BP diastolic 68–88; PULSE 68–96; RESP 16–21; TEMP 35.9–36.8; O2SAT 92–97
[2022-09-06] MEDS: OXYCODONE IR 5 MG TABLET 10 MG PO (03:08)
[2022-09-06] MEDS: LORazepam 2 MG/ML INJ IV ×4 (03:09→06:10)
--- NOTE | 2022-09-06 05:39 | PC.NURSE ---
pt has been more agitated tonight, confused, trying to get out of bed, ciwa have been as high as 15.
[2022-09-06 08:40] LABS: Add Manual Diff / Slide Review NO; Basophils Absolute Auto 100 /uL (0-100); Basophils Percent Auto 1.2 % (0-2); Eosinophils Absolute Auto 700 /uL (0-450); Eosinophils Percent Auto 9.3 % (2-4); Hemoglobin 13.8 g/dL (13.5-17.5); Lymphocytes Absolute Auto 1600 /uL (1100-4500); Lymphocytes Percent Auto 21.4 % (25-40); Mean Corpuscular HGB Conc 33.6 % (30-36); Mean Corpuscular Hemoglobin 32.3 PG (26-34); Mean Corpuscular Volume 96.4 fL (80-100); Monocytes Absolute Auto 700 /uL (0-900); Monocytes Percent Auto 9.7 % (3-14); Neutrophils Absolute Auto 4300 /uL (1500-7000); Neutrophils Percent Auto 58.4 % (50-75); Platelet Count 268 X10^3/uL (150-400); Red Blood Cell Count 4.26 X10^6/uL (4.5-5.9); White Blood Cell Count 7.4 X10^3/uL (4.5-11.0)
[2022-09-06 08:55] LABS: BUN Creatinine Ratio 22.2 (6-22); Blood Urea Nitrogen 22 mg/dL (9-20); Calcium 9.5 mg/dL (8.4-10.2); Carbon Dioxide 24 mmol/L (22-32); Chloride 102 mmol/L (98-107); Estimated Glomerular Filt Rate > 60 mL/min (>60); Glucose 104 mg/dL (80-110); HEMOLYSIS < 15 (0-50); Potassium 4.1 mmol/L (3.4-5.1); Sodium 137 mmol/L (137-145)
[2022-09-06] MEDS: ENOXAPARIN 40 MG/0.4 ML SYRINGE SUBCUT (10:00)
[2022-09-06] MEDS: NICOTINE 21 MG PATCH TOP (10:00)
[2022-09-06] MEDS: FOLIC ACID 1 MG TABLET PO (10:01)
[2022-09-06] MEDS: GABAPENTIN 100 MG CAPSULE PO ×3 (10:01→21:59)
[2022-09-06] MEDS: TAMSULOSIN 0.4 MG CAPSULE PO (10:01)
[2022-09-06] MEDS: MULTIVITAMIN 1 TABLET 1 TAB PO (10:01)
[2022-09-06] MEDS: SODIUM CHLORIDE 0.9% FLUSH 10 ML IV ×2 (10:02→22:00)
--- NOTE | 2022-09-06 10:10 | PT.IPTN ---
Current Diagnoses Anterior displaced Type II dens fracture, initial encounter for closed fracture (08/31/22) Physical Therapy Treatment Note M2 PT-IP Current Condition Start: 08/31/22 11:26 Freq: NEEDED Status: Active Protocol: Document 08/31/22 09:30 AB (Rec: 08/31/22 11:41 AB [id number]) Physical Therapy Current Condition Current Condition Evaluation Date 08/31/22 Treatment Diagnosis GLF; odontoid fx; acute encephalopathy due to ETOH; difficulty in walking Onset Date 08/31/22 M3 PT-IP Subjective Start: 08/31/22 11:26 Freq: NEEDED Status: Active Protocol: Document 09/06/22 10:33 TS (Rec: 09/06/22 10:59 TS [id number]) Subjective Physical Therapy Visit Type Type Treatment Note Visit Start Time 10:10 Visit Stop Time 10:28 Total Visit Minutes 18 Number of HOURLY MANAGER Visits 1 Physical Therapy Visit Comments Patient Comments Pt found resting in bed receiving meds, agreeable to get to chair. Appears somewhat lethargic, quietly answers some questions. M4 PT-IP Mobility and Gait Start: 08/31/22 11:26 Freq: NEEDED Status: Active Protocol: Document 09/06/22 10:33 TS (Rec: 09/06/22 10:59 TS [id number]) PT-Bed Mobility Assessment Supine to Sit Supine to Sit Maximum Assistance,1 Person Assistance Scooting Scooting to Edge of Bed Maximum Assistance PT-Transfer Assessment Sit to and From Stand Sit to and from Stand Maximum Assistance,1 Person Assistance Equipment Transfer Assistive Device Front Wheeled Walker Orthotic/Prosthetic Devices or Brace: Yes Transfers Transfer Destination Chair Transfer Technique Stand Pivot Transfer Ability Level of Assist Total Assistance,1 Person Assistance Comments Mobility Comments Pt found resting in bed, agreeable to PT. Supine to sit MaxA for uprighting trunk and LEs off EOB, pt impulsive to move and does not follow directions. Scooted to EOB MaxA for feet flat on floor, pt impulsive to stand required cues to remain sitting, posterior loss of balance x3 required MaxA for correction and cues for BUE support/ handrail assist. Sit to stand MaxA, requires cues for sequencing, pt retroleans heavily, continues to not follow directions. Stand pivot transfer to chair total assist w/FWW, pt lets go of FWW and has posterior loss of balance. Pt in chair scooted back for better positioning with cues for BUE support ModA . Gait Assessment Comments Gait Comments Stand pivot transfer to chair total assist. See mobility section. PT-Balance Assessment Sitting Balance and Reactions Static Sitting Balance Ability Poor Dynamic Sitting Balance Ability Poor Standing Balance and Reactions Static Standing Balance Ability Poor Dynamic Standing Balance Ability Poor Device Used FWW Comments Other Balance Tests/Deviations/Treatment Pt x3 posterior LOB requires : MaxA for correction aand Max cueing. Standing balance is poor required total assist for pivot transfer to chair. M5 PT-IP Objective Assessments Start: 08/31/22 11:26 Freq: NEEDED Status: Active Protocol: Document 08/31/22 09:30 AB (Rec: 08/31/22 11:41 AB [id number]) Orientation Orientation/Cognition Level of Alertness Confusional State Orientation Name,Situation Language Function Ability Hard of Hearing Safety Awareness Decreased Safety Awareness Memory Description Short Term Impaired Gross Range of Motion Lower Extremity ROM Assessment Within Functional Limits Strength Lower Extremity Strength Hip 4-/5 Knee 4-/5 Other Assessments Other Other Assessments (+) overall body tremors: more evident on BUE M6 PT-IP Treatment Start: 08/31/22 11:26 Freq: NEEDED Status: Active Protocol: Document 09/06/22 10:33 TS (Rec: 09/06/22 10:59 TS [id number]) Physical Therapy Treatment Education Education Provided Safety M7 PT-IP Assessment and Plan Start: 08/31/22 11:26 Freq: NEEDED Status: Active Protocol: Document 09/06/22 10:33 TS (Rec: 09/06/22 10:59 TS [id number]) PT Summary Assessment and Plan Potential Rehabilitation Potential Fair Summary Impairments Pain,ROM,Strength,Balance, Coordination,Sensation,Tone, Cognition,Bed Mobility, Transfers,Gait,Activity Tolerance Progress Towards Goals Slow Progress due to Pain,Slow Progress due to Medical Issues,Slow Progress due to Activity Tolerance Assessment Summary Pt continues to require MaxA/ total assist x1 for all mobility. In sitting x3 LOB requiring MaxA for correction and Max cues for BUE suppport/ handrail assist. Pt heavily retoleans in standing, unable to maintain grasp on FWW due to tremors and being impulsive . He required total assist for stand pivot transfer to chair , again cannot follow directions for use of FWW. Pt is unsafe and lacks safety awareness. PT recommends SNF rehab at this time for all functional mobility. Goals Bed Mobility Goal Standby Assistance Transfer Goal Minimal Assistance,Front Wheeled Walker Gait Goal Minimal Assistance,Front Wheel Walker Gait Distance 25 Other Goals improve transfers and ambulation using FWW SBA 100 ft up/down 4 steps 1 rail SBA Days to Meet Goals 10 Frequency of Treatment Frequency Of Treatment Once a Day Treatment Plan Physical Therapy Treatment Plan Bed Mobility Training,Transfer Training,Gait Training, Therapeutic Exercise,Balance Retraining,Discharge Planning, Hot or Cold Pack,Neuromuscular Re-ed,Coordination Retraining ,Manual Therapy Other Recommendations and Next Treatment Continue to progress bed Focus mobility, sit to stands and transfers. Precautions Other Precautions falls Recommendations To Nursing Amount of Assist Needed 2 Person Assist,Mechanical Lift Discharge Recommendations PT Discharge Recommendations SNF Rehab Transportation Needs at Discharge Wheelchair/Cabulance
--- NOTE | 2022-09-06 11:54 | CM.DPC ---
Addendum entered by ANGELLA Dobbins 09/06/22 15:52: ADD: Return call from [facility], they are declining pt at this time due to poor d/c plan from SNF currently. Call from Anna at [facility], due to mention of hx of heroin use, they need to know from pt when his last use was. Explained that pt's UDS negative for everything but ETOH but she still wants SW to ask pt his last use heroin. SW attempted multiple times to wake pt today and snoring loudly and was medicated. BF Original Note: DCP SNF Planning: Per MD, pt likely still going through some ETOH withdrawals and may be slightly overmedicated and if pt does not clear some more this morning, may get further imaging/scan to r/o any further medical needs. Pt not yet medically stable to discharge today. Per RECRUITING SCHEDULER, pt was able to participate but remains mod to max assist with ambulation and still recommending SNF as below baseline independence. From prior SNF referrals: [facility]- declines [facility]- declines [facility]- declines [facility]- currently very full with LTC/medicaid, cannot accept now [facility]- declines New referrals today: [facility]- called today, has referral and will review now, updated on pt situation. [facility]- discussed pt situation, willing to review, fax[facility] [phone] pt situation, still willing to review, faxed to [phone] [facility]- no, decline reviewing. [facility]- no, decline reviewing, small facility and no LTC beds for backup after SNF. Poor d/c plan. [facility]- larger facility, left detailed msg, faxed referral to [phone] [facility]- discussed pt, they have beds, willing to review, faxed to [phone] [facility] spoke to pt's assigned HCS EDDI Kay ([phone] or email [email or web address]) and she confirms she is the assigned worker and has scheduled assessment for pt on 09/16/22 for LTC placement. Pt has been at an [facility] in the past and left within a couple days as he was bored. Pt has stated he declines [facility] but would be agreeable to SNF or [facility]. If pt discharges to SNF under Medicare, then his assessment would go through their SNF team and would no longer have his assessment by her. Plan: SW to continue to work closely with above reviewing SNFs towards hopeful acceptance for SNF rehab under his Medicare and then ongoing planning/assessment from [facility] for LTC placement after discharge. ANGELLA Dobbins
--- NOTE | 2022-09-06 15:10 | P.PN_ITS ---
Subjective Subjective Interval history: 72-year-old male with alcohol dependence, hepatitis-C, and previous stroke who was admitted with a nondisplaced type 2 odontoid fracture (in an [place] collar) and acute presumed toxic encephalopathy.? Hospital course has been complicated by alcohol w/d w/scores up to 13-14 on 09/03/22. Yesterday afternoon, staff reported patient developed these episodes of shaking. They were uncertain if this was a seizure and gave him lorazepam. They noted no postictal period. He did receive lorazepam on a couple of occasions for the shaking episodes. He also continued to receive oxycodone. Overnight he has been more somnolent. This morning he has been difficult to arouse. He will mumble and push me away but does not otherwise interact. He did have 1 episode while I was in the room of shaking and saying oh God. It appears he gets anxious and lifts his arms up in the air voluntarily. Exam Vital Signs (past 8 hours): - 09/05/22 11:43 09/05/22 12:00 09/05/22 12:50 Temperature 97.8 F Pulse Rate 85 70 Respiratory Rate 18 15 Blood Pressure 123/65 126/62 Pulse Oximetry 95 97 Oxygen Delivery Method Room Air Oxygen Flow Rate 0 0 09/05/22 14:50 09/05/22 16:14 09/05/22 16:00 Temperature Pulse Rate 60 90 Respiratory Rate 17 16 Blood Pressure 131/71 Pulse Oximetry 93 Oxygen Delivery Method Room Air Oxygen Flow Rate 0 09/05/22 19:04 Temperature Pulse Rate 85 Respiratory Rate 17 Blood Pressure 121/66 Pulse Oximetry Oxygen Delivery Method Oxygen Flow Rate Oxygen Delivery Method Room Air Oxygen Flow Rate 0 Narrative Exam Narrative: GEN:? Disheveled middle-aged male, somnolent, NAD HEENT:NC, Face symmetric, [place] collar in place CHEST: Respiratory excursions symmetric, CTAB CV: RRR, no M/R/G ABD: Soft, NT/ND, BT present in all 4 quadrants, no organomegaly or masses EXTR: warm, well perfused, no C/C/E SKIN: warm and dry, no rash NEURO: Somnolent, difficult to arouse Objective Labs 09/06/22 08:30 09/06/22 08:30 [facility] Medical History Abscess Acute CVA (cerebrovascular accident) Hepatitis C antibody test positive Heroin abuse Family History Father Cancer Social History household members: none Smoking Status: Current every day smoker alcohol intake: current Assessment & Plan Assessment & Plan narrative: 1. Nondisplaced type 2 odontoid fracture after mechanical fall Continue aspen collar for C-spine protection.? PT reassessed yesterday and continues to feel he needs senior care facility for rehab.? Declined to participate in therapy today. 2. Alcohol dependence with withdrawal Continue multivitamin. At this time, I do not believe he has any risk for ongoing withdrawal. Given his somnolence, I have discontinue lorazepam. 3. Acute metabolic encephalopathy Suspect this is iatrogenic from lorazepam and oxycodone. I have therefore discontinued these medications. If he does not arouse over the next hour to, will plan to give Narcan. He is protecting his airway. I personally witnessed 1 of his shaking spells and it does not appear to be seizure activity. 4. Urinary retention Brasher catheter remains in place while his mobility is impaired.? Will likely pursue a voiding trial in the coming days Resolved issues: Lactic acidosis (likely d/t hypovolemia from alcohol intoxication) Code status Full Prophylaxis On Lovenox Disposition Pending Surrogate decision maker: Torrey Bond, brother
--- NOTE | 2022-09-06 15:44 | OT.IPNOTE ---
Attempted to see pt for OT services. Pt is sleeping but minimally wakes to name. Pt declines any activity at this time stating he wants to sleep. Will hold and continue to follow.
[2022-09-07] VITALS (9 sets, daily range): BP systolic 120–149; BP diastolic 65–92; PULSE 82–91; RESP 15–19; TEMP 36.1–36.8; O2SAT 92–97
[2022-09-07] MEDS: FOLIC ACID 1 MG TABLET PO (09:20)
[2022-09-07] MEDS: GABAPENTIN 100 MG CAPSULE PO ×3 (09:20→19:54)
[2022-09-07] MEDS: NICOTINE 21 MG PATCH TOP (09:20)
[2022-09-07] MEDS: ENOXAPARIN 40 MG/0.4 ML SYRINGE SUBCUT (09:20)
[2022-09-07] MEDS: TAMSULOSIN 0.4 MG CAPSULE PO (09:20)
[2022-09-07] MEDS: MULTIVITAMIN 1 TABLET 1 TAB PO (09:20)
[2022-09-07] MEDS: SODIUM CHLORIDE 0.9% FLUSH 10 ML IV ×2 (09:21→19:54)
--- NOTE | 2022-09-07 11:23 | CM.DPNOTE ---
DCP Note Reviewed chart. Spoke w/Lonny Leslie this morning, [employer] community certified medical aide. He confirmed that patient is no longer welcome around his friend Zacarias's home and any living family/friends are active drug users and not in a position to assist patient upon discharge Met w/patient this morning to discuss discharge planning efforts. Patient awake but unable to give this FOURTH HAND any reliable information re planning for his discharge Patient unsure about staying sober and states I don't know when asked about where he will discharge. Patient states he is in pain and agrees w/this FOURTH HAND when it is suggested how difficult it is to get up and find the motivation to actively engage Patient discussed in multidisciplinary rounds; Patient remains a 2 person assist according to the therapy team This FOURTH HAND suggests discharge to SNF with a comfort focused treatment plan. Dr Borja will not start this conversation as an inpatient and does not anticipate patient is a hospice candidate Reviewed comfort focused terminologist care plan w/Sofie at [facility], she is reviewing again for admission to their Rehab with potential for transitioning patient to their long-term care [facility] declines Plan: No facility care secured yet. Patient cannot complete his ADLs independently...discharge to a homeless intermediate when patient can complete ADLs indp. USHA 2 at 0630, Eduardo has been DC. Still attempting facility placement JW
[2022-09-07] MEDS: ACETAMINOPHEN 325 MG TABLET 650 MG PO ×2 (12:21→18:38)
--- NOTE | 2022-09-07 13:14 | CM.DPC ---
DCP Cont: Lonny Leslie, community fiberglass ski maker, and Sofie Naik, Resource Navigator, came by. Sofie has also been working on attempting rehab for patient. Initially, thought that [facility] may be optional, patient is no longer withdrawng. She did mention [facility] in [place], but unsure if he would qualify, or if they would accept his insurance. Her and Lonny met with patient, patient indicated, I don't know why they want me to leave. Barrier is that patient is a two person max assist, and is homeless, has no family to stay with. ANGELLA Barillas, had also seen patient today. P: DCP working on planning, and several facilities have been faxed. ANGELLA Barillas is working on case. Azul Malloy RN/Occupational Health Physician
--- NOTE | 2022-09-07 15:09 | P.PN_ITS ---
Subjective Subjective Date Patient Seen: 09/07/22 Time Patient Seen: 08:00 Interval history: Today he is improved from yesterday. Does not appear confused. He has a headache and is requesting something other than tylenol. He wants to discuss with CM plans for options leaving the hospital. Exam Vital Signs (past 8 hours): - 09/07/22 09:00 09/07/22 12:29 09/07/22 13:00 Temperature 97.8 F Pulse Rate 82 Respiratory Rate 15 Blood Pressure 120/75 Pulse Oximetry 95 97 95 Oxygen Delivery Method Room Air Room Air Oxygen Flow Rate 0 0 0 Oxygen Delivery Method Room Air Oxygen Flow Rate 0 Narrative Exam Narrative: GEN:? no acute distress HEENT: aspen collar in place CHEST: clear bilaterally CV: regular rate and rhythm NEURO: awake, alert, oriented Objective Labs 09/06/22 08:30 09/06/22 08:30 COUNT INCLUDES THE [facility] Medical History Abscess Acute CVA (cerebrovascular accident) Hepatitis C antibody test positive Heroin abuse Family History Father Cancer Social History household members: none Smoking Status: Current every day smoker alcohol intake: current Assessment & Plan Assessment & Plan narrative: 1. Nondisplaced type 2 odontoid fracture, after fall -continue collar -plan for follow up with ortho/spine as outpatient 2. Alcohol dependence -withdrawals resolved 3. Acute encephalopathy with behavioral disturbances -suspect this was secondary to medicating patient in setting of withdrawal and pain managememnt -opiates and benzos have been significantly reduced and mental status and behavior issues are resolved at this point 4. Headache -ordered for tylenol -add ibuprofen 5. Urinary retention -continue colbert for now Dispo: pending placement
[2022-09-07] MEDS: IBUPROFEN 600 MG TABLET PO (15:18)
--- NOTE | 2022-09-07 16:01 | PT-IP ANOTE ---
Pt reports his head is hurting and refused to work with PT this afternoon. Will check in tomorrow.
--- NOTE | 2022-09-07 16:55 | OT.IPNOTE ---
Pt asleep x2 when checking on pt. To check on pt tomorrow to see if pt still appropriate for OT services.
[2022-09-08] VITALS (10 sets, daily range): BP systolic 122–143; BP diastolic 70–78; PULSE 77–85; RESP 16–20; TEMP 36.4–36.7; O2SAT 93–96
[2022-09-08] MEDS: IBUPROFEN 600 MG TABLET PO ×2 (03:58→12:19)
[2022-09-08] MEDS: MULTIVITAMIN 1 TABLET 1 TAB PO (08:41)
[2022-09-08] MEDS: FOLIC ACID 1 MG TABLET PO (08:41)
[2022-09-08] MEDS: ACETAMINOPHEN 325 MG TABLET 650 MG PO ×3 (08:41→22:05)
[2022-09-08] MEDS: NICOTINE 21 MG PATCH TOP (08:41)
[2022-09-08] MEDS: TAMSULOSIN 0.4 MG CAPSULE PO (08:41)
[2022-09-08] MEDS: GABAPENTIN 100 MG CAPSULE PO ×3 (08:41→21:57)
[2022-09-08] MEDS: SODIUM CHLORIDE 0.9% FLUSH 10 ML IV ×2 (08:42→21:58)
[2022-09-08] MEDS: ENOXAPARIN 40 MG/0.4 ML SYRINGE SUBCUT (08:42)
--- NOTE | 2022-09-08 10:26 | PC.NURSE ---
Addendum entered by Ashanti Cline R.N. 09/08/22 14:47: patient participating with PT today and observed improved functioning with using FWW, he is a minimum assist back to bed from the chair this afternoon. Original Note: Pt is A&OX2, to place and situation and he knows September but states 1972. He is pleasant and agreeable using the call light appropriately. VSS, afebrile on RA. C-collar remains in place, he reports neck pain is improved but stave planer tender. He is able to feed himself, and take his a.m. pills without difficulty. Brasher catheter in place draining adequate clear, yellow urine. He states he is motivated to walk and is waiting for the rehab people. Bed alarm on, call light in reach, assisted with repositioning. CIWA score is 0. Continuous monitoring.
--- NOTE | 2022-09-08 11:30 | PT.IPTN ---
Current Diagnoses Anterior displaced Type II dens fracture, initial encounter for closed fracture (08/31/22) Physical Therapy Treatment Note M2 PT-IP Current Condition Start: 08/31/22 11:26 Freq: NEEDED Status: Active Protocol: Document 08/31/22 09:30 AB (Rec: 08/31/22 11:41 AB [id number]) Physical Therapy Current Condition Current Condition Evaluation Date 08/31/22 Treatment Diagnosis GLF; odontoid fx; acute encephalopathy due to ETOH; difficulty in walking Onset Date 08/31/22 M3 PT-IP Subjective Start: 08/31/22 11:26 Freq: NEEDED Status: Active Protocol: Document 09/08/22 12:48 TS (Rec: 09/08/22 13:07 TS [id number]) Subjective Physical Therapy Visit Type Type Treatment Note Visit Start Time 11:30 Visit Stop Time 11:40 Total Visit Minutes 10 Notes Co-treat with OT. AGRICULTURE INSTRUCTOR present. Number of HAND CLOTH EXAMINER Visits 2 Physical Therapy Visit Comments Patient Comments Pt found resting in bed, agreeable to PT. M4 PT-IP Mobility and Gait Start: 08/31/22 11:26 Freq: NEEDED Status: Active Protocol: Document 09/08/22 12:48 TS (Rec: 09/08/22 13:07 TS [id number]) PT-Bed Mobility Assessment Rolling Type of Rolling Log Rolling Level of Assist Minimal Assistance,1 Person Assistance Supine to Sit Supine to Sit Minimal Assistance,1 Person Assistance Scooting Scooting to Edge of Bed Contact Guard Assistance PT-Transfer Assessment Sit to and From Stand Sit to and from Stand Moderate Assistance,1 Person Assistance Equipment Transfer Assistive Device Front Wheeled Walker Orthotic/Prosthetic Devices or Brace: Yes Comments Mobility Comments Pt found resting in bed and more alert this morning, agreeable to PT. Logroll Dulce, provided cues for sequencing. Supine to sit Dulce for uprighting trunk, provided cues for BUE support and LE sequencing. Sit to stand x1 ModA with cues for BUEs pushing from bed, pt braces LEs against bed for balance, provided cues for feet flat pt back on heels initially. He ambulated ~30' in room Dulce x1 , progressed to Dulce x2 for balance and for tactile/VC for FWW management. Pt was left in chair with OT. Gait Assessment Gait Gait Assistance Required: Minimum Assistance,Moderate Assistance,1 Person Assist,2 Person Assist Distance (Feet) 30 Able to Maintain Weight Bearing Status Yes During Gait Assistive Devices Assistive Device Gait Belt,Front Wheeled Walker Orthotic/Prosthetic Devices or Brace: Yes Gait Deviations General Gait Pattern Ataxic,Decreased Stride Length ,Decreased Feet Clearance,Step -to Gait,Wide Based Gait Factors Limiting Gait Function Factors Limiting Gait Function Decreased Activity Tolerance, Decreased Strength,Difficulty Following Directions, Incoordination,Limited Range of Motion,Pain,Poor Balance, Poor Safety Awareness Comments Gait Comments See mobility comments. PT-Balance Assessment Sitting Balance and Reactions Static Sitting Balance Ability Good Dynamic Sitting Balance Ability Fair Standing Balance and Reactions Static Standing Balance Ability Fair Dynamic Standing Balance Ability Poor Device Used FWW Comments Other Balance Tests/Deviations/Treatment Pt's balance is much improved : from previous session. Pt continues to have some tremors and is unsteady with FWW. M5 PT-IP Objective Assessments Start: 08/31/22 11:26 Freq: NEEDED Status: Active Protocol: Document 08/31/22 09:30 AB (Rec: 08/31/22 11:41 AB [id number]) Orientation Orientation/Cognition Level of Alertness Confusional State Orientation Name,Situation Language Function Ability Hard of Hearing Safety Awareness Decreased Safety Awareness Memory Description Short Term Impaired Gross Range of Motion Lower Extremity ROM Assessment Within Functional Limits Strength Lower Extremity Strength Hip 4-/5 Knee 4-/5 Other Assessments Other Other Assessments (+) overall body tremors: more evident on BUE M6 PT-IP Treatment Start: 08/31/22 11:26 Freq: NEEDED Status: Active Protocol: Document 09/08/22 12:48 TS (Rec: 09/08/22 13:07 [id number]) Physical Therapy Treatment Education Education Provided Safety M7 PT-IP Assessment and Plan Start: 08/31/22 11:26 Freq: NEEDED Status: Active Protocol: Document 09/08/22 12:48 TS (Rec: 09/08/22 13:07 TS [id number]) PT Summary Assessment and Plan Potential Rehabilitation Potential Fair Summary Impairments Pain,ROM,Strength,Balance, Coordination,Sensation,Tone, Cognition,Bed Mobility, Transfers,Gait,Activity Tolerance Progress Towards Goals Progressing Toward Goals Assessment Summary Pt is progressing well with his mobility this session. He is much more alert and motivated to work with PT today with encouragment, continues to have cervical pain. He requires Dulce for all bed mobility and requires Max cueing for sequencing of logroll/supine to sit. His standing balance has improved but does continue to retrolean , improves with cues. He progressed his ambulation to ~ 30' Dulce/Dulce x2 for cues of FWW management and steps sequencing. He continues to be unsteady and has tremors decreasing his balance. PT continues to recommend SNF at this time to progress functional mobility and activity tolerance. Goals Bed Mobility Goal Standby Assistance Transfer Goal Minimal Assistance,Front Wheeled Walker Gait Goal Minimal Assistance,Front Wheel Walker Gait Distance 25 Other Goals improve transfers and ambulation using FWW SBA 100 ft up/down 4 steps 1 rail SBA Days to Meet Goals 10 Frequency of Treatment Frequency Of Treatment Once a Day Treatment Plan Physical Therapy Treatment Plan Bed Mobility Training,Transfer Training,Gait Training, Therapeutic Exercise,Balance Retraining,Discharge Planning, Hot or Cold Pack,Neuromuscular Re-ed,Coordination Retraining ,Manual Therapy Other Recommendations and Next Treatment Continue to progress bed Focus mobility, sit to stands and transfers. Precautions Other Precautions falls Recommendations To Nursing Amount of Assist Needed 2 Person Assist Discharge Recommendations PT Discharge Recommendations SNF Rehab Transportation Needs at Discharge Wheelchair/Cabulance
--- NOTE | 2022-09-08 11:48 | OT.IP.TRT ---
Current Diagnoses Anterior displaced Type II dens fracture, initial encounter for closed fracture (08/31/22) Occupational Therapy Treatment Note M2 OT-IP Current Condition Start: 08/31/22 12:47 Freq: Status: Active Protocol: Document 08/31/22 10:11 [facility] (Rec: 08/31/22 13:08 [facility] [id number]) Occupational Therapy Current Condition Current Condition Evaluation Date 08/31/22 Treatment Diagnosis Non displaces type 2 odontoid fx Diagnosis Onset Date 08/31/22 Post Operative Precautions Cervical Spine Precautions Rigid Collar,No Heavy Lifting, Log Roll M3 OT- IP Subjective and Pain Start: 08/31/22 12:47 Freq: Status: Active Protocol: Document 09/08/22 11:40 [facility] (Rec: 09/08/22 12:40 [facility] [id number]) OT- Subjective Occupational Therapy Visit Type Type Treatment Note Visit Start Time 11:30 Visit Stop Time 11:48 Total Visit Minutes 8 Notes Pt seen with TAXI PROPRIETOR due to pt needing extensive skilled assist for mobility needs. Occupational Therapy Visit Comments Patient Comments Case management and TAXI PROPRIETOR present during session. Pt agreeable to try to get up. Patient/Caregiver Goals To get better and be able to walk again. OT Pain Assessment Pain When Pain Assessed At Rest Pain Present Pain Present Pain Reported Location Neck Intensity 7 Scale Used Numeric (0 - 10) M4 OT- IP ADL's Start: 08/31/22 12:47 Freq: Status: Active Protocol: Document 09/08/22 11:40 [facility] (Rec: 09/08/22 12:40 [facility] [id number]) OT ADL-Grooming General Evaluation Grooming Ability Standby Assistance Areas Needing Assistance Combing/Brushing Hair Comments OT Grooming Comments Pt agreed to brush his hair but not wanting to rinse his mouth out at this time. OT ADL-Dressing Comments OT Dressing Comments Not performed. OT ADL-Toileting General Evaluation Toileting Ability Total Assistance Comments OT Toileting Comments Brasher in place OT ADL-Bathing Comments OT Bathing Comments Pt moving much better today and to consider shower tomorrow if pt willing. M6 OT- IP Functional Cognition Start: 08/31/22 12:47 Freq: Status: Active Protocol: Document 09/08/22 11:40 [facility] (Rec: 09/08/22 12:40 [facility] [id number]) Cognitive Factors Limiting Selfcare Function Cognitive Ability Level of Alertness Alert Patient Orientation Name Attention Span Ability Capable of Focused Attention, Capable of Sustained Attention Ability to Follow Commands Able to Follow One Step Commands Safety Awareness Underestimates Need for Assistance Cognitive Comments Cognitive Assessment Comments Pt needing simple concrete cues to follow. Pt motivated to participate today and wanting to do more after having pt walked around in the room. Pt getting tired at the end and needing two person assist and therefore educated pt to rest for now instead of trying to push himself too much. Pt will greatly benefit from more safety cues and practice for FWW use. M7 OT- IP Mobility and Balance Start: 08/31/22 12:47 Freq: Status: Active Protocol: Document 09/08/22 11:40 [facility] (Rec: 09/08/22 12:40 [facility] [id number]) OT-Transfer Assessment Transfers Transfer Ability Moderate Assistance,1 Person Assistance Comments Mobility Comments Pt when tiring needing two person assist as the FWW get too far in front of him and having difficulty to more his RLE and needing cues to lift up his RLE more in order to take steps. Pt also needing assist to guide the FWW and vc for safety to back the FWW all the way back to the recliner before sitting down. OT- Balance Assessment Sitting Balance and Reactions Static Sitting Balance Ability Good Dynamic Sitting Balance Ability Fair Standing Balance and Reactions Static Standing Balance Ability Fair- Dynamic Standing Balance Ability Poor M9 OT- IP Assessment and Plan Start: 08/31/22 12:47 Freq: Status: Active Protocol: Document 09/08/22 11:40 [facility] (Rec: 09/08/22 12:40 [facility] [id number]) OT Summary Assessment and Plan Potential Rehabilitation Potential Good/Fair Analytic Complexity at Evaluation Moderate Summary OT Impairments Pain,Strength,Balance, Functional Cognition, Functional Mobility,Self- Feeding,Grooming,Dressing, Toileting,Bathing,Toilet Transfers Progress Towards Goals Progressing Toward Goals Assessment Summary Pt much more alert and willing to participate in therapy today . Pt motivated to get better and now willing to go to skilled rehab. Pt able to walk with FWW initially with MODA X 1 and then needing MODA X2 vc for FWW safety, vc to initiate and move his RLE, assist to guide the fww, balance, and make sure the pt not having the FWW too far in front on him. Goals Grooming Goal Independent Dressing Goal Minimal Assistance Toileting Goal Minimal Assistance Bathing Goal Moderate Assistance Toilet Transfer Goal Standby Assistance Shower Transfer Goal Contact Guard Assistance Days to Meet Goals 30 Frequency of Treatment Frequency Of Treatment Once a Day Treatment Plan OT Treatment Plan ADL Training,Functional Cognition Training,Functional Mobility,Patient/Family Education,Discharge Planning Other Treatment Recommendations and Next Transfer to [facility] with MODA X1 Treatment Focus Discharge Recommendations OT Discharge Recommendations SNF Rehab Transportation Needs at Discharge Wheelchair/Cabulance
--- NOTE | 2022-09-08 12:32 | P.PN_ITS ---
Subjective Subjective Date Patient Seen: 09/08/22 Time Patient Seen: 12:00 Interval history: He is eating lunch. He is feeling better than yesterday. Has a headache but this is improved with ibuprofen. Per nursing he worked with therapy today and was stronger than prior eval. I suspect his hesitance to work with therapy previously was combination of confusion from meds initially, and then yesterday significant headache. Exam Vital Signs (past 8 hours): - 09/08/22 05:00 09/08/22 08:00 09/08/22 09:00 Temperature 98.0 F Pulse Rate 77 Respiratory Rate 20 Blood Pressure 143/78 H Pulse Oximetry 95 96 96 Oxygen Delivery Method Room Air Room Air Oxygen Flow Rate 0 Oxygen Delivery Method Room Air Oxygen Flow Rate 0 Narrative Exam Narrative: GEN:? no acute distress HEENT: aspen collar in place CHEST: clear bilaterally CV: regular rate and rhythm NEURO: awake, alert, oriented Objective Labs 09/06/22 08:30 09/06/22 08:30 [facility] Medical History Abscess Acute CVA (cerebrovascular accident) Hepatitis C antibody test positive Heroin abuse Family History Father Cancer Social History household members: none Smoking Status: Current every day smoker alcohol intake: current Assessment & Plan Assessment & Plan narrative: 1. Nondisplaced type 2 odontoid fracture, after fall -continue collar -plan for follow up with ortho/spine as outpatient 2. Alcohol dependence -withdrawals resolved 3. Acute encephalopathy with behavioral disturbances -suspect this was secondary to medicating patient in setting of withdrawal and pain managememnt -opiates and benzos have been significantly reduced and mental status and behavior issues are resolved at this point 4. Headache -ordered for tylenol -add ibuprofen with some improvement 5. Urinary retention -continue colbert for now 6. Weakness -due to above medical issues -improved with holding medications that have caused confusion -suspect he had been hesitant to work with therapy due to pain Dispo: pending placement
--- NOTE | 2022-09-08 15:31 | CM.DPNOTE ---
DCP Note Attended patient's joint therapy visit this morning w/SKIVER BOX TOE Bello and OT Lyndsay, patient willing to participate w/therapies and appears to be making great strides. Patient moving slowly but more alert and states he is motivated to get better and stronger. Patient agreeable to SNF rehab Patient able to walk around the room w/walker and left in chair, neck brace on Emailed all updated notes, including therapy notes, to Sofie at [facility] today, discussed patient's change in cognition and his willingness to participate with therapies. Sofie responds after reviewing w/community health nursing director stating tentative acceptance as long as patient continues to participate w/therapies and does not need 1:1 or addtl administration of ativan Meanwhile, spoke w/[facility] Dara Stone who explains she only does in-home functional assessments (for chcf care) she cannot perform in-hospital or SNF assessments. Asked how this functional assessment can be expedited since patient has been admitted at since 08.31.22 and an expedited request for assessment was faxed last week (?) Bertha researching and will CB w/addtl info, asks not to send an addtl expedited request today Updated Salome Cristina CM Director, who agreed to reach out to [facility] this afternoon to aid in expediting this discharge to SNF. Plan: Anticipate discharge to [facility] SNF for rehab w/ potential for transition to termination clerk care residency under ANGELLA Huff
[2022-09-09] VITALS (8 sets, daily range): BP systolic 126–137; BP diastolic 66–81; PULSE 80–94; RESP 18–19; TEMP 36.1–36.8; O2SAT 92–94
[2022-09-09] MEDS: ACETAMINOPHEN 325 MG TABLET 650 MG PO ×2 (04:41→19:48)
[2022-09-09] MEDS: GABAPENTIN 100 MG CAPSULE PO ×3 (08:06→20:27)
[2022-09-09] MEDS: TAMSULOSIN 0.4 MG CAPSULE PO (08:06)
[2022-09-09] MEDS: FOLIC ACID 1 MG TABLET PO (08:06)
[2022-09-09] MEDS: ENOXAPARIN 40 MG/0.4 ML SYRINGE SUBCUT (08:06)
[2022-09-09] MEDS: MULTIVITAMIN 1 TABLET 1 TAB PO (08:06)
[2022-09-09] MEDS: NICOTINE 21 MG PATCH TOP (08:06)
[2022-09-09] MEDS: SODIUM CHLORIDE 0.9% FLUSH 10 ML IV ×2 (08:07→20:28)
[2022-09-09] MEDS: IBUPROFEN 600 MG TABLET PO ×2 (08:09→16:41)
--- NOTE | 2022-09-09 10:14 | PM.PN.1 ---
Subjective Subjective Interval history: 72-year-old male with alcohol dependence, hepatitis-C, and previous stroke who was admitted with a nondisplaced type 2 odontoid fracture (in an [place] collar) and acute presumed toxic encephalopathy.? Hospital course has been complicated by alcohol w/d w/scores up to 13-14 on 09/03/22, for which he was requiring lorazepam. He showed improvement but on September 05, developed some shaking episodes that staff thought could be seizure. He was given additional doses of lorazepam and on September 06 he was increasingly encephalopathic. Meds were subsequently discontinued including oxycodone and lorazepam. He was dramatically improved by September 07. He began participating in therapy on September 08. He is now receptive to going to shelter for ongoing rehab. He is motivated to participate in therapies. He understands he needs to get back on his feet to be able to live independently. He denies any new complaints. Exam Vital Signs (past 8 hours): - 09/09/22 04:40 09/09/22 06:00 09/09/22 08:40 Temperature 96.9 F L 97.9 F Pulse Rate 81 80 Respiratory Rate 19 18 Blood Pressure 137/66 135/70 Pulse Oximetry 92 92 94 Oxygen Delivery Method Room Air Oxygen Flow Rate 0 Oxygen Delivery Method Room Air Oxygen Flow Rate 0 Narrative Exam Narrative: GEN: Middle-aged male, pleasant, Alert and oriented x 3, NAD HEENT:NC, Face symmetric, Att[place] collar in place CHEST: Respiratory excursions symmetric, CTAB CV: RRR, no M/R/G ABD: Soft, NT/ND, BT present in all 4 quadrants, no organomegaly or masses EXTR: warm, well perfused, no C/C/E SKIN: warm and dry, no rash NEURO: Alert and oriented x 3, nonfocal Objective Labs 09/06/22 08:30 09/06/22 08:30 [facility], [facility] Medical History Abscess Acute CVA (cerebrovascular accident) Hepatitis C antibody test positive Heroin abuse Family History Father Cancer Social History household members: none Smoking Status: Current every day smoker alcohol intake: current Assessment & Plan Assessment & Plan narrative: 1. Nondisplaced type 2 odontoid fracture after mechanical fall Continue aspen collar for C-spine protection.? Patient denies any dysphagia. He remains stable overall. He is motivated to continue with therapies and to get further rehab. 2. Alcohol dependence with withdrawal Continue multivitamin.? At this time, I do not believe he has any risk for ongoing withdrawal.? He is cognitively back to baseline. 3. Acute toxic/metabolic encephalopathy Resolved. It appears this was iatrogenic from oxycodone and lorazepam..? 4. Urinary retention Brashre catheter discontinued this morning. Will monitor for urinary retention. Remains on tamsulosin. Resolved issues: Lactic acidosis (likely d/t hypovolemia from alcohol intoxication) Acute toxic/metabolic encephalopathy Code status Full Prophylaxis On Lovenox Disposition He is medically clear to transfer to [facility] once they have accepted him. Surrogate decision maker: Torrey Bond, brother
--- NOTE | 2022-09-09 10:37 | OT.IP.TRT ---
Current Diagnoses Anterior displaced Type II dens fracture, initial encounter for closed fracture (08/31/22) Occupational Therapy Treatment Note M2 OT-IP Current Condition Start: 08/31/22 12:47 Freq: Status: Active Protocol: Document 08/31/22 10:11 [facility] (Rec: 08/31/22 13:08 [facility] [id number]) Occupational Therapy Current Condition Current Condition Evaluation Date 08/31/22 Treatment Diagnosis Non displaces type 2 odontoid fx Diagnosis Onset Date 08/31/22 Post Operative Precautions Cervical Spine Precautions Rigid Collar,No Heavy Lifting, Log Roll M3 OT- IP Subjective and Pain Start: 08/31/22 12:47 Freq: Status: Active Protocol: Document 09/09/22 10:37 [facility] (Rec: 09/09/22 11:12 [facility] [id number]) OT- Subjective Occupational Therapy Visit Type Type Treatment Note Visit Start Time 10:37 Visit Stop Time 11:00 Total Visit Minutes 23 Occupational Therapy Visit Comments Patient Comments Pt agreed to get up. Patient/Caregiver Goals To get better and be able to care for himself. OT Pain Assessment Pain When Pain Assessed At Rest Pain Present Pain Present Pain Reported Location Neck Intensity 7 Scale Used Numeric (0 - 10) M4 OT- IP ADL's Start: 08/31/22 12:47 Freq: Status: Active Protocol: Document 09/09/22 10:37 [facility] (Rec: 09/09/22 11:12 [facility] [id number]) OT [id number] Comments OT Self-Feeding Comments not at meal time OT ADL-Grooming General Evaluation Grooming Ability Standby Assistance Comments OT Grooming Comments Pt able to wash his face after set-up. OT ADL-Oral Care Comments Oral Care Comments Pt not wanting to do at this time. OT ADL-Dressing General Eval Lower Body Dressing Ability Standby Assistance,Maximum Assistance Comments OT Dressing Comments Able to educated pt to use the fire captain and sock aid to improve his independence for LB dressing needs. OT ADL-Toileting Comments OT Toileting Comments Pt not having to go and states went earlier. OT ADL-Bathing Comments OT Bathing Comments Not performed. M6 OT- IP Functional Cognition Start: 08/31/22 12:47 Freq: Status: Active Protocol: Document 09/09/22 10:37 [facility] (Rec: 09/09/22 11:12 [facility] [id number]) Cognitive Factors Limiting Selfcare Function Cognitive Ability Level of Alertness Alert Patient Orientation Name Attention Span Ability Capable of Focused Attention, Capable of Sustained Attention Ability to Follow Commands Able to Follow One Step Commands Memory Description Short Term Impaired Cognitive Comments Cognitive Assessment Comments Pt doing better today and working on recalling sequence for safety coming up to stand via scoot forwards , hands on the armrest, feet back , and push up to stand up. Pt at the end of the session improving from remembering 0-75% of the steps . Pt states he is motivated to get better and be able to care for himself again. Pt able to assist to take the pillow cases on his pillow and needing cues for orientation to get a new pillow case back on. M7 OT- IP Mobility and Balance Start: 08/31/22 12:47 Freq: Status: Active Protocol: Document 09/09/22 10:37 [facility] (Rec: 09/09/22 11:12 [facility] [id number]) OT-Transfer Assessment Sit to and From Stand Sit to and from Stand Standby Assistance,Contact Guard Assistance Comments Mobility Comments Pt able to come to stand with close SBA to CGA now and min cues for sequencing for safety to be able to stand. OT- Balance Assessment Sitting Balance and Reactions Static Sitting Balance Ability Good Dynamic Sitting Balance Ability Good Standing Balance and Reactions Static Standing Balance Ability Fair Dynamic Standing Balance Ability Poor M8 OT- IP Objective Assessments Start: 08/31/22 12:47 Freq: Status: Active Protocol: Document 08/31/22 10:11 [facility] (Rec: 08/31/22 13:08 [facility] [id number]) OT Gross Range of Motion Upper Extremity Range of Motion ROM Impairments grossly WFL OT Strength Comments Strength Comments BUE elbow to distal 4/5 OT-Muscle Tone Assessment Muscle Tone WNL No Comments Muscle Tone Comments Pt has bilateral hand tremors. M9 OT- IP Assessment and Plan Start: 08/31/22 12:47 Freq: Status: Active Protocol: Document 09/09/22 10:37 [facility] (Rec: 09/09/22 11:12 [facility] [id number]) OT Summary Assessment and Plan Potential Rehabilitation Potential Good Analytic Complexity at Evaluation Moderate Summary OT Impairments Pain,Strength,Balance, Functional Cognition, Functional Mobility,Self- Feeding,Grooming,Dressing, Toileting,Bathing,Toilet Transfers Progress Towards Goals Progressing Toward Goals Assessment Summary Pt doing better to recall steps for transitioning from sit to/ from standing to FWW, able to assist to change the pillow cases on the bed, and use of his BUE to throw the pillow cases in the laundry after several attempts . Pt now able to walk with FWW with one person assist. Pt will greatly benefit from skilled rehab and willing and motivated to go. Goals Grooming Goal Independent Dressing Goal Independent Toileting Goal Independent Bathing Goal Standby Assistance Toilet Transfer Goal Independent Shower Transfer Goal Standby Assistance Days to Meet Goals 29 Frequency of Treatment Frequency Of Treatment Once a Day Treatment Plan OT Treatment Plan ADL Training,Functional Cognition Training,Functional Mobility,Patient/Family Education,Discharge Planning Other Treatment Recommendations and Next shower Treatment Focus Discharge Recommendations OT Discharge Recommendations SNF Rehab Transportation Needs at Discharge Wheelchair/Cabulance
--- NOTE | 2022-09-09 10:37 | PT.IPTN ---
Current Diagnoses Anterior displaced Type II dens fracture, initial encounter for closed fracture (08/31/22) Physical Therapy Treatment Note M2 PT-IP Current Condition Start: 08/31/22 11:26 Freq: NEEDED Status: Active Protocol: Document 08/31/22 09:30 [facility] (Rec: 08/31/22 11:41 [facility] [id number]) Physical Therapy Current Condition Current Condition Evaluation Date 08/31/22 Treatment Diagnosis GLF; odontoid fx; acute encephalopathy due to ETOH; difficulty in walking Onset Date 08/31/22 M3 PT-IP Subjective Start: 08/31/22 11:26 Freq: NEEDED Status: Active Protocol: Document 09/09/22 10:24 [facility] (Rec: 09/09/22 12:23 [facility] [id number]) Subjective Physical Therapy Visit Type Type Treatment Note Visit Start Time 10:24 Visit Stop Time 10:37 Total Visit Minutes 13 Notes Co-treat with OT. Number of FINE ARTS MODEL Visits 3 Physical Therapy Visit Comments Patient Comments Pt agreeable to work with therapy. Therapy Pain Assessment Location Head Intensity 3 Scale Used Numeric (0 - 10) Description Aching M4 PT-IP Mobility and Gait Start: 08/31/22 11:26 Freq: NEEDED Status: Active Protocol: Document 09/09/22 10:24 [facility] (Rec: 09/09/22 12:23 [facility] [id number]) PT-Bed Mobility Assessment Supine to Sit Supine to Sit Contact Guard Assistance,1 Person Assistance Scooting Scooting to Edge of Bed Contact Guard Assistance PT-Transfer Assessment Sit to and From Stand Sit to and from Stand Minimal Assistance,1 Person Assistance,Use of Upper Extremities Equipment Transfer Assistive Device Front Wheeled Walker Orthotic/Prosthetic Devices or Brace: Yes Transfers Transfer Destination Chair Transfer Technique ambulated Transfer Ability Level of Assist Minimal Assistance,1 Person Assistance,Use of Upper Extremities Comments Mobility Comments Pt in bed upon arrival, CGA for sup<>sit and scooting EOB. Pt Min A for sit<>stand w/ FWW and cues for weight shifting as he tends to lean posteriorly. Pt ambulated ~20 ft w/ FWW Min A and cues for FWW mgmt, transferred to chair and completed LE exercises including ankle pumps, quad sets, glute sets, and seated marching followed by 3x sit<> Stands w/ FWW and Min A w/ cues for sequencing, heels back, and hand placement. Pt left w/ OT. Gait Assessment Gait Gait Assistance Required: Minimum Assistance,1 Person Assist Distance (Feet) 20 Able to Maintain Weight Bearing Status Yes During Gait Assistive Devices Assistive Device Gait Belt,Front Wheeled Walker Orthotic/Prosthetic Devices or Brace: Yes Gait Deviations General Gait Pattern Ataxic,Decreased Stride Length ,Decreased Feet Clearance,Step -to Gait,Wide Based Gait Factors Limiting Gait Function Factors Limiting Gait Function Decreased Activity Tolerance, Decreased Strength,Difficulty Following Directions, Incoordination,Limited Range of Motion,Pain,Poor Balance, Poor Safety Awareness Comments Gait Comments Decreased stride, shuffling gait, vc to stay inside FWW especially when turning. PT-Balance Assessment Sitting Balance and Reactions Static Sitting Balance Ability Good Dynamic Sitting Balance Ability Fair Standing Balance and Reactions Static Standing Balance Ability Fair Dynamic Standing Balance Ability Poor Device Used FWW M5 PT-IP Objective Assessments Start: 08/31/22 11:26 Freq: NEEDED Status: Active Protocol: Document 08/31/22 09:30 [facility] (Rec: 08/31/22 11:41 [facility] [id number]) Orientation Orientation/Cognition Level of Alertness Confusional State Orientation Name,Situation Language Function Ability Hard of Hearing Safety Awareness Decreased Safety Awareness Memory Description Short Term Impaired Gross Range of Motion Lower Extremity ROM Assessment Within Functional Limits Strength Lower Extremity Strength Hip 4-/5 Knee 4-/5 Other Assessments Other Other Assessments (+) overall body tremors: more evident on BUE M6 PT-IP Treatment Start: 08/31/22 11:26 Freq: NEEDED Status: Active Protocol: Document 09/09/22 10:24 [facility] (Rec: 09/09/22 12:23 [facility] [id number]) Physical Therapy Treatment Exercises Exercises Ankle Pumps,Gluteal Sets,Quad Sets Education Education Provided Safety Other Treatments Other Treatment Performed Seated marching, STS M7 PT-IP Assessment and Plan Start: 08/31/22 11:26 Freq: NEEDED Status: Active Protocol: Document 09/09/22 10:24 [facility] (Rec: 09/09/22 12:23 [facility] [id number]) PT Summary Assessment and Plan Potential Rehabilitation Potential Good Summary Impairments Pain,ROM,Strength,Balance, Coordination,Sensation,Tone, Cognition,Bed Mobility, Transfers,Gait,Activity Tolerance Progress Towards Goals Progressing Toward Goals Assessment Summary Pt improved w/ motivation and mobility this treatment. CGA for bed mobility, Min A for transfers and ambulation w/ FWW but still requires frequent cues for safety and proper technique and FWW mgmt. Able to participate w/ LE exercises and practiced sit<> Stands to improve carryover for proper technique. Pt continues to be limited by poor balance, weakness, and poor safety awareness and will require SNF to improve functional mobility independence. Goals Bed Mobility Goal Standby Assistance Transfer Goal Minimal Assistance,Front Wheeled Walker Gait Goal Minimal Assistance,Front Wheel Walker Gait Distance 25 Other Goals improve transfers and ambulation using FWW SBA 100 ft up/down 4 steps 1 rail SBA Days to Meet Goals 10 Frequency of Treatment Frequency Of Treatment Once a Day Treatment Plan Physical Therapy Treatment Plan Bed Mobility Training,Transfer Training,Gait Training, Therapeutic Exercise,Balance Retraining,Discharge Planning, Hot or Cold Pack,Neuromuscular Re-ed,Coordination Retraining ,Manual Therapy Other Recommendations and Next Treatment Continue to progress bed Focus mobility, sit to stands and transfers. Precautions Other Precautions falls Recommendations To Nursing Amount of Assist Needed 2 Person Assist Discharge Recommendations PT Discharge Recommendations SNF Rehab Transportation Needs at Discharge Wheelchair/Cabulance
--- NOTE | 2022-09-09 15:21 | CM.DPNOTE ---
Called [facility] and spoke to Tanya Barillas for 1400 pickup to [facility] on September 10. Samantha Sigala CM Management Assistant.
--- NOTE | 2022-09-09 15:40 | CM.DPNOTE ---
DCP Note Discharge to [facility] Tuesday 6..23 via BLS at 1400. Need to update patient JW
--- NOTE | 2022-09-09 15:59 | DIET.CONS2 ---
Dietary Inpatient Consultation Note Admission Date: 08/31/2022 09:55 71 y/o M with a history of hepatitis-C, IV drug use, ETOH abuse, homelessness admitted to the hospital with head injury and fall. Reports use of food assistance with food card. States he lives on the porch of a friend's house and eats two meals per day there. Reports breakfast as eggs and waffles or pancakes and dinner as lasagna or sandwiches. Wt hx: 03/04/2021: 70.3kg (-6.4% in 3 months) 01/17/2021: 72.6kg (-9.4% in 5 months) 09/09/2022: 72.5kg Per chart review, pt with low BMI for age but has maintained his weight x18mo. Pts POs over the past 4 days have been excellent. Recc stable living arrangement to support pts nutrition status and food security. Diet: 08/31/22 Breakfast Heart Healthy Diet Diet Modifications: Nutrition Percent Meal Consumed 90% 09/09/22 09:54 Percent Meal Consumed 100% 09/08/22 17:51 Percent Meal Consumed 60% 09/08/22 12:59 Percent Meal Consumed 100% 09/08/22 09:16 Percent Meal Consumed 100% 09/07/22 18:13 Electronically Signed by: Smitha Camarillo 09/09/22 15:59 Clinical Dietitian [address] [address]
[2022-09-10] VITALS: O2SAT 94
[2022-09-10 04:00] VITALS: O2SAT 95
[2022-09-10] MEDS: IBUPROFEN 600 MG TABLET PO ×2 (05:00→10:51)
[2022-09-10] MEDS: ACETAMINOPHEN 325 MG TABLET 650 MG PO ×2 (05:00→10:50)
[2022-09-10 05:33] VITALS: BP 140/77; PULSE 82; RESP 17; TEMP 36.2; O2SAT 93
[2022-09-10 08:31] VITALS: BP 148/76; PULSE 71; RESP 16; TEMP 36.2; O2SAT 95
--- NOTE | 2022-09-10 09:23 | P.DS_ITS ---
History of Present Illness History of Present Illness Chief complaint: Fall-head injury- ETOH on thinners Narrative: 72M with PMH alcohol abuse, cva, hepatitis C, cva who presents to the hospital with a fall. He has a history of heroin abuse as well but denies currently using. He has a history of endocarditis previously as well. He is on multiple medications but does not seem to be adherent to them. He drinks significantly at least a fifth every couple days. His last drink was earlier today. He has no recollection of the fall. He is unclear if he had a head? strike. He has presented before after a fall and has had rib fractures. He appears somewhat confused when I see him, but does have elevated EtOH level. In the ED workup was done, vitals notable for afebrile, heart rate 80s, blood pressure 150s/70s, sats 96% on room air. Labs reviewed by me and notable for WBC 7.5, hgb 14.6, plts 411. BUN 15, creatinine 0.83. Lactate 4.1. CK 864. Trop negative. EtOH 291. Procal 0.07. UA negative. UDS negative. He did have urinary retention in the ED and had straight cath, he had urinary retention on the floor and had colbert ordered. Chext xray reviewed by me and not acute process. CT c- spine showed nondisplaced type 2 odontoid fracture, he had c-collar placed. Neurosurgery was consulted and recommended follow up as outpatient. CT head showed no acute process. Discharge Providers Provider Date of admission: 08/31/22 09:55 Discharge Date: 09/10/22 Primary care physician: Doctor Neil MD Consults: 08/31/22 02:53 Consult to Occupational Therapy Evaluate & Treat Comment: Physician Instructions: Evaluate and treat Consult to Physical Therapy Evaluate & Treat Comment: Physician Instructions: Evaluate and Treat 08/31/22 03:59 Consult to Dietitian, Adult Routine Comment: Reason For Exam: homelessness 09/01/22 06:33 Consult to Dietitian, Adult Routine Comment: Reason For Exam: Ricky score = 14 09/05/22 11:33 Consult to Dietitian, Adult Routine Comment: Reason For Exam: Ricky score 15 Discharge provider: Jose Giron MD Summary Hospital Course Discharge Diagnosis: 1. Nondisplaced type 2 odontoid fracture after mechanical fall 2. Alcohol dependence with acute withdrawal 3. Acute toxic/metabolic encephalopathy 4. Acute urinary retention 5. lactic acidosis, resolved 6. History of CVA PROCEDURE:? CT CERVICAL SPINE WO CON ? INDICATIONS:? fall ? TECHNIQUE:? Noncontrast 3 mm thick sections acquired from the skull base to the T4 level.? Sagittal and coronal reformats were then constructed.? For radiation dose reduction, the following was used:? automated exposure control, adjustment of mA and/or kV according to patient size.? ? COMPARISON:? [facility], CT, CT CERVICAL SPINE WO CON, 08/10/2022, 13:47.? [facility], CT, CT CERVICAL SPINE WO CON, 12/03/2021, 18:36. ? FINDINGS:? Image quality:? Excellent.? ? Bones:? There is a nondisplaced fracture at the base of the odontoid process of C2.? Visualized superior ribs are intact.? Moderate to severe multilevel degenerative disc disease and uncovertebral joint and facet hypertrophy.? No high-grade narrowing of the bony spinal canal. ? Soft tissues:? Prevertebral soft tissues are normal in thickness.? No paravertebral hematomas.? No apical pneumothoraces.? Mild centrilobular emphysema. ? IMPRESSION:? Nondisplaced type 2 odontoid fracture. ? Findings were discussed with the referring physician, Dr. Hicks, by telephone on 08/30/2022 at 10:37 PM. Hospital Course: 72-year-old male with alcohol dependence, hepatitis-C, and previous stroke who was admitted with a nondisplaced type 2 odontoid fracture (in an [place] collar) and acute presumed toxic encephalopathy.? Hospital course has been complicated by alcohol w/d w/scores up to 13-14 on 09/03/22, for which he was requiring lorazepam.? He showed improvement but on September 05, developed some shaking episodes that staff thought could be seizure.? He was given additional doses of lorazepam and on September 06 he was increasingly encephalopathic.? Meds were subsequently discontinued including oxycodone and lorazepam.? He was dramatically improved by September 07.? He began participating in therapy on September 08.? He is now receptive to going to [facility] for [facility].? He is motivated to participate in therapies.? He understands he needs to get back on his feet to be able to live independently.? He denies any new complaints. he will need to f/u with spine ortho in clinic (case was discussed with Dr Yumiko Cagle by the ED physician). Exam Vital Signs (past 8 hours): - 09/10/22 04:00 09/10/22 05:33 09/10/22 08:31 Temperature 97.1 F L 97.1 F L Pulse Rate 82 71 Respiratory Rate 17 16 Blood Pressure 140/77 148/76 H Pulse Oximetry 95 93 95 Oxygen Delivery Method Room Air Oxygen Flow Rate 0 0 Oxygen Delivery Method Room Air Oxygen Flow Rate 0 Narrative Exam Narrative: Gen: alert, cooperative, comfortable appearing, neck collar on Lungs: clear Abd: soft, nt Ext: no edema Neuro: speech and affect nl. mentation clear Objective Labs 09/06/22 08:30 09/06/22 08:30 PFS Medical History Abscess Acute CVA (cerebrovascular accident) Hepatitis C antibody test positive Heroin abuse Family History Father Cancer Social History household members: none Smoking Status: Current every day smoker alcohol intake: current Discharge Plan Discharge Plan Patient Disposition: SNF Other facility: [facility] Consult as needed: Dental, Hearing, Mental health, Podiatry and Vision Provider Discharge Comment: You were treated for a Type 2 odontoid fracture. Continue New[place]en neck collar and follow-up with spine ortho in clinic. You also developed urinary retention due to enlarged prostate and were started on tamsulosin. You were treated for alcohol withdrawal. Discharge orders & Medications Prescriptions: New acetaminophen 325 mg Tablet 650 mg PO Q6H PRN (Reason: Fever/Mild Pain (1-3)) Qty: 30 0RF gabapentin 100 mg Capsule 100 mg PO TID Qty: 90 0RF ibuprofen 600 mg Tablet 600 mg PO Q6HR PRN (Reason: Fever/Mild Pain (1-3)) Qty: 30 0RF multivitamin with folic acid [Tab-A-Jessica] 400 mcg Tablet 1 tab PO DAILY Qty: 30 0RF nicotine 21 mg/24 hr Patch 24 Hour 21 mg topical DAILY Qty: 28 0RF tamsulosin [Flomax] 0.4 mg Capsule 0.4 mg PO DAILY Qty: 30 0RF Follow up/Referrals: Yumiko Cagle MD [Physician] - Discharge Health Status Multidrug resistant organism: No MDRO Precautions: [place] Diet/Activity/Treatments Diet: Regular Liquid consistency: Normal/Thin Food texture: Regular [facility] Rehab type: Physical therapy and Occupational therapy Visit Report/Discharge Packet Stand Alone Forms: Patient Portal/API Discharge Data Primary Care Provider: Miscellaneous,Doctor
[2022-09-10] MEDS: ENOXAPARIN 40 MG/0.4 ML SYRINGE SUBCUT (09:37)
[2022-09-10] MEDS: TAMSULOSIN 0.4 MG CAPSULE PO (09:37)
[2022-09-10] MEDS: FOLIC ACID 1 MG TABLET PO (09:37)
[2022-09-10] MEDS: MULTIVITAMIN 1 TABLET 1 TAB PO (09:37)
[2022-09-10] MEDS: GABAPENTIN 100 MG CAPSULE PO ×2 (09:37→14:05)
[2022-09-10] MEDS: NICOTINE 21 MG PATCH TOP (09:38)
[2022-09-10] MEDS: SODIUM CHLORIDE 0.9% FLUSH 10 ML IV (09:39)
[2022-09-10 09:55] VITALS: O2SAT 96
--- NOTE | 2022-09-10 11:35 | PT.IPTN ---
Current Diagnoses Anterior displaced Type II dens fracture, initial encounter for closed fracture (08/31/22) Physical Therapy Treatment Note M2 PT-IP Current Condition Start: 08/31/22 11:26 Freq: NEEDED Status: Active Protocol: Document 08/31/22 09:30 AB (Rec: 08/31/22 11:41 AB [id number]) Physical Therapy Current Condition Current Condition Evaluation Date 08/31/22 Treatment Diagnosis GLF; odontoid fx; acute encephalopathy due to ETOH; difficulty in walking Onset Date 08/31/22 M3 PT-IP Subjective Start: 08/31/22 11:26 Freq: NEEDED Status: Active Protocol: Document 09/10/22 12:18 TS (Rec: 09/10/22 12:30 TS [email or web address]) Subjective Physical Therapy Visit Type Type Treatment Note Visit Start Time 11:35 Visit Stop Time 11:46 Total Visit Minutes 11 Number of PULLER THROUGH Visits 4 Physical Therapy Visit Comments Patient Comments Pt agreeable to work with therapy. Therapy Pain Assessment Pain When Pain Assessed At Rest Pain Present Pain Present Pain Reported M4 PT-IP Mobility and Gait Start: 08/31/22 11:26 Freq: NEEDED Status: Active Protocol: Document 09/10/22 12:18 TS (Rec: 09/10/22 12:30 TS [email or web address]) PT-Bed Mobility Assessment Supine to Sit Supine to Sit Contact Guard Assistance,1 Person Assistance Scooting Scooting to Edge of Bed Standby Assistance PT-Transfer Assessment Sit to and From Stand Sit to and from Stand Minimal Assistance,1 Person Assistance Equipment Transfer Assistive Device Front Wheeled Walker Orthotic/Prosthetic Devices or Brace: Yes Comments Mobility Comments Pt found resting in bed, agreeable to PT. Supine to sit with HOB elevated 40D CGA with use of RUE, provided cues for LUE assist into sitting. Sit to stand x1 Dulce for retroleaning, pt braces back of LEs against bed for balance and support. He ambulated in room ~20' Dulce with some tremors and required cues for FWW management. Pt is impulsive to sit on window bench, required cues for pivoting all the way around before sitting. Sit to stand from bench Dulce for retroleaning. Sit to supine SBA with HOB elevated. Pt was left in bed with call light nearby and bed alarm on. Gait Assessment Gait Gait Assistance Required: Minimum Assistance,1 Person Assist Distance (Feet) 20 Able to Maintain Weight Bearing Status Yes During Gait Assistive Devices Assistive Device Gait Belt,Front Wheeled Walker Orthotic/Prosthetic Devices or Brace: Yes Gait Deviations General Gait Pattern Ataxic,Decreased Stride Length ,Decreased Feet Clearance,Step -to Gait,Wide Based Gait Factors Limiting Gait Function Factors Limiting Gait Function Decreased Activity Tolerance, Decreased Strength,Difficulty Following Directions, Incoordination,Limited Range of Motion,Pain,Poor Balance, Poor Safety Awareness Comments Gait Comments Decreased stride, shuffling gait, vc to stay inside FWW especially when turning. PT-Balance Assessment Sitting Balance and Reactions Static Sitting Balance Ability Good Dynamic Sitting Balance Ability Fair Standing Balance and Reactions Static Standing Balance Ability Fair Dynamic Standing Balance Ability Poor Device Used FWW M5 PT-IP Objective Assessments Start: 08/31/22 11:26 Freq: NEEDED Status: Active Protocol: Document 08/31/22 09:30 AB (Rec: 08/31/22 11:41 AB [email or web address]) Orientation Orientation/Cognition Level of Alertness Confusional State Orientation Name,Situation Language Function Ability Hard of Hearing Safety Awareness Decreased Safety Awareness Memory Description Short Term Impaired Gross Range of Motion Lower Extremity ROM Assessment Within Functional Limits Strength Lower Extremity Strength Hip 4-/5 Knee 4-/5 Other Assessments Other Other Assessments (+) overall body tremors: more evident on BUE M6 PT-IP Treatment Start: 08/31/22 11:26 Freq: NEEDED Status: Active Protocol: Document 09/09/22 10:24 KS (Rec: 09/09/22 12:23 KS [id number]) Physical Therapy Treatment Exercises Exercises Ankle Pumps,Gluteal Sets,Quad Sets Education Education Provided Safety Other Treatments Other Treatment Performed Seated marching, STS M7 PT-IP Assessment and Plan Start: 08/31/22 11:26 Freq: NEEDED Status: Active Protocol: Document 09/10/22 12:18 TS (Rec: 09/10/22 12:30 TS [email or web address]) PT Summary Assessment and Plan Potential Rehabilitation Potential Good Summary Impairments Pain,ROM,Strength,Balance, Coordination,Sensation,Tone, Cognition,Bed Mobility, Transfers,Gait,Activity Tolerance Progress Towards Goals Progressing Toward Goals Assessment Summary Pt continues to require motivation to participate in PT. HE was CGA/SBA for bed mobility and required Dulce for sit to stand due to reatroleaning. He ambulated in room with Dulce ~20', continues to require Max cueing for FWW and for safety when turning to sit. PT continues to recommend SNF to progress functional mobility. Goals Bed Mobility Goal Standby Assistance Transfer Goal Minimal Assistance,Front Wheeled Walker Gait Goal Minimal Assistance,Front Wheel Walker Gait Distance 25 Other Goals improve transfers and ambulation using FWW SBA 100 ft up/down 4 steps 1 rail SBA Days to Meet Goals 10 Frequency of Treatment Frequency Of Treatment Once a Day Treatment Plan Physical Therapy Treatment Plan Bed Mobility Training,Transfer Training,Gait Training, Therapeutic Exercise,Balance Retraining,Discharge Planning, Hot or Cold Pack,Neuromuscular Re-ed,Coordination Retraining ,Manual Therapy Other Recommendations and Next Treatment Continue to progress bed Focus mobility, sit to stands and transfers. Precautions Other Precautions falls Recommendations To Nursing Amount of Assist Needed 1 Person Assist Discharge Recommendations PT Discharge Recommendations SNF Rehab Transportation Needs at Discharge Wheelchair/Cabulance
--- NOTE | 2022-09-10 12:11 | CM.DPNOTE ---
DC Note Discharge to [facility] today via BLS transport arranged for 1400. BLS form completed and signed by Dr Giron. Plan reviewed and approved by Sofie at [facility] Discussed with patient is agreeable to plan, patient calling his sister Melissa to update and ask for clothes RN Marifer updated and plans to call nurse to nurse report CM dept claim administrator Samantha coordinating the remainder of this DCP; all completed and signed DC ppk sent to Sofie at [facility], including completed and signed PASRR JW
--- NOTE | 2022-09-10 12:39 | OT.IPNOTE ---
Attempted to see for OT services. Pt states that he would like to shower but that he is leaving soon and would like to wait for lunch. Will hold for today.
[2022-09-10 12:50] VITALS: O2SAT 95
--- NOTE | 2022-09-10 14:33 | PC.NURSE ---
Day shift: Pt left unit via BLS at approx 1445. BLS team has SNF packet. Pt has all personal belongings. Report given to Viji at [facility] at this time as well.
== END 2022-09-10 14:44 | DRG 551 ==
LOC: ED 22:41 → AC 08-31 02:30
PROVIDERS: Family Medicine; Internal Medicine; Admitting Provider Internal Medicine; Emergency Provider Emergency Medicine; Visit Provider Internal Medicine
DX: S12.112A Nondisplaced Type II dens fracture, initial encounter for closed fracture (principal); G92.8 Other toxic encephalopathy; F10.239 Alcohol dependence with withdrawal, unspecified; R33.9 Retention of urine, unspecified; R51.9 Headache, unspecified; T40.2X5A Adverse effect of other opioids, initial encounter; S00.81XA Abrasion of other part of head, initial encounter; T42.4X5A Adverse effect of benzodiazepines, initial encounter; F17.210 Nicotine dependence, cigarettes, uncomplicated; W18.30XA Fall on same level, unspecified, initial encounter; Y90.8 Blood alcohol level of 240 mg/100 ml or more; Z86.73 Personal history of transient ischemic attack (TIA), and cerebral infarction without residual deficits; Z20.822 Contact with and (suspected) exposure to COVID-19
CPT/HCPCS: 36415; 36592; 70450; 71045; 72125; 80048; 80053; 80305; 80320; 81001; 82550; 82553; 82962; 83605; 83690; 83735; 84145; 84484; 85025; 93005; 93010; 96365; 96375; 97110; 97129; 97163; 97166; 97530; 99284; 99285; G0378; J1642; J1650; J1885; J2060; J2270; J2543